=== PATIENT | male | born 1935 | race Caucasian/White ===

== ENCOUNTER → 2018-09-28 | Outpatient (CLI) | payer MEDICARE ==
[2018-09-27 15:16] VITALS: BMI 26.3
[2018-09-28 10:57] VITALS: BP 135/70; PULSE 71; RESP 16
--- NOTE | 2018-09-28 11:30 | P.PAINCN ---
History of Present Illness - Reason for Consult Consult date: 09/28/18 - History of Present Illness This is a 83 years old male with a three-month history of severe neck pain with radiation to the upper extremity, associated with numbness and tingling sensation up to the hands bilaterally, the pain is constant and increases with any activity especially neck movement, interfering with his quality of life, the pain is worse at night, he denies any fever or night sweats he denies any change in the bowel movement or urination, he denies any motor or sensory deficit, but he feels his upper extremity weaker than usual, and he had difficulty moving his shoulders. His currently using Neurontin 300 mg twice a day and he used [place] 5/325 when necessary Past Medical History Past Medical History: COPD, GERD/Reflux Additional Past Medical History / Comment(s): shoulder pain. rheumatoid arthritis. 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 and 50% other carotid artery History of Any Multi-Drug Resistant Organisms: None Reported Past Surgical History: Back Surgery, Hernia Repair, Orthopedic Surgery, Tonsillectomy Additional Past Surgical History / Comment(s): back surgery x2, rik hand surgery Past Anesthesia/Blood Transfusion Reactions: No Reported Reaction Past Psychological History: No Psychological Hx Reported Smoking Status: Former smoker Past Alcohol Use History: Rare Additional Past Alcohol Use History / Comment(s): quit 1972, smoked 20 years 1/2 -1 ppd Past Drug Use History: None Reported - Past Family History Mother Family Medical History: Cancer Father Additional Family Medical History / Comment(s): "black lung" Sister(s) Family Medical History: Cancer Medications and Allergies Home Medications Medication Instructions Recorded Confirmed Type Clopidogrel [Plavix] 75 mg PO DAILY 09/27/18 09/27/18 History Pantoprazole Sodium [Protonix] 40 mg PO DAILY 09/27/18 09/28/18 History Tamsulosin [Flomax] 0.4 mg PO BID 09/27/18 09/27/18 History Gabapentin [Neurontin] 300 mg PO TID 09/28/18 09/28/18 History HYDROcodone/APAP 5-325MG [[place] 1 tab PO DAILY PRN 09/28/18 09/28/18 History 5-325] Allergies Allergy/AdvReac Type Severity Reaction Status Date / Time No Known Allergies Allergy Verified 09/28/18 10:43 Physical Exam Vitals: Vital Signs Pulse Resp BP Pulse Ox 09/28/18 10:47 71 16 135/70 97 Intake and Output 09/27/18 09/28/18 09/28/18 22:59 06:59 14:59 Other: Weight 85.729 kg Social history : not smoker , NO ETOH , NO Illegal drugs use . Review of Systems : 1- Constitutional : no chills , no fever , no night sweats , 2- Ears : no ear discharge , no change in hearing 3-Nose, Mouth ,Throat ; no bleeding gums, no sore throat , no epistaxis , 4-Cardiovascular : Denies chest pain, , no orthopnea , no palpitation 5-Respiratory : Denies cough , no dyspnea , no hemoptysis 6-Gastrointestinal :, no change in bowel habits , no coffee- ground emesis . 7-Genitourinary : No hematuria , no discharge , no incontinence, 8-Musculoskeletal : No gait dysfunction , report low back pain , 9- Neurological : no ataxia , no tremor , no sezure , 10-Psychatric , no suicidal ideation no hallucination 11- Endocrine : no cold intolerence , no polyuria , no polydypsia , 12-Hematologic : no easy bleeding , no easy brusing , 13-Allergic / immunology : no angioedema , no wheezing ,no allergic rhinitis 14-Integumentary : no brttle nails , no change hair / nails , no foot/leg ulcers . Physical Examinations : 1-Constitutional : Cooperative , not in acute distress . 2-HEENT : nech ; supple , no Lymphadenopathy , no Thyromegaly , :eyes , no icterus, no photophobia . ENT : , normal oropharynx , no Thrush 3- Respiratory : Chest clear to auscultations Bilaterally , no wheezing 4- Cardiovascular : regular rate and rhythem , S1 , S2 , no S3 , no S4. 5- Gastrointestinal: abdomen soft no tenderness , no organomegally . 6- Genitourinary : Defferred . 7-Integumentary : No cellulitis , no ulcers , normal skin turgor , no cyanotic . 8- neurologic : Cranial nerve II to XII intact , no focal neurological deffecit 9-psychatric : alert , oriented X 3 , appropriate affect , intact judgment and insight . 10-Lymphatic : no Lymphadenopathy. 11- musculoskeltal: normal gait Cervical Spine motor stregnth in the deltoid and biceps, normal right side , normal Left side motor stregnth biceps and the wrist extensors normal right side ,normal left side . motor stregnth in the triceps muscle . normal Right side , normal Left side deep tendon reflexes normal at the biceps , normal at Brachioradialis , normal at triceps. positive cervical facet loading test . Shoulder examination= limited ability to abduct the upper extremity bilaterally Limited ability to external rotation of the shoulders bilaterally. Severe pain in the shoulder area with any shoulder manipulation Lumber spine moter stegnth lower extremities ,thigh and legs 5/5 Right side , 5/5 Left side Results Comments: MRI of the cervical spine multilevel cervical degenerative disc disease and multilevel cervical facet arthropathy and there is cervical foraminal stenosis at C3 4 bilaterally Assessment and Plan Plan: Assessment and plan=1 cervical radiculopathy. 2-cervical degenerative disc disease. 3-cervical spondylosis Bilateral shoulder arthralgia. Patient should continue on his current medication Neurontin 300 mg 3 times a day , [place] 5/325 every 6 hours when necessary Patient denies any side effect of the medication , he denies any excessive drowsiness or sleepiness. Patient could benefit from cervical epidural steroid injections under fluoroscopy guidance. Patient has his Plavix for 1 week before the procedure. Patient will be referred for orthopedic surgeon for evaluation regarding bilateral shoulder pain Time with Patient: Greater than 30 PQRS Measure Charge Sheet Measure #130: Documentation of Current Meds in Medical Chart: Patient's medications documented in chart Measure #226: Tobacco Use: Screen & Cessation Intervention: Pt not a tobacco user Measure #111: Pneumonia Vaccination: Pneumococcal vaccine administered or previously received Measure #47: Advance Care Plan: Advance care planning discussed & documented, pt chose/unable to give Measure #412: Opioid Treatment Agreement: No documentation of signed opioid treatment agreement Measure #408: Opioid Therapy Follow-up Evaluation: Patient had NO f/u eval minimum every 3 months during opioid therapy Measure #317: Preventitive Care & Scrn High Bld Press & F/U: Normal blood pressure, f/u not required Measure #128: Body Mass Index (BMI) Screening & Follow-up: BMI documented ABOVE normal parameters - f/u documented Measure #131: Pain Assessment & Follow-up: Pain positive & plan documented, Follow-up scheduled Measure #431: Unhealthy Alcohol Use Preventative Care & Scrn: Patient not identified as an unhealthy alcohol user PQRS Narrative: Smoking Status Former smoker Do You Want the Pneumonia Vaccine Up to Date Vaccine AT THIS TIME? Blood Pressure 135/70 Pain Intensity [Bilateral 7 Shoulder] Scale Used Numeric (1 - 10) Hx Alcohol Use (MH) No Home Medications: Ambulatory Orders Clopidogrel [Plavix] 75 mg PO DAILY 09/27/18 Pantoprazole Sodium [Protonix] 40 mg PO DAILY 09/27/18 Tamsulosin [Flomax] 0.4 mg PO BID 09/27/18 Gabapentin [Neurontin] 300 mg PO TID 09/28/18 HYDROcodone/APAP 5-325MG [[place] 5-325] 1 tab PO DAILY PRN 09/28/18
== END ==
LOC: PNWHC3 10:39
PROVIDERS: ATTEND Specialist
DX: M50.10 Cervical disc disorder with radiculopathy, unspecified cervical region (principal); M47.22 Other spondylosis with radiculopathy, cervical region; M25.512 Pain in left shoulder; M25.511 Pain in right shoulder; Z79.899 Other long term (current) drug therapy; Z79.891 Long term (current) use of opiate analgesic; Z87.891 Personal history of nicotine dependence
CPT/HCPCS: 99211

== ENCOUNTER 2018-10-10 08:55 | Day surgery (SDC) | payer MEDICARE ==
[2018-10-06 11:19] VITALS: BMI 26.2
[2018-10-10 10:08] VITALS: RESP 16; TEMP 97.2
[2018-10-10] MEDS ORDERED: LACTATED RINGERS 1,000 ML IV ONE (10:12)
[2018-10-10] MEDS ORDERED: LIDOCAINE 1% 20 ML VIAL (10MG/ML) FOR IV START INTRADERMA ONE (10:12)
--- NOTE | 2018-10-10 10:28 | P.PCN ---
Date of Procedure: 10/10/18 Procedure(s) Performed: . PROCEDURE 1. Cervical epidural steroid injection under fluoroscopic guidance, C7-T1 2. Cervical epidurogram. PREOPERATIVE DIAGNOSIS: 1- Cervical Degenerative Disc Diseases 2- Cervical radiculopathy. 3-cervical spondylosis with cervical Facet arthropathy without myelopathy POSTOPERATIVE DIAGNOSIS: : 1- Cervical Degenerative Disc Diseases , 2- Cervical radiculopathy. 3-cervical spondylosis with cervical Facet arthropathy without myelopathy ANESTHESIA: Local anesthesia with lidocaine 1 % , and moderate sedation, with Versed 1 mg. EBL 0 PROCEDURE INDICATION: The patient with neck pain and radiculitis unresponsive to conservative treatment consents for procedure. PROCEDURE DESCRIPTION / TECHNIQUE: The patient was seen and identified in the preoperative area. Risks, benefits, complications, including but not limited to infections ,bleeding , allergic reactions to the medications ,and not complete pain releife, and alternatives were discussed with the patient, the patient agreed to proceed with the procedure and signed the consent. Patient was taken to the OR and time out was completed. The patient was placed in the prone position on the procedure table. A pillow was placed under the patients chest to increase the cervical interlaminar space. The cervical area was prepped and draped in the usual sterile fashion. Vital signs were closely monitored during the procedure. Conscious sedation was used during the procedure to decrease patients anxiety. Using anterior-posterior fluoroscopy, the C7-T1 interlaminar space was identified and the skin over this site was marked and then infiltrated with 1% lidocaine subcutaneously. Subsequently, a 20-gauge 3-1/2-inch Tuohy epidural needle was inserted and advanced toward the epidural space by means of the `` hanging-drop technique and guided by AP and lateral fluoroscopy. The correct needle position in the epidural space was verified with the injection of 2 mL of the water soluble contrast dye Isovue-200 and observing an excellent epidurogram with the epidural spread of the dye, after negative aspiration for blood and CSF and in the absence of paresthesias. Again after negative aspiration, mixture containing 20 mg Dexamethasone and 2 ml of preservative- free normal saline injected and a washout of epidurogram was seen. Needle was withdrawn intact, skin was cleansed, and bandages were applied. Complications= none. Disposition= patient was placed in supine position and transferred to the recovery room area in stable condition and there was no evidence of upper or lower extremity motor or sensory deficit after the procedure patient was discharged from recovery room after discharge criteria met and home discharge instructions was given by the staff and patient will follow with the pain clinic in 2-4 weeks
[2018-10-10 10:49] VITALS: BP 108/68; PULSE 74
[2018-10-10] MEDS ORDERED: IV FLUID CONTINUATION 1,000 ML IV ONE (10:51)
--- NOTE | 2018-10-11 09:42 | FL ---
Fluoroscopy HISTORY: Pain 8 seconds fluoroscopy time supplied to the referring clinician. 1 intraoperative C-arm images docume nt the procedure. See dictated report from anesthesia.
== END 2018-10-10 11:00 | disposition home or self-care (01) ==
LOC: ORPAIN 08:55
PROVIDERS: ATTEND Specialist
DX: M47.22 Other spondylosis with radiculopathy, cervical region (principal); M50.13 Cervical disc disorder with radiculopathy, cervicothoracic region; J44.9 Chronic obstructive pulmonary disease, unspecified; K21.9 Gastro-esophageal reflux disease without esophagitis; M06.9 Rheumatoid arthritis, unspecified; I65.29 Occlusion and stenosis of unspecified carotid artery; M25.512 Pain in left shoulder; M25.511 Pain in right shoulder; Z87.891 Personal history of nicotine dependence; Z79.02 Long term (current) use of antithrombotics/antiplatelets; Z79.899 Other long term (current) drug therapy
CPT/HCPCS: 62321; J2250; J1100; Q9966

== ENCOUNTER → 2020-03-08 | Outpatient (CLI) | payer MEDICARE ==
--- NOTE | 2020-03-08 13:21 | CT ---
EXAMINATION TYPE: CT chest w con DATE OF EXAM: 03/08/2020 COMPARISON: None HISTORY: Abnormal lung lafleur, difficulty breathing. CT DLP: 452.2 mGycm Automated exposure control for dose reduction was used. CONTRAST: CT scan of the chest is performed with IV Contrast, patient injected with 80 mL of Isovue M300. FINDINGS: LUNGS: The lungs are grossly clear, there is no concerning parenchymal mass or nodule identified. T here is no pleural effusion or pneumothorax seen. The tracheobronchial tree is patent. Biapical pleu ral thickening. Subsegmental consolidation most typical of atelectasis. MEDIASTINUM: There are no greater than 1 cm hilar or mediastinal lymph nodes. No pericardial effusi on is seen. Heart size is prominent. Trace of pericardial fluid noted. OTHER: Small hiatal hernia. Coronary artery calcification noted. Atherosclerotic change aorta. Calcif ication upper pole right kidney. Simple appearing renal cysts are noted. Hypertrophic change of the s pine. IMPRESSION: 1. Subsegmental areas of consolidation most typical of atelectasis 2. Coronary artery dense calcification. 3. Nonobstructing right renal stone suspected renal cysts.
== END | disposition home or self-care (01) ==
LOC: RADCTMAIN 11:52
PROVIDERS: ATTEND Internal Medicine Critical Care Medicine
DX: J98.11 Atelectasis (principal); I25.10 Atherosclerotic heart disease of native coronary artery without angina pectoris; R91.8 Other nonspecific abnormal finding of lung field
CPT/HCPCS: 82565; 84520; 71260; 36415; Q9967

== ENCOUNTER 2020-07-13 10:02 | Observation (INO) | payer MEDICARE ==
[2020-07-13] MEDS ORDERED: SODIUM CHLORIDE 0.9% 1,000 ML IV STA (10:31)
[2020-07-13 11:05] LABS: Basophils % (A) 1 %; Eosinophils # (A) 0.1 k/uL (0-0.7); Eosinophils % (A) 2 %; HCT 40.6 % (39.0-53.0); HGB 13.5 gm/dL (13.0-17.5); Lymphocytes # (A) 0.6 k/uL (1.0-4.8); Lymphocytes % (A) 15 %; MCH 29.9 pg (25.0-35.0); MCHC 33.2 g/dL (31.0-37.0); MCV 90.3 fL (80.0-100.0); Mean Platelet Volume 7.8; Monocytes # (A) 0.2 k/uL (0-1.0); Monocytes % (A) 5 %; Neutrophils # (A) 2.8 k/uL (1.3-7.7); Neutrophils % (A) 74 %; RDW 13.2 % (11.5-15.5); WBC 3.8 k/uL (3.8-10.6)
[2020-07-13 11:09] LABS: Partial Thromboplastin Time 23.1 sec (22.0-30.0); Prothrombin Time 10.1 sec (9.0-12.0)
--- NOTE | 2020-07-13 11:09 | XR ---
EXAMINATION TYPE: XR chest 2V DATE OF EXAM: 07/13/2020 CLINICAL HISTORY: Weakness. TECHNIQUE: Frontal and lateral view of the chest. COMPARISON: None FINDINGS: The cardiomediastinal silhouette is within normal limits for size. Pulmonary vasculature i s normal. There is no focal air space opacity, pleural effusion, or pneumothorax seen. Degenerative c hanges of the shoulders and spine. IMPRESSION: No acute cardiopulmonary process.
[2020-07-13 11:11] LABS: Albumin 3.2 g/dL (3.5-5.0); Calcium 8.7 mg/dL (8.4-10.2); Magnesium 1.9 mg/dL (1.6-2.3); Potassium 3.9 mmol/L (3.5-5.1); Total Bilirubin 0.6 mg/dL (0.2-1.3); Total Protein 5.9 g/dL (6.3-8.2)
--- NOTE | 2020-07-13 11:13 | ED ---
General Adult HPI - General Source: patient, RN notes reviewed Mode of arrival: ambulatory Limitations: no limitations <Blas Chávez - Last Filed: 07/13/20 12:07> <Samir Rowland - Last Filed: 07/13/20 12:27> - General Chief complaint: Weakness Stated complaint: cough,not feeling well Time Seen by Provider: 07/13/20 10:16 - History of Present Illness Initial comments: This is a 85-year-old male presents emergency Department with chief complaint of increasing weakness, fever. Patient reportedly is having a fever for last several days T-max 103. Patient has been steadily declining over the last 7 days. Patient finished a course of steroids 7 days ago. Patient has underlying COPD. Patient currently sees Dr. Campos. Patient still has residual cough, shortness breath and which she gets exertional dyspnea. Patient denies sick contact. Denies sore throat, headache or dizziness no back pain no dysuria or hematuria no abdominal complaints. Patient had multiple recent fall secondary to his weakness. (Blas Chávez) - Related Data Home Medications Medication Instructions Recorded Confirmed Clopidogrel [Plavix] 75 mg PO DAILY 09/27/18 10/10/18 Pantoprazole Sodium [Protonix] 20 mg PO DAILY PRN 09/27/18 10/10/18 Tamsulosin [Flomax] 0.4 mg PO BID 09/27/18 10/10/18 Gabapentin [Neurontin] 300 mg PO TID 09/28/18 10/10/18 HYDROcodone/APAP 5-325MG [[place] 1 tab PO DAILY PRN 09/28/18 10/10/18 5-325] Allergies Allergy/AdvReac Type Severity Reaction Status Date / Time No Known Allergies Allergy Verified 07/13/20 10:12 Review of Systems ROS Other: All systems not noted in ROS Statement are negative. <Blas Chávez - Last Filed: 07/13/20 12:07> ROS Other: All systems not noted in ROS Statement are negative. <Samir Rowland - Last Filed: 07/13/20 12:27> ROS Statement: Those systems with pertinent positive or pertinent negative responses have been documented in the HPI. 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 and 50% rt carotid artery, History of Any Multi-Drug Resistant Organisms: None Reported Past Surgical History: Back Surgery, Hernia Repair, Orthopedic Surgery, Tonsillectomy Additional Past Surgical History / Comment(s): back laminectomy x2, rik hand surgery from injuries, tx varicose veins rik legs, rik cataracts Past Anesthesia/Blood Transfusion Reactions: No Reported Reaction Past Psychological History: No Psychological Hx Reported Smoking Status: Former smoker, Never smoker Past Alcohol Use History: Rare Past Drug Use History: None Reported - Past Family History Mother Family Medical History: Cancer Additional Family Medical History / Comment(s): bowel and ovarian Father Family Medical History: Cancer Additional Family Medical History / Comment(s): "black lung" Sister(s) Family Medical History: Cancer Additional Family Medical History / Comment(s): ovarian <Blas Chávez - Last Filed: 07/13/20 12:07> General Exam Limitations: no limitations General appearance: alert, in no apparent distress Head exam: Present: atraumatic, normocephalic, normal inspection Eye exam: Present: normal appearance, PERRL, EOMI. Absent: scleral icterus, conjunctival injection, periorbital swelling ENT exam: Present: normal exam, normal oropharynx, mucous membranes moist Neck exam: Present: normal inspection, full ROM. Absent: tenderness, meningismus, lymphadenopathy Respiratory exam: Present: normal lung sounds bilaterally. Absent: respiratory distress, wheezes, rales, rhonchi, stridor Cardiovascular Exam: Present: normal rhythm, bradycardia, normal heart sounds. Absent: systolic murmur, diastolic murmur, rubs, gallop, clicks GI/Abdominal exam: Present: soft, normal bowel sounds. Absent: distended, tenderness, guarding, rebound, rigid <Blas Chávez - Last Filed: 07/13/20 12:07> Course <Samir Rowland - Last Filed: 07/13/20 12:27> Vital Signs 07/13/20 07/13/20 07/13/20 10:10 11:12 12:12 Temperature 98.8 F Pulse Rate 58 L 73 73 Respiratory 18 16 16 Rate Blood Pressure 92/55 121/58 116/61 O2 Sat by Pulse 94 L 95 95 Oximetry - Reevaluation(s) Reevaluation #1: 07/13/20 12:27 Page supervision: I did personally evaluate this case patient presenting with complaints of fever weakness of falls exertional dyspnea. Patient is awake and alert however. Patient will be admitted the case was discussed with Dr. Vincent (Samir Rowland) Medical Decision Making - Lab Data Result diagrams: 07/13/20 10:52 07/13/20 10:52 <Blas Chávez - Last Filed: 07/13/20 12:07> - Lab Data Result diagrams: 07/13/20 10:52 07/13/20 10:52 <Samir Rowland - Last Filed: 07/13/20 12:27> - Medical Decision Making 85-year-old presented for hypoxia, exertional dyspnea, jaundice weakness and multiple falls. Patient's workup does not feel any major abnormality so patient has difficult and bleeding. Patient be admitted for further workup patient recent CT at [facility] which showed nodules. Patient was advised that he needed further workup. (Blas Chávez) - Lab Data Lab Results 07/13/20 07/13/20 07/13/20 Range/Units 10:52 10:52 10:52 WBC 3.8 (3.8-10.6) k/uL RBC 4.50 (4.30-5.90) m/uL Hgb 13.5 (13.0-17.5) gm/dL Hct 40.6 (39.0-53.0) % MCV 90.3 (80.0-100.0) fL MCH 29.9 (25.0-35.0) pg MCHC 33.2 (31.0-37.0) g/dL RDW 13.2 (11.5-15.5) % Plt Count 53 L (150-450) k/uL Neutrophils % 74 % Lymphocytes % 15 % Monocytes % 5 % Eosinophils % 2 % Basophils % 1 % Neutrophils # 2.8 (1.3-7.7) k/uL Lymphocytes # 0.6 L (1.0-4.8) k/uL Monocytes # 0.2 (0-1.0) k/uL Eosinophils # 0.1 (0-0.7) k/uL Basophils # 0.0 (0-0.2) k/uL Manual Slide Review Performed PT 10.1 (9.0-12.0) sec INR 1.0 (<1.2) APTT 23.1 (22.0-30.0) sec Sodium 135 L (137-145) mmol/L Potassium 3.9 (3.5-5.1) mmol/L Chloride 106 (98-107) mmol/L Carbon Dioxide 23 (22-30) mmol/L Anion Gap 6 mmol/L BUN 20 (9-20) mg/dL Creatinine 1.13 (0.66-1.25) mg/dL Est GFR (CKD-EPI)AfAm 69 (>60 ml/min/1.73 sqM) Est GFR (CKD-EPI)NonAf 60 (>60 ml/min/1.73 sqM) Glucose 143 H (74-99) mg/dL Plasma Lactic Acid Bret (0.7-2.0) mmol/L Calcium 8.7 (8.4-10.2) mg/dL Magnesium 1.9 (1.6-2.3) mg/dL Total Bilirubin 0.6 (0.2-1.3) mg/dL AST 23 (17-59) U/L ALT 12 (4-49) U/L Alkaline Phosphatase 59 (38-126) U/L Creatine Kinase 26 L (55-170) U/L Troponin I (0.000-0.034) ng/mL Total Protein 5.9 L (6.3-8.2) g/dL Albumin 3.2 L (3.5-5.0) g/dL 07/13/20 07/13/20 Range/Units 10:52 10:52 WBC (3.8-10.6) k/uL RBC (4.30-5.90) m/uL Hgb (13.0-17.5) gm/dL Hct (39.0-53.0) % MCV (80.0-100.0) fL MCH (25.0-35.0) pg MCHC (31.0-37.0) g/dL RDW (11.5-15.5) % Plt Count (150-450) k/uL Neutrophils % % Lymphocytes % % Monocytes % % Eosinophils % % Basophils % % Neutrophils # (1.3-7.7) k/uL Lymphocytes # (1.0-4.8) k/uL Monocytes # (0-1.0) k/uL Eosinophils # (0-0.7) k/uL Basophils # (0-0.2) k/uL Manual Slide Review PT (9.0-12.0) sec INR (<1.2) APTT (22.0-30.0) sec Sodium (137-145) mmol/L Potassium (3.5-5.1) mmol/L Chloride (98-107) mmol/L Carbon Dioxide (22-30) mmol/L Anion Gap mmol/L BUN (9-20) mg/dL Creatinine (0.66-1.25) mg/dL Est GFR (CKD-EPI)AfAm (>60 ml/min/1.73 sqM) Est GFR (CKD-EPI)NonAf (>60 ml/min/1.73 sqM) Glucose (74-99) mg/dL Plasma Lactic Acid Bret 2.0 (0.7-2.0) mmol/L Calcium (8.4-10.2) mg/dL Magnesium (1.6-2.3) mg/dL Total Bilirubin (0.2-1.3) mg/dL AST (17-59) U/L ALT (4-49) U/L Alkaline Phosphatase (38-126) U/L Creatine Kinase (55-170) U/L Troponin I <0.012 (0.000-0.034) ng/mL Total Protein (6.3-8.2) g/dL Albumin (3.5-5.0) g/dL Disposition <Blas Chávez - Last Filed: 07/13/20 12:07> <Samir Rowland - Last Filed: 07/13/20 12:27> Clinical Impression: Exertional dyspnea, Multiple falls, COPD (chronic obstructive pulmonary disease), Hypoxia Disposition: ADMITTED IP TO THIS HOSP Condition: Poor
[2020-07-13 11:46] LABS: Platelet Count 53 k/uL (150-450)
[2020-07-13] MEDS ORDERED: NALOXONE 0.4 MG/ML 1 ML VIAL IV PRN (12:08)
[2020-07-13] MEDS ORDERED: ONDANSETRON 4 MG/2 ML VIAL IVP PRN (12:08)
[2020-07-13] MEDS ORDERED: IPRATROPIUM-ALBUTEROL 3 ML NEB INHALATION PRN (12:09)
[2020-07-13] MEDS ORDERED: HYDROcodone/APAP 5-325MG 1 EACH TAB PO PRN (12:55)
[2020-07-13] MEDS: ACETAMINOPHEN TAB 325 MG TAB PO PRN ×2 (15:12→19:54)
--- NOTE | 2020-07-13 16:00 | ECHOF ---
Referral Reason:Exertional dyspnea MEASUREMENTS -------- HEIGHT: 180.3 cm WEIGHT: 77.1 kg BP: FINDINGS -------- This was a technically good study. The left ventricular size is normal. Left ventricular wall thickness is normal. Overall left vent ricular systolic function is normal with, an EF between 55 - 60 %. The right ventricle is mild to moderately enlarged. The left atrial size is normal. The right atrial size is normal. The aortic valve is trileaflet and appears structurally normal. The mitral valve is normal. There is trace mitral regurgitation. The tricuspid valve appears structurally normal. Trace tricuspid regurgitation present. Right harley tricular systolic pressure is normal at < 35 mmHg. There is no pulmonic regurgitation present. The aortic root size is normal. IVC Not well visulized. There is no pericardial effusion. CONCLUSIONS -------- 1. The left ventricular size is normal. 2. Left ventricular wall thickness is normal. 3. Overall left ventricular systolic function is normal with, an EF between 55 - 60 %. 4. The right ventricle is mild to moderately enlarged. 5. There is trace mitral regurgitation. 6. Trace tricuspid regurgitation present. 7. There is no pericardial effusion. [employer]OR PLATE W[employer]ER: Meena Raines [facility]
--- NOTE | 2020-07-13 16:21 | P.HPIM ---
History of Present Illness H&P Date: 07/13/20 This is a 85-year-old male with complex past medical history noted below significant for coronary artery disease with prior stent placement and underlying COPD presented to the emergency room with shortness of breath. Patient was admitted to Dr. Heredia but per his request was switched to me upon arrival to the floor. Patient was seen by me on the sixth floor. He said that he has been having worsening shortness of breath for the past couple of weeks. He usually follow-up with Dr. Campos for underlying COPD and just recently finished a taper course prednisone. He said that shortness of breath did not improve and last night he went to an emergency room in [place] where he was evaluated and according to his report had a computed tomography scan of the chest that was unremarkable and influenza screen that was negative. Patient was released and went today to a local urgent care who advised him to come to the ER. Patient told me that he is not having any cough at this time. Last week he was having some intermittent cough along with a fever. He denies any fevers or chills today. No headache. No dizziness. No wheezing. No recent sick contact. He told me that his grandson who is an ICU nurse at our hospital encouraged him to come to the ER for evaluation. In the ER, chest x-ray was unremarkable. Patient was noted to have O2 sat of 93% on room air. He was placed on observation for further evaluation. BNP was not obtained in the ER. Twelve-lead EKG showed no acute ischemic changes. Review of Systems Review of system: 14 points review of systems were obtained and were negative except to what were mentioned in the HPI. Past Medical History Past Medical History: COPD, GERD/Reflux, Myocardial Infarction ([place]), Rheumatoid Arthritis ([place]) Additional Past Medical History / Comment(s): 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, [place] at [facility] Last Myocardial Infarction Date:: 10/2018 History of Any Multi-Drug Resistant Organisms: None Reported Past Surgical History: Back Surgery, Heart Catheterization With Stent, Hernia Repair, Orthopedic Surgery, Tonsillectomy Additional Past Surgical History / Comment(s): back laminectomy x2, rik hand surgery from injuries, tx varicose veins rik legs, rik cataracts, pain procedures r/t shoulder pain Past Anesthesia/Blood Transfusion Reactions: No Reported Reaction Date of Last Stent Placement:: 10/2018 Past Psychological History: No Psychological Hx Reported Smoking Status: Former smoker, Never smoker Past Alcohol Use History: Rare Additional Past Alcohol Use History / Comment(s): quit 1972, smoked 20 years 1/2-1 ppd Past Drug Use History: None Reported - Past Family History Mother Family Medical History: Cancer Additional Family Medical History / Comment(s): bowel and ovarian Father Family Medical History: Cancer Additional Family Medical History / Comment(s): "black lung" Sister(s) Family Medical History: Cancer Additional Family Medical History / Comment(s): ovarian Medications and Allergies Home Medications Medication Instructions Recorded Confirmed Type Clopidogrel [Plavix] 75 mg PO DAILY 09/27/18 07/13/20 History Tamsulosin [Flomax] 0.4 mg PO BID 09/27/18 07/13/20 History HYDROcodone/APAP 5-325MG [[place] 1 tab PO BID PRN 09/28/18 07/13/20 History 5-325] Aspirin EC [Ecotrin Low Dose] 81 mg PO DAILY 07/13/20 07/13/20 History Atorvastatin [Lipitor] 40 mg PO HS 07/13/20 07/13/20 History Metoprolol Tartrate 12.5 mg PO BID 07/13/20 07/13/20 History Multivitamins, Thera [Multivitamin 1 tab PO DAILY 07/13/20 07/13/20 History (formulary)] Pantoprazole Sodium [Protonix] 40 mg PO DAILY 07/13/20 07/13/20 History Umeclidinium Brm/Vilanterol Tr 1 puff INHALATION RT-DAILY 07/13/20 07/13/20 History [Anoro Ellipta 62.5-25 Mcg INH] Allergies Allergy/AdvReac Type Severity Reaction Status Date / Time No Known Allergies Allergy Verified 07/13/20 12:38 Physical Exam Vitals: Vital Signs Temp Pulse Pulse Resp BP BP Pulse Ox 07/13/20 13:52 98.0 F 94 18 124/66 93 L 07/13/20 13:00 16 95 07/13/20 12:40 98.8 F 73 16 116/61 95 07/13/20 12:12 73 16 116/61 95 07/13/20 11:12 73 16 121/58 95 07/13/20 10:10 98.8 F 58 L 18 92/55 94 L Intake and Output 07/13/20 07/13/20 07/13/20 06:59 14:59 22:59 Other: Weight 76.5 kg General: The patient is awake and alert, in no distress Eye: there is normal conjunctiva bilaterally. Neck: The neck is supple, there is no JVD. Cardiovascular: Normal S1-S2, no S3-S4, no murmurs. Respiratory: Lungs clear to auscultation bilaterally Gastrointestinal: Abdomen is soft, nontender Musculoskeletal: There is no pedal edema. Neurological:. Speech is normal. Skin: Skin is warm and dry Results CBC & Chem 7: 07/13/20 10:52 07/13/20 10:52 Labs: Abnormal Lab Results - Last 24 Hours (Table) 07/13/20 07/13/20 Range/Units 10:52 10:52 Plt Count 53 L (150-450) k/uL Lymphocytes # 0.6 L (1.0-4.8) k/uL Sodium 135 L (137-145) mmol/L Glucose 143 H (74-99) mg/dL Creatine Kinase 26 L (55-170) U/L Total Protein 5.9 L (6.3-8.2) g/dL Albumin 3.2 L (3.5-5.0) g/dL Assessment and Plan Assessment: This is a 85-year-old male with past medical history noted below who presented to the emergency room with worsening shortness of breath. He is currently placed in observation for further management of his medical problems noted below. 1. Progressive dyspnea, exact etiology unclear. Chest x-ray in the ER unre markable. Lung sounds clear with no wheezing and good air movement. No evidence of heart failure or fluid overload clinically. I would obtain BNP. Coronavirus test sent and pending. 2. Underlying COPD: With no evidence of exacerbation. Continue duo nebs every [address] Campos 3. History of coronary artery disease with prior stent placement: Continue optimal medical management. Cardiology consulted by ER physician. Echocardiogram ordered 4. Chronic medical problems include hyperlipidemia and BPH: Continue home medications 5. DVT prophylaxis with subcu Lovenox 6. Patient is full code, discussed with him at bedside Today, I reviewed his medication list and lab work results. I asked the nurse to obtain medical records from [place] as patient was in the ER yesterday. I asked in particular for computed tomography scan of the chest and influenza A/B resolved. The patient is placed in observation with an anticipated less than 2 midnight stay for evaluation of the medical problems noted above. CODE STATUS: Full code Anticipated discharge date: To be determined based on clinical course Anticipated discharge place: Home A total of 45 minutes was spent on the care of this complex patient more than 50% of the time was spent in counseling and care coordination.
[2020-07-13] MEDS: TAMSULOSIN 0.4 MG CAP.ER.24H PO SCH (19:54)
[2020-07-13] MEDS: ATORVASTATIN 40 MG TAB PO SCH (19:54)
[2020-07-13] MEDS: METOPROLOL TARTRATE 12.5 MG TAB PO SCH (19:54)
[2020-07-13] MEDS ORDERED: IPRATROPIUM-ALBUTEROL 3 ML NEB INHALATION SCH (20:00)
[2020-07-13 23:40] LABS: Appearance,Urine Clear (Clear); Bilirubin,Urine Negative (Negative); Blood,Urine Negative (Negative); Color,Urine Yellow; Glucose,Urine (UA) Negative (Negative); Ketones,Urine Negative (Negative); Leukocyte Esterase,Urine Negative (Negative); Nitrite,Urine Negative (Negative); Protein,Urine Negative (Negative); Specific Gravity,Urine 1.015 (1.001-1.035); Urobilinogen,Urine <2.0 mg/dL (<2.0)
[2020-07-14] MEDS: ACETAMINOPHEN TAB 325 MG TAB PO PRN (04:12)
[2020-07-14] MEDS: ALBUTEROL HFA INHALER INHALATION SCH ×4 (08:03→21:26)
[2020-07-14] MEDS ORDERED: ENOXAPARIN 40 MG/0.4 ML SYRINGE SQ SCH (09:00)
[2020-07-14] MEDS ORDERED: CLOPIDOGREL 75 MG TAB PO SCH (09:00)
[2020-07-14] MEDS: TAMSULOSIN 0.4 MG CAP.ER.24H PO SCH ×2 (10:17→20:58)
[2020-07-14] MEDS: MULTIVITAMINS, THERA 1 EACH TAB PO SCH (10:17)
[2020-07-14] MEDS: ASPIRIN 81 MG PO SCH (10:17)
[2020-07-14] MEDS: METOPROLOL TARTRATE 12.5 MG TAB PO SCH ×2 (10:17→20:57)
[2020-07-14] MEDS: PANTOPRAZOLE 40 MG TABLET PO SCH (10:19)
--- NOTE | 2020-07-14 10:43 | P.CRDCN ---
History of Present Illness Consult date: 07/14/20 History of present illness: This is a 85-year-old gentleman with history of coronary artery disease with stent placement done in [facility]. Apparently it was done in June of last year. Patient has underlying COPD and shortness of breath.. Patient is seen in the emergency room with complaints of increasing shortness of breath. Patient has been having this for the last couple weeks. He was treated with tapering dose of steroids. Apparently his shortness of breath did not improve, and he went to monitor him at [facility] emergency room. He had a computed tomography scan of the chest which was unremarkable. He was sent home. Yesterday patient went to [facility] who recommended him to come to the hospital. Apparently a rapid testing COVID is negative. PCR test is pending. His BNP is normal. His chest x-ray did not show any Sigmund CHF. He is not having any chest pain at this time. His EKG did not reveal any acute changes and most of the information is gathered from the chart and also partly from the nurses. Patient is not personally examined Review of Systems As per the chart Past Medical History Past Medical History: COPD, GERD/Reflux, Myocardial Infarction ([place]), Rheumatoid Arthritis ([place]) Additional Past Medical History / Comment(s): 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, [place] at [facility] Last Myocardial Infarction Date:: 10/2018 History of Any Multi-Drug Resistant Organisms: None Reported Past Surgical History: Back Surgery, Heart Catheterization With Stent, Hernia Repair, Orthopedic Surgery, Tonsillectomy Additional Past Surgical History / Comment(s): back laminectomy x2, rik hand surgery from injuries, tx varicose veins rik legs, rik cataracts, pain procedures r/t shoulder pain Past Anesthesia/Blood Transfusion Reactions: No Reported Reaction Date of Last Stent Placement:: 10/2018 Past Psychological History: No Psychological Hx Reported Smoking Status: Former smoker, Never smoker Past Alcohol Use History: Rare Additional Past Alcohol Use History / Comment(s): quit 1972, smoked 20 years 1/2-1 ppd Past Drug Use History: None Reported - Past Family History Mother Family Medical History: Cancer Additional Family Medical History / Comment(s): bowel and ovarian Father Family Medical History: Cancer Additional Family Medical History / Comment(s): "black lung" Sister(s) Family Medical History: Cancer Additional Family Medical History / Comment(s): ovarian Medications and Allergies Home Medications Medication Instructions Recorded Confirmed Type Clopidogrel [Plavix] 75 mg PO DAILY 09/27/18 07/13/20 History Tamsulosin [Flomax] 0.4 mg PO BID 09/27/18 07/13/20 History HYDROcodone/APAP 5-325MG [[place] 1 tab PO BID PRN 09/28/18 07/13/20 History 5-325] Aspirin EC [Ecotrin Low Dose] 81 mg PO DAILY 07/13/20 07/13/20 History Atorvastatin [Lipitor] 40 mg PO HS 07/13/20 07/13/20 History Metoprolol Tartrate 12.5 mg PO BID 07/13/20 07/13/20 History Multivitamins, Thera [Multivitamin 1 tab PO DAILY 07/13/20 07/13/20 History (formulary)] Pantoprazole Sodium [Protonix] 40 mg PO DAILY 07/13/20 07/13/20 History Umeclidinium Brm/Vilanterol Tr 1 puff INHALATION RT-DAILY 07/13/20 07/13/20 History [Anoro Ellipta 62.5-25 Mcg INH] Allergies Allergy/AdvReac Type Severity Reaction Status Date / Time No Known Allergies Allergy Verified 07/13/20 12:38 Physical Exam Vitals: Vital Signs Temp Pulse Pulse Resp BP BP Pulse Ox 07/14/20 04:41 98.4 F 98 22 113/57 92 L 07/13/20 23:41 20 07/13/20 21:31 100.1 F H 07/13/20 21:19 90 07/13/20 21:06 88 07/13/20 20:20 100.8 F H 92 22 132/68 92 L 07/13/20 16:53 95 07/13/20 13:52 98.0 F 94 18 124/66 93 L 07/13/20 13:00 16 95 07/13/20 12:40 98.8 F 73 16 116/61 95 07/13/20 12:12 73 16 116/61 95 07/13/20 11:12 73 16 121/58 95 Intake and Output 07/13/20 07/14/20 07/14/20 22:59 06:59 14:59 Intake Total 360 240 Output Total 300 Balance 60 240 Intake: Oral 360 240 Output: Urine 300 Other: # Voids 1 # Bowel Movements 1 Patient is not personally examined. Information is gathered from the chart Results - Results Results: EKG showed sinus rhythm. Echo showed normal LV function. BNP level are within normal limits. At this point there doesn't seem to be any acute cardiac issue. We'll seeing him on when necessary basis 07/13/20 10:52 07/13/20 10:52 Cardiac Enzymes 07/13/20 07/13/20 Range/Units 10:52 10:52 AST 23 (17-59) U/L Troponin I <0.012 (0.000-0.034) ng/mL Coagulation 07/13/20 Range/Units 10:52 PT 10.1 (9.0-12.0) sec APTT 23.1 (22.0-30.0) sec CBC 07/13/20 Range/Units 10:52 WBC 3.8 (3.8-10.6) k/uL RBC 4.50 (4.30-5.90) m/uL Hgb 13.5 (13.0-17.5) gm/dL Hct 40.6 (39.0-53.0) % Plt Count 53 L (150-450) k/uL Comprehensive Metabolic Panel 07/13/20 Range/Units 10:52 Sodium 135 L (137-145) mmol/L Potassium 3.9 (3.5-5.1) mmol/L Chloride 106 (98-107) mmol/L Carbon Dioxide 23 (22-30) mmol/L BUN 20 (9-20) mg/dL Creatinine 1.13 (0.66-1.25) mg/dL Glucose 143 H (74-99) mg/dL Calcium 8.7 (8.4-10.2) mg/dL AST 23 (17-59) U/L ALT 12 (4-49) U/L Alkaline Phosphatase 59 (38-126) U/L Total Protein 5.9 L (6.3-8.2) g/dL Albumin 3.2 L (3.5-5.0) g/dL Current Medications Generic Name Dose Route Start Last Admin Trade Name Freq PRN Reason Stop Dose Admin Acetaminophen 650 mg 07/13/20 12:08 07/14/20 04:12 Acetaminophen Tab 325 Mg Tab PO 650 mg Q6HR PRN Administration Mild Pain or Fever > 100.5 Hydrocodone Bitart/Acetaminophen 1 each 07/13/20 12:55 Hydrocodone/Apap 5-325mg 1 Each Tab PO BID PRN Pain Albuterol Sulfate 2 puff 07/14/20 08:00 07/14/20 08:03 Albuterol Hfa Inhaler INHALATION Not Given RT-QID PEGGY Aspirin 81 mg 07/14/20 09:00 07/14/20 10:17 Aspirin 81 Mg PO 81 mg DAILY PEGGY Administration Atorvastatin Calcium 40 mg 07/13/20 21:00 07/13/20 19:54 Atorvastatin 40 Mg Tab PO 40 mg HS PEGGY Administration Clopidogrel Bisulfate 75 mg 07/14/20 09:00 07/14/20 10:18 Clopidogrel 75 Mg Tab PO Not Given DAILY PEGGY Enoxaparin Sodium 40 mg 07/14/20 09:00 07/14/20 10:18 Enoxaparin 40 Mg/0.4 Ml Syringe SQ Not Given DAILY [facility] Metoprolol Tartrate 12.5 mg 07/13/20 21:00 07/14/20 10:17 Metoprolol Tartrate 12.5 Mg Tab PO 12.5 mg BID PEGGY Administration Multivitamins 1 each 07/14/20 09:00 07/14/20 10:17 Multivitamins, Thera 1 Each Tab PO 1 each DAILY PEGGY Administration Naloxone HCl 0.2 mg 07/13/20 12:08 Naloxone 0.4 Mg/Ml 1 Ml Vial IV Q2M PRN Opioid Reversal Ondansetron HCl 4 mg 07/13/20 12:08 Ondansetron 4 Mg/2 Ml Vial IVP Q8HR PRN Nausea And Vomiting Pantoprazole Sodium 40 mg 07/14/20 07:30 07/14/20 10:19 Pantoprazole 40 Mg Tablet PO 40 mg [id number] PEGGY Administration Tamsulosin HCl 0.4 mg 07/13/20 21:00 07/14/20 10:17 Tamsulosin 0.4 Mg Cap.Er.24h PO 0.4 mg BID PEGGY Administration Intake and Output 07/13/20 07/14/20 07/14/20 22:59 06:59 14:59 Intake Total 360 240 Output Total 300 Balance 60 240 Intake: Oral 360 240 Output: Urine 300 Other: # Voids 1 # Bowel Movements 1 07/13/20 10:52 07/13/20 10:52
[2020-07-14 12:43] LABS: Basophils % (A) 1 %; Eosinophils # (A) 0.1 k/uL (0-0.7); Eosinophils % (A) 2 %; HCT 37.5 % (39.0-53.0); HGB 12.7 gm/dL (13.0-17.5); Lymphocytes # (A) 0.7 k/uL (1.0-4.8); Lymphocytes % (A) 17 %; MCHC 33.7 g/dL (31.0-37.0); MCV 89.1 fL (80.0-100.0); Mean Platelet Volume 9.4; Monocytes # (A) 0.3 k/uL (0-1.0); Monocytes % (A) 7 %; Neutrophils # (A) 2.8 k/uL (1.3-7.7); Neutrophils % (A) 69 %; RBC 4.21 m/uL (4.30-5.90); RDW 13.2 % (11.5-15.5)
[2020-07-14 12:47] LABS: Platelet Count 30 k/uL (150-450)
--- NOTE | 2020-07-14 13:20 | P.CNPUL ---
History of Present Illness Consult date: 07/14/20 Requesting physician: Oleg Lira Reason for consult: dyspnea Chief complaint: Fever, weakness, shortness of breath with exertion History of present illness: This is a very pleasant 85-year-old gentleman who follows with Dr. Reynolds as his primary care provider. He has a history of hyperlipidemia, history esophageal reflux disease, carotid artery stenosis with 100% occlusion of the left and 50% in the right, rheumatoid arthritis, former smoker, schreiber. He follows with Dr. Campos in our office. He is on Anoro, albuterol in the outpatient setting. He has been having ongoing issues with increasing shortness of breath on exertion, cough congestion fever with a T-max of 103. He had been seen and evaluated at [facility]. He was treated with antibiotics and discharged home. He has had several CoVID 19 tests that have been reported negative. He had also been treated with steroids by Dr. Campos which she completed last . On Wednesday he developed increasing shortness of breath again. He redeveloped fever. He presented here for the same yesterday. Covid 19 screen pending. Chest x-ray reveals no acute cardiopulmonary process. White count 4.0. Hemoglobin 12.7. Platelet count 30,000. Lymphocytes 0.7. Sodium 135. Potassium 3.9. Glucose 143. Creatinine 1.13. ProBNP 424. Troponin negative 1. He is seen today in consultation. He is awake and alert. Up ambulating in the room. He denies any worsening shortness of breath however he states he is still quite dyspneic with minimal exertion. Currently afebrile. Hemodynamically stable. Maintaining O2 saturation 90% on room air. 92% on 3 L. Review of Systems REVIEW OF SYSTEMS: CONSTITUTIONAL: Generalized weakness, fatigue. Fevers. Denies any recent significant weight loss or weight gain. EYES: Denies change in vision. EARS, NOSE, MOUTH, THROAT: Denies headaches, denies sore throat. CARDIOVASCULAR: Denies chest pain, palpitations or syncopal episodes. RESPIRATORY: Positive for shortness of breath, cough, congestion no hemoptysis. GASTROINTESTINAL: Denies change in appetite, denies abdominal pain GENITOURINARY: Denies hematuria, denies infections. MUSKULOSKELETAL: Denies pain, denies swelling. INTEGUMENTARY: Denies rash, denies eczema. NEUROLOGICAL: Denies recent memory loss, no recent seizure activity. PSYCHIATRIC: Denies anxiety, denies depression. HEMATOLOGIC/LYMPHATIC: Denies anemia, denies enlarged lymph nodes. Past Medical History Past Medical History: COPD, GERD/Reflux, Myocardial Infarction ([place]), Rheumatoid Arthritis ([place]) Additional Past Medical History / Comment(s): 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, [place] at [facility] Last Myocardial Infarction Date:: 10/2018 History of Any Multi-Drug Resistant Organisms: None Reported Past Surgical History: Back Surgery, Heart Catheterization With Stent, Hernia Repair, Orthopedic Surgery, Tonsillectomy Additional Past Surgical History / Comment(s): back laminectomy x2, rik hand surgery from injuries, tx varicose veins rik legs, rik cataracts, pain procedures r/t shoulder pain Past Anesthesia/Blood Transfusion Reactions: No Reported Reaction Date of Last Stent Placement:: 10/2018 Past Psychological History: No Psychological Hx Reported Smoking Status: Former smoker, Never smoker Past Alcohol Use History: Rare Additional Past Alcohol Use History / Comment(s): quit 1972, smoked 20 years 1/2-1 ppd Past Drug Use History: None Reported - Past Family History Mother Family Medical History: Cancer Additional Family Medical History / Comment(s): bowel and ovarian Father Family Medical History: Cancer Additional Family Medical History / Comment(s): "black lung" Sister(s) Family Medical History: Cancer Additional Family Medical History / Comment(s): ovarian Medications and Allergies Home Medications Medication Instructions Recorded Confirmed Type Clopidogrel [Plavix] 75 mg PO DAILY 09/27/18 07/13/20 History Tamsulosin [Flomax] 0.4 mg PO BID 09/27/18 07/13/20 History HYDROcodone/APAP 5-325MG [[place] 1 tab PO BID PRN 09/28/18 07/13/20 History 5-325] Aspirin EC [Ecotrin Low Dose] 81 mg PO DAILY 07/13/20 07/13/20 History Atorvastatin [Lipitor] 40 mg PO HS 07/13/20 07/13/20 History Metoprolol Tartrate 12.5 mg PO BID 07/13/20 07/13/20 History Multivitamins, Thera [Multivitamin 1 tab PO DAILY 07/13/20 07/13/20 History (formulary)] Pantoprazole Sodium [Protonix] 40 mg PO DAILY 07/13/20 07/13/20 History Umeclidinium Brm/Vilanterol Tr 1 puff INHALATION RT-DAILY 07/13/20 07/13/20 History [Anoro Ellipta 62.5-25 Mcg INH] Allergies Allergy/AdvReac Type Severity Reaction Status Date / Time No Known Allergies Allergy Verified 07/13/20 12:38 Physical Exam Vitals: Vital Signs Temp Pulse Pulse Resp BP Pulse Ox 07/14/20 12:00 98.9 F 72 18 111/60 90 L 07/14/20 04:41 98.4 F 98 22 113/57 92 L 07/13/20 23:41 20 07/13/20 21:31 100.1 F H 07/13/20 21:19 90 07/13/20 21:06 88 07/13/20 20:20 100.8 F H 92 22 132/68 92 L 07/13/20 16:53 95 07/13/20 13:52 98.0 F 94 18 124/66 93 L Intake and Output 07/13/20 07/14/20 07/14/20 22:59 06:59 14:59 Intake Total 360 240 Output Total 300 Balance 60 240 Intake: Oral 360 240 Output: Urine 300 Other: # Voids 1 # Bowel Movements 1 GENERAL EXAM: Alert, very pleasant 85-year-old gentleman, on 3 L nasal cannula, comfortable in no apparent distress. HEAD: Normocephalic. EYES: Normal reaction of pupils, equal size. NOSE: Clear with pink turbinates. THROAT: No erythema or exudates. NECK: No masses, no JVD. CHEST: No chest wall deformity. LUNGS: Equal air entry with no crackles, wheeze, rhonchi or dullness. CVS: S1 and S2 normal with no audible murmur, regular rhythm. ABDOMEN: No hepatosplenomegaly, normal bowel sounds, no guarding or rigidity. SPINE: No scoliosis or deformity SKIN: No rashes CENTRAL NERVOUS SYSTEM: No focal deficits, tone is normal in all 4 extremities. EXTREMITIES: There is no peripheral edema. No clubbing, no cyanosis. Pe ripheral pulses are intact. Results - Laboratory Findings CBC and BMP: 07/14/20 12:33 07/13/20 10:52 PT/INR, D-dimer PT 10.1 sec (9.0-12.0) 07/13/20 10:52 INR 1.0 (<1.2) 07/13/20 10:52 Abnormal lab findings: Abnormal Labs 07/13/20 07/13/20 07/14/20 10:52 10:52 12:33 RBC 4.21 L Hgb 12.7 L Hct 37.5 L Plt Count 53 L 30 L Lymphocytes # 0.6 L 0.7 L Sodium 135 L Glucose 143 H Creatine Kinase 26 L Total Protein 5.9 L Albumin 3.2 L - Diagnostic Findings Chest x-ray: image reviewed Assessment and Plan Assessment: 1 Febrile illness of unknown origin. Previous outpatient CoVID 19 screens were negative. He had been recently on antibiotics from [facility]. Repeat testing pending 2 Dyspnea on exertion, cough and fever possible acute exacerbation of COPD with acute tracheobronchitis. CT angiogram performed at [facility] ruled out pulmonary embolism 3 Recent admission to [facility] for suspected pneumonia 4 Thrombocytopenia of unclear etiology. Current platelet count 30,000 5 Rheumatoid arthritis 6 Carotid stenosis. 7 Esophageal reflux disease Plan: The patient was seen and evaluated by Dr. Bobby Chest x-ray and labs reviewed Consult hematology regarding thrombocytopenia, possible ITP Initiate IV Solu-Medrol Initiate ceftriaxone Continue bronchodilators Covid 19 screen pending Continue isolation precautions We will continue to follow and make further recommendations based on his clinical status I, the cosigning physician, performed a history & physical examination of the patient. Lungs sounds are clear. Maintaining good O2 saturations in the 90s on 2 L/m per nasal cannula. I discussed the assessment and plan of care with my nurse practitioner, Lisa Murphy. I attest to the above consultation as dictated by her. Time with Patient: Greater than 30
--- NOTE | 2020-07-14 13:28 | P.PN ---
Subjective Progress Note Date: 07/14/20 Patient is feeling well today. He denies any shortness of breath. No acute events overnight reported by nursing staff. Objective - Vital Signs Vital signs: Vital Signs Temp 98.9 F 07/14/20 12:00 Pulse 72 07/14/20 12:00 Resp 18 07/14/20 12:00 BP 111/60 07/14/20 12:00 Pulse Ox 90 L 07/14/20 12:00 Intake & Output 07/13/20 07/14/20 07/14/20 18:59 06:59 18:59 Intake Total 600 Output Total 100 200 Balance -100 400 Weight 76.5 kg Intake: Oral 600 Output: Urine 100 200 Other: # Voids 1 # Bowel Movements 1 - Exam General: The patient is awake and alert, in no distress Eye: there is normal conjunctiva bilaterally. Neck: The neck is supple, there is no JVD. Cardiovascular: Normal S1-S2, no S3-S4, no murmurs. Respiratory: Lungs clear to auscultation bilaterally Gastrointestinal: Abdomen is soft, nontender Musculoskeletal: There is no pedal edema. Neurological:. Speech is normal. Skin: Skin is warm and dry - Labs CBC & Chem 7: 07/14/20 12:33 07/13/20 10:52 Labs: Abnormal Lab Results - Last 24 Hours (Table) 07/14/20 Range/Units 12:33 RBC 4.21 L (4.30-5.90) m/uL Hgb 12.7 L (13.0-17.5) gm/dL Hct 37.5 L (39.0-53.0) % Plt Count 30 L (150-450) k/uL Lymphocytes # 0.7 L (1.0-4.8) k/uL Assessment and Plan Assessment: This is a 85-year-old male with past medical history noted below who presented to the emergency room with worsening shortness of breath. He is currently placed in observation for further management of his medical problems noted below. 1. Progressive dyspnea, exact etiology unclear. Chest x-ray in the ER un remarkable. Lung sounds clear with no wheezing and good air movement. No evidence of heart failure or fluid overload clinically. BNP is normal and echocardiogram showed preserved ejection fraction with no significant valvular abnormality. Coronavirus test sent and pending. 2. Underlying COPD: With possible mild exacerbation. Seen by pulmonology. Started on IV steroids. IV ceftriaxone daily for possible bronchitis. Continue duo nebs every 6 hours. 3. Thrombocytopenia: Exact etiology unclear. Hematology consulted for further evaluation. His continue subcu heparin and Plavix. Continue to monitor daily. 4. History of coronary artery disease with prior stent placement: Continue optimal medical management. Cardiology consulted by ER physician. Echocardiogram ordered 5. Chronic medical problems include hyperlipidemia and BPH: Continue home medications 5. DVT prophylaxis with SCD 6. Patient is full code, discussed with him at bedside Today, I reviewed his medication list and lab work results. I asked the nurse to obtain medical records from [facility] medical records disclosed an open tomorrow. I asked in particular for computed tomography scan of the chest and influenza A/B resolved.
[2020-07-14] MEDS: methylPREDNISolone SOD SUCCI 125 MG/2 ML VIAL IV SCH ×3 (13:40→23:53)
[2020-07-14] MEDS: ATORVASTATIN 40 MG TAB PO SCH (20:57)
[2020-07-14] MEDS: SYMBICORT 160-4.5 MCG INHALER INHALATION SCH (21:26)
[2020-07-15] MEDS: methylPREDNISolone SOD SUCCI 125 MG/2 ML VIAL IV SCH ×2 (05:42→11:33)
[2020-07-15 06:17] LABS: Basophils % (A) 0 %; Eosinophils % (A) 0 %; HCT 37.9 % (39.0-53.0); HGB 12.8 gm/dL (13.0-17.5); Lymphocytes # (A) 0.4 k/uL (1.0-4.8); Lymphocytes % (A) 17 %; MCHC 33.9 g/dL (31.0-37.0); MCV 88.6 fL (80.0-100.0); Mean Platelet Volume 9.2; Monocytes # (A) 0.1 k/uL (0-1.0); Monocytes % (A) 3 %; Neutrophils # (A) 1.9 k/uL (1.3-7.7); Neutrophils % (A) 78 %; RBC 4.28 m/uL (4.30-5.90); RDW 13.1 % (11.5-15.5); WBC 2.4 k/uL (3.8-10.6)
[2020-07-15 06:24] LABS: Platelet Count 33 k/uL (150-450)
[2020-07-15] MEDS: ALBUTEROL HFA INHALER INHALATION SCH ×4 (08:26→20:05)
[2020-07-15] MEDS: SYMBICORT 160-4.5 MCG INHALER INHALATION SCH ×2 (08:26→20:06)
[2020-07-15] MEDS: PANTOPRAZOLE 40 MG TABLET PO SCH (08:44)
[2020-07-15] MEDS: METOPROLOL TARTRATE 12.5 MG TAB PO SCH ×2 (08:44→22:05)
[2020-07-15] MEDS: ASPIRIN 81 MG PO SCH (08:44)
[2020-07-15] MEDS: MULTIVITAMINS, THERA 1 EACH TAB PO SCH (08:44)
[2020-07-15] MEDS: TAMSULOSIN 0.4 MG CAP.ER.24H PO SCH ×2 (08:44→22:05)
[2020-07-15 10:15] LABS: African American GFR (CKD) 90.6 (60.0-200.0); Anion Gap 8.7 mmol/L (4.00-12.00); BUN/Creat Ratio 21.11 Ratio (12.00-20.00); Calcium 8.9 mg/dL (8.7-10.3); Carbon Dioxide 21.3 mmol/L (21.6-31.8); Non-African American GFR(CKD) 78.2 (60.0-200.0); Potassium 4.1 mmol/L (3.5-5.5)
[2020-07-15] MEDS: BENZOCAINE/MENTHOL LOZENG 1 EACH LOZENGE MUCOUS MEM PRN ×2 (11:32→23:45)
--- NOTE | 2020-07-15 15:17 | P.PN ---
Subjective Progress Note Date: 07/15/20 Principal diagnosis: Febrile illness, resolved. COVID 19 ruled out This is a very pleasant 85-year-old gentleman who follows with Dr. Reynolds as his primary care provider. He has a history of hyperlipidemia, history esophageal reflux disease, carotid artery stenosis with 100% occlusion of the left and 50% in the right, rheumatoid arthritis, former smoker, schreiber. He follows with Dr. Campos in our office. He is on Anoro, albuterol in the outpatient setting. He has been having ongoing issues with increasing shortness of breath on exertion, cough congestion fever with a T-max of 103. He had been seen and evaluated at [facility]. He was treated with antibiotics and discharged home. He has had several CoVID 19 tests that have been reported negative. He had also been treated with steroids by Dr. Campos which she completed last . On Wednesday he developed increasing shortness of breath again. He redeveloped fever. He presented here for the same yesterday. Covid 19 screen pending. Chest x-ray reveals no acute cardiopulmonary process. White count 4.0. Hemoglobin 12.7. Platelet count 30,000. Lymphocytes 0.7. Sodium 135. Potassium 3.9. Glucose 143. Creatinine 1.13. ProBNP 424. Troponin negative 1. He is seen today in consultation. He is awake and alert. Up ambulating in the room. He denies any worsening shortness of breath however he states he is still quite dyspneic with minimal exertion. Currently afebrile. Hemodynamically stable. Maintaining O2 saturation 90% on room air. 92% on 3 L. On 07/15/2020 patient seen in follow-up on a general medical oncology floor, he is resting comfortably in bed, in no acute distress, his states his breathing has significantly improved, lung sounds are clear to auscultation, he is on room air pulse oximeter 94%, blood pressure stable, his been afebrile, no recurrence of fever since 07/13/2020. On Rocephin for empiric antibiotics coverage. Objective - Vital Signs Vital signs: Vital Signs Temp 97.5 F L 07/15/20 12:51 Pulse 84 07/15/20 12:51 Resp 18 07/15/20 12:51 BP 137/64 11/09/20 12:51 Pulse Ox 94 L 07/15/20 12:51 Intake & Output 07/14/20 07/15/20 07/15/20 18:59 06:59 18:59 Intake Total 650 1370 Balance 650 1370 Intake: Intake, IV Titration 50 Amount cefTRIAXone 1 gm In 50 Sodium Chloride 0.9% 50 ml @ 100 mls/hr IVPB Q24HR [facility] Rx#:[id number] Oral 600 1370 Other: # Voids 1 - Exam GENERAL EXAM: Alert, active, 85-year-old white male on room air with a pulse ox of 94% comfortable in no apparent distress. HEAD: Normocephalic/atraumatic. EYES: Normal reaction of pupils, equal size. Conjunctiva pink, sclera white. NOSE: Clear with pink turbinates. THROAT: No erythema or exudates. NECK: No masses, no JVD, no thyroid enlargement, no adenopathy. CHEST: No chest wall deformity. Symmetrical expansion. LUNGS: Equal air entry with no crackles, wheeze, rhonchi or dullness. CVS: Regular rate and rhythm, normal S1 and S2, no gallops, no murmurs, no rubs ABDOMEN: Soft, nontender. No hepatosplenomegaly, normal bowel sounds, no guarding or rigidity. EXTREMITIES: No clubbing, no edema, no cyanosis, 2+ pulses and upper and lower extremities. MUSCULOSKELETAL: Muscle strength and tone normal. SPINE: No scoliosis or deformity SKIN: No rashes CENTRAL NERVOUS SYSTEM: Alert and oriented -3. No focal deficits, tone is normal in all 4 extremities. PSYCHIATRIC: Alert and oriented -3. Appropriate affect. Intact judgment and insight. - Labs CBC & Chem 7: 07/15/20 05:40 07/15/20 05:40 Labs: Abnormal Lab Results - Last 24 Hours (Table) 07/15/20 07/15/20 Range/Units 05:40 05:40 WBC 2.4 L (3.8-10.6) k/uL RBC 4.28 L (4.30-5.90) m/uL Hgb 12.8 L (13.0-17.5) gm/dL Hct 37.9 L (39.0-53.0) % Plt Count 33 L (150-450) k/uL Lymphocytes # 0.4 L (1.0-4.8) k/uL Carbon Dioxide 21.3 L (21.6-31.8) mmol/L BUN/Creatinine Ratio 21.11 H (12.00-20.00) Ratio Glucose 223 H (70-110) mg/dL Assessment and Plan Plan: Assessment: 1 Febrile illness of unknown origin. Previous outpatient CoVID 19 screens were negative. He had been recently on antibiotics from [facility]. Repeat testing pending 2 Dyspnea on exertion, cough and fever possible acute exacerbation of COPD with acute tracheobronchitis. CT angiogram performed at [facility] ruled out pulmonary embolism 3 Recent admission to [facility] for suspected pneumonia 4 Thrombocytopenia of unclear etiology. Current platelet count 30,000 5 Rheumatoid arthritis 6 Carotid stenosis. 7 Esophageal reflux disease Plan: No acute events overnight, no signs of bleeding, today's lab work has been noted, awaiting hematology consultation, clinically patient has been stable, no breathing issues, no fever or chills, from pulmonary perspective he can be considered for discharge home today he will need outpatient follow-up with Dr. Louie in the office I performed a history & physical examination of the patient and discussed their management with my nurse practitioner, Alicia Rainey. I reviewed the nurse practitioner's note and agree with the documented findings and plan of care. Lung sounds are positive for clear breath sounds. The findings and the impression was discussed with the patient. I attest to the documentation by the nurse practitioner. Time with Patient: Less than 30
--- NOTE | 2020-07-15 15:25 | P.PN ---
Subjective Progress Note Date: 07/15/20 Patient is feeling well today. He denies any shortness of breath. No acute events overnight reported by nursing staff. Objective - Vital Signs Vital signs: Vital Signs Temp 97.5 F L 07/15/20 12:51 Pulse 84 07/15/20 12:51 Resp 18 07/15/20 12:51 BP 137/64 07/15/20 12:51 Pulse Ox 94 L 07/15/20 12:51 Intake & Output 07/14/20 07/15/20 07/15/20 18:59 06:59 18:59 Intake Total 650 1370 Balance 650 1370 Intake: Intake, IV Titration 50 Amount cefTRIAXone 1 gm In 50 Sodium Chloride 0.9% 50 ml @ 100 mls/hr IVPB Q24HR [facility] Rx#:[id number] Oral 600 1370 Other: # Voids 1 - Exam General: The patient is awake and alert, in no distress Eye: there is normal conjunctiva bilaterally. Neck: The neck is supple, there is no JVD. Cardiovascular: Normal S1-S2, no S3-S4, no murmurs. Respiratory: Lungs clear to auscultation bilaterally Gastrointestinal: Abdomen is soft, nontender Musculoskeletal: There is no pedal edema. Neurological:. Speech is normal. Skin: Skin is warm and dry - Labs CBC & Chem 7: 07/15/20 05:40 07/15/20 05:40 Labs: Abnormal Lab Results - Last 24 Hours (Table) 07/15/20 07/15/20 Range/Units 05:40 05:40 WBC 2.4 L (3.8-10.6) k/uL RBC 4.28 L (4.30-5.90) m/uL Hgb 12.8 L (13.0-17.5) gm/dL Hct 37.9 L (39.0-53.0) % Plt Count 33 L (150-450) k/uL Lymphocytes # 0.4 L (1.0-4.8) k/uL Carbon Dioxide 21.3 L (21.6-31.8) mmol/L BUN/Creatinine Ratio 21.11 H (12.00-20.00) Ratio Glucose 223 H (70-110) mg/dL Assessment and Plan Assessment: This is a 85-year-old male with past medical history noted below who presented to the emergency room with worsening shortness of breath. He is currently placed in observation for further management of his medical problems noted below. 1. Progressive dyspnea, now improved. exact etiology unclear. Chest x-ray in the ER unremarkable. CT angiogram [facility] last week was negative for PE. Lung sounds clear with no wheezing and good air movement. No evidence of heart failure or fluid overload clinically. BNP is normal and echocardiogram showed preserved ejection fraction with no significant valvular abnormality. Coronavirus test sent and pending. 2. Underlying COPD: With possible mild exacerbation. Seen by pulmonology. Started on IV steroids which I will switch to oral prednisone starting tomorrow to finish 3 days course. IV ceftriaxone daily for possible bronchitis. Continue duo nebs every 6 hours. 3. Thrombocytopenia and leukopenia: Exact etiology unclear. Hematology consulted for further evaluation. I discontinued subcu heparin and Plavix. Continue to monitor daily. 4. History of coronary artery disease with prior stent placement: Continue optimal medical management. Seen and evaluated by cardiology during this admission. Follow-up as outpatient as directed 5. Chronic medical problems include hyperlipidemia and BPH: Continue home medications 5. DVT prophylaxis with SCD 6. Patient is full code, discussed with him at bedside Today, I reviewed his medication list and lab work results. Medical record from [facility] last week showed platelet count of 130,000. Today down to 30,000. No evidence of ongoing bleed. Awaiting hematology evaluation. Plavix was discontinued during this admission as patient has a stent placed more than a year ago. I discussed the patient's current condition with his grandson, Mo, who is an ICU nurse at our hospital. 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 An informative at this time that Plavix use as risks outweigh the benefits.
[2020-07-15] MEDS: ATORVASTATIN 40 MG TAB PO SCH (22:05)
[2020-07-16 05:47] LABS: Basophils % (A) 0 %; Eosinophils % (A) 0 %; HCT 37.4 % (39.0-53.0); HGB 12.7 gm/dL (13.0-17.5); Lymphocytes # (A) 0.8 k/uL (1.0-4.8); Lymphocytes % (A) 9 %; MCH 30.2 pg (25.0-35.0); MCV 88.9 fL (80.0-100.0); Monocytes # (A) 0.4 k/uL (0-1.0); Monocytes % (A) 4 %; Neutrophils # (A) 7.5 k/uL (1.3-7.7); Neutrophils % (A) 85 %; RDW 13.4 % (11.5-15.5); WBC 8.8 k/uL (3.8-10.6)
[2020-07-16 05:48] LABS: Platelet Count 34 k/uL (150-450)
[2020-07-16] MEDS: ALBUTEROL HFA INHALER INHALATION SCH ×3 (07:41→16:03)
[2020-07-16] MEDS: SYMBICORT 160-4.5 MCG INHALER INHALATION SCH (07:41)
[2020-07-16] MEDS: METOPROLOL TARTRATE 12.5 MG TAB PO SCH (08:28)
[2020-07-16] MEDS: ASPIRIN 81 MG PO SCH (08:28)
[2020-07-16] MEDS: MULTIVITAMINS, THERA 1 EACH TAB PO SCH (08:28)
[2020-07-16] MEDS: PANTOPRAZOLE 40 MG TABLET PO SCH (08:28)
[2020-07-16] MEDS ORDERED: predniSONE 20 MG TAB PO SCH (09:00)
[2020-07-16 09:33] LABS: African American GFR (CKD) 79.7 (60.0-200.0); Anion Gap 8.9 mmol/L (4.00-12.00); Calcium 9.1 mg/dL (8.7-10.3); Carbon Dioxide 25.1 mmol/L (21.6-31.8); Non-African American GFR(CKD) 68.8 (60.0-200.0); Potassium 4.6 mmol/L (3.5-5.5)
[2020-07-16] MEDS: TAMSULOSIN 0.4 MG CAP.ER.24H PO SCH (10:11)
[2020-07-16 12:03] VITALS: BP 181/80; PULSE 81; RESP 19; TEMP 97.6
[2020-07-16 13:13] LABS: Reticulocyte % 2.1 % (0.5-2.0)
--- NOTE | 2020-07-16 13:30 | P.PN ---
Subjective Progress Note Date: 07/16/20 Objective - Vital Signs Vital signs: Vital Signs Temp 97.6 F 07/16/20 12:03 Pulse 81 07/16/20 12:03 Resp 19 07/16/20 12:03 BP 181/80 07/16/20 12:03 Pulse Ox 93 L 07/16/20 12:03 Intake & Output 07/15/20 07/16/20 07/16/20 18:59 06:59 18:59 Intake Total 400 Balance 400 Intake: Oral 400 Other: Voiding Method Toilet # Voids 5 1 # Bowel Movements 0 - Constitutional General appearance: Present: no acute distress - EENT Eyes: Present: PERRLA - Neck Carotids: bilateral: upstroke normal - Respiratory Respiratory: bilateral: diminished - Cardiovascular Rhythm: regular - Gastrointestinal General gastrointestinal: Present: soft - Integumentary Integumentary: Present: normal - Labs CBC & Chem 7: 07/16/20 05:15 07/16/20 05:15 Labs: Abnormal Lab Results - Last 24 Hours (Table) 07/16/20 07/16/20 07/16/20 Range/Units 05:15 05:15 12:24 RBC 4.20 L (4.30-5.90) m/uL Hgb 12.7 L (13.0-17.5) gm/dL Hct 37.4 L (39.0-53.0) % Plt Count 34 L (150-450) k/uL Lymphocytes # 0.8 L (1.0-4.8) k/uL Retic Count 2.1 H (0.5-2.0) % BUN/Creatinine Ratio 23.00 H (12.00-20.00) Ratio Glucose 128 H (70-110) mg/dL Assessment and Plan (1) COPD (chronic obstructive pulmonary disease) Narrative/Plan: COPD with exacerbation with steroids Current Visit: Yes Status: Acute Code(s): J44.9 - CHRONIC OBSTRUCTIVE PULMONARY DISEASE, UNSPECIFIED SNOMED Code(s): 57508812 (2) Exertional dyspnea Narrative/Plan: The patient is not requiring any supplemental oxygen Current Visit: Yes Status: Acute Code(s): R06.00 - DYSPNEA, UNSPECIFIED SNOMED Code(s): 73505260 (3) Pancytopenia Narrative/Plan: The patient continues to house pancytopenia no evidence of bleeding Current Visit: Yes Status: Acute Code(s): D61.818 - OTHER PANCYTOPENIA SNOMED Code(s): 717733275 Plan: Discharge within 24 hours if no additional workup needed and the patient remains medically stable
--- NOTE | 2020-07-16 19:24 | P.DS ---
Providers Date of admission: 07/15/20 09:33 Attending physician: Oleg Lira Consults: 07/13/20 12:09 Consult Physician Urgent Consulting Provider: Kamlesh Bains Consult Reason/Comments: Exertional dyspnea Do you want consulting provider notified?: Yes 07/13/20 16:13 Consult Physician Routine Consulting Provider: Samir Campos Consult Reason/Comments: COPD Do you want consulting provider notified?: Yes 07/15/20 15:21 Consult Physician Routine Consulting Provider: Gianfranco Gonzalez Consult Reason/Comments: pancytopenia Do you want consulting provider notified?: Yes Primary care physician: Mahesh Reynolds - Discharge Diagnosis(es) (1) COPD (chronic obstructive pulmonary disease) The patient completed a course of nebs, steroids, antibiotics and was not treated seemingly any supplemental oxygen at time of discharge Status: Acute (2) Exertional dyspnea Likely secondary to COPD patient is also followed by pulmonary during the hospitalization Status: Acute (3) Pancytopenia The patient was seen by hematology workup was initiated and he will follow-up as an outpatient Status: Acute Hospital Course: The patient is a 85-year-old male with a history of coronary disease prior stent COPD who presented with shortness of breath emergency room. The patient has had multiple negative Campbell test recently. His grandson is a nurse and he was exposed to cold that apparently 16 days prior to admission. The patient prese nted with cough fever he was seen at the outside hospital treated conservatively and discharged home. The emergency room he had an O2 sat of 93% on room air is placed in observation for workup and management. His Hospitalization Patient Was Noted to Be Have Leukopenia and Thrombocytopenia Initially 50 Vent Nadired at 30 on the Day of Discharge a Protocol 34. He Was Seen by Pulmonary and Hematology He Was Treated Conservatively His Dyspnea Resolved He Feels at His Baseline and He'll Be Discharged Outpatient Follow-Up today handedly of discharge patient had a white count of 8.8 improved from a delano of 2.4 and platelet count of 34 nadired at 30 his hemoglobin was 12.7 The patient will follow up with hematology in one week follow-up with his family physician and pulmonary Time spent 32 minutes Patient Condition at Discharge: Good Plan - Discharge Summary Discharge Rx Participant: No New Discharge Prescriptions: No Action Tamsulosin [Flomax] 0.4 mg PO BID Clopidogrel [Plavix] 75 mg PO DAILY HYDROcodone/APAP 5-325MG [Webster 5-325] 1 tab PO BID PRN PRN Reason: Pain Pantoprazole Sodium [Protonix] 40 mg PO DAILY Multivitamins, Thera [Multivitamin (formulary)] 1 tab PO DAILY Metoprolol Tartrate 12.5 mg PO BID Atorvastatin [Lipitor] 40 mg PO HS Aspirin EC [Ecotrin Low Dose] 81 mg PO DAILY Umeclidinium Brm/Vilanterol Tr [Anoro Ellipta 62.5-25 Mcg INH] 1 puff INHALATION RT-DAILY Discharge Medication List Clopidogrel [Plavix] 75 mg PO DAILY 09/27/18 [History] Tamsulosin [Flomax] 0.4 mg PO BID 09/27/18 [History] HYDROcodone/APAP 5-325MG [Webster 5-325] 1 tab PO BID PRN 09/28/18 [History] Aspirin EC [Ecotrin Low Dose] 81 mg PO DAILY 07/13/20 [History] Atorvastatin [Lipitor] 40 mg PO HS 07/13/20 [History] Metoprolol Tartrate 12.5 mg PO BID 07/13/20 [History] Multivitamins, Thera [Multivitamin (formulary)] 1 tab PO DAILY 07/13/20 [His tory] Pantoprazole Sodium [Protonix] 40 mg PO DAILY 07/13/20 [History] Umeclidinium Brm/Vilanterol Tr [Anoro Ellipta 62.5-25 Mcg INH] 1 puff INHALATION RT-DAILY 07/13/20 [History] Follow up Appointment(s)/Referral(s): Gianfranco Gonzalez MD [STAFF PHYSICIAN] - 1 Week (Computer Video [employer] - for low platelet count Office will call patient with appointment date and time) Mahesh Reynolds DO [Primary Care Provider] - 07/25/20 12:30 pm (Medical Physician) Patient Instructions/Handouts: COPD (Chronic Obstructive Pulmonary Disease) (DC), Thrombocytopenia (DC) Discharge Disposition: HOME SELF-CARE
[2020-07-16 21:23] LABS: Ferritin 260.7 ng/mL (22.0-322.0)
[2020-07-16 21:27] LABS: Iron 90 ug/dL (65-175); LDH 311 U/L (120-246); Rheumatoid Factor, Qnt <4 IU/mL (0-15); Total Iron Binding Capacity 240 ug/dL (228-460)
--- NOTE | 2020-07-16 21:46 | PN ---
PROGRESS NOTE This is a very pleasant 85-year-old gentleman who is on the general medical/oncology floor. He is resting comfortably. No acute distress. He is on room air. He states he would like to be discharged home. His room-air saturations are in the mid 90s. When we saw him yesterday, we thought the patient could be discharged. I am not sure why he is still here. PHYSICAL EXAMINATION: VITAL SIGNS: Currently, his vital signs are stable. Temperature is 97.6, heart rate 81, respiratory rate 19, blood pressure 181/80, mean 113, room-air saturation 93% to 94%. GENERAL APPEARANCE: Appears in no acute distress. HEENT: Examination is grossly unremarkable. Mucous membranes are moist. NECK: Supple. Full range of motion. No adenopathy. Neck veins are flat. CARDIOVASCULAR: Examination reveals regular rhythm and rate. Heart rate 81. LUNGS: Lungs reveal mostly clear breath sounds. A few scattered rhonchi. No wheezes or crackles. ABDOMEN: Soft. Bowel sounds are heard. EXTREMITIES: Intact. There is no edema. SKIN: Without rash. NEUROLOGIC: Neurologic examination is brief but nonfocal. LABS/IMAGING: Currently, white count 8.8, hemoglobin 12.7, hematocrit 37.4, platelet count 34,000. His sodium is 138, potassium 4.6, chloride 104, CO2 25.1. Anion gap is 8.9. BUN and creatinine were 23 and 1.0. Microbiology is negative. Chest x-ray on the day of admission shows no acute cardiopulmonary process. Medications are reviewed. ASSESSMENT: 1. Fever of unclear etiology, resolved, with COVID-19 screen being negative. 2. Shortness of breath on exertion, likely related to underlying mild chronic obstructive pulmonary disease exacerbation and/or acute tracheobronchitis. CT angiogram performed at [facility] was negative for PE. 3. Recent admission to [facility] for suspected pneumonia. 4. Thrombocytopenia of unclear etiology. 5. Rheumatoid arthritis. 6. Carotid stenosis. 7. Gastroesophageal reflux disease. PLAN: Currently the patient is doing well. The patient is feeling well. He would like to be discharged if possible. He will follow up with me in the office, should he be discharged today. That is up to the primary service. Currently the respiratory status is stable. Will continue to follow. MMODL / IJN: [id number] /
--- NOTE | 2020-07-16 23:23 | P.CONS ---
History of Present Illness - Reason for Consult Consult date: 07/16/20 Thrombocytopenia and leukopenia - History of Present Illness The patient is an 85-year-old with a known history of COPD. The patient states that over the past 3-4 weeks he has had progressive worsening of breat tanna. He was admitted for about 2 days at [facility]. Especially status worsened after discharge due to which she was placed on steroids by his rating examiner Dr. Campos. However the patient have progressive shortness of breath and fatigue, which he came to the hospital and was admitted for further management. On admission hemoglobin was normal while palpated noted to be 53. There subsequently declined into the 30,000 range. WBC was also low and has varied between the 2-4000 range. Consult was therefore placed for further evaluation and recommendation He denied any prior history of blood related problems. He states that he thinks is platelets 150,000 when he was previously admitted. He denies being placed on antibiotics, or receiving heparin. No history of any excessive alco hol use of chronic liver disease. No history of any autoimmune disease. (His past medical history states that he is overall arthritis or on close questioning it appears that he had degenerative arthritis and has no known diagnosed of autoimmune arthritis. Review of Systems Constitutional: Reports fatigue, Reports weakness Eyes: denies blurred vision, denies pain Ears: deny: decreased hearing, ear discharge, earache, tinnitus Ears, nose, mouth and throat: Denies headache, Denies sore throat Cardiovascular: Reports shortness of breath Respiratory: Reports cough, Reports dyspnea Gastrointestinal: Denies abdominal pain, Denies diarrhea, Denies nausea, Denies vomiting Genitourinary: Reports as per HPI Musculoskeletal: Reports as per HPI Integumentary: Denies pruritus, Denies rash Neurological: Reports weakness, Denies numbness Psychiatric: Denies anxiety, Denies depression Endocrine: Reports fatigue Hematologic/Lymphatic: Reports as per HPI Past Medical History Past Medical History: COPD, GERD/Reflux, Myocardial Infarction ([place]), Rheumatoid Arthritis ([place]) Additional Past Medical History / Comment(s): 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, [place] at [facility] Last Myocardial Infarction Date:: 10/2018 History of Any Multi-Drug Resistant Organisms: None Reported Past Surgical History: Back Surgery, Heart Catheterization With Stent, Hernia Repair, Orthopedic Surgery, Tonsillectomy Additional Past Surgical History / Comment(s): back laminectomy x2, rik hand surgery from injuries, tx varicose veins rik legs, rik cataracts, pain procedures r/t shoulder pain Past Anesthesia/Blood Transfusion Reactions: No Reported Reaction Date of Last Stent Placement:: 10/2018 Past Psychological History: No Psychological Hx Reported Smoking Status: Former smoker, Never smoker Past Alcohol Use History: Rare Additional Past Alcohol Use History / Comment(s): quit 1972, smoked 20 years 1/2-1 ppd Past Drug Use History: None Reported - Past Family History Mother Family Medical History: Cancer Additional Family Medical History / Comment(s): bowel and ovarian Father Family Medical History: Cancer Additional Family Medical History / Comment(s): "black lung" Sister(s) Family Medical History: Cancer Additional Family Medical History / Comment(s): ovarian Medications and Allergies Home Medications Medication Instructions Recorded Confirmed Type Clopidogrel [Plavix] 75 mg PO DAILY 09/27/18 07/13/20 History Tamsulosin [Flomax] 0.4 mg PO BID 09/27/18 07/13/20 History HYDROcodone/APAP 5-325MG [Edwards 1 tab PO BID PRN 09/28/18 07/13/20 History 5-325] Aspirin EC [Ecotrin Low Dose] 81 mg PO DAILY 07/13/20 07/13/20 History Atorvastatin [Lipitor] 40 mg PO HS 07/13/20 07/13/20 History Metoprolol Tartrate 12.5 mg PO BID 07/13/20 07/13/20 History Multivitamins, Thera [Multivitamin 1 tab PO DAILY 07/13/20 07/13/20 History (formulary)] Pantoprazole Sodium [Protonix] 40 mg PO DAILY 07/13/20 07/13/20 History Umeclidinium Brm/Vilanterol Tr 1 puff INHALATION RT-DAILY 07/13/20 07/13/20 History [Anoro Ellipta 62.5-25 Mcg INH] Allergies Allergy/AdvReac Type Severity Reaction Status Date / Time No Known Allergies Allergy Verified 07/13/20 12:38 Physical Exam Vitals: Vital Signs Temp Pulse Resp BP Pulse Ox 07/16/20 12:03 97.6 F 81 19 181/80 93 L 07/16/20 05:00 98.0 F 65 18 146/71 92 L 07/15/20 20:00 97.4 F L 95 20 140/60 94 L Intake and Output 07/16/20 07/16/20 07/16/20 06:59 14:59 22:59 Other: Voiding Method Toilet # Voids 1 3 - Constitutional General appearance: no acute distress - EENT Eyes: EOMI, PERRLA ENT: hearing grossly normal, normal oropharynx - Neck Neck: no lymphadenopathy Thyroid: bilateral: normal size - Respiratory Respiratory: bilateral: diminished (s/o COPD) - Cardiovascular Rhythm: regular Heart sounds: normal: S1, S2 - Gastrointestinal General gastrointestinal: normal bowel sounds, soft - Integumentary Integumentary: normal - Neurologic Neurologic: CNII-XII intact - Musculoskeletal Musculoskeletal: generalized weakness, strength equal bilaterally - Psychiatric Psychiatric: A&O x's 3, appropriate affect Results Results: Echo report reviewed EKG image reviewed CBC & Chem 7: 07/16/20 05:15 07/16/20 05:15 Labs: Abnormal Lab Results - Last 24 Hours (Table) 07/16/20 07/16/20 07/16/20 Range/Units 05:15 05:15 12:24 RBC 4.20 L (4.30-5.90) m/uL Hgb 12.7 L (13.0-17.5) gm/dL Hct 37.4 L (39.0-53.0) % Plt Count 34 L (150-450) k/uL Lymphocytes # 0.8 L (1.0-4.8) k/uL ESR 32 H (0-20) mm/Hr Retic Count 2.1 H (0.5-2.0) % BUN/Creatinine Ratio 23.00 H (12.00-20.00) Ratio Glucose 128 H (70-110) mg/dL Chest x-ray: report reviewed Assessment and Plan (1) Pancytopenia Narrative/Plan: The picture was actually more of a bicytopenia, as anemia was quite borderline. , Cytopenia was most prominent as noted in the HPI. W BC has fluctuated with readings within the lower limit of normal. - According to history obtained from the patient, this is a new phenomenon. His physical exam was unrevealing. On initial evaluation and definite etiology is not immediately apparent. Given his recent history transient drop due to while infection is a major differential. Other causes not ruled out. - The patient was advised that he will need additional workup to try to determine the cause including labs to check for deficiency states, autoimmune conditions, paraproteinemia and HIV. I will also check ultrasound of the abdomen for occult liver disease and splenomegaly. The patient has been feeling better since he came to the hospital and is quite anxious to go home. He was advised that he should follow up in the outpatient setting to continue workup, and follow counts. - If drop in counts is transient due to recent viral infection for example than the expectation is that it should resolve spontaneously - Hemoglobin has been normal or near-normal. WBC has normalized. I'll platelets are still low, they're in a safe range. The patient is not on any anticoagulation. It is also recommended that he avoid any antiplatelet therapy or NSAIDs to his platelet counts increase to above 50,000.. - Signs and symptoms of progressive cytopenia discussed Status: Acute Code(s): D61.818 - OTHER PANCYTOPENIA SNOMED Code(s): 701167672 Plan: Defer to the admitting service and other consultants for management of his other medical problems
[2020-07-17 08:31] LABS: Free Kappa Lt Chain Qnt, Serum 2.27 mg/dL (0.33-1.94)
[2020-07-17 14:33] LABS: Protein, Total 6.5 g/dL (6.2-8.2)
== END 2020-07-16 16:53 | disposition home or self-care (01) ==
LOC: EC 10:02 → 6NMEDSUR 12:10 → OBSVTOIN 07-15 09:33 → INTOOBSV 07-15 09:33 → UNDODISIN 07-16 16:53
PROVIDERS: ADMIT Internal Medicine; ATTEND Internal Medicine
DX: J44.9 Chronic obstructive pulmonary disease, unspecified (principal); R06.00 Dyspnea, unspecified; D61.818 Other pancytopenia; I25.10 Atherosclerotic heart disease of native coronary artery without angina pectoris; Z95.5 Presence of coronary angioplasty implant and graft; K21.9 Gastro-esophageal reflux disease without esophagitis; I25.2 Old myocardial infarction; M06.9 Rheumatoid arthritis, unspecified; E78.5 Hyperlipidemia, unspecified; N40.0 Benign prostatic hyperplasia without lower urinary tract symptoms; I65.23 Occlusion and stenosis of bilateral carotid arteries; I83.90 Asymptomatic varicose veins of unspecified lower extremity; R17 Unspecified jaundice; R09.02 Hypoxemia; R29.6 Repeated falls; Z20.828 Contact with and (suspected) exposure to other viral communicable diseases; Z79.899 Other long term (current) drug therapy; Z79.82 Long term (current) use of aspirin; Z79.02 Long term (current) use of antithrombotics/antiplatelets; Z79.891 Long term (current) use of opiate analgesic; Z87.09 Personal history of other diseases of the respiratory system; Z87.891 Personal history of nicotine dependence; Z90.89 Acquired absence of other organs; Z80.0 Family history of malignant neoplasm of digestive organs; Z80.41 Family history of malignant neoplasm of ovary; Z80.1 Family history of malignant neoplasm of trachea, bronchus and lung
CPT/HCPCS: 96376 ×2; 96365; 96375; 96361; 99285; 36415; 94640 ×7; 93005; 93306; 83921; 83880; 80053; 80048 ×2; 85652; 82607; 82728; 82550; 82746; 83540; 83550; 83605; 83615; 83735; 84484; 85025 ×4; 85610; 85045; 85730; 86431; 81003; 82784 ×3; 84165; 86038; 86334; 83883; 71046; G0378 ×4; U0003; J2930 ×2; J0696 ×3; J7512; 96360

== ENCOUNTER → 2020-09-03 | Outpatient (CLI) | payer MEDICARE | END | disposition home or self-care (01) | LOC: LABWHC1 09:27 | PROVIDERS: ATTEND Internal Medicine Critical Care Medicine | DX: E27.40 Unspecified adrenocortical insufficiency (principal) | CPT/HCPCS: 36415; 82533 ==

== ENCOUNTER 2023-01-13 19:08 | Observation (INO) | payer MEDICARE ==
[2023-01-13] MEDS ORDERED: DIPHENOX-ATROP 2.5-0.025 MG 1 EACH TAB PO STA (19:37)
[2023-01-13] MEDS ORDERED: SODIUM CHLORIDE 0.9% 1,000 ML IV STA ×2 (19:37→21:54)
[2023-01-13] MEDS ORDERED: ONDANSETRON 4 MG/2 ML VIAL IVP STA (19:37)
[2023-01-13] MEDS ORDERED: HYDROmorphone 0.5 MG/0.5 ML SYRINGE IVP STA (19:38)
--- NOTE | 2023-01-13 19:42 | ED ---
General Adult HPI - General Source: patient, family, RN notes reviewed, old records reviewed Mode of arrival: wheelchair Limitations: no limitations <Mahesh Valdovinos - Last Filed: 01/13/23 21:13> <Johnathan Roca - Last Filed: 01/13/23 22:37> - General Chief complaint: Abdominal Pain Stated complaint: Nausea/Diarrhea Time Seen by Provider: 01/13/23 19:25 - History of Present Illness Initial comments: This is a 87-year-old male presents emergency Department complaining of abdominal pain since this morning. Patient states she has quite a bit of cramping is in his mid abdomen. Patient states she's had constant diarrhea since this morning and been very nauseated but can't vomit. Patient states he short of breath but no worse than his normal COPD. Patient denies any fever chills per patient denies any dysuria hematuria urinary frequency. Patient states she's had inguinal hernia surgery before but no abdominal surgery. Patient denies any chest pain or palpitations. His any fevers or chills. Patie nt denies any back pain. (Mahesh Valdovinos) - Related Data Home Medications Medication Instructions Recorded Confirmed Clopidogrel [Plavix] 75 mg PO DAILY 09/27/18 01/13/23 Tamsulosin [Flomax] 0.4 mg PO HS 09/27/18 01/13/23 Aspirin EC [Ecotrin Low Dose] 81 mg PO DAILY 07/13/20 01/13/23 Pantoprazole Sodium [Protonix] 40 mg PO DAILY 07/13/20 01/13/23 Ascorbic Acid [Vitamin C] 500 mg PO DAILY 01/13/23 01/13/23 Atorvastatin [Lipitor] 20 mg PO HS 01/13/23 01/13/23 Celecoxib [CeleBREX] 200 mg PO DAILY 01/13/23 01/13/23 Cholecalciferol [Vitamin D3 (25 25 mcg PO DAILY 01/13/23 01/13/23 Mcg = 1000 Iu)] Finasteride [Proscar] 5 mg PO DAILY 01/13/23 01/13/23 Fluticasone/Umeclidin/Vilanter 1 puff INHALATION RT-DAILY 01/13/23 01/13/23 [Trelegy Ellipta 100-62.5-25] Gabapentin [Neurontin] 300 mg PO TID 01/13/23 01/13/23 Midodrine [ProAmatine] 5 mg PO DAILY 01/13/23 01/13/23 Turmeric Root Extract [Turmeric] 500 mg PO DAILY 01/13/23 01/13/23 Zinc Gluconate [Zinc] 50 mg PO DAILY 01/13/23 01/13/23 traMADol HCL 50 mg PO DAILY PRN 01/13/23 01/13/23 Allergies Allergy/AdvReac Type Severity Reaction Status Date / Time No Known Allergies Allergy Verified 01/13/23 19:58 Review of Systems ROS Other: All systems not noted in ROS Statement are negative. <Mahesh Valdovinos - Last Filed: 01/13/23 21:13> ROS Other: All systems not noted in ROS Statement are negative. <Johnathan Roca - Last Filed: 01/13/23 22:37> ROS Statement: Those systems with pertinent positive or pertinent negative responses have been documented in the HPI. 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, [place] at [facility] Last Myocardial Infarction Date:: 10/2018 History of Any Multi-Drug Resistant Organisms: None Reported Past Surgical History: Back Surgery, Heart Catheterization With Stent, Hernia Repair, Orthopedic Surgery, Tonsillectomy Additional Past Surgical History / Comment(s): back laminectomy x2, rik hand surgery from injuries, tx varicose veins rik legs, rik cataracts, pain procedures r/t shoulder pain Past Anesthesia/Blood Transfusion Reactions: No Reported Reaction Date of Last Stent Placement:: 10/2018 Past Psychological History: No Psychological Hx Reported Smoking Status: Former smoker Past Alcohol Use History: Rare Past Drug Use History: None Reported - Past Family History Mother Family Medical History: Cancer Additional Family Medical History / Comment(s): bowel and ovarian Father Family Medical History: Cancer Additional Family Medical History / Comment(s): "black lung" Sister(s) Family Medical History: Cancer Additional Family Medical History / Comment(s): ovarian <Mahesh Valdovinos - Last Filed: 01/13/23 21:13> General Exam Limitations: no limitations <Mahesh Valdovinos - Last Filed: 01/13/23 21:13> - General Exam Comments Initial Comments: GENERAL: Patient is well-developed and well-nourished. Patient is nontoxic and well- hydrated and is in no acut moderate e distress. ENT: Neck is soft and supple. No significant lymphadenopathy is noted. Oropharynx is clear. Moist mucous membranes. Neck has full range of motion without eliciting any pain. EYES: The sclera were anicteric and conjunctiva were pink and moist. Extraocular movements were intact and pupils were equal round and reactive to light. Eyelids were unremarkable. PULMONARY: Unlabored respirations. Good breath sounds bilaterally. No audible rales rhonchi or wheezing was noted. CARDIOVASCULAR: There is a regular rate and rhythm without any murmurs gallops or rubs. ABDOMEN: Soft and nontender with normal bowel sounds. SKIN: Skin is clear with no lesions or rashes and otherwise unremarkable. NEUROLOGIC: Patient is alert and oriented x3. Cranial nerves II through XII are grossly intact. Motor and sensory are also intact. Normal speech, volume and content. Symmetrical smile. MUSCULOSKELETAL: Normal extremities with adequate strength and full range of motion. LYMPHATICS: No significant lymphadenopathy is noted PSYCHIATRIC: Normal psychiatric evaluation. (Mahesh Valdovinos) Course Vital Signs 01/13/23 01/13/23 19:23 22:12 Temperature 98.2 F Pulse Rate 90 91 Respiratory 18 18 Rate Blood Pressure 120/67 133/77 O2 Sat by Pulse 98 94 L Oximetry Medical Decision Making - Lab Data Result diagrams: 01/13/23 19:50 01/13/23 19:50 <Mahesh Valdovinos - Last Filed: 01/13/23 21:13> - Lab Data Result diagrams: 01/13/23 19:50 01/13/23 19:50 <Johnathan Roca - Last Filed: 01/13/23 22:37> - Medical Decision Making Was pt. sent in by a medical professional or institution (, [facility]LEX, SALES RECRUITMENT SPECIALIST, urgent care, hospital, or senior living...) When possible be specific @ -[No] Did you speak to anyone other than the patient for history (EMS, parent, family, police, friend...)? What history was obtained from this source @ -[No] Did you review nursing and triage notes (agree or disagree)? Why? @ -[I reviewed and agree with nursing and triage notes] Were old charts reviewed (outside hosp., previous admission, EMS record, old EKG, old radiological studies, urgent care reports/EKG's, senior living records)? Report findings @ -I reviewed prior lab work from prior radiological studies. Differential Diagnosis (chest pain, altered mental status, abdominal pain women, abdominal pain men, vaginal bleeding, weakness, fever, dyspnea, syncope, headache, dizziness, GI bleed, back pain, seizure, CVA, palpatations, mental health, musculoskeletal)? @ -Differential Abdominal Pain Men: Appendicitis, cholecystitis, diverticulosis, ischemic bowel, pancreatitis, hepatitis, UTI, gastroenteritis, AAA, incarcerated hernia, bowel obstruction, constipation, inflammatory bowel, hepatitis, peptic ulcer disease, splenic infarction, perforated viscus, testicular torsion, this is not meant to be an all-inclusive list EKG interpreted by me (3pts min.). @ -[As above] X-rays interpreted by me (1pt min.). @ -[None done] CT interpreted by me (1pt min.). @ -[None done] U/S interpreted by me (1pt. min.). @ -[None done] What testing was considered but not performed or refused? (CT, X-rays, U/S, labs)? Why? @ -[None] What meds were considered but not given or refused? Why? @ -[None] Did you discuss the management of the patient with other professionals (professionals i.e. , PA, SALES RECRUITMENT SPECIALIST, lab, RT, psych nurse, social insurance administrator, portfolio lead, teacher, customs patrol officer, case management coordinator)? Give summary @ -[No] Was smoking cessation discussed for >3mins.? @ -[No] Was critical care preformed (if so, how long)? @ -[No] Were there social determinants of health that impacted care today? How? (Homelessness, low income, unemployed, alcoholism, drug addiction, transportation, low edu. Level, literacy, decrease access to med. care, custodial, rehab)? @ -[No] Was there de-escalation of care discussed even if they declined (Discuss DNR or withdrawal of care, Hospice)? DNR status @ -[No] What co-morbidities impacted this encounter? (DM, HTN, Smoking, COPD, CAD, Cancer, CVA, ARF, Chemo, Hep., AIDS, mental health diagnosis, sleep apnea, morbid obesity)? @ -[None] Was patient admitted / discharged? Hospital course, mention meds given and route, prescriptions, significant lab abnormalities, going to OR and other pertinent info. @ -Patient was given Zofran for the nausea and Lomotil for the diarrhea and Dilaudid for the pain. Patient had a computed tomography scan and it was pending. I signed the patient out to Dr. Roca at 9 PM. (Mahesh Valdovinos) Patient signed out to me pending results of CT imaging. Presents with diarrhea, nonspecific abdominal pain. Labs so far are unremarkable. 90 evaluate the patient, he is still complaining of abdominal discomfort. Vital signs remain within acceptable limits. We discussed the CT results as interpreted by me which did reveal signs of colitis. Radiology also detected a L-1 fracture of unknown conicity as the patient is no specific symptoms. No red flag symptoms including denying saddle anesthesias, lower extremity paralysis, urinary or bowel incontinence or retention. Patient is still having abdominal pain at this time. I did offer him admission observation for intractable abdominal pain and dehydration he was in agreement this plan. I spoke with the admitting team, Dr. Cuevas who is sitting call and is covering for Dr. Bradford was offered normally covers for Dr. Reynolds. He accepted the admission. I did consult Dr. Huerta on-call orthopedic for the patient's L-1 fracture of unknown chronicity. Diagnosis/symptom? @ -Intractable abdominal pain, diarrhea, colitis Acute, or Chronic, or Acute on Chronic? @ -Acute Uncomplicated (without systemic symptoms) or Complicated (systemic symptoms)? @ -Complicated Side effects of treatment? @ -none Exacerbation, Progression, or Severe Exacerbation] @ -no Poses a threat to life or bodily function? @ -no Diagnosis/symptom? @ -L1 fracture of unknown chronicity Acute, or Chronic, or Acute on Chronic? @ -Acute Uncomplicated (without systemic symptoms) or Complicated (systemic symptoms)? @ -Uncomplicated Side effects of treatment? @ -none Exacerbation, Progression, or Severe Exacerbation] @ -no Poses a threat to life or bodily function? @ -no (Johnathan Roca) - Lab Data Lab Results 01/13/23 01/13/23 01/13/23 Range/Units 19:50 19:50 19:50 WBC 5.7 (3.8-10.6) k/uL RBC 5.01 (4.30-5.90) m/uL Hgb 14.4 (13.0-17.5) gm/dL Hct 44.6 (39.0-53.0) % MCV 88.9 (80.0-100.0) fL MCH 28.8 (25.0-35.0) pg MCHC 32.4 (31.0-37.0) g/dL RDW 13.7 (11.5-15.5) % Plt Count 248 (150-450) k/uL MPV 7.4 Neutrophils % 70 % Lymphocytes % 19 % Monocytes % 7 % Eosinophils % 1 % Basophils % 0 % Neutrophils # 4.0 (1.3-7.7) k/uL Lymphocytes # 1.1 (1.0-4.8) k/uL Monocytes # 0.4 (0-1.0) k/uL Eosinophils # 0.1 (0-0.7) k/uL Basophils # 0.0 (0-0.2) k/uL Sodium 138 (137-145) mmol/L Potassium 4.4 (3.5-5.1) mmol/L Chloride 104 (98-107) mmol/L Carbon Dioxide 25 (22-30) mmol/L Anion Gap 9 mmol/L BUN 19 (9-20) mg/dL Creatinine 1.06 (0.66-1.25) mg/dL Est GFR (CKD-EPI)AfAm 74 (>60 ml/min/1.73 sqM) Est GFR (CKD-EPI)NonAf 64 (>60 ml/min/1.73 sqM) Glucose 110 H (74-99) mg/dL Plasma Lactic Acid Bret 1.8 (0.7-2.0) mmol/L Calcium 9.2 (8.4-10.2) mg/dL Total Bilirubin 0.7 (0.2-1.3) mg/dL AST 26 (17-59) U/L ALT 16 (4-49) U/L Alkaline Phosphatase 105 (38-126) U/L Total Protein 6.8 (6.3-8.2) g/dL Albumin 3.8 (3.5-5.0) g/dL Amylase 44 (30-110) U/L Lipase 35 (23-300) U/L Urine Color Urine Appearance (Clear) Urine pH (5.0-8.0) Ur Specific [place] (1.001-1.035) Urine Protein (Negative) Urine Glucose (UA) (Negative) Urine Ketones (Negative) Urine Blood (Negative) Urine Nitrite (Negative) Urine Bilirubin (Negative) Urine Urobilinogen (<2.0) mg/dL Ur Leukocyte Esterase (Negative) 01/13/23 Range/Units 21:55 WBC (3.8-10.6) k/uL RBC (4.30-5.90) m/uL Hgb (13.0-17.5) gm/dL Hct (39.0-53.0) % MCV (80.0-100.0) fL MCH (25.0-35.0) pg MCHC (31.0-37.0) g/dL RDW (11.5-15.5) % Plt Count (150-450) k/uL MPV Neutrophils % % Lymphocytes % % Monocytes % % Eosinophils % % Basophils % % Neutrophils # (1.3-7.7) k/uL Lymphocytes # (1.0-4.8) k/uL Monocytes # (0-1.0) k/uL Eosinophils # (0-0.7) k/uL Basophils # (0-0.2) k/uL Sodium (137-145) mmol/L Potassium (3.5-5.1) mmol/L Chloride (98-107) mmol/L Carbon Dioxide (22-30) mmol/L Anion Gap mmol/L BUN (9-20) mg/dL Creatinine (0.66-1.25) mg/dL Est GFR (CKD-EPI)AfAm (>60 ml/min/1.73 sqM) Est GFR (CKD-EPI)NonAf (>60 ml/min/1.73 sqM) Glucose (74-99) mg/dL Plasma Lactic Acid Bret (0.7-2.0) mmol/L Calcium (8.4-10.2) mg/dL Total Bilirubin (0.2-1.3) mg/dL AST (17-59) U/L ALT (4-49) U/L Alkaline Phosphatase (38-126) U/L Total Protein (6.3-8.2) g/dL Albumin (3.5-5.0) g/dL Amylase (30-110) U/L Lipase (23-300) U/L Urine Color Yellow Urine Appearance Clear (Clear) Urine pH 6.0 (5.0-8.0) Ur Specific [place] >1.050 H (1.001-1.035) Urine Protein Trace H (Negative) Urine Glucose (UA) Negative (Negative) Urine Ketones 1+ H (Negative) Urine Blood Negative (Negative) Urine Nitrite Negative (Negative) Urine Bilirubin Negative (Negative) Urine Urobilinogen <2.0 (<2.0) mg/dL Ur Leukocyte Esterase Negative (Negative) Disposition <Mahesh Valdovinos - Last Filed: 01/13/23 21:13> Time of Disposition: 21:45 <Johnathan Roca - Last Filed: 01/13/23 22:37> Clinical Impression: Diarrhea, Colitis, Intractable abdominal pain Disposition: ADMITTED IP TO THIS [facility] Condition: Stable
[2023-01-13 20:10] LABS: Basophils % (A) 0 %; Eosinophils # (A) 0.1 k/uL (0-0.7); Eosinophils % (A) 1 %; HCT 44.6 % (39.0-53.0); HGB 14.4 gm/dL (13.0-17.5); Lymphocytes # (A) 1.1 k/uL (1.0-4.8); Lymphocytes % (A) 19 %; MCH 28.8 pg (25.0-35.0); MCHC 32.4 g/dL (31.0-37.0); MCV 88.9 fL (80.0-100.0); Mean Platelet Volume 7.4; Monocytes # (A) 0.4 k/uL (0-1.0); Monocytes % (A) 7 %; Neutrophils % (A) 70 %; Platelet Count 248 k/uL (150-450); RBC 5.01 m/uL (4.30-5.90); RDW 13.7 % (11.5-15.5); WBC 5.7 k/uL (3.8-10.6)
[2023-01-13 20:19] LABS: Albumin 3.8 g/dL (3.5-5.0); Calcium 9.2 mg/dL (8.4-10.2); Potassium 4.4 mmol/L (3.5-5.1); Total Bilirubin 0.7 mg/dL (0.2-1.3); Total Protein 6.8 g/dL (6.3-8.2)
--- NOTE | 2023-01-13 21:18 | CT ---
EXAMINATION TYPE: CT abdomen pelvis w con CT DLP: 1294.8 mGycm, Automated exposure control for dose reduction was used. DATE OF EXAM: 01/13/2023 9:02 PM COMPARISON: CT abdomen pelvis most recent from CLINICAL INDICATION:Male, 87 years old with history of Abdominal pain; Body pains, generalized abdomi nal pain TECHNIQUE: Axial CT of the abdomen and pelvis. Sagittal and coronal reformats were created on a [employer] workstation. Contrast used:80 cc mL of Isovue 300 with IV Contrast, Oral contrast used: without Oral Contrast FINDINGS: LOWER CHEST: Unremarkable ABDOMEN LIVER: Unremarkable GALLBLADDER AND BILE DUCTS: Unremarkable. PANCREAS: Unremarkable. SPLEEN: Unremarkable. ADRENAL GLANDS: Unremarkable. KIDNEYS AND URETERS: Right upper pole renal cyst with peripheral calcification could represent calyce al diverticulum with calculus. Additional simple appearing cyst. No obstructive uropathy. Left renal No evidence of left obstructive uropathy or renal calculus. Some of lobular contour to the left kidne y. Multilevel disc degeneration changes are seen throughout the spine. PELVIS BLADDER: Unremarkable REPRODUCTIVE: Unremarkable. ABDOMEN & PELVIS STOMACH AND BOWEL: There is small hiatal hernia present. No evidence of bowel obstruction. The append ix is normal. There may be mild inflammation changes along the colon somewhat difficult to delineate given motion and patient's arms being in the [id number]. PERITONEUM/RETROPERITONEUM: No evidence of pneumoperitoneum or free fluid. VASCULATURE: Moderate atherosclerotic calcifications are present throughout the abdominal aorta and i ts branches. No evidence of aortic aneurysm. MUSCULOSKELETAL: L1 vertebral body fracture without significant displacement. There is extension from the anterior to the superior endplate. There is no retropulsion or evidence of neural foraminal or s yesi canal stenosis. Less than 25% height loss. Moderate disc degeneration changes are present throu ghout the thoracolumbar spine. LYMPH NODES: No gross evidence for lymphadenopathy. SOFT TISSUE/ABDOMINAL WALL: Bilateral fat-containing inguinal hernias. IMPRESSION: 1. Mild there may be mild inflammation changes are along the colon suggesting colitis otherwise no e vidence for acute abdominal process. 2. L1 vertebral body fracture without significant displacement. There is no retropulsion or evidence of neural foraminal cyst or spinal canal stenosis. Indeterminate related with MRI for acute bony benny ma. 3. Right renal cysts one of which has peripheral calcification could represent calyceal diverticulum calcification. 4. Large severe atherosclerosis
[2023-01-13] MEDS ORDERED: KETOROLAC 15 MG/ML 1 ML VIAL IVP STA (21:54)
[2023-01-13] MEDS ORDERED: KETOROLAC 15 MG/ML 1 ML VIAL IVP PRN (21:57)
[2023-01-13] MEDS ORDERED: NALOXONE 0.4 MG/ML 1 ML VIAL IV PRN (21:57)
[2023-01-13] MEDS ORDERED: ONDANSETRON 4 MG/2 ML VIAL IVP PRN (21:57)
[2023-01-13] MEDS ORDERED: traMADol 50 MG TAB PO PRN (21:59)
[2023-01-13 22:18] LABS: Appearance,Urine Clear (Clear); Bilirubin,Urine Negative (Negative); Blood,Urine Negative (Negative); Color,Urine Yellow; Glucose,Urine (UA) Negative (Negative); Ketones,Urine 1+ (Negative); Leukocyte Esterase,Urine Negative (Negative); Nitrite,Urine Negative (Negative); Protein,Urine Trace (Negative); Urobilinogen,Urine <2.0 mg/dL (<2.0)
[2023-01-13 22:25] LABS: Specific Gravity,Urine >1.050 (1.001-1.035)
[2023-01-13] MEDS: GABAPENTIN 300 MG CAP PO SCH (23:07)
--- NOTE | 2023-01-14 01:42 | P.EN ---
notified by ed barbara Roca that this patient will be switched to [facility] service
[2023-01-14 02:48] VITALS: RESP 18
[2023-01-14] MEDS: IPRATROPIUM 0.5 MG/2.5 ML NEBU INHALATION SCH ×3 (07:15→14:43)
[2023-01-14 07:20] LABS: Calcium 8.1 mg/dL (8.4-10.2); Potassium 4.4 mmol/L (3.5-5.1)
[2023-01-14 07:46] LABS: HCT 38.1 % (39.0-53.0); HGB 12.2 gm/dL (13.0-17.5); MCH 29.5 pg (25.0-35.0); MCV 92.2 fL (80.0-100.0); Mean Platelet Volume 8.3; Platelet Count 182 k/uL (150-450); RBC 4.14 m/uL (4.30-5.90); RDW 14.1 % (11.5-15.5); WBC 3.8 k/uL (3.8-10.6)
[2023-01-14] MEDS ORDERED: SYMBICORT 80-4.5 MCG INHALER INHALATION SCH (08:00)
[2023-01-14 08:21] VITALS: TEMP 98.1
[2023-01-14] MEDS: GABAPENTIN 300 MG CAP PO SCH (08:44)
[2023-01-14] MEDS ORDERED: HEPARIN SODIUM,PORCINE/PF 5,000 UNIT/0.5 ML SYRINGE SQ SCH (09:00)
[2023-01-14] MEDS ORDERED: PANTOPRAZOLE 40 MG TABLET PO SCH (09:00)
[2023-01-14] MEDS ORDERED: MIDODRINE 5 MG TAB PO SCH (09:00)
[2023-01-14] MEDS ORDERED: ASPIRIN 81 MG PO SCH (09:00)
[2023-01-14] MEDS ORDERED: ASCORBIC ACID 500 MG TAB PO SCH (09:00)
[2023-01-14] MEDS ORDERED: CLOPIDOGREL 75 MG TAB PO SCH (09:00)
[2023-01-14] MEDS ORDERED: FINASTERIDE 5 MG TAB PO SCH (09:00)
--- NOTE | 2023-01-14 09:04 | P.CNOR ---
History of Present Illness - [facility] Consult date: 01/14/23 Consult reason: other (Findings of coincidental L1 compression fracture on imaging) History of present illness: Patient is very pleasant 87-year-old male who is normally a community ambulate without any assistance. He presented to the emergency room yesterday in regards to abdominal pain nausea vomiting and diarrhea. During his workup he had computed tomography scan of his abdomen and pelvis and was noted to have a compression fracture of L1 of uncertain chronicity and we're counseled in this regard. He denies any new trauma. Denies any prior fractures. He denies any changes lower extremities. He says he has had prior surgery in his low back with Dr. Ramirez in 2006. He says he is doing much better today. His abdominal pain nausea and retching and diarrhea seems to have subsided substantially. He says he is doing quite well this morning. He denies any back pain. He denies any leg pain. He says his legs overall been doing quite well. He says that his back does get tired when he is up walking more than a few 100 yards. He says this is somewhat normal for him but he did see his emission specialist Dr. Ramirez just last week for evaluation both not planning any specific intervention. He was found have significant arthritis at his last visit with his emission specialist. He says that they did not mention any fracture. Review of Systems Denies any back injury. Denies any specific back pain. Says he does get tired at his back when walking over several 100 yards. He denies any lower extremity numbness tingling or weakness. Denies any radiculopathy. Denies any prior specific trauma to his back. He did have evaluation with emission specialist just last week. He has had surgery at that physician in the past Dr. 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 His most recent surgery was with Dr. Ramirez whom he saw just last week for chronic low back pain Last Myocardial Infarction Date:: 10/2018 History of Any Multi-Drug Resistant Organisms: None Reported Past Surgical History: Back Surgery, Heart Catheterization With Stent, Hernia Repair, Orthopedic Surgery, Tonsillectomy Additional Past Surgical History / Comment(s): back laminectomy x2, rik hand surgery from injuries, tx varicose veins rik legs, rki cataracts, pain procedures r/t shoulder pain Past Anesthesia/Blood Transfusion Reactions: No Reported Reaction Date of Last Stent Placement:: 10/2018 Past Psychological History: No Psychological Hx Reported Smoking Status: Former smoker Past Alcohol Use History: Rare Additional Past Alcohol Use History / Comment(s): quit 1972, smoked 20 years 1/2-1 ppd Past Drug Use History: None Reported - Past Family History Mother Family Medical History: Cancer Additional Family Medical History / Comment(s): bowel and ovarian Father Family Medical History: Cancer Additional Family Medical History / Comment(s): "black lung" Sister(s) Family Medical History: Cancer Additional Family Medical History / Comment(s): ovarian Medications and Allergies Home Medications Medication Instructions Recorded Confirmed Type Clopidogrel [Plavix] 75 mg PO DAILY 09/27/18 01/13/23 History Tamsulosin [Flomax] 0.4 mg PO HS 09/27/18 01/13/23 History Aspirin EC [Ecotrin Low Dose] 81 mg PO DAILY 07/13/20 01/13/23 History Pantoprazole Sodium [Protonix] 40 mg PO DAILY 07/13/20 01/13/23 History Ascorbic Acid [Vitamin C] 500 mg PO DAILY 01/13/23 01/13/23 History Atorvastatin [Lipitor] 20 mg PO HS 01/13/23 01/13/23 History Celecoxib [CeleBREX] 200 mg PO DAILY 01/13/23 01/13/23 History Cholecalciferol [Vitamin D3 (25 25 mcg PO DAILY 01/13/23 01/13/23 History Mcg = 1000 Iu)] Finasteride [Proscar] 5 mg PO DAILY 01/13/23 01/13/23 History Fluticasone/Umeclidin/Vilanter 1 puff INHALATION RT-DAILY 01/13/23 01/13/23 History [Trelegy Ellipta 100-62.5-25] Gabapentin [Neurontin] 300 mg PO TID 01/13/23 01/13/23 History Midodrine [ProAmatine] 5 mg PO DAILY 01/13/23 01/13/23 History Turmeric Root Extract [Turmeric] 500 mg PO DAILY 01/13/23 01/13/23 History Zinc Gluconate [Zinc] 50 mg PO DAILY 01/13/23 01/13/23 History traMADol HCL 50 mg PO DAILY PRN 01/13/23 01/13/23 History Allergies Allergy/AdvReac Type Severity Reaction Status Date / Time No Known Allergies Allergy Verified 01/13/23 19:58 Physical Examination Osteopathic Statement: *. No significant issues noted on an osteopathic structural exam other than those noted in the History and Physical/Consult. - L Spine: dermatomal strength & reflexes bilateral Strength: hip flexion: 5/5 (His back is nontender to palpation. He has well- healed incision around the midline at his lower lumbar spine. He is nontender to percussion. Skin does not have any rashes or changes) Strength: hip extension: 5/5 (His lower extremities have 5 out of 5 dorsi/plan flexion and EHL hip flexion and extension. No pain with internal or external rotation of his hips. Neck is nontender to palpation range of motion) Results - Labs Labs: Abnormal Lab Results - Last 24 Hours (Table) 01/13/23 01/13/23 01/14/23 Range/Units 19:50 21:55 05:52 RBC 4.14 L (4.30-5.90) m/uL Hgb 12.2 L (13.0-17.5) gm/dL Hct 38.1 L (39.0-53.0) % Chloride (98-107) mmol/L Carbon Dioxide (22-30) mmol/L Glucose 110 H (74-99) mg/dL Calcium (8.4-10.2) mg/dL Ur Specific [place] >1.050 H (1.001-1.035) Urine Protein Trace H (Negative) Urine Ketones 1+ H (Negative) 01/14/23 Range/Units 05:52 RBC (4.30-5.90) m/uL Hgb (13.0-17.5) gm/dL Hct (39.0-53.0) % Chloride 109 H (98-107) mmol/L Carbon Dioxide 21 L (22-30) mmol/L Glucose (74-99) mg/dL Calcium 8.1 L (8.4-10.2) mg/dL Ur Specific [place] (1.001-1.035) Urine Protein (Negative) Urine Ketones (Negative) H & H 01/13/23 01/14/23 Range/Units 19:50 05:52 Hgb 14.4 12.2 L (13.0-17.5) gm/dL Hct 44.6 38.1 L (39.0-53.0) % Result Diagrams: 01/14/23 05:52 01/14/23 05:52 - Diagnostic results CT Scan - lumbar: report reviewed (There is diffuse spondylosis and arthritic changes throughout his lumbar spine. There is facet arthrosis disc protrusion and foraminal encroachment. There is no bony retropulsion or evidence of acute fracture or bony erosion), image reviewed (CT abdomen and pelvis is reviewed in terms of the lumbar spine. I do see evidence of compression deformity at L1 as well as at L3 superior endplate. These appear to be chronic. I do not see acute fracture lines. 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 I do not think that the L1 and L3 vertebral body changes are acute. They do not appear to be unstable. He is not having symptoms on his exam currently at his lumbar spine. I think that his overall spondylosis is likely to give him some issues with activity but these are not acute changes and do not need to be have further imaging at this point. I do not think he requires any bracing or surgical intervention for his lumbar spine at this point. It is okay for him to mobilize to his tolerance in terms of his lumbar spine. He says that he has his own spine doctor who he can follow-up with on outpatient basis as needed and I think that is reasonable. We can see him on an as-needed basis. Is okay from a spine standpoint for the patient be discharged when he stable from medicine standpoint. The patient is continue treatment in terms of his diarrhea nausea and vomiting and abdominal pain. This seems to be resolving well and he will continue medical management.
[2023-01-14 10:02] LABS: Band Neutrophils % 1 %; Basophils # (M) 0.04 k/uL (0-0.2); Eosinophils # (M) 0.04 k/uL (0-0.7); Lymphocytes # (M) 1.06 k/uL (1.0-4.8); Monocytes # (M) 0.27 k/uL (0-1.0); Neutrophils % (M) 62 %; Nucleated Red Blood Cells 0 /100 WBC (0-0); Total Cells Counted 100
[2023-01-14 10:03] LABS: RBC Morphology Normal
--- NOTE | 2023-01-14 13:47 | P.HPIM ---
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 , history of lumbar spine decompression in 2006 and also in the . His most recent surgery was with Dr. Ramirez whom he saw just last week for chronic low back pain Last Myocardial Infarction Date:: 10/2018 History of Any Multi-Drug Resistant Organisms: None Reported Past Surgical History: Back Surgery, Heart Catheterization With Stent, Hernia Repair, Orthopedic Surgery, Tonsillectomy Additional Past Surgical History / Comment(s): back laminectomy x2, rik hand nichols rgery from injuries, tx varicose veins rik legs, rik cataracts, pain procedures r/t shoulder pain Past Anesthesia/Blood Transfusion Reactions: No Reported Reaction Date of Last Stent Placement:: 10/2018 Past Psychological History: No Psychological Hx Reported Smoking Status: Former smoker Past Alcohol Use History: Rare Additional Past Alcohol Use History / Comment(s): quit 1972, smoked 20 years 1/2-1 ppd Past Drug Use History: None Reported - Past Family History Mother Family Medical History: Cancer Additional Family Medical History / Comment(s): bowel and ovarian Father Family Medical History: Cancer Additional Family Medical History / Comment(s): "black lung" Sister(s) Family Medical History: Cancer Additional Family Medical History / Comment(s): ovarian Medications and Allergies Home Medications Medication Instructions Recorded Confirmed Type Clopidogrel [Plavix] 75 mg PO DAILY 09/27/18 01/13/23 History Tamsulosin [Flomax] 0.4 mg PO HS 09/27/18 01/13/23 History Aspirin EC [Ecotrin Low Dose] 81 mg PO DAILY 07/13/20 01/13/23 History Pantoprazole Sodium [Protonix] 40 mg PO DAILY 07/13/20 01/13/23 History Ascorbic Acid [Vitamin C] 500 mg PO DAILY 01/13/23 01/13/23 History Atorvastatin [Lipitor] 20 mg PO HS 01/13/23 01/13/23 History Celecoxib [CeleBREX] 200 mg PO DAILY 01/13/23 01/13/23 History Cholecalciferol [Vitamin D3 (25 25 mcg PO DAILY 01/13/23 01/13/23 History Mcg = 1000 Iu)] Finasteride [Proscar] 5 mg PO DAILY 01/13/23 01/13/23 History Fluticasone/Umeclidin/Vilanter 1 puff INHALATION RT-DAILY 01/13/23 01/13/23 History [Trelegy Ellipta 100-62.5-25] Gabapentin [Neurontin] 300 mg PO TID 01/13/23 01/13/23 History Midodrine [ProAmatine] 5 mg PO DAILY 01/13/23 01/13/23 History Turmeric Root Extract [Turmeric] 500 mg PO DAILY 01/13/23 01/13/23 History Zinc Gluconate [Zinc] 50 mg PO DAILY 01/13/23 01/13/23 History traMADol HCL 50 mg PO DAILY PRN 01/13/23 01/13/23 History Allergies Allergy/AdvReac Type Severity Reaction Status Date / Time No Known Allergies Allergy Verified 01/13/23 19:58 Physical Exam Vitals: Vital Signs Temp Pulse Pulse Resp BP BP BP 01/14/23 08:49 18 01/14/23 07:00 98.1 F 77 18 108/55 01/14/23 02:03 98.4 F 81 18 134/72 01/13/23 23:05 98.2 F 89 17 142/68 01/13/23 22:12 91 18 133/77 01/13/23 19:23 98.2 F 90 18 120/67 Pulse Ox 01/14/23 08:49 01/14/23 07:00 91 L 01/14/23 02:03 98 01/13/23 23:05 95 01/13/23 22:12 94 L 01/13/23 19:23 98 Intake and Output 01/13/23 01/14/23 01/14/23 22:59 06:59 14:59 Intake Total 298 Balance 298 Intake: Oral 298 Other: Voiding Method Toilet # Voids 1 Weight 80.739 kg 80.739 kg Results CBC & Chem 7: 01/14/23 05:52 01/14/23 05:52 Labs: Abnormal Lab Results - Last 24 Hours (Table) 01/13/23 01/13/23 01/14/23 Range/Units 19:50 21:55 05:52 RBC 4.14 L (4.30-5.90) m/uL Hgb 12.2 L (13.0-17.5) gm/dL Hct 38.1 L (39.0-53.0) % Chloride (98-107) mmol/L Carbon Dioxide (22-30) mmol/L Glucose 110 H (74-99) mg/dL Calcium (8.4-10.2) mg/dL Ur Specific [place] >1.050 H (1.001-1.035) Urine Protein Trace H (Negative) Urine Ketones 1+ H (Negative) 01/14/23 Range/Units 05:52 RBC (4.30-5.90) m/uL Hgb (13.0-17.5) gm/dL Hct (39.0-53.0) % Chloride 109 H (98-107) mmol/L Carbon Dioxide 21 L (22-30) mmol/L Glucose (74-99) mg/dL Calcium 8.1 L (8.4-10.2) mg/dL Ur Specific [place] (1.001-1.035) Urine Protein (Negative) Urine Ketones (Negative) Thrombosis Risk Factor Assmnt - Choose All That Apply Each Factor Represents 1 point: Abnormal pulmonary function (COPD) Each Risk Factor Represents 3 Points: Age 75 years or older Thrombosis Risk Factor Assessment Total Risk Factor Score: 4 Thrombosis Risk Factor Assessment Level: Moderate Risk
[2023-01-14] MEDS ORDERED: LIDOCAINE 5% PATCH TOPICAL SCH (14:00)
[2023-01-14 14:32] VITALS: BP 149/70; PULSE 82
[2023-01-14] MEDS ORDERED: ATORVASTATIN 20 MG TAB PO SCH (21:00)
[2023-01-14] MEDS ORDERED: TAMSULOSIN 0.4 MG CAP.ER.24H PO SCH (21:00)
== END 2023-01-14 14:56 | disposition home or self-care (01) ==
LOC: EC 19:08 → 6NMEDSUR 21:57
PROVIDERS: ADMIT Internal Medicine; ATTEND Internal Medicine
DX: R10.9 Unspecified abdominal pain (principal); M48.56XA Collapsed vertebra, not elsewhere classified, lumbar region, initial encounter for fracture; J44.9 Chronic obstructive pulmonary disease, unspecified; M06.9 Rheumatoid arthritis, unspecified; I25.2 Old myocardial infarction; Q61.02 Congenital multiple renal cysts; K21.9 Gastro-esophageal reflux disease without esophagitis; K44.9 Diaphragmatic hernia without obstruction or gangrene; I70.0 Atherosclerosis of aorta; K40.90 Unilateral inguinal hernia, without obstruction or gangrene, not specified as recurrent; M47.816 Spondylosis without myelopathy or radiculopathy, lumbar region; M51.35 Other intervertebral disc degeneration, thoracolumbar region; Z79.02 Long term (current) use of antithrombotics/antiplatelets; Z79.82 Long term (current) use of aspirin; Z79.899 Other long term (current) drug therapy; Z79.1 Long term (current) use of non-steroidal anti-inflammatories (NSAID); Z98.42 Cataract extraction status, left eye; Z98.41 Cataract extraction status, right eye; Z80.0 Family history of malignant neoplasm of digestive organs; Z80.41 Family history of malignant neoplasm of ovary; Z80.1 Family history of malignant neoplasm of trachea, bronchus and lung; Z87.891 Personal history of nicotine dependence
CPT/HCPCS: 96376; 96372; 96361; 96374; 96375; 99285; 36415; 80053; 80048; 82150; 83605; 83690; 85025 ×2; 81003; 74177; G0378 ×2; S0138; J2405; J1885 ×2; J1170; Q9967; J1644

== ENCOUNTER 2023-01-25 19:49 | Emergency (ER) | payer MEDICARE ==
--- NOTE | 2023-01-25 20:09 | ED ---
General Adult HPI - General Source: RN notes reviewed <Edita Mckeon - Last Filed: 01/25/23 20:07> <Samir Shepherd - Last Filed: 01/26/23 00:23> - General Stated complaint: VOMIT-NAUSEA Time Seen by Provider: 01/25/23 20:08 - History of Present Illness Initial comments: 87-year-old male presents the emergency department with nausea and vomiting. (Edita Mcekon) 87-year-old male presenting for evaluation of productive cough, vomiting and dry heaving which began this afternoon. Patient denies fever. He had similar episode of vomiting about 2 weeks ago and had computed tomography scan as well as admission. He denies chest pain. Denies current abdominal pain. He has not vomited in the past several hours. (Samir Shepherd) - Related Data Home Medications Medication Instructions Recorded Confirmed Clopidogrel [Plavix] 75 mg PO DAILY 09/27/18 01/13/23 Tamsulosin [Flomax] 0.4 mg PO HS 09/27/18 01/13/23 Aspirin EC [Ecotrin Low Dose] 81 mg PO DAILY 07/13/20 01/13/23 Pantoprazole Sodium [Protonix] 40 mg PO DAILY 07/13/20 01/13/23 Ascorbic Acid [Vitamin C] 500 mg PO DAILY 01/13/23 01/13/23 Atorvastatin [Lipitor] 20 mg PO HS 01/13/23 01/13/23 Celecoxib [CeleBREX] 200 mg PO DAILY 01/13/23 01/13/23 Cholecalciferol [Vitamin D3 (25 25 mcg PO DAILY 01/13/23 01/13/23 Mcg = 1000 Iu)] Finasteride [Proscar] 5 mg PO DAILY 01/13/23 01/13/23 Fluticasone/Umeclidin/Vilanter 1 puff INHALATION RT-DAILY 01/13/23 01/13/23 [Trelemaría Ellipta 100-62.5-25] Gabapentin [Neurontin] 300 mg PO TID 01/13/23 01/13/23 Midodrine [ProAmatine] 5 mg PO DAILY 01/13/23 01/13/23 Turmeric Root Extract [Turmeric] 500 mg PO DAILY 01/13/23 01/13/23 Zinc Gluconate [Zinc] 50 mg PO DAILY 01/13/23 01/13/23 Previous Rx's Medication Instructions Recorded traMADol HCL 50 mg PO DAILY PRN 7 Days #7 tab 01/14/23 Allergies Allergy/AdvReac Type Severity Reaction Status Date / Time No Known Allergies Allergy Verified 01/13/23 19:58 Review of Systems ROS Other: All systems not noted in ROS Statement are negative. <Edita Mckeon - Last Filed: 01/25/23 20:07> ROS Other: All systems not noted in ROS Statement are negative. <Samir Shepherd - Last Filed: 01/26/23 00:23> ROS Statement: Those systems with pertinent positive or pertinent negative responses have been documented in the HPI. 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 His most recent surgery was with Dr. Ramirez whom he saw just last week for chronic low back pain Last Myocardial Infarction Date:: 10/2018 History of Any Multi-Drug Resistant Organisms: None Reported Past Surgical History: Back Surgery, Heart Catheterization With Stent, Hernia Repair, Orthopedic Surgery, Tonsillectomy Additional Past Surgical History / Comment(s): back laminectomy x2, rik hand surgery from injuries, tx varicose veins rik legs, rik cataracts, pain procedures r/t shoulder pain Past Anesthesia/Blood Transfusion Reactions: No Reported Reaction Date of Last Stent Placement:: 10/2018 Past Psychological History: No Psychological Hx Reported Smoking Status: Former smoker Past Alcohol Use History: Rare Additional Past Alcohol Use History / Comment(s): quit 1972, smoked 20 years 1/2-1 ppd Past Drug Use History: None Reported - Past Family History Mother Family Medical History: Cancer Additional Family Medical History / Comment(s): bowel and ovarian Father Family Medical History: Cancer Additional Family Medical History / Comment(s): "black lung" Sister(s) Family Medical History: Cancer Additional Family Medical History / Comment(s): ovarian <Edita Mckeon - Last Filed: 01/25/23 20:07> General Exam <Edita Mckeon - Last Filed: 01/25/23 20:07> General appearance: alert, in no apparent distress Head exam: Present: atraumatic, normocephalic Eye exam: Present: normal appearance, PERRL ENT exam: Present: normal exam Neck exam: Present: normal inspection. Absent: tenderness, meningismus Respiratory exam: Present: other (Scattered rhonchi). Absent: respiratory distress Cardiovascular Exam: Present: regular rate, normal rhythm GI/Abdominal exam: Present: soft. Absent: distended, tenderness, guarding, rebound, rigid Extremities exam: Present: normal inspection, normal capillary refill. Absent: pedal edema, calf tenderness Neurological exam: Present: alert, oriented X3, CN II-XII intact. Absent: motor sensory deficit Psychiatric exam: Present: normal affect, normal mood Skin exam: Present: warm, dry <Samir Shepherd - Last Filed: 01/26/23 00:23> - General Exam Comments Initial Comments: Visual Physical Exam Vital signs reviewed General: Well-appearing, nontoxic, no acute distress. Head: Normocephalic, atraumatic Eyes: PERRLA, EOMI ENT: Airway patent Chest: Nonlabored breathing Skin: No visual rash, normal skin tone Neuro: Alert and oriented 3 Musculoskeletal: No gross abnormalities (Edita Mckeon) Course <Samir Shepherd - Last Filed: 01/26/23 00:23> Vital Signs 01/25/23 20:09 Temperature 97.9 F Pulse Rate 84 Respiratory 24 Rate Blood Pressure 144/83 O2 Sat by Pulse 98 Oximetry - Reevaluation(s) Reevaluation #1: 01/26/23 00:20 Patient reevaluated, no complaints, no further vomiting, no cough, able to drink in the emergency department. (Samir Shepherd) Medical Decision Making - Lab Data Result diagrams: 01/25/23 20:24 01/25/23 20:24 <Samir Shepherd - Last Filed: 01/26/23 00:23> - Medical Decision Making Was pt. sent in by a medical professional or institution (, PA, [employer], urgent care, hospital, or shelter...) When possible be specific @ -No Did you speak to anyone other than the patient for history (EMS, parent, family, police, friend...)? What history was obtained from this source @ -Patient's and daughters Did you review nursing and triage notes (agree or disagree)? Why? @ -I reviewed and agree with nursing and triage notes Were old charts reviewed (outside hosp., previous admission, EMS record, old EKG, old radiological studies, urgent care reports/EKG's, shelter records)? Report findings @Recent CT imaging of the abdomen Differential Diagnosis (chest pain, altered mental status, abdominal pain women, abdominal pain men, vaginal bleeding, weakness, fever, dyspnea, syncope, headache, dizziness, GI bleed, back pain, seizure, CVA, palpatations, mental health, musculoskeletal)? @ -not applicable EKG interpreted by me (3pts min.). @Sinus rhythm, rate of 84, NH interval 182, QRS duration 105, QTC 422 artifact in lead 2,3 X-rays interpreted by me (1pt min.). @No focal pneumonia, no acute findings CT interpreted by me (1pt min.). @ -None done U/S interpreted by me (1pt. min.). @ -None done What testing was considered but not performed or refused? (CT, X-rays, U/S, labs)? Why? @ -None What meds were considered but not given or refused? Why? @ -None Did you discuss the management of the patient with other professionals (liv mckeon i.e., Dr., PA, [employer], lab, RT, psych nurse, psychiatric social worker, field engineer, teacher, aoc plans intelligence officer, major case detective)? Give summary @ -No Was smoking cessation discussed for >3mins.? @ -No Was critical care preformed (if so, how long)? @ -No Were there social determinants of health that impacted care today? How? (Homelessness, low income, unemployed, alcoholism, drug addiction, transportation, low edu. Level, literacy, decrease access to med. care, fdc, rehab)? @ -No Was there de-escalation of care discussed even if they declined (Discuss DNR or withdrawal of care, Hospice)? DNR status @ -No What co-morbidities impacted this encounter? (DM, HTN, Smoking, COPD, CAD, Cancer, CVA, ARF, Chemo, Hep., AIDS, mental health diagnosis, sleep apnea, morbid obesity)? @COPD Was patient admitted / discharged? Hospital course, mention meds given and route, prescriptions, significant lab abnormalities, going to OR and other pertinent info. @87-year-old male with productive cough and vomiting. Vital signs are stable. Chest x-ray is clear. He has a mild leukopenia at 3.2 otherwise normal laboratory testing. Patient is able to drink in the emergency department. He has no wheezing. No respiratory distress. Patient ultimately wants to go home and family is agreeable. They will follow-up with their care physician. Undiagnosed new problem with uncertain prognosis? @ -No Drug Therapy requiring intensive monitoring for toxicity (Heparin, Nitro, Insulin, Cardizem)? @ -No Were any procedures done? @ -No Diagnosis/symptom? @Vomiting Acute, or Chronic, or Acute on Chronic? @Acute Uncomplicated (without systemic symptoms) or Complicated (systemic symptoms)? @Uncomplicated Side effects of treatment? @ -No Exacerbation, Progression, or Severe Exacerbation? @ -No Poses a threat to life or bodily function? How? (Chest pain, [place], [place], pneumonia, PE, COPD, DKA, ARF, appy, cholecystitis, CVA, Diverticulitis, Homicidal, Suicidal, threat to staff... and all critical care pts) @ -No (Samir Shepherd) - Lab Data Lab Results 01/25/23 01/25/23 01/25/23 Range/Units 20:24 20:24 20:24 WBC 3.2 L (3.8-10.6) k/uL RBC 5.05 (4.30-5.90) m/uL Hgb 14.8 (13.0-17.5) gm/dL Hct 44.4 (39.0-53.0) % MCV 87.9 (80.0-100.0) fL MCH 29.2 (25.0-35.0) pg MCHC 33.3 (31.0-37.0) g/dL RDW 14.0 (11.5-15.5) % Plt Count 325 (150-450) k/uL MPV 7.6 Neutrophils % 80 % Lymphocytes % 17 % Monocytes % 2 % Eosinophils % 0 % Basophils % 0 % Neutrophils # 2.5 (1.3-7.7) k/uL Lymphocytes # 0.5 L (1.0-4.8) k/uL Monocytes # 0.1 (0-1.0) k/uL Eosinophils # 0.0 (0-0.7) k/uL Basophils # 0.0 (0-0.2) k/uL Sodium 138 (137-145) mmol/L Potassium 5.0 (3.5-5.1) mmol/L Chloride 102 (98-107) mmol/L Carbon Dioxide 23 (22-30) mmol/L Anion Gap 13 mmol/L BUN 20 (9-20) mg/dL Creatinine 1.00 (0.66-1.25) mg/dL Est GFR (CKD-EPI)AfAm 79 (>60 ml/min/1.73 sqM) Est GFR (CKD-EPI)NonAf 68 (>60 ml/min/1.73 sqM) Glucose 140 H (74-99) mg/dL Calcium 9.6 (8.4-10.2) mg/dL Magnesium 1.9 (1.6-2.3) mg/dL Total Bilirubin 0.8 (0.2-1.3) mg/dL AST 26 (17-59) U/L ALT 16 (4-49) U/L Alkaline Phosphatase 114 (38-126) U/L Troponin I <0.012 (0.000-0.034) ng/mL Total Protein 7.2 (6.3-8.2) g/dL Albumin 4.2 (3.5-5.0) g/dL Urine Color Urine Appearance (Clear) Urine pH (5.0-8.0) Ur Specific [place] (1.001-1.035) Urine Protein (Negative) Urine Glucose (UA) (Negative) Urine Ketones (Negative) Urine Blood (Negative) Urine Nitrite (Negative) Urine Bilirubin (Negative) Urine Urobilinogen (<2.0) mg/dL Ur Leukocyte Esterase (Negative) Urine RBC (0-5) /hpf Urine WBC (0-5) /hpf Ur Squamous Epith Cells (0-4) /hpf Urine Mucus (None) /hpf Influenza Type A (PCR) (Not Detectd) Influenza Type B (PCR) (Not Detectd) RSV (PCR) (Not Detectd) SARS-CoV-2 (PCR) (Not Detectd) 01/25/23 01/25/23 Range/Units 20:24 21:05 WBC (3.8-10.6) k/uL RBC (4.30-5.90) m/uL Hgb (13.0-17.5) gm/dL Hct (39.0-53.0) % MCV (80.0-100.0) fL MCH (25.0-35.0) pg MCHC (31.0-37.0) g/dL RDW (11.5-15.5) % Plt Count (150-450) k/uL MPV Neutrophils % % Lymphocytes % % Monocytes % % Eosinophils % % Basophils % % Neutrophils # (1.3-7.7) k/uL Lymphocytes # (1.0-4.8) k/uL Monocytes # (0-1.0) k/uL Eosinophils # (0-0.7) k/uL Basophils # (0-0.2) k/uL Sodium (137-145) mmol/L Potassium (3.5-5.1) mmol/L Chloride (98-107) mmol/L Carbon Dioxide (22-30) mmol/L Anion Gap mmol/L BUN (9-20) mg/dL Creatinine (0.66-1.25) mg/dL Est GFR (CKD-EPI)AfAm (>60 ml/min/1.73 sqM) Est GFR (CKD-EPI)NonAf (>60 ml/min/1.73 sqM) Glucose (74-99) mg/dL Calcium (8.4-10.2) mg/dL Magnesium (1.6-2.3) mg/dL Total Bilirubin (0.2-1.3) mg/dL AST (17-59) U/L ALT (4-49) U/L Alkaline Phosphatase (38-126) U/L Troponin I (0.000-0.034) ng/mL Total Protein (6.3-8.2) g/dL Albumin (3.5-5.0) g/dL Urine Color Yellow Urine Appearance Clear (Clear) Urine pH 6.0 (5.0-8.0) Ur Specific [place] 1.032 (1.001-1.035) Urine Protein 1+ H (Negative) Urine Glucose (UA) Negative (Negative) Urine Ketones 3+ H (Negative) Urine Blood Negative (Negative) Urine Nitrite Negative (Negative) Urine Bilirubin Negative (Negative) Urine Urobilinogen 3.0 (<2.0) mg/dL Ur Leukocyte Esterase Negative (Negative) Urine RBC 6 H (0-5) /hpf Urine WBC 1 (0-5) /hpf Ur Squamous Epith Cells 1 (0-4) /hpf Urine Mucus Many H (None) /hpf Influenza Type A (PCR) Not Detected (Not Detectd) Influenza Type B (PCR) Not Detected (Not Detectd) RSV (PCR) Not Detected (Not Detectd) SARS-CoV-2 (PCR) Not Detected (Not Detectd) Disposition <Edita Mckeon - Last Filed: 01/25/23 20:07> Is patient prescribed a controlled substance at d/c from ED?: No Time of Disposition: 00:23 <Samir Shepherd - Last Filed: 01/26/23 00:23> Clinical Impression: Vomiting Disposition: HOME SELF-CARE Condition: Fair Instructions (If sedation given, give patient instructions): Acute Nausea and Vomiting (ED) Referrals: Mahesh Reynolds DO [Primary Care Provider] - 1-2 days
[2023-01-25 20:11] VITALS: PULSE 84; TEMP 97.9
[2023-01-25 20:50] LABS: Basophils % (A) 0 %; Eosinophils % (A) 0 %; HCT 44.4 % (39.0-53.0); HGB 14.8 gm/dL (13.0-17.5); Lymphocytes # (A) 0.5 k/uL (1.0-4.8); Lymphocytes % (A) 17 %; MCH 29.2 pg (25.0-35.0); MCHC 33.3 g/dL (31.0-37.0); MCV 87.9 fL (80.0-100.0); Mean Platelet Volume 7.6; Monocytes # (A) 0.1 k/uL (0-1.0); Monocytes % (A) 2 %; Neutrophils # (A) 2.5 k/uL (1.3-7.7); Neutrophils % (A) 80 %; Platelet Count 325 k/uL (150-450); RBC 5.05 m/uL (4.30-5.90); WBC 3.2 k/uL (3.8-10.6)
[2023-01-25 21:03] LABS: Albumin 4.2 g/dL (3.5-5.0); Calcium 9.6 mg/dL (8.4-10.2); Magnesium 1.9 mg/dL (1.6-2.3); Total Bilirubin 0.8 mg/dL (0.2-1.3); Total Protein 7.2 g/dL (6.3-8.2)
[2023-01-25 21:22] LABS: Appearance,Urine Clear (Clear); Bilirubin,Urine Negative (Negative); Blood,Urine Negative (Negative); Color,Urine Yellow; Glucose,Urine (UA) Negative (Negative); Leukocyte Esterase,Urine Negative (Negative); Mucus,Urine Many /hpf; Nitrite,Urine Negative (Negative); Protein,Urine 1+ (Negative); RBC,Urine 6 /hpf (0-5); Specific Gravity,Urine 1.032 (1.001-1.035); Squamous Epithelial Cell,Urine 1 /hpf (0-4); WBC,Urine 1 /hpf (0-5)
[2023-01-25 21:23] LABS: Ketones,Urine 3+ (Negative)
--- NOTE | 2023-01-25 21:32 | XR ---
EXAMINATION TYPE: XR chest 2V DATE OF EXAM: 01/25/2023 COMPARISON: 07/13/2020 INDICATION: Cough TECHNIQUE: Frontal and lateral views of the chest are obtained. FINDINGS: The heart size is normal. The pulmonary vasculature is normal. The lungs are clear. IMPRESSION: 1. No acute pulmonary process.
[2023-01-26 00:32] VITALS: BP 170/96; RESP 18
== END 2023-01-26 00:34 | disposition home or self-care (01) ==
LOC: EC 19:49
DX: R11.10 Vomiting, unspecified (principal); J44.9 Chronic obstructive pulmonary disease, unspecified; K21.9 Gastro-esophageal reflux disease without esophagitis; I25.2 Old myocardial infarction; Z87.891 Personal history of nicotine dependence; Z79.82 Long term (current) use of aspirin; Z79.51 Long term (current) use of inhaled steroids; Z79.899 Other long term (current) drug therapy; Z20.822 Contact with and (suspected) exposure to COVID-19
CPT/HCPCS: 36415; 71046; 80053; 81001; 83735; 84484; 85025; 87636; 93005; 99284

== ENCOUNTER 2024-09-10 02:08 | Inpatient (IN) | payer MEDICARE ==
--- NOTE | 2024-09-10 02:43 | ED ---
General Adult HPI - General Chief complaint: Weakness Stated complaint: Difficulty breathing Time Seen by Provider: 09/10/24 02:30 Source: patient Mode of arrival: wheelchair Limitations: no limitations - History of Present Illness Initial comments: Dictation was produced using [employer] dictation software. please excuse any grammatical, word or spelling errors. Chief Complaint: 89-year-old male presents with altered mental status History of Present Illness: Patient is an 81-year-old male. History present illness obtained from 2 grandsons and at the bedside states that he has not been normal since . Patient has been having slurred speech and significant weakness. reports that patient has been coughing and having some total body pain. No obvious sick contacts. Family is concerned he is having a stroke. Patient states that he aches all over. The ROS documented in this emergency department record has been reviewed and c onfirmed by me. Those systems with pertinent positive or negative responses have been documented in the HPI. All other systems are other negative and/or noncontributory. - Related Data Home Medications Medication Instructions Recorded Confirmed Clopidogrel [Plavix] 75 mg PO DAILY 09/27/18 01/13/23 Tamsulosin [Flomax] 0.4 mg PO HS 09/27/18 01/13/23 Aspirin EC [Ecotrin Low Dose] 81 mg PO DAILY 07/13/20 01/13/23 Pantoprazole Sodium [Protonix] 40 mg PO DAILY 07/13/20 01/13/23 Ascorbic Acid [Vitamin C] 500 mg PO DAILY 01/13/23 01/13/23 Atorvastatin [Lipitor] 20 mg PO HS 01/13/23 01/13/23 Celecoxib [CeleBREX] 200 mg PO DAILY 01/13/23 01/13/23 Cholecalciferol [Vitamin D3 (25 25 mcg PO DAILY 01/13/23 01/13/23 Mcg = 1000 Iu)] Finasteride [Proscar] 5 mg PO DAILY 01/13/23 01/13/23 Fluticasone/Umeclidin/Vilanter 1 puff INHALATION RT-DAILY 01/13/23 01/13/23 [Trelegy Ellipta 100-62.5-25] Gabapentin [Neurontin] 300 mg PO TID 01/13/23 01/13/23 Midodrine [ProAmatine] 5 mg PO DAILY 01/13/23 01/13/23 Turmeric Root Extract [Turmeric] 500 mg PO DAILY 01/13/23 01/13/23 Zinc Gluconate [Zinc] 50 mg PO DAILY 01/13/23 01/13/23 Previous Rx's Medication Instructions Recorded traMADol HCL 50 mg PO DAILY PRN 7 Days #7 tab 01/14/23 Allergies Allergy/AdvReac Type Severity Reaction Status Date / Time No Known Allergies Allergy Verified 09/10/24 02:17 Review of Systems ROS Statement: Those systems with pertinent positive or pertinent negative responses have been documented in the HPI. ROS Other: All systems not noted in ROS Statement are negative. 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 His most recent surgery was with Dr. Ramirez whom he saw just last week for chronic low back pain Last Myocardial Infarction Date:: 10/2018 History of Any Multi-Drug Resistant Organisms: None Reported Past Surgical History: Back Surgery, Heart Catheterization With Stent, Hernia Repair, Orthopedic Surgery, Tonsillectomy Additional Past Surgical History / Comment(s): back laminectomy x2, rik hand surgery from injuries, tx varicose veins rik legs, rik cataracts, pain procedures r/t shoulder pain Past Anesthesia/Blood Transfusion Reactions: No Reported Reaction Date of Last Stent Placement:: 10/2018 Past Psychological History: No Psychological Hx Reported Smoking Status: Former smoker Past Alcohol Use History: Rare Past Drug Use History: None Reported - Past Family History Mother Family Medical History: Cancer Additional Family Medical History / Comment(s): bowel and ovarian Father Family Medical History: Cancer Additional Family Medical History / Comment(s): "black lung" Sister(s) Family Medical History: Cancer Additional Family Medical History / Comment(s): ovarian General Exam - General Exam Comments Initial Comments: PHYSICAL EXAM: General Impression: Alert and oriented x3, lethargic, malaised HEENT: Normocephalic atraumatic, extra-ocular movements intact, pupils equal and reactive to light bilaterally, mucous membranes moist. Cardiovascular: Heart regular rate and rhythm Chest: Able to complete full sentences, no retractions, no tachypnea Abdomen: abdomen soft, non-tender, non-distended, no organomegaly Musculoskeletal: Pulses present and equal in all extremities, no peripheral edema Motor: no focal deficits noted Neurological: CN II-XII grossly intact, no focal motor or sensory deficits noted Skin: Intact with no visualized rashes Limitations: no limitations Course Vital Signs 09/10/24 09/10/24 09/10/24 02:13 02:25 02:35 Temperature 99 F Pulse Rate 64 Respiratory 18 Rate Blood Pressure 80/58 71/43 63/41 O2 Sat by Pulse 88 L Oximetry 09/10/24 09/10/24 09/10/24 02:42 02:50 02:52 Temperature Pulse Rate 62 71 68 Respiratory 28 H 15 18 Rate Blood Pressure 68/42 75/47 94/50 O2 Sat by Pulse 91 L 95 94 L Oximetry 09/10/24 09/10/24 09/10/24 02:55 02:59 03:04 Temperature Pulse Rate 88 76 Respiratory 17 16 Rate Blood Pressure 94/56 82/52 85/70 O2 Sat by Pulse 96 95 Oximetry 09/10/24 09/10/24 09/10/24 03:09 03:15 03:24 Temperature Pulse Rate 87 Respiratory 16 Rate Blood Pressure 81/54 80/48 83/53 O2 Sat by Pulse 95 Oximetry 09/10/24 09/10/24 09/10/24 03:42 03:50 03:55 Temperature Pulse Rate 87 88 86 Respiratory 16 21 16 Rate Blood Pressure 80/57 113/55 110/62 O2 Sat by Pulse 92 L 95 95 Oximetry 09/10/24 09/10/24 09/10/24 04:00 04:05 04:35 Temperature Pulse Rate 83 86 80 Respiratory 12 19 15 Rate Blood Pressure 114/51 107/56 105/53 O2 Sat by Pulse 94 L 95 95 Oximetry 09/10/24 09/10/24 09/10/24 04:40 04:45 05:05 Temperature Pulse Rate 84 85 78 Respiratory 16 15 15 Rate Blood Pressure 93/48 102/56 91/48 O2 Sat by Pulse 95 97 96 Oximetry 09/10/24 05:25 Temperature Pulse Rate 80 Respiratory 14 Rate Blood Pressure 103/53 O2 Sat by Pulse 96 Oximetry EKG Findings - EKG Comments: EKG Findings:: My EKG interpretation: Ventricular rate 62, sinus rhythm, GA normal 2 8, QRS 115, QTc 4 4. No GA prolongation, no QTC prolongation, no ST or T-wave changes noted. Overall, this EKG is unremarkable Procedures - Sepsis Sepsis Focused Exam #1 Time Sepsis Criteria Met: : Sepsis Focused Exam Date: 09/10/24 Sepsis Focused Exam Time: 05:45 Sepsis Focused Exam Complete: Yes Vital Signs & RN Notes Reviewed: Yes Capillary Refill: < 2 Seconds: Fingers, Toes Peripheral Pulses: Normal: Radial (R), Radial (L), Posterior Tibialis (R), Posterior Tibialis (L), Dorsalis Pedis (R), Dorsalis Pedis (L) Skin Color: Normal for Patient Respiratory Exam: normal lung sounds Cardiovascular Exam: regular rate Medical Decision Making - Medical Decision Making Was pt. sent in by a medical professional or institution (ALEX Amato, INTERNATIONAL [employer]ER, urgent care, hospital, or [place] health care facility...) When possible be specific @ -No Did you speak to anyone other than the patient for history (EMS, parent, family, police, friend...)? What history was obtained from this source @ -Family as described above Did you review nursing and triage notes (agree or disagree)? Why? @ -I reviewed and agree with nursing and triage notes Were old charts reviewed (outside hosp., previous admission, EMS record, old EKG, old radiological studies, urgent care reports/EKG's, [place] health care facility records)? Report findings @ -No old charts were reviewed Differential Diagnosis (chest pain, altered mental status, abdominal pain women, abdominal pain men, vaginal bleeding, musculoskeletal, weakness, fever, dyspnea, syncope, headache, dizziness, GI bleed, back pain, seizure, CVA, palpatations, mental health)? @ -Differential Weakness: Hypoglycemia, shock, sepsis, hyponatremia, anemia, infection, NH, ETOH, adverse medicine reaction, overdose, stroke, this is not meant to be an all-inclusive list. EKG interpreted by me (3pts min.). @ -See above X-rays interpreted by me (1pt min.). @ -Chest x-ray shows left basilar infiltrate CT interpreted by me (1pt min.). @ -Brain shows no acute processes U/S interpreted by me (1pt. min.). @ -None done What testing was considered but not performed or refused? (CT, X-rays, U/S, labs)? Why? @ -None What meds were considered but not given or refused? Why? @ -None Was smoking cessation discussed for >3mins.? @ -No Were there social determinants of health that impacted care today? How? (Homelessness, low income, unemployed, alcoholism, drug addiction, transportation, low edu. Level, literacy, decrease access to med. care, intermediate, rehab)? @ -No Was there de-escalation of care discussed even if they declined (Discuss DNR or withdrawal of care, Hospice)? DNR status @ -No What co-morbidities impacted this encounter? (DM, HTN, Smoking, COPD, CAD, Cancer, CVA, ARF, Chemo, Hep., AIDS, mental health diagnosis, sleep apnea, morbid obesity)? @ -History of aspiration pneumonia Was patient admitted / discharged? Hospital course, mention meds given and route, prescriptions, significant lab abnormalities, going to OR and other pertinent info. @ -89-year-old male presents emergency department with weakness. There was some concern of slurred speech however at the bedside patient does not have any focal neurologic deficits. Patient was 88% on 3 L nasal cannula with low blood pressure. Neurologic exam was nonfocal. Patient malaised at the bedside without any specific pain complaints. Did complain of some cough. Laboratory evaluation obtained. No leukocytosis. Coag panel was negative. Metabolic panel shows acidosis with elevated renal function. Rest of labs within acceptable limits. Urinalysis negative. Chest x-ray shows no infiltrate. Clinical presentation concerning for pneumonia. Patient given fluids with improvement of his blood pressure from 80/58 to 103/53. Clinical presentation concerning for pneumonia sepsis. Did you discuss the management of the patient with other professionals (professionals i.e. , PA, INTERNATIONAL CONTROLLER, lab, RT, psych nurse, social services director, grab driver, teacher, custodial officer, catalytic case operator)? Give summary @ -Case discussed with hospitalist for admission Was critical care preformed (if so, how long)? @ -Yes, 77 minutes for management of pneumonia sepsis Undiagnosed new problem with uncertain prognosis? @ -No Drug Therapy requiring intensive monitoring for toxicity (Heparin, Nitro, Insulin, Cardizem)? @ -No Were any procedures done? @ -No Diagnosis/symptom? Acute, or Chronic, or Acute on Chronic? Uncomplicated (without systemic symptoms) or Complicated (systemic symptoms)? @ -Pneumonia sepsis Side effects of treatment? @ -No Exacerbation, Progression, or Severe Exacerbation? @ -No Poses a threat to life or bodily function? How? (Chest pain, USA, NH, pneumonia, PE, COPD, DKA, ARF, appy, cholecystitis, CVA, Diverticulitis, Homicidal, Suicidal, threat to staff... and all critical care pts) @ -yes - Lab Data Result diagrams: 09/10/24 02:41 09/10/24 02:41 Lab Results 09/10/24 09/10/24 09/10/24 Range/Units 02:41 02:41 02:41 WBC 7.4 (3.8-10.6) k/uL RBC 3.86 L (4.30-5.90) m/uL Hgb 11.3 L (13.0-17.5) gm/dL Hct 34.2 L (39.0-53.0) % MCV 88.5 (80.0-100.0) fL MCH 29.3 (25.0-35.0) pg MCHC 33.1 (31.0-37.0) g/dL RDW 14.3 (11.5-15.5) % Plt Count 128 L (150-450) k/uL MPV 8.8 Neutrophils % 80 % Lymphocytes % 13 % Monocytes % 5 % Eosinophils % 0 % Basophils % 0 % Neutrophils # 6.0 (1.3-7.7) k/uL Lymphocytes # 1.0 (1.0-4.8) k/uL Monocytes # 0.4 (0-1.0) k/uL Eosinophils # 0.0 (0-0.7) k/uL Basophils # 0.0 (0-0.2) k/uL PT 11.1 (10.0-12.5) sec INR 1.0 (<1.2) APTT 26.4 (22.0-30.0) sec Sodium 133 L (137-145) mmol/L Potassium 5.2 H (3.5-5.1) mmol/L Chloride 105 (98-107) mmol/L Carbon Dioxide 17 L (22-30) mmol/L Anion Gap 11 mmol/L BUN 45 H (9-20) mg/dL Creatinine 2.19 H (0.66-1.25) mg/dL Est GFR (CKD-EPI)AfAm 30 (>60 ml/min/1.73 sqM) Est GFR (CKD-EPI)NonAf 26 (>60 ml/min/1.73 sqM) Glucose 139 H (74-99) mg/dL POC Glucose (mg/dL) (70-110) mg/dL POC Glu Drier And Pulverizer Tender ID Plasma Lactic Acid Bret (0.7-2.0) mmol/L Calcium 8.2 L (8.4-10.2) mg/dL Magnesium 2.1 (1.6-2.3) mg/dL Total Bilirubin 0.3 (0.2-1.3) mg/dL AST 22 (17-59) U/L ALT 10 (4-49) U/L Alkaline Phosphatase 72 (38-126) U/L Troponin I (0.000-0.034) ng/mL NT-Pro-B Natriuret Pep 1380 pg/mL Total Protein 5.9 L (6.3-8.2) g/dL Albumin 3.3 L (3.5-5.0) g/dL Urine Color Urine Appearance (Clear) Urine pH (5.0-8.0) Ur Specific Ramsay (1.001-1.035) Urine Protein (Negative) Urine Glucose (UA) (Negative) Urine Ketones (Negative) Urine Blood (Negative) Urine Nitrite (Negative) Urine Bilirubin (Negative) Urine Urobilinogen (<2.0) mg/dL Ur Leukocyte Esterase (Negative) 09/10/24 09/10/24 09/10/24 Range/Units 02:41 02:41 02:49 WBC (3.8-10.6) k/uL RBC (4.30-5.90) m/uL Hgb (13.0-17.5) gm/dL Hct (39.0-53.0) % MCV (80.0-100.0) fL MCH (25.0-35.0) pg MCHC (31.0-37.0) g/dL RDW (11.5-15.5) % Plt Count (150-450) k/uL MPV Neutrophils % % Lymphocytes % % Monocytes % % Eosinophils % % Basophils % % Neutrophils # (1.3-7.7) k/uL Lymphocytes # (1.0-4.8) k/uL Monocytes # (0-1.0) k/uL Eosinophils # (0-0.7) k/uL Basophils # (0-0.2) k/uL PT (10.0-12.5) sec INR (<1.2) APTT (22.0-30.0) sec Sodium (137-145) mmol/L Potassium (3.5-5.1) mmol/L Chloride (98-107) mmol/L Carbon Dioxide (22-30) mmol/L Anion Gap mmol/L BUN (9-20) mg/dL Creatinine (0.66-1.25) mg/dL Est GFR (CKD-EPI)AfAm (>60 ml/min/1.73 sqM) Est GFR (CKD-EPI)NonAf (>60 ml/min/1.73 sqM) Glucose (74-99) mg/dL POC Glucose (mg/dL) 135 H (70-110) mg/dL POC Glu Drier And Pulverizer Tender ID Achatz Marleny Plasma Lactic Acid Bret 1.3 (0.7-2.0) mmol/L Calcium (8.4-10.2) mg/dL Magnesium (1.6-2.3) mg/dL Total Bilirubin (0.2-1.3) mg/dL AST (17-59) U/L ALT (4-49) U/L Alkaline Phosphatase (38-126) U/L Troponin I 0.020 (0.000-0.034) ng/mL NT-Pro-B Natriuret Pep pg/mL Total Protein (6.3-8.2) g/dL Albumin (3.5-5.0) g/dL Urine Color Urine Appearance (Clear) Urine pH (5.0-8.0) Ur Specific Ramsay (1.001-1.035) Urine Protein (Negative) Urine Glucose (UA) (Negative) Urine Ketones (Negative) Urine Blood (Negative) Urine Nitrite (Negative) Urine Bilirubin (Negative) Urine Urobilinogen (<2.0) mg/dL Ur Leukocyte Esterase (Negative) 09/10/24 Range/Units 03:55 WBC (3.8-10.6) k/uL RBC (4.30-5.90) m/uL Hgb (13.0-17.5) gm/dL Hct (39.0-53.0) % MCV (80.0-100.0) fL MCH (25.0-35.0) pg MCHC (31.0-37.0) g/dL RDW (11.5-15.5) % Plt Count (150-450) k/uL MPV Neutrophils % % Lymphocytes % % Monocytes % % Eosinophils % % Basophils % % Neutrophils # (1.3-7.7) k/uL Lymphocytes # (1.0-4.8) k/uL Monocytes # (0-1.0) k/uL Eosinophils # (0-0.7) k/uL Basophils # (0-0.2) k/uL PT (10.0-12.5) sec INR (<1.2) APTT (22.0-30.0) sec Sodium (137-145) mmol/L Potassium (3.5-5.1) mmol/L Chloride (98-107) mmol/L Carbon Dioxide (22-30) mmol/L Anion Gap mmol/L BUN (9-20) mg/dL Creatinine (0.66-1.25) mg/dL Est GFR (CKD-EPI)AfAm (>60 ml/min/1.73 sqM) Est GFR (CKD-EPI)NonAf (>60 ml/min/1.73 sqM) Glucose (74-99) mg/dL POC Glucose (mg/dL) (70-110) mg/dL POC Glu Drier And Pulverizer Tender ID Plasma Lactic Acid Bret (0.7-2.0) mmol/L Calcium (8.4-10.2) mg/dL Magnesium (1.6-2.3) mg/dL Total Bilirubin (0.2-1.3) mg/dL AST (17-59) U/L ALT (4-49) U/L Alkaline Phosphatase (38-126) U/L Troponin I (0.000-0.034) ng/mL NT-Pro-B Natriuret Pep pg/mL Total Protein (6.3-8.2) g/dL Albumin (3.5-5.0) g/dL Urine Color Yellow Urine Appearance Clear (Clear) Urine pH 5.0 (5.0-8.0) Ur Specific Ramsay 1.021 (1.001-1.035) Urine Protein Trace H (Negative) Urine Glucose (UA) Negative (Negative) Urine Ketones Negative (Negative) Urine Blood Negative (Negative) Urine Nitrite Negative (Negative) Urine Bilirubin Negative (Negative) Urine Urobilinogen <2.0 (<2.0) mg/dL Ur Leukocyte Esterase Negative (Negative) Disposition Clinical Impression: Pneumonia Disposition: ADMITTED IP TO THIS [facility] Condition: Fair Referrals: Mahesh Reynolds DO [Primary Care Provider] - 1-2 days Decision Time: 05:46
[2024-09-10 02:50] LABS: Glucose,Whole Blood 135 mg/dL (70-110)
[2024-09-10 02:50] LABS: Basophils % (A) 0 %; Eosinophils % (A) 0 %; HCT 34.2 % (39.0-53.0); HGB 11.3 gm/dL (13.0-17.5); Lymphocytes % (A) 13 %; MCH 29.3 pg (25.0-35.0); MCHC 33.1 g/dL (31.0-37.0); MCV 88.5 fL (80.0-100.0); Mean Platelet Volume 8.8; Monocytes # (A) 0.4 k/uL (0-1.0); Monocytes % (A) 5 %; Neutrophils % (A) 80 %; Platelet Count 128 k/uL (150-450); RBC 3.86 m/uL (4.30-5.90); RDW 14.3 % (11.5-15.5); WBC 7.4 k/uL (3.8-10.6)
[2024-09-10] MEDS: SODIUM CHLORIDE 0.9% 2,340 ML IV STA (02:51)
[2024-09-10 03:03] LABS: ALT 10 U/L (4-49); AST 22 U/L (17-59); African American GFR (CKD) 30 (>60 ml/min/1.73 sqM); Albumin 3.3 g/dL (3.5-5.0); Alkaline Phosphatase 72 U/L (38-126); Anion Gap 11 mmol/L; Blood Urea Nitrogen 45 mg/dL (9-20); Calcium 8.2 mg/dL (8.4-10.2); Carbon Dioxide 17 mmol/L (22-30); Chloride 105 mmol/L (98-107); Glucose 139 mg/dL (74-99); Magnesium 2.1 mg/dL (1.6-2.3); Non-African American GFR(CKD) 26 (>60 ml/min/1.73 sqM); Potassium 5.2 mmol/L (3.5-5.1); Sodium 133 mmol/L (137-145); Total Bilirubin 0.3 mg/dL (0.2-1.3); Total Protein 5.9 g/dL (6.3-8.2)
[2024-09-10 03:04] LABS: Partial Thromboplastin Time 26.4 sec (22.0-30.0); Prothrombin Time 11.1 sec (10.0-12.5)
[2024-09-10 03:11] LABS: NT-Pro-B-Type Natriuretic Pept 1380 pg/mL
--- NOTE | 2024-09-10 03:43 | CT ---
EXAM: CT Head Without Intravenous Contrast CLINICAL HISTORY: Sepsis TECHNIQUE: Axial computed tomography images of the head/brain without intravenous contrast. CTDI is 49.1 mGy and DLP is 1168.4 mGy-cm. This CT exam was performed using one or more of the following dose reduction techniques: automated exposure control, adjustment of the mA and/or kV according to patient size, and/or use of iterative reconstruction technique. COMPARISON: No relevant prior studies available. FINDINGS: Brain: Age-appropriate generalized atrophy. No definite acute stroke. 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 Small old left basal ganglia lacunar infarct. Old inferior left cerebellar infarct. Mild supratentorial periventricular and subcortical white matter changes. No acute hemorrhage or abnormal extra-axial fluid collection. Ventricles: No hydrocephalus. No midline shift. Bones/joints: Unremarkable. No acute fracture. Soft tissues: Unremarkable. Sinuses: Right maxillary sinus capsule thickening. No acute sinusitis. IMPRESSION: No acute stroke or hemorrhage. Multiple remote infarcts as described above. Non-specific white matter changes, most commonly seen with small vessel disease.
[2024-09-10 04:08] LABS: Appearance,Urine Clear (Clear); Bilirubin,Urine Negative (Negative); Blood,Urine Negative (Negative); Color,Urine Yellow; Glucose,Urine (UA) Negative (Negative); Ketones,Urine Negative (Negative); Leukocyte Esterase,Urine Negative (Negative); Nitrite,Urine Negative (Negative); Protein,Urine Trace (Negative); Specific Gravity,Urine 1.021 (1.001-1.035); Urobilinogen,Urine <2.0 mg/dL (<2.0)
--- NOTE | 2024-09-10 04:43 | XR ---
EXAM: XR Chest, 2 Views CLINICAL HISTORY: sepsis TECHNIQUE: Frontal and lateral views of the chest. COMPARISON: 01/25/2023. FINDINGS: Cardiomegaly. Hypoventilation. Mild pulmonary vascular congestion. Left basilar atelectasis versus infiltrate. No definite pleural effusion. Degenerative changes of the shoulders. IMPRESSION: Hypoventilation. Mild pulmonary vascular congestion. Left basilar atelectasis versus infiltrate.
[2024-09-10] MEDS: cefTRIAXone IN SWFI 1,000 MG/10 ML SYRINGE IVP STA (05:03)
[2024-09-10] MEDS: cefTRIAXone IN SWFI 1,000 MG/10 ML SYRINGE IVP ONE (05:05)
[2024-09-10] MEDS: AZITHROMYCIN 500 MG in SODIUM CHLORIDE 0.9% 250 ML IVPB STA (05:07)
[2024-09-10] MEDS ORDERED: PNEUMONIA PROTOCOL UTILIZED 1 EACH MISC PO PRN (05:40)
--- NOTE | 2024-09-10 11:15 | P.HPIM ---
History of Present Illness 89-year-old male came in with complaints of shortness of breath cough found to be in COVID-19. Patient oxygen requirements have gone up from 2 L at baseline at home to 4 L patient is presently on 4 L of oxygen. Patient on exam has slight wheeze. Patient does not smoke quit smoking in 1970s. Patient does not have any history of congestive heart failure chest x-ray is read as possibility of congestion patient has a BNP of 1300 patient is hyponatremic, patient also has acute renal failure and hypotensive patient serum creatinine is 2.4 baseline is essentially within normal limits. REVIEW OF SYSTEMS: All other systems are negative except those mentioned in the HPI PHYSICAL EXAMINATION: GENERAL: The patient is alert and oriented x3, not in any acute distress. Well developed, well nourished. HEENT: Pupils are round and equally reacting to light. EOMI. No scleral icterus. No conjunctival pallor. Normocephalic, atraumatic. No pharyngeal erythema. No thyromegaly. CARDIOVASCULAR: S1 and S2 present. No murmurs, rubs, or gallops. PULMONARY: Mild expiratory wheezing and rhonchi-acute on chronic hypoxic and hypercapnic respiratory failure secondary to COVID-19 pneumonia and ABDOMEN: Soft, nontender, nondistended, normoactive bowel sounds. No palpable organomegaly. MUSCULOSKELETAL: No joint swelling or deformity. EXTREMITIES: No cyanosis, clubbing, or pedal edema. NEUROLOGICAL: Gross neurological examination did not reveal any focal deficits. SKIN: No rashes. Assessment and plan Acute on chronic hypoxic and hypercapnic respiratory failure secondary to COVID- 19 pneumonia and COPD exacerbation continue systemic steroids and nasal treatments patient is already on antibiotics although there is no clear evidence of pneumonia procalcitonin will be ordered pulmonology evaluated the patient -Acute renal failure prerenal azotemia secondary to infection and sepsis patient was started on IV fluids I do not see any clinical evidence of congestive heart failure patient is a normal ejection fraction in the past. Hold off nephrotoxic agents including gabapentin -Rheumatoid arthritis -COVID-19 infection -Coronary artery disease -Gastroesophageal flux disease for text DVT prophylaxis: Heparin Past Medical History Past Medical History: COPD, GERD/Reflux, Myocardial Infarction ([place]), Rheumatoid Arthritis ([place]) Additional Past Medical History / Comment(s): 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, MD at [facility] , history of lumbar spine decompression in 2006 and also in the . His most recent surgery was with Dr. Ramirez whom he saw just last week for chronic low back pain Last Myocardial Infarction Date:: 10/2018 History of Any Multi-Drug Resistant Organisms: None Reported Past Surgical History: Back Surgery, Heart Catheterization With Stent, Hernia Repair, Orthopedic Surgery, Tonsillectomy Additional Past Surgical History / Comment(s): back laminectomy x2, rik hand surgery from injuries, tx varicose veins rik legs, rik cataracts, pain procedures r/t shoulder pain Past Anesthesia/Blood Transfusion Reactions: No Reported Reaction Date of Last Stent Placement:: 10/2018 Past Psychological History: No Psychological Hx Reported Smoking Status: Former smoker Past Alcohol Use History: Rare Additional Past Alcohol Use History / Comment(s): quit 1972, smoked 20 years 1/2-1 ppd Past Drug Use History: None Reported - Past Family History Mother Family Medical History: Cancer Additional Family Medical History / Comment(s): bowel and ovarian Father Family Medical History: Cancer Additional Family Medical History / Comment(s): "black lung" Sister(s) Family Medical History: Cancer Additional Family Medical History / Comment(s): ovarian Medications and Allergies Home Medications Medication Instructions Recorded Confirmed Type Clopidogrel [Plavix] 75 mg PO DAILY 09/27/18 01/13/23 History Tamsulosin [Flomax] 0.4 mg PO HS 09/27/18 01/13/23 History Aspirin EC [Ecotrin Low Dose] 81 mg PO DAILY 07/13/20 01/13/23 History Pantoprazole Sodium [Protonix] 40 mg PO DAILY 07/13/20 01/13/23 History Ascorbic Acid [Vitamin C] 500 mg PO DAILY 01/13/23 01/13/23 History Atorvastatin [Lipitor] 20 mg PO HS 01/13/23 01/13/23 History Celecoxib [CeleBREX] 200 mg PO DAILY 01/13/23 01/13/23 History Cholecalciferol [Vitamin D3 (25 25 mcg PO DAILY 01/13/23 01/13/23 History Mcg = 1000 Iu)] Finasteride [Proscar] 5 mg PO DAILY 01/13/23 01/13/23 History Fluticasone/Umeclidin/Vilanter 1 puff INHALATION RT-DAILY 01/13/23 01/13/23 Hist ory [Trelegy Ellipta 100-62.5-25] Gabapentin [Neurontin] 300 mg PO TID 01/13/23 01/13/23 History Midodrine [ProAmatine] 5 mg PO DAILY 01/13/23 01/13/23 History Turmeric Root Extract [Turmeric] 500 mg PO DAILY 01/13/23 01/13/23 History Zinc Gluconate [Zinc] 50 mg PO DAILY 01/13/23 01/13/23 History traMADol HCL 50 mg PO DAILY PRN 7 Days #7 tab 01/14/23 Rx Allergies Allergy/AdvReac Type Severity Reaction Status Date / Time No Known Allergies Allergy Verified 09/10/24 02:17 Physical Exam Vitals: Vital Signs Temp Pulse Pulse Resp BP BP Pulse Ox 09/10/24 08:00 97.9 F 78 18 100/65 99 09/10/24 06:04 97.9 F 82 17 108/51 93 L 09/10/24 05:25 80 14 103/53 96 09/10/24 05:05 78 15 91/48 96 09/10/24 04:45 85 15 102/56 97 09/10/24 04:40 84 16 93/48 95 09/10/24 04:35 80 15 105/53 95 09/10/24 04:05 86 19 107/56 95 09/10/24 04:00 83 12 114/51 94 L 09/10/24 03:55 86 16 110/62 95 09/10/24 03:50 88 21 113/55 95 09/10/24 03:42 87 16 80/57 92 L 09/10/24 03:24 87 16 83/53 95 09/10/24 03:15 80/48 09/10/24 03:09 81/54 09/10/24 03:04 85/70 09/10/24 02:59 76 16 82/52 95 09/10/24 02:55 88 17 94/56 96 09/10/24 02:52 68 18 94/50 94 L 09/10/24 02:50 71 15 75/47 95 09/10/24 02:42 62 28 H 68/42 91 L 09/10/24 02:35 63/41 09/10/24 02:25 71/43 09/10/24 02:13 99 F 64 18 80/58 88 L Intake and Output 09/09/24 09/10/24 09/10/24 22:59 06:59 14:59 Other: Weight 78.471 kg Results CBC & Chem 7: 09/10/24 02:41 09/10/24 02:41 Labs: Abnormal Lab Results - Last 24 Hours (Table) 09/10/24 09/10/24 09/10/24 Range/Units 02:41 02:41 02:49 RBC 3.86 L (4.30-5.90) m/uL Hgb 11.3 L (13.0-17.5) gm/dL Hct 34.2 L (39.0-53.0) % Plt Count 128 L (150-450) k/uL Sodium 133 L (137-145) mmol/L Potassium 5.2 H (3.5-5.1) mmol/L Carbon Dioxide 17 L (22-30) mmol/L BUN 45 H (9-20) mg/dL Creatinine 2.19 H (0.66-1.25) mg/dL Glucose 139 H (74-99) mg/dL POC Glucose (mg/dL) 135 H (70-110) mg/dL Calcium 8.2 L (8.4-10.2) mg/dL Total Protein 5.9 L (6.3-8.2) g/dL Albumin 3.3 L (3.5-5.0) g/dL Urine Protein (Negative) SARS-CoV-2 (PCR) (Not Detectd) 09/10/24 09/10/24 Range/Units 03:55 04:57 RBC (4.30-5.90) m/uL Hgb (13.0-17.5) gm/dL Hct (39.0-53.0) % Plt Count (150-450) k/uL Sodium (137-145) mmol/L Potassium (3.5-5.1) mmol/L Carbon Dioxide (22-30) mmol/L BUN (9-20) mg/dL Creatinine (0.66-1.25) mg/dL Glucose (74-99) mg/dL POC Glucose (mg/dL) (70-110) mg/dL Calcium (8.4-10.2) mg/dL Total Protein (6.3-8.2) g/dL Albumin (3.5-5.0) g/dL Urine Protein Trace H (Negative) SARS-CoV-2 (PCR) Detected A (Not Detectd) Thrombosis Risk Factor Assmnt - Choose All That Apply Each Risk Factor Represents 3 Points: Age 75 years or older Other congenital or acquired thrombophilia - If yes, enter type in comment: No Thrombosis Risk Factor Assessment Total Risk Factor Score: 3 Thrombosis Risk Factor Assessment Level: Moderate Risk
[2024-09-10] MEDS: SODIUM CHLORIDE 0.9% 1,000 ML IV SCH (11:26)
--- NOTE | 2024-09-10 11:48 | P.NPCON ---
History of Present Illness - Reason for Consult acute renal failure - History of Present Illness Reason for consultation: Acute kidney injury History of present illness: Patient is 89-year-old male seen in renal consultation for acute kidney injury. Patient's creatinine in January 2023 was 1.0 and elevated at 2.19 this admission. Patient is quite lethargic and not a reliable historian. present at [facility] provides history. She states they were playing family feud at home and patient was not acting himself. She states his oral intake has been poor the last 2 to 3 days. He is also been coughing and has been short of breath. He was brought to the hospital for further care. Patient tested positive for COVID-19. He is currently on a nasal cannula. IV fluids were started this morning. Patient has history of aspiration and is maintained on a thickened diet. No history of diabetes. He does have history of coronary disease with 1 stent. Afebrile. Blood pressure 108/51 this morning although it was as low as 63/41 this admission. He did receive 2 L of IV fluid bolus and is now maintai kaye on normal saline at 75 cc an hour. He is also receiving antibiotics. Denies use of nonsteroidals. Has been voiding. No gross hematuria or dysuria. Vital signs are stable. General: No acute distress. HEENT: Head exam is unremarkable. On nasal cannula. LUNGS: No audible rhonchi or wheezes. HEART: Rate and Rhythm are regular. ABDOMEN: Nontender. EXTREMITITES: No edema. Past Medical History Past Medical History: COPD, GERD/Reflux, Myocardial Infarction ([place]), Rheumatoid Arthritis (RA) Additional Past Medical History / Comment(s): 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, [place] at [facility] , history of lumbar spine decompression in 2006 and also in the 1990s. His most recent gustavo panfilo was with Dr. Ramirez whom he saw just last week for chronic low back pain Last Myocardial Infarction Date:: 10/2018 History of Any Multi-Drug Resistant Organisms: None Reported Past Surgical History: Back Surgery, Heart Catheterization With Stent, Hernia Repair, Orthopedic Surgery, Tonsillectomy Additional Past Surgical History / Comment(s): back laminectomy x2, rik hand surgery from injuries, tx varicose veins rik legs, rik cataracts, pain procedures r/t shoulder pain Past Anesthesia/Blood Transfusion Reactions: No Reported Reaction Date of Last Stent Placement:: 10/2018 Past Psychological History: No Psychological Hx Reported Smoking Status: Former smoker Past Alcohol Use History: Rare Additional Past Alcohol Use History / Comment(s): quit 1972, smoked 20 years 1/2-1 ppd Past Drug Use History: None Reported - Past Family History Mother Family Medical History: Cancer Additional Family Medical History / Comment(s): bowel and ovarian Father Family Medical History: Cancer Additional Family Medical History / Comment(s): "black lung" Sister(s) Family Medical History: Cancer Additional Family Medical History / Comment(s): ovarian Medications and Allergies Home Medications Medication Instructions Recorded Confirmed Type Clopidogrel [Plavix] 75 mg PO DAILY 09/27/18 01/13/23 History Tamsulosin [Flomax] 0.4 mg PO HS 09/27/18 01/13/23 History Aspirin EC [Ecotrin Low Dose] 81 mg PO DAILY 07/13/20 01/13/23 History Pantoprazole Sodium [Protonix] 40 mg PO DAILY 07/13/20 01/13/23 History Ascorbic Acid [Vitamin C] 500 mg PO DAILY 01/13/23 01/13/23 History Atorvastatin [Lipitor] 20 mg PO HS 01/13/23 01/13/23 History Celecoxib [CeleBREX] 200 mg PO DAILY 01/13/23 01/13/23 History Cholecalciferol [Vitamin D3 (25 25 mcg PO DAILY 01/13/23 01/13/23 History Mcg = 1000 Iu)] Finasteride [Proscar] 5 mg PO DAILY 01/13/23 01/13/23 History Fluticasone/Umeclidin/Vilanter 1 puff INHALATION RT-DAILY 01/13/23 01/13/23 History [Trelegy Ellipta 100-62.5-25] Gabapentin [Neurontin] 300 mg PO TID 01/13/23 01/13/23 History Midodrine [ProAmatine] 5 mg PO DAILY 01/13/23 01/13/23 History Turmeric Root Extract [Turmeric] 500 mg PO DAILY 01/13/23 01/13/23 History Zinc Gluconate [Zinc] 50 mg PO DAILY 01/13/23 01/13/23 History traMADol HCL 50 mg PO DAILY PRN 7 Days #7 tab 01/14/23 Rx Allergies Allergy/AdvReac Type Severity Reaction Status Date / Time No Known Allergies Allergy Verified 09/10/24 02:17 Physical Exam Vitals: Vital Signs Temp Pulse Pulse Resp BP BP Pulse Ox 09/10/24 08:00 97.9 F 78 18 100/65 99 09/10/24 06:04 97.9 F 82 17 108/51 93 L 09/10/24 05:25 80 14 103/53 96 09/10/24 05:05 78 15 91/48 96 09/10/24 04:45 85 15 102/56 97 09/10/24 04:40 84 16 93/48 95 09/10/24 04:35 80 15 105/53 95 09/10/24 04:05 86 19 107/56 95 09/10/24 04:00 83 12 114/51 94 L 09/10/24 03:55 86 16 110/62 95 09/10/24 03:50 88 21 113/55 95 09/10/24 03:42 87 16 80/57 92 L 09/10/24 03:24 87 16 83/53 95 09/10/24 03:15 80/48 09/10/24 03:09 81/54 09/10/24 03:04 85/70 09/10/24 02:59 76 16 82/52 95 09/10/24 02:55 88 17 94/56 96 09/10/24 02:52 68 18 94/50 94 L 09/10/24 02:50 71 15 75/47 95 09/10/24 02:42 62 28 H 68/42 91 L 09/10/24 02:35 63/41 09/10/24 02:25 71/43 09/10/24 02:13 99 F 64 18 80/58 88 L Intake and Output 09/09/24 09/10/24 09/10/24 22:59 06:59 14:59 Other: Weight 78.471 kg Results - Lab Results Most recent lab results Calcium 8.2 mg/dL (8.4-10.2) L 09/10/24 02:41 Magnesium 2.1 mg/dL (1.6-2.3) 09/10/24 02:41 09/10/24 02:41 09/10/24 02:41 Assessment and Plan Plan: Assessment: 1. Acute kidney injury secondary to ATN secondary to acute COVID-19 infection. Creatinine 2.19 on admission. Creatinine 1.0 in January 2023. UA fairly benign. 2. Metabolic acidosis secondary to acute kidney injury and IV fluids. 3. Coronary artery disease with stent placement in the past. 4. Mild hyperkalemia secondary to acute kidney injury and acidosis. 5. Acute COVID-19 infection. Plan: Maintain IV fluids. Add oral bicarb. Bladder scan to rule out urinary retention. Check renal ultrasound. Avoid nephrotoxins. Continue to monitor renal function and urine output. Thank you for the consultation. I will continue to follow the patient with you during his hospital stay.
[2024-09-10] MEDS: SODIUM BICARBONATE TAB 650 MG TAB PO SCH (11:59)
[2024-09-10] MEDS: SODIUM BICARB 8.4% 50 ML SYR (1 MEQ/ML) IV STA (12:09)
[2024-09-10] MEDS: ALBUTEROL HFA INHALER INHALATION SCH (12:28)
--- NOTE | 2024-09-10 13:11 | P.CNPUL ---
History of Present Illness Consult date: 09/10/24 Requesting physician: Eriberto Wharton Reason for consult: dyspnea, abnormal CXR/CT Chief complaint: Generalized weakness, hypotension History of present illness: This is a very pleasant 89-year-old male patient who has a history of hyperlipidemia, gastroesophageal reflux disease, carotid artery stenosis with 100% occlusion on the left and 50% on the right, rheumatoid arthritis, former smoker, chronic obstructive pulmonary disease. He was brought into the emergency room early this morning after being found quite weak by his family. He was hypotensive. They were concerned regarding possible stroke. He also was having bodyaches all over. CT scan of the brain revealed no acute stroke or h emorrhage. Multiple remote infarcts. EKG revealed sinus rhythm with no significant ST or T wave abnormalities. X-ray shows mild pulmonary vascular congestion. Left basilar atelectasis. White count 7.4. Hemoglobin 11.3. Platelets 128. INR 1.0. Sodium 133. Potassium 5.2. Bicarb 17. BUN 45. Creatinine 2.19. Glucose 139. AST 22. ALT 10. Troponin negative x 1. proBNP 1380. Procalcitonin 0.54. Urinalysis clean. Viral screen positive for COVID infection. He is seen today in consultation on the regular medical floor. He is currently sitting up in bed. Awake and alert in no acute distress. He is maintaining O2 saturations in the 90s on 4 L/min per nasal cannula. He is still quite weak. Review of Systems REVIEW OF SYSTEMS: CONSTITUTIONAL: Generalized weakness. Denies any recent significant weight loss or weight gain. EYES: Denies change in vision. EARS, NOSE, MOUTH, THROAT: Denies headaches, denies sore throat. CARDIOVASCULAR: Denies chest pain, palpitations or syncopal episodes. RESPIRATORY: Positive for shortness of breath, no cough, congestion or hemoptysis. GASTROINTESTINAL: Denies change in appetite, denies abdominal pain GENITOURINARY: Denies hematuria, denies infections. MUSKULOSKELETAL: Denies pain, denies swelling. INTEGUMENTARY: Denies rash, denies eczema. NEUROLOGICAL: Positive for slurred speech and weakness. PSYCHIATRIC: Denies anxiety, denies depression. HEMATOLOGIC/LYMPHATIC: Denies anemia, denies enlarged lymph nodes. Past Medical History Past Medical History: COPD, GERD/Reflux, Myocardial Infarction ([place]), Rheumatoid Arthritis (RA) Additional Past Medical History / Comment(s): 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, [place] at [facility] , history of lumbar spine decompression in 2006 and also in the 1990s. His most recent surgery was with Dr. Ramirez whom he saw just last week for chronic low back pain Last Myocardial Infarction Date:: 10/2018 History of Any Multi-Drug Resistant Organisms: None Reported Past Surgical History: Back Surgery, Heart Catheterization With Stent, Hernia Repair, Orthopedic Surgery, Tonsillectomy Additional Past Surgical History / Comment(s): back laminectomy x2, rik hand surgery from injuries, tx varicose veins rik legs, rik cataracts, pain procedures r/t shoulder pain Past Anesthesia/Blood Transfusion Reactions: No Reported Reaction Date of Last Stent Placement:: 10/2018 Past Psychological History: No Psychological Hx Reported Smoking Status: Former smoker Past Alcohol Use History: Rare Additional Past Alcohol Use History / Comment(s): quit 1972, smoked 20 years 1/2-1 ppd Past Drug Use History: None Reported - Past Family History Mother Family Medical History: Cancer Additional Family Medical History / Comment(s): bowel and ovarian Father Family Medical History: Cancer Additional Family Medical History / Comment(s): "black lung" Sister(s) Family Medical History: Cancer Additional Family Medical History / Comment(s): ovarian Medications and Allergies Home Medications Medication Instructions Recorded Confirmed Type Clopidogrel [Plavix] 75 mg PO DAILY 09/27/18 01/13/23 History Tamsulosin [Flomax] 0.4 mg PO HS 09/27/18 01/13/23 History Aspirin EC [Ecotrin Low Dose] 81 mg PO DAILY 07/13/20 01/13/23 History Pantoprazole Sodium [Protonix] 40 mg PO DAILY 07/13/20 01/13/23 History Ascorbic Acid [Vitamin C] 500 mg PO DAILY 01/13/23 01/13/23 History Atorvastatin [Lipitor] 20 mg PO HS 01/13/23 01/13/23 History Celecoxib [CeleBREX] 200 mg PO DAILY 01/13/23 01/13/23 History Cholecalciferol [Vitamin D3 (25 25 mcg PO DAILY 01/13/23 01/13/23 History Mcg = 1000 Iu)] Finasteride [Proscar] 5 mg PO DAILY 01/13/23 01/13/23 History Fluticasone/Umeclidin/Vilanter 1 puff INHALATION RT-DAILY 01/13/23 01/13/23 History [Trelemaría Ellipta 100-62.5-25] Gabapentin [Neurontin] 300 mg PO TID 01/13/23 01/13/23 History Midodrine [ProAmatine] 5 mg PO DAILY 01/13/23 01/13/23 History Turmeric Root Extract [Turmeric] 500 mg PO DAILY 01/13/23 01/13/23 History Zinc Gluconate [Zinc] 50 mg PO DAILY 01/13/23 01/13/23 History traMADol HCL 50 mg PO DAILY PRN 7 Days #7 tab 01/14/23 Rx Allergies Allergy/AdvReac Type Severity Reaction Status Date / Time No Known Allergies Allergy Verified 09/10/24 02:17 Physical Exam Vitals: Vital Signs Temp Pulse Pulse Resp BP BP Pulse Ox 09/10/24 08:00 97.9 F 78 18 100/65 99 09/10/24 06:04 97.9 F 82 17 108/51 93 L 09/10/24 05:25 80 14 103/53 96 09/10/24 05:05 78 15 91/48 96 09/10/24 04:45 85 15 102/56 97 09/10/24 04:40 84 16 93/48 95 09/10/24 04:35 80 15 105/53 95 09/10/24 04:05 86 19 107/56 95 09/10/24 04:00 83 12 114/51 94 L 09/10/24 03:55 86 16 110/62 95 09/10/24 03:50 88 21 113/55 95 09/10/24 03:42 87 16 80/57 92 L 09/10/24 03:24 87 16 83/53 95 09/10/24 03:15 80/48 09/10/24 03:09 81/54 09/10/24 03:04 85/70 09/10/24 02:59 76 16 82/52 95 09/10/24 02:55 88 17 94/56 96 09/10/24 02:52 68 18 94/50 94 L 09/10/24 02:50 71 15 75/47 95 09/10/24 02:42 62 28 H 68/42 91 L 09/10/24 02:35 63/41 09/10/24 02:25 71/43 09/10/24 02:13 99 F 64 18 80/58 88 L Intake and Output 09/09/24 09/10/24 09/10/24 22:59 06:59 14:59 Other: Weight 78.471 kg GENERAL EXAM: Alert, weak, pleasant 89-year-old male patient, on 4 L nasal cannula, fairly comfortable in no apparent distress. HEAD: Normocephalic. EYES: Normal reaction of pupils, equal size. NOSE: Clear with pink turbinates. THROAT: No erythema or exudates. NECK: No masses, no JVD. CHEST: No chest wall deformity. LUNGS: Equal air entry with few crackles in the left lung base. CVS: S1 and S2 normal with no audible murmur, regular rhythm. ABDOMEN: No hepatosplenomegaly, normal bowel sounds, no guarding or rigidity. SPINE: No scoliosis or deformity SKIN: No rashes CENTRAL NERVOUS SYSTEM: No focal deficits, tone is normal in all 4 extremities. EXTREMITIES: There is no peripheral edema. No clubbing, no cyanosis. Peripheral pulses are intact. Results - Laboratory Findings CBC and BMP: 09/10/24 02:41 09/10/24 02:41 PT/INR, D-dimer PT 11.1 sec (10.0-12.5) 09/10/24 02:41 INR 1.0 (<1.2) 09/10/24 02:41 Abnormal lab findings: Abnormal Labs 09/10/24 09/10/24 09/10/24 02:41 02:41 02:49 RBC 3.86 L Hgb 11.3 L Hct 34.2 L Plt Count 128 L Sodium 133 L Potassium 5.2 H Carbon Dioxide 17 L BUN 45 H Creatinine 2.19 H Glucose 139 H POC Glucose (mg/dL) 135 H Calcium 8.2 L Total Protein 5.9 L Albumin 3.3 L Urine Protein SARS-CoV-2 (PCR) 09/10/24 09/10/24 03:55 04:57 RBC Hgb Hct Plt Count Sodium Potassium Carbon Dioxide BUN Creatinine Glucose POC Glucose (mg/dL) Calcium Total Protein Albumin Urine Protein Trace H SARS-CoV-2 (PCR) Detected A - Diagnostic Findings Chest x-ray: image reviewed Assessment and Plan Assessment: Generalized weakness, hypotension and slurred speech suspect related to COVID-19 infection and possible early community-acquired pneumonia Acute hypoxemic respiratory failure secondary to above and possible early left lower lung pneumonia, mild pulmonary vascular congestion. Procalcitonin 0.54 Acute COVID-19 infection Chronic obstructive pulmonary disease Former smoker Rheumatoid arthritis Carotid stenosis with known 100% blockage on the left and 70% on the right History of myocardial infarction treated at [facility] Coronary artery disease with previous stent placement BPH Hyperlipidemia Plan: The patient was seen and evaluated Imaging, labs and medications reviewed Continue ceftriaxone and azithromycin Continue bronchodilators Heparin for DVT prophylaxis Normal saline at 75 mL/h Renew his home medications We will continue to follow and make further recommendations based on his clinical status I have personally seen and examined the patient, performed the documentation and the assessment and plan as written. Number of minutes spent on the visit: 20 Dictation was produced using [employer] dictation software. Please excuse any grammatical, word or spelling errors. This patient was seen in coordination with the pulmonary/critical care physician, Dr. Campos. He did spend greater than 50% of the time evaluating, ex amining and developing the plan of care. He agrees to the above HPI, physical exam, assessment and plan of care as dictated by the nurse practitioner.
--- NOTE | 2024-09-10 13:57 | US ---
EXAMINATION TYPE: US kidneys/renal and bladder DATE OF EXAM: 09/10/2024 COMPARISON: NONE CLINICAL INDICATION: Male, 89 years old with history of ishmael; patient has pneumonia TECHNIQUE: Grayscale imaging of the bilateral kidneys and urinary bladder: FINDINGS: EXAM MEASUREMENTS: Right Kidney: obscured by bowel gas Left Kidney: 8.7 x 4.2 x 4.5 cm Patient sleeping laying toward right side during exam, tried multiple attempts to wake and move him t o no luck Right Kidney: Obscured by overlying bowel gas Left Kidney: No hydronephrosis or masses seen, limited views Bladder: wnl There is no evidence for hydronephrosis at this point in time. No nephrolithiasis is seen. No deandra s are identified. The urinary bladder is anechoic. Mild bilateral increased renal parenchymal echogenicity. IMPRESSION: 1. No sonographic evidence of acute obstructive uropathy. 2. Mildly increased parenchymal echogenicity, which can be associated with underlying medical renal disease. [facility], , 09/10/2024 1:55 PM
[2024-09-10] MEDS: HEPARIN SODIUM,PORCINE 5,000 UNIT/ML 1 ML VIAL SQ SCH (15:54)
[2024-09-11 04:19] LABS: African American GFR (CKD) 56 (>60 ml/min/1.73 sqM); Anion Gap 6 mmol/L; Blood Urea Nitrogen 26 mg/dL (9-20); Carbon Dioxide 22 mmol/L (22-30); Chloride 111 mmol/L (98-107); Glucose 89 mg/dL (74-99); Non-African American GFR(CKD) 48 (>60 ml/min/1.73 sqM); Sodium 139 mmol/L (137-145)
[2024-09-11] MEDS: AZITHROMYCIN 500 MG TAB PO SCH (09:05)
--- NOTE | 2024-09-11 09:16 | XR ---
EXAMINATION TYPE: XR chest 1V portable DATE OF EXAM: 09/11/2024 9:06 AM COMPARISON: 09/10/2024 CLINICAL INDICATION: Male, 89 years old with history of pneumonia, , FINDINGS: Heart normal size. Atherosclerotic arch calcifications. Interstitial density. Patchy opacity peripher y of the left mid to lower lung now better seen. No gross pleural effusion. Advanced degenerative rocco nges both shoulders. IMPRESSION: Patchy opacity/infiltrate left mid to lower lung now better seen. Pneumonia not excluded. Mild inters titial density remains. [facility], , 09/11/2024 9:13 AM
[2024-09-11] MEDS: PANTOPRAZOLE 40 MG TABLET PO SCH (10:37)
--- NOTE | 2024-09-11 13:42 | P.PN ---
Subjective Patient is seen for follow-up for acute kidney injury. No significant complaints today. Renal function has improved with serum creatinine down to 1.3 from 2.1 yesterday. Tolerating oral intake. 24-hour urine output at 1670 mL Objective - Vital Signs Vital signs: Vital Signs Temp 98.2 F 09/11/24 08:42 Pulse 88 09/11/24 08:42 Resp 18 09/11/24 08:42 BP 91/66 09/11/24 08:42 Pulse Ox 95 09/11/24 08:42 FiO2 Intake & Output 09/10/24 09/11/24 09/11/24 18:59 06:59 18:59 Output Total 750 920 200 Balance -750 -920 -200 Output: Urine 750 920 200 Other: Voiding Method Urinal # Bowel Movements 2 - Exam Patient is awake, comfortable, no acute distress. Examination of the heart S1 and S2 Examination of the lungs bilateral breath sounds are heard Abdomen is soft nontender Examination of lower extremities shows no significant edema DBAS exam grossly intact - Labs CBC & Chem 7: 09/10/24 02:41 09/11/24 02:53 Labs: Abnormal Lab Results - Last 24 Hours (Table) 09/11/24 Range/Units 02:53 Chloride 111 H (98-107) mmol/L BUN 26 H (9-20) mg/dL Creatinine 1.31 H (0.66-1.25) mg/dL Calcium 8.0 L (8.4-10.2) mg/dL Microbiology - Last 24 Hours (Table) 09/10/24 02:46 Blood Culture - Preliminary Blood 09/10/24 02:48 Blood Culture - Preliminary Blood Assessment and Plan Assessment: 1. Acute kidney injury secondary to ATN secondary to acute COVID-19 infection. Creatinine 2.19 on admission. Creatinine 1.0 in January 2023. UA fairly benign. 2. Metabolic acidosis secondary to acute kidney injury and IV fluids. 3. Coronary artery disease with stent placement in the past. 4. Mild hyperkalemia secondary to acute kidney injury and acidosis. 5. Acute COVID-19 infection. Plan: Continue with saline Continue with oral sodium bicarb Repeat labs in a.m. Encourage increase oral intake
[2024-09-11] MEDS: DEXAMETHASONE SOD PHOSPHATE 10 MG/ML 1 ML VIAL IVP SCH (14:02)
--- NOTE | 2024-09-11 14:02 | P.PN ---
Subjective Progress Note Date: 09/11/24 Principal diagnosis: Hospital course: 89-year-old male came in with complaints of shortness of breath cough found to be in COVID-19. Patient oxygen requirements have gone up from 2 L at baseline at home to 4 L patient is presently on 4 L of oxygen. Patient on exam has slight wheeze. Patient does not smoke quit smoking in 1970s. Patient does not have any history of congestive heart failure chest x-ray is read as possibility of congestion patient has a BNP of 1300 patient is hyponatremic, patient also has acute renal failure and hypotensive patient serum creatinine is 2.4 baseline is essentially within normal limits. 09/11/24: Patient seen and examined at bedside today. Patient continues to be on 4 L of oxygen via nasal cannula and is saturating at 96%. Labs today show BUN 26, creatinine 1.31, procalcitonin 0.54, SARS-CoV-2 positive. Abdomen bladder ultrasound shows no sonographic evidence of acute obstructive uropathy, mildly increased parenchymal echogenicity. Chest x-ray done today shows patchy opacity/infiltrate left mid to lower lung now better, pneumonia not excluded, mild interstitial density remains. Review of systems: Pertinent positives and negatives as discussed in HPI, a complete review of systems was performed and all other systems are negative. Vitals: Signs Reviewed Physical examination: General: nontoxic, no distress, appears at stated age Derm: warm, dry, intact Head: atraumatic, normocephalic, symmetric Eyes: EOMI, anicteric sclera Mouth: no lip lesion, mucus membranes moist Cardiovascular: S1 S2 reg, no murmur Lungs: CTA bilateral, no rhonchi, no rales, no accessory muscle use Abdominal: soft, non-tender to palpataion Extremities: No cyanosis, clubbing, or pedal edema. Neuro: Alert, Oriented, Gross neurological examination did not reveal any focal deficits. Psych: well appearing, appropriate affect Assessment/Plan: Patient is an 89-year-old male who presented with shortness of breath and coughing. He was found to have COVID-19 pneumonia. He has been admitted for acute on chronic hypoxic and hypercapnic respiratory failure secondary to COVID- 19 pneumonia and COPD exacerbation. He continues to be on 4 L of oxygen via nasal cannula. PT and OT consulted Active: #. Acute on chronic hypoxic and hypercapnic respiratory failure secondary to COVID-19 pneumonia and COPD exacerbation #. Acute COVID-19 infection #. Generalized weakness Chest x-ray done today shows patchy opacity/infiltrate left mid to lower lung now better, pneumonia not excluded, mild interstitial density remains. Continue albuterol 2 puffs in addition 4 times daily Continue azithromycin 500 mg p.o. daily, 1/2 doses, ceftriaxone 2 g IVPB every 24 hours, 1/4 bags Pneumonia protocol Procalcitonin 0.54 Continue telemetry monitoring Pulmnology is following PT and OT consulted #. Acute renal failure, prerenal azotemia secondary to infection and sepsis Bladder scan showed 299 mL postvoid residual Abdomen bladder ultrasound shows no sonographic evidence of acute obstructive uropathy, mildly increased parenchymal echogenicity. Continue 0.9 normal saline at 75 mL/h Hold nephrotoxic agents including gabapentin Nephrology is following #. Metabolic acidosis secondary to MATEUSZ and IV fluids Continue sodium bicarb 650 mg p.o. twice daily #. Mild hyperkalemia secondary to MATEUSZ and acidosis Monitor BMP Chronic: #. History of [place] #. Coronary artery disease with previous stent placement #. Hyperlipidemia #. Gastroesophageal reflux disease #. Rheumatoid arthritis #. BPH #. Anxiety Resume atorvastatin 20 mg p.o. at bedtime, clopidogrel 75 mg p.o. daily, finasteride 5 mg p.o. daily, mirtazapine 15 mg p.o. at bedtime, pantoprazole 40 mg p.o. daily, tamsulosin 0.4 mg p.o. at bedtime F: 0.9 normal saline at 75 mL/h E: Replete as required N: Heart healthy diet soft food; modification: Weiser thick liquids, no straws A: Bedrest DVT prophylaxis: Heparin 5000 units SQ every 8 hours and SCD GI prophylaxis: Pantoprazole 40 mg PO Daily Objective - Vital Signs Vital signs: Vital Signs Temp 98.0 F 09/11/24 02:07 Pulse 80 09/11/24 02:07 Resp 16 09/11/24 02:07 BP 114/65 09/11/24 02:07 Pulse Ox 96 09/11/24 05:40 FiO2 Intake & Output 09/10/24 09/11/24 09/11/24 18:59 06:59 18:59 Output Total 750 920 Balance -750 -920 Output: Urine 750 920 Other: Voiding Method Urinal - Labs CBC & Chem 7: 01/05/25 02:41 09/11/24 02:53 Labs: Abnormal Lab Results - Last 24 Hours (Table) 09/10/24 09/11/24 Range/Units 07:04 02:53 Chloride 111 H (98-107) mmol/L BUN 26 H (9-20) mg/dL Creatinine 1.31 H (0.66-1.25) mg/dL Calcium 8.0 L (8.4-10.2) mg/dL Procalcitonin 0.54 H (0.02-0.50) ng/mL
--- NOTE | 2024-09-11 18:23 | P.PN ---
Subjective Progress Note Date: 09/11/24 This is a very pleasant 89-year-old male patient who has a history of hyperlipidemia, gastroesophageal reflux disease, carotid artery stenosis with 100% occlusion on the left and 50% on the right, rheumatoid arthritis, former smoker, chronic obstructive pulmonary disease. He was brought into the emergen cy room early this morning after being found quite weak by his family. He was hypotensive. They were concerned regarding possible stroke. He also was having bodyaches all over. CT scan of the brain revealed no acute stroke or hemorrhage. Multiple remote infarcts. EKG revealed sinus rhythm with no significant ST or T wave abnormalities. X-ray shows mild pulmonary vascular congestion. Left basilar atelectasis. White count 7.4. Hemoglobin 11.3. Platelets 128. INR 1.0. Sodium 133. Potassium 5.2. Bicarb 17. BUN 45. Creatinine 2.19. Glucose 139. AST 22. ALT 10. Troponin negative x 1. proBNP 1380. Procalcitonin 0.54. Urinalysis clean. Viral screen positive for COVID infection. He is seen today in consultation on the regular medical floor. He is currently sitting up in bed. Awake and alert in no acute distress. He is maintaining O2 saturations in the 90s on 4 L/min per nasal cannula. He is still quite weak. On 09/11/24, patient is being seen for a follow-up. Patient is doing well. No significant respiratory distress. 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 The patient was also diagnosed having an acute COVID-19 infection during this current admission. No previous vaccination. This is the patient's first infection with the COVID-19 virus. Patient otherwise has no new complaints. He is on 4 L of oxygen by nasal cannula with a pulse ox of 93%. His chest x-ray was repeated today and it showed patchy left mid and lower lobe pulmonary infiltrate with some mild interstitial edema. Sodium level is at 139, potassium is at 5, chloride is 111 with a bicarb of 22, BUN 26 with a creatinine of 1.3. The patient is recovering from his acute kidney injury. He is on normal citrate of 75 cc an hour. He is on heparin subcu for DVT prophylaxis. He remains on Rocephin and Zithromax as an empiric antibiotic coverage. Procalcitonin level is at 0.54. proBNP level was 1380. Previous echocardiogram from 2019 had shown a preserved LV function. Objective - Vital Signs Vital signs: Vital Signs Temp 98.2 F 09/11/24 08:42 Pulse 88 09/11/24 08:42 Resp 18 09/11/24 08:42 BP 91/66 09/11/24 08:42 Pulse Ox 95 09/11/24 08:42 FiO2 Intake & Output 09/10/24 09/11/24 09/11/24 18:59 06:59 18:59 Output Total 750 920 200 Balance -750 -920 -200 Output: Urine 750 920 200 Other: Voiding Method Urinal # Bowel Movements 2 - Exam GENERAL EXAM: Alert, weak, pleasant 89-year-old male patient, on 4 L nasal cannula, fairly comfortable in no apparent distress. HEAD: Normocephalic. EYES: Normal reaction of pupils, equal size. NOSE: Clear with pink turbinates. THROAT: No erythema or exudates. NECK: No masses, no JVD. CHEST: No chest wall deformity. LUNGS: Equal air entry with few crackles in the left lung base. CVS: S1 and S2 normal with no audible murmur, regular rhythm. ABDOMEN: No hepatosplenomegaly, normal bowel sounds, no guarding or rigidity. SPINE: No scoliosis or deformity SKIN: No rashes CENTRAL NERVOUS SYSTEM: No focal deficits, tone is normal in all 4 extremities. EXTREMITIES: There is no peripheral edema. No clubbing, no cyanosis. Peripheral pulses are intact. - Labs CBC & Chem 7: 09/10/24 02:41 09/11/24 02:53 Labs: Abnormal Lab Results - Last 24 Hours (Table) 09/11/24 Range/Units 02:53 Chloride 111 H (98-107) mmol/L BUN 26 H (9-20) mg/dL Creatinine 1.31 H (0.66-1.25) mg/dL Calcium 8.0 L (8.4-10.2) mg/dL Microbiology - Last 24 Hours (Table) 09/10/24 02:46 Blood Culture - Preliminary Blood 09/10/24 02:48 Blood Culture - Preliminary Blood Assessment and Plan Plan: Acute hypoxic respiratory failure, currently on 5 L of oxygen by nasal cannula. Vague left lung infiltration with mild procalcitonin level elevation. Positive COVID-19 infection. Rule out COVID-19 pneumonia. Bacterial infection is felt to be less likely. Currently on Rocephin and Zithromax. Decadron will be added. Generalized weakness, hypotension and slurred speech suspect related to COVID-19 infection and possible early community-acquired pneumonia Acute COVID-19 infection Acute kidney injury, improving Chronic obstructive pulmonary disease Former smoker Rheumatoid arthritis Carotid stenosis with known 100% blockage on the left and 70% on the right History of myocardial infarction treated at [facility] Coronary artery disease with previous stent placement BPH Hyperlipidemia Plan: Titrate oxygen flow to maintain saturation above 90%, currently on 4 L Start Decadron 6 mg IV every 24 hours Continue ceftriaxone and azithromycin Continue bronchodilators Heparin for DVT prophylaxis Normal saline at 75 mL/h Monitor renal function We will continue to follow and make further recommendations based on his clinical status
[2024-09-11] MEDS: ONDANSETRON 4 MG/2 ML VIAL IVP PRN (18:39)
[2024-09-11] MEDS: TAMSULOSIN 0.4 MG CAP.ER.24H PO SCH (21:21)
[2024-09-11] MEDS: ATORVASTATIN 20 MG TAB PO SCH (21:21)
[2024-09-11] MEDS: MIRTAZAPINE 15 MG TAB PO SCH (21:21)
[2024-09-12] MEDS: PANTOPRAZOLE 40 MG TABLET PO SCH (03:50)
[2024-09-12] MEDS: SUCRALFATE 1 GM TAB PO SCH (05:09)
--- NOTE | 2024-09-12 07:14 | XR ---
EXAMINATION TYPE: XR abdomen 1V DATE OF EXAM: 09/12/2024 7:05 AM COMPARISON: None CLINICAL INDICATION: Male, 89 years old with history of abdominal pain, , FINDINGS: Degenerated dextroconvex curvature lumbar spine. There is moderate stool burden. No dilated small bow el loops. Lung bases are clear. Supine imaging limited for assessment of free air. Body habitus and b owel content limits evaluation. Left-sided pelvic phleboliths are noted. No definite suspicious calci fication otherwise appreciated. Moderate degenerative change right hip. IMPRESSION: Moderate stool burden. Nonobstructive bowel gas pattern. [facility], , 09/12/2024 7:12 AM
[2024-09-12 08:10] LABS: HCT 34.5 % (39.0-53.0); HGB 11.5 gm/dL (13.0-17.5); MCH 29.2 pg (25.0-35.0); MCHC 33.2 g/dL (31.0-37.0); MCV 87.9 fL (80.0-100.0); Platelet Count 141 k/uL (150-450); RBC 3.93 m/uL (4.30-5.90); WBC 4.9 k/uL (3.8-10.6)
[2024-09-12] MEDS: CLOPIDOGREL 75 MG TAB PO SCH (08:11)
[2024-09-12] MEDS: FINASTERIDE 5 MG TAB PO SCH (08:11)
[2024-09-12 08:31] LABS: African American GFR (CKD) 69 (>60 ml/min/1.73 sqM); Anion Gap 9 mmol/L; Blood Urea Nitrogen 18 mg/dL (9-20); Carbon Dioxide 23 mmol/L (22-30); Chloride 109 mmol/L (98-107); Glucose 103 mg/dL (74-99); Non-African American GFR(CKD) 60 (>60 ml/min/1.73 sqM); Potassium 5.1 mmol/L (3.5-5.1); Sodium 141 mmol/L (137-145)
--- NOTE | 2024-09-12 11:24 | P.PN ---
Subjective Progress Note Date: 09/12/24 Principal diagnosis: Hospital course: 89-year-old male came in with complaints of shortness of breath cough found to be in COVID-19. Patient oxygen requirements have gone up from 2 L at baseline at home to 4 L patient is presently on 4 L of oxygen. Patient on exam has slight wheeze. Patient does not smoke quit smoking in 1970s. Patient does not have any history of congestive heart failure chest x-ray is read as possibility of congestion patient has a BNP of 1300 patient is hyponatremic, patient also has acute renal failure and hypotensive patient serum creatinine is 2.4 baseline is essentially within normal limits. 09/11/24: Patient seen and examined at bedside today. Patient continues to be on 4 L of oxygen via nasal cannula and is saturating at 96%. Labs today show BUN 26, creatinine 1.31, procalcitonin 0.54, SARS-CoV-2 positive. Abdomen bladder ultrasound shows no sonographic evidence of acute obstructive uropathy, mildly increased parenchymal echogenicity. Chest x-ray done today shows patchy opacity/infiltrate left mid to lower lung now better, pneumonia not excluded, mild interstitial density remains. 09/12/24: Patient evaluated today. Patient continues to be on 3L of oxygen and is saturating at 96%. Labs today show hemoglobin 11.5, platelet count 141, creatinine 1.10. Abdomen x-ray shows moderate stool burden, obstructive bowel gas pattern. Review of systems: Pertinent positives and negatives as discussed in HPI, a complete review of systems was performed and all other systems are negative. Vitals: Signs Reviewed Physical examination: General: nontoxic, no distress, appears at stated age Derm: warm, dry, intact Head: atraumatic, normocephalic, symmetric Eyes: EOMI, anicteric sclera Mouth: no lip lesion, mucus membranes moist Cardiovascular: S1 S2 reg, no murmur Lungs: CTA bilateral, no rhonchi, no accessory muscle use Abdominal: soft, non-tender to palpataion Extremities: No cyanosis, clubbing, or pedal edema. Neuro: Alert, Oriented, Gross neurological examination did not reveal any focal deficits. Psych: well appearing, appropriate affect Assessment/Plan: Patient is an 89-year-old male who presented with shortness of breath and coughing. He was found to have COVID-19 pneumonia. He has been admitted for acute on chronic hypoxic and hypercapnic respiratory failure secondary to COVID- 19 pneumonia and COPD exacerbation. He continues to be on 4 L of oxygen via nasal cannula. PT and OT consulted Active: #. Acute on chronic hypoxic and hypercapnic respiratory failure secondary to COVID-19 pneumonia and COPD exacerbation #. Acute COVID-19 infection #. Generalized weakness Chest x-ray done today shows patchy opacity/infiltrate left mid to lower lung now better, pneumonia not excluded, mild interstitial density remains. Continue albuterol 2 puffs in addition 4 times daily Continue azithromycin 500 mg p.o. daily, 1/2 doses, ceftriaxone 2 g IVPB every 24 hours, 1/4 bags Continue Decadron 6 mg IVP daily Pneumonia protocol Procalcitonin 0.54 Continue telemetry monitoring Pulmnology is following PT and OT consulted #. Acute renal failure, prerenal azotemia secondary to infection and sepsis Bladder scan showed 299 mL postvoid residual Abdomen bladder ultrasound shows no sonographic evidence of acute obstructive uropathy, mildly increased parenchymal echogenicity. Continue 0.9 normal saline at 75 mL/h Hold nephrotoxic agents including gabapentin Nephrology is following #. Metabolic acidosis secondary to MATEUSZ and IV fluids Continue sodium bicarb 650 mg p.o. twice daily #. Mild hyperkalemia secondary to MATEUSZ and acidosis Monitor BMP Chronic: #. History of [place] #. Coronary artery disease with previous stent placement #. Hyperlipidemia #. Gastroesophageal reflux disease #. Rheumatoid arthritis #. BPH #. Anxiety Resume atorvastatin 20 mg p.o. at bedtime, clopidogrel 75 mg p.o. daily, finasteride 5 mg p.o. daily, mirtazapine 15 mg p.o. at bedtime, pantoprazole 40 mg p.o. daily, tamsulosin 0.4 mg p.o. at bedtime F: 0.9 normal saline at 75 mL/h E: Replete as required N: Heart healthy diet soft food; modification: [place]shaw thick liquids, no straws A: Bedrest DVT prophylaxis: Heparin 5000 units SQ every 8 hours and SCD GI prophylaxis: Pantoprazole 40 mg PO Daily Objective - Vital Signs Vital signs: Vital Signs Temp 98.2 F 09/12/24 08:00 Pulse 89 09/12/24 08:00 Resp 18 09/12/24 08:00 BP 158/89 09/12/24 08:00 Pulse Ox 96 09/12/24 08:00 FiO2 Intake & Output 09/11/24 09/12/24 09/12/24 18:59 06:59 18:59 Output Total 200 Balance -200 Weight 78.6 kg Output: Urine 200 Other: Voiding Method Toilet # Voids 3 2 # Bowel Movements 2 - Labs CBC & Chem 7: 09/12/24 06:19 09/12/24 06:19 Labs: Abnormal Lab Results - Last 24 Hours (Table) 09/10/24 Range/Units 02:41 TSH 7.030 H (0.465-4.680) mIU/L Microbiology - Last 24 Hours (Table) 09/10/24 02:46 Blood Culture - Preliminary Blood 09/10/24 02:48 Blood Culture - Preliminary Blood
[2024-09-12 12:35] LABS: T4, Free (Free Thyroxine) 1.24 ng/dL (0.78-2.19)
--- NOTE | 2024-09-12 12:39 | P.CRDCN ---
History of Present Illness History of present illness: HISTORY OF PRESENT ILLNESS: This is a 89-year-old male with a past medical history significant for hyperlipidemia and coronary artery disease with previous stent placement in 2019. Patient follows with Dr. Bain. We have been asked to see the patient in consultation for recurrent heart pauses. Patient examined at the bedside. Patient presented to the hospital with generalized malaise. at the bedside states he was coughing a lot at home. He was weak and not as alert as he no rmally is. She reports he was confused as well. Patients denies history of hypertension and states his blood pressure is usually low. He does report that he is frequently lightheaded. No episodes of syncope. He states the symptoms will last for 15-20 seconds and then go away. Telemetry reviewed with pauses overnight. Patient had a pause of 8 seconds with one single PVC in that timeframe. DIAGNOSTICS: - EKG reveals sinus mechanism with incomplete right bundle branch block. No signs of acute ischemia. - Chest xray patchy opacity/infiltrate left mid to lower lung now better seen. Pneumonia not excluded. Mild interstitial density remains.. - Laboratory data: WBC 7.4. Hemoglobin 11.3. Platelet count 128. Sodium 139. Potassium 5.0. BUN 26. Creatinine 1.31. Troponin negative x 1. proBNP 1380. - Current home cardiac medications include Plavix 75 mg daily and Lipitor 20 mg at night - Most recent echocardiogram obtained in July 2020 revealing ejection fraction 55 to 60%, trace MR, trace TR REVIEW OF SYSTEMS: At the time of my exam: CONSTITUTIONAL: Denies fever or chills. HEENT: Denies blurred vision, vision changes, or eye pain. Denies hemoptysis CARDIOVASCULAR: Denies chest pain. Denies orthopnea. Denies PND. Denies palpitations RESPIRATORY: Denies shortness of breath. GASTROINTESTINAL: Denies abdominal pain. Denies nausea or vomiting. HEMATOLOGIC: Denies bleeding disorders. GENITOURINARY: Denies any blood in urine. SKIN: Denies pruitis. Denies rash. PHYSICAL EXAM: VITAL SIGNS: Reviewed. GENERAL: Well-developed in no acute distress. HEENT: Head is normocephalic. Pupils are equal, round. Sclerae anicteric. Mucous membranes of the mouth are moist. Neck supple. No JVD or thyromegaly LUNGS: Respirations even and unlabored. Lungs essentially clear to auscultation bilaterally. HEART: Regular rate and rhythm. S1 and S2 heard. ABDOMEN: Soft. Nondistended. Nontender. EXTREMITIES: Normal range of motion. No clubbing or cyanosis. Peripheral pulses intact. No lower extremity edema NEUROLOGIC: Awake and alert. Oriented x 3. ASSESSMENT: COVID-19 Sinus pauses Hypotension on admission, currently hypertensive Acute on chronic hypoxic respiratory failure Acute kidney injury Coronary artery disease with previous stenting Hyperlipidemia BPH History of carotid stenosis PLAN: Obtain 2D echo to assess cardiac structure and function TSH abnormal at 7.030. Check T3/T4. Internal medicine to address. Continue telemetry monitoring Avoid any AV glo blocking agents Patient will likely require PPM implantation during this hospitalization Obtain records from patient's primary staff command and control officer Further recommendations pending patient course Nurse practitioner note has been reviewed by physician. Signing provider agrees with the documented findings, assessment, and plan of care documented by MANAGER PHILOSOPHY as a scribe. Past Medical History Past Medical History: COPD, GERD/Reflux, Myocardial Infarction (CT), Rheumatoid Arthritis (RA) Additional Past Medical History / Comment(s): 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, CT at [facility] , history of lumbar spine decompression in 2006 and also in the . His most recent surgery was with Dr. Ramirez whom he saw just last week for chronic low back pain Last Myocardial Infarction Date:: 10/2018 History of Any Multi-Drug Resistant Organisms: None Reported Past Surgical History: Back Surgery, Heart Catheterization With Stent, Hernia Repair, Orthopedic Surgery, Tonsillectomy Additional Past Surgical History / Comment(s): back laminectomy x2, rik hand surgery from injuries, tx varicose veins rik legs, rik cataracts, pain procedures r/t shoulder pain Past Anesthesia/Blood Transfusion Reactions: No Reported Reaction Date of Last Stent Placement:: 10/2018 Past Psychological History: No Psychological Hx Reported Smoking Status: Former smoker Past Alcohol Use History: Rare Additional Past Alcohol Use History / Comment(s): quit 1972, smoked 20 years 1/2-1 ppd Past Drug Use History: None Reported - Past Family History Mother Family Medical History: Cancer Additional Family Medical History / Comment(s): bowel and ovarian Father Family Medical History: Cancer Additional Family Medical History / Comment(s): "black lung" Sister(s) Family Medical History: Cancer Additional Family Medical History / Comment(s): ovarian Medications and Allergies Home Medications Medication Instructions Recorded Confirmed Type Clopidogrel [Plavix] 75 mg PO DAILY 09/27/18 09/11/24 History Tamsulosin [Flomax] 0.4 mg PO HS 09/27/18 09/10/24 History Pantoprazole Sodium [Protonix] 40 mg PO DAILY 07/13/20 09/10/24 History Atorvastatin [Lipitor] 20 mg PO HS 01/13/23 09/10/24 History Finasteride [Proscar] 5 mg PO DAILY 01/13/23 09/10/24 History Gabapentin [Neurontin] 600 mg PO TID 01/13/23 09/10/24 History Albuterol Sulfate [Albuterol 2 puff INHALATION RT-QID PRN 09/10/24 09/10/24 History Sulfate Hfa] HYDROcodone/APAP 5-325MG [[place] 1 tab PO DAILY PRN 09/10/24 09/10/24 History 5-325] Mirtazapine [Remeron] 15 mg PO HS 09/10/24 09/10/24 History Sertraline [Zoloft] 25 mg PO DAILY 09/10/24 09/10/24 History Vitamin B-12(Unknown Dose) 1 tab PO DAILY 09/10/24 09/10/24 History Vitamin C(Unknown Dose) 1 tab PO DAILY 09/10/24 09/10/24 History Vitamin D3(Unknown Dose) 1 tab PO DAILY 09/10/24 09/10/24 History Zinc(Unknown Dose) 1 tab PO DAILY 09/10/24 09/10/24 History Fluticasone/Umeclidin/Vilanter 1 puff INHALATION RT-DAILY 09/11/24 09/11/24 History [Trelegy Ellipta 100-62.5-25] Allergies Allergy/AdvReac Type Severity Reaction Status Date / Time No Known Allergies Allergy Verified 09/10/24 13:43 Physical Exam Vitals: Vital Signs Temp Pulse Resp BP Pulse Ox 09/12/24 03:38 98.2 F 92 18 156/99 96 09/11/24 23:36 98.4 F 80 18 185/85 98 09/11/24 19:08 99.0 F 85 20 161/77 96 09/11/24 14:09 99.1 F 94 18 146/86 93 L 09/11/24 08:42 98.2 F 88 18 91/66 95 Intake and Output 09/11/24 09/12/24 09/12/24 22:59 06:59 14:59 Other: Voiding Method Toilet # Voids 3 2 # Bowel Movements 2 Weight 78.6 kg Results 09/12/24 06:19 09/12/24 06:19 Current Medications Generic Name Dose Route Start Last Admin Trade Name Freq PRN Reason Stop Dose Admin Albuterol Sulfate 2 puff 09/10/24 12:00 09/11/24 21:33 Albuterol Hfa Inhaler INHALATION Not Given RT-QID PEGGY Atorvastatin Calcium 20 mg 09/11/24 21:00 09/11/24 21:21 Atorvastatin 20 Mg Tab PO 20 mg HS PEGGY Administration Azithromycin 500 mg 09/11/24 09:00 09/11/24 09:05 Azithromycin 500 Mg Tab PO 09/12/24 09:01 500 mg DAILY PEGGY Administration Protocol Clopidogrel Bisulfate 75 mg 09/12/24 09:00 Clopidogrel 75 Mg Tab PO DAILY PEGGY Dexamethasone Sodium Phosphate 6 mg 09/11/24 13:36 09/11/24 14:02 Dexamethasone Sod Phosphate 10 Mg/Ml 1 Ml Vial IVP 6 mg DAILY PEGGY Administration Finasteride 5 mg 09/12/24 09:00 Finasteride 5 Mg Tab PO DAILY PEGGY Heparin Sodium (Porcine) 5,000 unit 09/10/24 16:00 09/11/24 23:27 Heparin Sodium,Porcine 5,000 Unit/Ml 1 Ml Vial SQ 5,000 unit Q8HR PEGGY Administration Ceftriaxone Sodium 2 gm/ 50 mls @ 100 mls/hr 09/11/24 09:00 09/11/24 09:04 Sodium Chloride IVPB 09/14/24 09:29 100 mls/hr Q24HR PEGGY Administration Protocol Sodium Chloride 1,000 mls @ 75 mls/hr 09/10/24 11:15 09/12/24 04:23 Saline 0.9% IV Not Given .[id number] PEGGY Mirtazapine 15 mg 09/11/24 21:00 09/11/24 21:21 Mirtazapine 15 Mg Tab PO 15 mg HS PEGGY Administration Miscellaneous Information 1 each 09/10/24 05:40 Pneumonia Protocol Utilized 1 Each Misc PO ONCE PRN Per Protocol Ondansetron HCl 4 mg 09/11/24 18:32 09/12/24 05:38 Ondansetron 4 Mg/2 Ml Vial IVP 4 mg Q6HR PRN Administration Nausea And Vomiting Pantoprazole Sodium 40 mg 09/12/24 07:30 09/12/24 03:50 Pantoprazole 40 Mg Tablet PO 40 mg AC-BID PEGGY Administration Sodium Bicarbonate 650 mg 09/10/24 12:00 09/11/24 21:21 Sodium Bicarbonate Tab 650 Mg Tab PO 650 mg BID PEGGY Administration Sucralfate 1 gm 09/12/24 07:30 09/12/24 05:09 Sucralfate 1 Gm Tab PO 1 gm AC-TID PEGGY Administration Tamsulosin HCl 0.4 mg 09/11/24 21:00 09/11/24 21:21 Tamsulosin 0.4 Mg Cap.Er.24h PO 0.4 mg HS PEGGY Administration Intake and Output 09/11/24 09/12/24 09/12/24 22:59 06:59 14:59 Other: Voiding Method Toilet # Voids 3 2 # Bowel Movements 2 Weight 78.6 kg 09/10/24 02:41 09/11/24 02:53
[2024-09-12] MEDS ORDERED: DICYCLOMINE 10 MG CAP PO PRN (13:39)
[2024-09-12] MEDS ORDERED: LOPERAMIDE 2 MG CAP PO PRN (14:53)
[2024-09-12] MEDS: LOPERAMIDE 2 MG CAP PO STA (16:19)
--- NOTE | 2024-09-12 19:47 | P.PN ---
Subjective Patient is seen for follow-up for acute kidney injury. No significant complaints today. Renal function has improved with serum creatinine down to 1.1. Tolerating oral intake. Objective - Vital Signs Vital signs: Vital Signs Temp 99 F 09/12/24 16:00 Pulse 88 09/12/24 16:00 Resp 20 09/12/24 16:00 BP 143/78 09/12/24 16:00 Pulse Ox 94 L 09/12/24 16:00 FiO2 Intake & Output 09/11/24 09/12/24 09/12/24 18:59 06:59 18:59 Output Total 200 Balance -200 Weight 78.6 kg Output: Urine 200 Other: Voiding Method Toilet # Voids 3 2 1 # Bowel Movements 2 1 - Exam Patient is awake, comfortable, no acute distress. Examination of the heart S1 and S2 Examination of the lungs bilateral breath sounds are heard Abdomen is soft nontender Examination of lower extremities shows no significant edema CROSS TIE TURNER exam grossly intact - Labs CBC & Chem 7: 09/12/24 06:19 09/12/24 06:19 Labs: Abnormal Lab Results - Last 24 Hours (Table) 09/10/24 09/12/24 09/12/24 Range/Units 02:41 06:19 06:19 RBC 3.93 L (4.30-5.90) m/uL Hgb 11.5 L (13.0-17.5) gm/dL Hct 34.5 L (39.0-53.0) % Plt Count 141 L (150-450) k/uL Chloride 109 H (98-107) mmol/L Glucose 103 H (74-99) mg/dL TSH 7.030 H (0.465-4.680) mIU/L Microbiology - Last 24 Hours (Table) 09/10/24 02:46 Blood Culture - Preliminary Blood 09/10/24 02:48 Blood Culture - Preliminary Blood Assessment and Plan Assessment: 1. Acute kidney injury secondary to ATN secondary to acute COVID-19 infection. Creatinine 2.19 on admission. Creatinine 1.0 in January 2023. UA fairly benign. 2. Metabolic acidosis secondary to acute kidney injury and IV fluids. 3. Coronary artery disease with stent placement in the past. 4. Mild hyperkalemia secondary to acute kidney injury and acidosis. 5. Acute COVID-19 infection. Plan: DC IV fluids Continue with oral sodium bicarb Repeat labs in a.m. Encourage increase oral intake
--- NOTE | 2024-09-12 20:53 | P.PN ---
Subjective Progress Note Date: 09/12/24 This is a very pleasant 89-year-old male patient who has a history of hyperlipidemia, gastroesophageal reflux disease, carotid artery stenosis with 100% occlusion on the left and 50% on the right, rheumatoid arthritis, former smoker, chronic obstructive pulmonary disease. He was brought into the emergen cy room early this morning after being found quite weak by his family. He was hypotensive. They were concerned regarding possible stroke. He also was having bodyaches all over. CT scan of the brain revealed no acute stroke or hemorrhage. Multiple remote infarcts. EKG revealed sinus rhythm with no significant ST or T wave abnormalities. X-ray shows mild pulmonary vascular congestion. Left basilar atelectasis. White count 7.4. Hemoglobin 11.3. Platelets 128. INR 1.0. Sodium 133. Potassium 5.2. Bicarb 17. BUN 45. Creatinine 2.19. Glucose 139. AST 22. ALT 10. Troponin negative x 1. proBNP 1380. Procalcitonin 0.54. Urinalysis clean. Viral screen positive for COVID infection. He is seen today in consultation on the regular medical floor. He is currently sitting up in bed. Awake and alert in no acute distress. He is maintaining O2 saturations in the 90s on 4 L/min per nasal cannula. He is still quite weak. On 09/11/24, patient is being seen for a follow-up. Patient is doing well. No significant respiratory distress. 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 The patient was also diagnosed having an acute COVID-19 infection during this current admission. No previous vaccination. This is the patient's first infection with the COVID-19 virus. Patient otherwise has no new complaints. He is on 4 L of oxygen by nasal cannula with a pulse ox of 93%. His chest x-ray was repeated today and it showed patchy left mid and lower lobe pulmonary infiltrate with some mild interstitial edema. Sodium level is at 139, potassium is at 5, chloride is 111 with a bicarb of 22, BUN 26 with a creatinine of 1.3. The patient is recovering from his acute kidney injury. He is on normal citrate of 75 cc an hour. He is on heparin subcu for DVT prophylaxis. He remains on Rocephin and Zithromax as an empiric antibiotic coverage. Procalcitonin level is at 0.54. proBNP level was 1380. Previous echocardiogram from 2019 had shown a preserved LV function. On 09/12/2024, the patient is being seen for a follow-up. The patient is currently on room air oxygen with a pulse ox of 93%. Oxygenation is improved as the patient is recovering from his pneumonia. The patient tested positive for COVID-19 and suspected to have a COVID-19 related pneumonia with a possibility of a superinfection with bacteria and based on that the patient was given empiric antibiotic coverage with a combination of Rocephin and Zithromax. He completed Zithromax and he remains on Rocephin and the patient is also on Decadron 6 mg IV on a daily basis. No new complaints for now. Having some limited diarrhea. No nausea. No vomiting. Abdominal pain. Her white cell count is 4.9 with a hemoglobin of 11.7 and a platelet count of 141. BUN is 18 with a creatinine of 1.1 and sodium levels at 141. Stool for C. difficile has been negative. Thyroid function tests are essentially within normal limits. No altered mentation. No other new complaints otherwise for now. Objective - Vital Signs Vital signs: Vital Signs Temp 98.2 F 09/12/24 08:00 Pulse 89 09/12/24 08:00 Resp 18 09/12/24 08:00 BP 158/89 09/12/24 08:00 Pulse Ox 96 09/12/24 08:00 FiO2 Intake & Output 09/11/24 09/12/24 09/12/24 18:59 06:59 18:59 Output Total 200 Balance -200 Weight 78.6 kg Output: Urine 200 Other: Voiding Method Toilet # Voids 3 2 1 # Bowel Movements 2 1 - Exam GENERAL EXAM: Alert, weak, pleasant 89-year-old male patient, on room air oxygen a, fairly comfortable in no apparent distress. HEAD: Normocephalic. EYES: Normal reaction of pupils, equal size. NOSE: Clear with pink turbinates. THROAT: No erythema or exudates. NECK: No masses, no JVD. CHEST: No chest wall deformity. LUNGS: Equal air entry with few crackles in the left lung base. CVS: S1 and S2 normal with no audible murmur, regular rhythm. ABDOMEN: No hepatosplenomegaly, normal bowel sounds, no guarding or rigidity. SPINE: No scoliosis or deformity SKIN: No rashes CENTRAL NERVOUS SYSTEM: No focal deficits, tone is normal in all 4 extremities. EXTREMITIES: There is no peripheral edema. No clubbing, no cyanosis. Peripheral pulses are intact. - Labs CBC & Chem 7: 09/12/24 06:19 09/12/24 06:19 Labs: Abnormal Lab Results - Last 24 Hours (Table) 09/10/24 09/12/24 09/12/24 Range/Units 02:41 06:19 06:19 RBC 3.93 L (4.30-5.90) m/uL Hgb 11.5 L (13.0-17.5) gm/dL Hct 34.5 L (39.0-53.0) % Plt Count 141 L (150-450) k/uL Chloride 109 H (98-107) mmol/L Glucose 103 H (74-99) mg/dL TSH 7.030 H (0.465-4.680) mIU/L Microbiology - Last 24 Hours (Table) 09/10/24 02:46 Blood Culture - Preliminary Blood 09/10/24 02:48 Blood Culture - Preliminary Blood Assessment and Plan Plan: Acute hypoxic respiratory failure, improved and the patient is currently on room air oxygen.. Vague left lung infiltration with mild procalcitonin level venessa vation. Positive COVID-19 infection. Rule out COVID-19 pneumonia. Bacterial infection is felt to be less likely. Currently on Rocephin and completed the course of Zithromax. The patient is also on Decadron. Generalized weakness, hypotension and slurred speech suspect related to COVID-19 infection and possible early community-acquired pneumonia Acute COVID-19 infection New onset diarrhea with a negative stool for C. difficile. Could be viral versus antibiotic induced Acute kidney injury, recovered Chronic obstructive pulmonary disease Former smoker Rheumatoid arthritis Carotid stenosis with known 100% blockage on the left and 70% on the right History of myocardial infarction treated at [facility] Coronary artery disease with previous stent placement BPH Hyperlipidemia Plan: Titrate oxygen flow to maintain saturation above 90%, currently on room air oxygen Continue Decadron 6 mg IV every 24 hours Continue ceftriaxone, to complete a 5-day course Monitor diarrhea Continue bronchodilators Heparin for DVT prophylaxis Normal saline at 75 mL/h Renal function has improved We will continue to follow and make further recommendations based on his clinical status
[2024-09-13 08:10] LABS: HCT 34.9 % (39.0-53.0); HGB 11.4 gm/dL (13.0-17.5); MCH 28.9 pg (25.0-35.0); MCHC 32.7 g/dL (31.0-37.0); MCV 88.3 fL (80.0-100.0); Mean Platelet Volume 7.8; Platelet Count 143 k/uL (150-450); RBC 3.95 m/uL (4.30-5.90); RDW 13.9 % (11.5-15.5)
[2024-09-13 08:20] LABS: African American GFR (CKD) 60 (>60 ml/min/1.73 sqM); Anion Gap 7 mmol/L; Blood Urea Nitrogen 19 mg/dL (9-20); Calcium 9.1 mg/dL (8.4-10.2); Carbon Dioxide 27 mmol/L (22-30); Chloride 109 mmol/L (98-107); Glucose 91 mg/dL (74-99); Non-African American GFR(CKD) 52 (>60 ml/min/1.73 sqM); Potassium 4.5 mmol/L (3.5-5.1); Sodium 143 mmol/L (137-145)
--- NOTE | 2024-09-13 10:58 | P.PN ---
Subjective Progress Note Date: 09/13/24 Principal diagnosis: Hospital course: 89-year-old male came in with complaints of shortness of breath cough found to be in COVID-19. Patient oxygen requirements have gone up from 2 L at baseline at home to 4 L patient is presently on 4 L of oxygen. Patient on exam has slight wheeze. Patient does not smoke quit smoking in 1970s. Patient does not have any history of congestive heart failure chest x-ray is read as possibility of congestion patient has a BNP of 1300 patient is hyponatremic, patient also has acute renal failure and hypotensive patient serum creatinine is 2.4 baseline is essentially within normal limits. 09/11/24: Patient seen and examined at bedside today. Patient continues to be on 4 L of oxygen via nasal cannula and is saturating at 96%. Labs today show BUN 26, creatinine 1.31, procalcitonin 0.54, SARS-CoV-2 positive. Abdomen bladder ultrasound shows no sonographic evidence of acute obstructive uropathy, mildly increased parenchymal echogenicity. Chest x-ray done today shows patchy opacity/infiltrate left mid to lower lung now better, pneumonia not excluded, mild interstitial density remains. 09/12/24: Patient evaluated today. Patient continues to be on 3L of oxygen and is saturating at 96%. Labs today show hemoglobin 11.5, platelet count 141, creatinine 1.10. Abdomen x-ray shows moderate stool burden, obstructive bowel gas pattern. 09/13/24: Patient examined at bedside. He is currently on 2.5L of oxygen. Labs today show hemoglobin 11.4, platelet count 143, bicarb 27, creatinine 1.24, free T4 is 1.24, free T3 is 2.30. Blood culture shows no growth after 48 hours. Review of systems: Pertinent positives and negatives as discussed in HPI, a complete review of systems was performed and all other systems are negative. Vitals: Signs Reviewed Physical examination: General: nontoxic, no distress, appears at stated age Derm: warm, dry, intact Head: atraumatic, normocephalic, symmetric Eyes: EOMI, anicteric sclera Mouth: no lip lesion, mucus membranes moist Cardiovascular: S1 S2 reg, no murmur Lungs: CTA bilateral, no rhonchi, no accessory muscle use Abdominal: soft, non-tender to palpataion Extremities: No cyanosis, clubbing, or pedal edema. Neuro: Alert, Oriented, Gross neurological examination did not reveal any focal deficits. Psych: well appearing, appropriate affect Assessment/Plan: Patient is an 89-year-old male who presented with shortness of breath and coughi ng. He was found to have COVID-19 pneumonia. He has been admitted for acute on chronic hypoxic and hypercapnic respiratory failure secondary to COVID-19 pneumonia and COPD exacerbation. He continues to be on Dexemthasone and Ceftriaxone. Renal function is improving. He has a new onset diarrhea with C. diff negative. PT and OT, recommended home with home health PT and support from . Active: #. Acute on chronic hypoxic and hypercapnic respiratory failure secondary to COVID-19 pneumonia and COPD exacerbation #. Acute COVID-19 infection #. Generalized weakness Chest x-ray done today shows patchy opacity/infiltrate left mid to lower lung now better, pneumonia not excluded, mild interstitial density remains. Continue albuterol 2 puffs in addition 4 times daily Continue ceftriaxone 2 g IVPB every 24 hours, 3/4 bags Continue Decadron 6 mg IVP daily Pneumonia protocol Procalcitonin 0.54 Pulmnology is following PT and OT, recommended home with home health PT and support from . #. Acute renal failure, prerenal azotemia secondary to infection and sepsis Bladder scan showed 299 mL postvoid residual Abdomen bladder ultrasound shows no sonographic evidence of acute obstructive uropathy, mildly increased parenchymal echogenicity IV fluids discontinued Hold nephrotoxic agents including gabapentin Nephrology is following #. Metabolic acidosis secondary to MATEUSZ and IV fluids Continue sodium bicarb 650 mg p.o. twice daily #. Sinus pauses Obtain 2D echo Continue telemetry monitoring Avoid AV glo blocking agents Cardiology is following, recommend PPM implantation during this hospitalization #. Mild hyperkalemia secondary to MATEUSZ and acidosis Monitor BMP #. Acute Diarrhea, viral vs antibiotic induced C. diff negative Loperamide 4 mg PO once Continue Loperamide 2 mg PO QID PRN Continue Dicyclomine 10 mg PO TID PRN for cramps #. Sick euthyroid TSH 7.03, T4 is 1.24, T3 is 2.30 Repeat labs on outpatient basis Chronic: #. History of HI #. Coronary artery disease with previous stent placement #. Hyperlipidemia #. Gastroesophageal reflux disease #. Rheumatoid arthritis #. BPH #. Anxiety Resume atorvastatin 20 mg p.o. at bedtime, clopidogrel 75 mg p.o. daily, finasteride 5 mg p.o. daily, mirtazapine 15 mg p.o. at bedtime, pantoprazole 40 mg p.o. daily, tamsulosin 0.4 mg p.o. at bedtime F: None E: Replete as required N: Heart healthy diet soft food; modification: Orwin thick liquids, no straws A: Bedrest DVT prophylaxis: Heparin 5000 units SQ every 8 hours and SCD GI prophylaxis: Pantoprazole 40 mg PO BID Objective - Vital Signs Vital signs: Vital Signs Temp 98.1 F 09/13/24 03:45 Pulse 88 09/13/24 03:45 Resp 18 09/13/24 03:45 BP 154/67 09/13/24 03:45 Pulse Ox 94 L 09/13/24 07:55 FiO2 Intake & Output 09/12/24 09/13/24 09/13/24 18:59 06:59 18:59 Intake Total 120 Output Total 300 Balance -180 Weight 78.7 kg Intake: Oral 120 Output: Urine 300 Other: Voiding Method Toilet # Voids 1 # Bowel Movements 1 - Labs CBC & Chem 7: 09/13/24 06:20 09/13/24 06:20 Labs: Abnormal Lab Results - Last 24 Hours (Table) 09/12/24 09/13/24 Range/Units 06:19 06:20 RBC 3.95 L (4.30-5.90) m/uL Hgb 11.4 L (13.0-17.5) gm/dL Hct 34.9 L (39.0-53.0) % Plt Count 143 L (150-450) k/uL Chloride 109 H (98-107) mmol/L Glucose 103 H (74-99) mg/dL Microbiology - Last 24 Hours (Table) 09/10/24 02:46 Blood Culture - Preliminary Blood 09/10/24 02:48 Blood Culture - Preliminary Blood
--- NOTE | 2024-09-13 11:06 | CA ---
Transthoracic Echo Report Name: Alfonso Sharma Age: 89 Gender: M : 1935 Exam Date: 09/12/2024 15:30 Exam Location: [place] [facility] Ht (in): 71 Wt (lb): 173 Ordering Physician: Carissa Nye Attending/Referring Phys: [id number], Parris Weigh Machine Operator Tabitha Morris RDCS Procedure CPT: Indications: LV function, COVID, pauses Cardiac Hx: Technical Quality: Good Contrast 1: Total Dose (mL): Contrast 2: Total Dose (mL): MEASUREMENTS (Male / Female) Normal Values 2D ECHO LV Diastolic Diameter PLAX 4.9 cm 4.2 - 5.9 / 3.9 - 5.3 cm LV Systolic Diameter PLAX 3.5 cm IVS Diastolic Thickness 0.8 cm 0.6 - 1.0 / 0.6 - 0.9 cm LVPW Diastolic Thickness 0.9 cm 0.6 - 1.0 / 0.6 - 0.9 cm LV Relative Wall Thickness 0.4 LVOT Diameter 2.3 cm LV Diastolic Volume MOD BP 121.7 cm??? 67 - 155 / 56 - 104 cm??? LV Systolic Volume MOD BP 48.0 cm??? 22 - 58 / 19 - 49 cm??? LV Ejection Fraction MOD BP 60.6 % >= 55 % LV Cardiac Index MOD BP 3192.1 cm???/min???m??? LV Diastolic Volume MOD 4C 104.6 cm??? LV Systolic Volume MOD 4C 47.9 cm??? LV Ejection Fraction MOD 4C 54.2 % LV Cardiac Index MOD 4C 2453.7 cm???/min???m??? LV Diastolic Length 4C 7.9 cm LV Systolic Length 4C 6.5 cm LV Diastolic Volume MOD 2C 134.2 cm??? LV Systolic Volume MOD 2C 48.0 cm??? LV Ejection Fraction MOD 2C 64.2 % LV Cardiac Index MOD 2C 3729.5 cm???/min???m??? LV Diastolic Length 2C 8.4 cm LV Systolic Length 2C 6.4 cm LA Volume 101.7 cm??? 18 - 58 / 22 - 52 cm??? LA Volume Index 51.2 cm???/m??? 16 - 28 cm???/m??? Ascending Aorta Diameter 3.2 cm DOPPLER AV Peak Velocity 132.5 cm/s AV Peak Gradient 7.0 mmHg AV Mean Velocity 93.8 cm/s AV Mean Gradient 3.9 mmHg AV Velocity Time Integral 31.2 cm LVOT Peak Velocity 95.4 cm/s LVOT Peak Gradient 3.6 mmHg LVOT Velocity Time Integral 22.8 cm LVOT Stroke Volume 95.9 cm??? LVOT Stroke Volume Index 48.4 ml/m??? LVOT Cardiac Index 4151.4 cm???/min???m??? AV Area Cont Eq vti 3.1 cm??? AV Area Cont Eq pk 3.0 cm??? MV Area PHT 5.6 cm??? Mitral E Point Velocity 61.6 cm/s Mitral A Point Velocity 96.6 cm/s Mitral E to A Ratio 0.6 MV Deceleration Time 135.1 ms TR Peak Velocity 329.6 cm/s TR Peak Gradient 43.4 mmHg Right Atrial Pressure 10.0 mmHg Pulmonary Artery Systolic Pressu 53.4 mmHg Right Ventricular Systolic Press 53.4 mmHg PV Peak Velocity 108.1 cm/s PV Peak Gradient 4.7 mmHg FINDINGS Left Ventricle Left ventricular ejection fraction is estimated at 55-60 %. Left ventricular cavity size normal. Left ventricular wall thickness normal. No obvious regional wall motion abnormalities. Right Ventricle Right ventricular dilatation with normal function. Severe pulmonary hypertension. Right Atrium Right atrial dilatation by visual. Left Atrium Severely increased left atrial volume. Mitral Valve Mitral valve thickened. No evidence for mitral valve prolapse. No mitral stenosis. Mild mitral regurgitation. Aortic Valve Trileaflet aortic valve. No aortic stenosis. Trace aortic regurgitation. Tricuspid Valve Structurally normal tricuspid valve. No tricuspid stenosis. Severe tricuspid regurgitation. Pulmonic Valve Structurally normal pulmonic valve. No pulmonic stenosis. Mild pulmonic regurgitation. Pericardium No pericardial effusion. Aorta Normal size aortic root and proximal ascending aorta. CONCLUSIONS LVEF 55% No obvious regional wall motion abnormality Mild RV dilatation with normal function. Severe pulmonary hypertension with RVSP of 53 mmHg Severe LA dilatation Mild central mitral regurgitation Severe tricuspid regurgitation Previewed by: Dr Shaun Aquino (Electronically Signed) Final Date: 13 September 2024 11:05
--- NOTE | 2024-09-13 11:08 | P.PN ---
Subjective HISTORY OF PRESENT ILLNESS: This is a 89-year-old male with a past medical history significant for hyperlipidemia and coronary artery disease with previous stent placement in 2019. Patient follows with Dr. Bain. We have been asked to see the patient in consultation for recurrent heart pauses. Patient examined at the bedside. Patient presented to the hospital with generalized malaise. at the bedside states he was coughing a lot at home. He was weak and not as alert as he normally is. She reports he was confused as well. Patients denies history of hypertension and states his blood pressure is usually low. He does report mark t he is frequently lightheaded. No episodes of syncope. He states the symptoms will last for 15-20 seconds and then go away. Telemetry reviewed with pauses overnight. Patient had a pause of 8 seconds with one single PVC in that timeframe. DIAGNOSTICS: - EKG reveals sinus mechanism with incomplete right bundle branch block. No signs of acute ischemia. - Chest xray patchy opacity/infiltrate left mid to lower lung now better seen. Pneumonia not excluded. Mild interstitial density remains.. - Laboratory data: WBC 7.4. Hemoglobin 11.3. Platelet count 128. Sodium 139. Potassium 5.0. BUN 26. Creatinine 1.31. Troponin negative x 1. proBNP 1380. - Current home cardiac medications include Plavix 75 mg daily and Lipitor 20 mg at night - Most recent echocardiogram obtained in July 2020 revealing ejection fraction 55 to 60%, trace MR, trace TR 09/13/2024 Patient examined this morning at the bedside. Currently denies chest pain or pressure. Denies SOB. Telemetry reviewed without any further significant pauses. Patients states he has not been eating well the past couple days. PHYSICAL EXAM: VITAL SIGNS: Reviewed. GENERAL: Well-developed in no acute distress. HEENT: Head is normocephalic. Pupils are equal, round. Sclerae anicteric. Mucous membranes of the mouth are moist. Neck supple. No JVD or thyromegaly LUNGS: Respirations even and unlabored. Lungs essentially clear to auscultation bilaterally. HEART: Regular rate and rhythm. S1 and S2 heard. ABDOMEN: Soft. Nondistended. Nontender. EXTREMITIES: Normal range of motion. No clubbing or cyanosis. Peripheral pulses intact. No lower extremity edema NEUROLOGIC: Awake and alert. Oriented x 3. ASSESSMENT: COVID-19 Sinus pauses Hypotension on admission, currently hypertensive Acute on chronic hypoxic respiratory failure Acute kidney injury Coronary artery disease with previous stenting Hyperlipidemia BPH History of carotid stenosis PLAN: 2D echo ordered. Awaiting results. TSH abnormal at 7.030. Check T3/T4. Internal medicine to address. Continue telemetry monitoring Avoid any AV glo blocking agents Patient will likely require PPM implantation during this hospitalization. Timing to be determined. Awaiting records from patient's primary scientific editor Further recommendations pending patient course Nurse practitioner note has been reviewed by physician. Signing provider agrees with the documented findings, assessment, and plan of care documented by REFERENCE ARCHIVIST as a scribe. Objective - Vital Signs Vital signs: Vital Signs Temp 98.7 F 09/13/24 08:21 Pulse 86 09/13/24 08:21 Resp 20 09/13/24 08:21 BP 149/67 09/13/24 08:21 Pulse Ox 93 L 09/13/24 08:21 FiO2 Intake & Output 09/12/24 09/13/24 09/13/24 18:59 06:59 18:59 Intake Total 120 Output Total 300 Balance -180 Weight 78.7 kg Intake: Oral 120 Output: Urine 300 Other: Voiding Method Toilet # Voids 1 # Bowel Movements 1 - Labs CBC & Chem 7: 09/13/24 06:20 09/13/24 06:20 Labs: Abnormal Lab Results - Last 24 Hours (Table) 09/13/24 09/13/24 Range/Units 06:20 06:20 RBC 3.95 L (4.30-5.90) m/uL Hgb 11.4 L (13.0-17.5) gm/dL Hct 34.9 L (39.0-53.0) % Plt Count 143 L (150-450) k/uL Chloride 109 H (98-107) mmol/L Microbiology - Last 24 Hours (Table) 09/10/24 02:46 Blood Culture - Preliminary Blood 09/10/24 02:48 Blood Culture - Preliminary Blood
[2024-09-13] MEDS: ACETAMINOPHEN TAB 325 MG TAB PO PRN (11:26)
--- NOTE | 2024-09-13 12:23 | P.PN ---
Subjective Patient is seen for follow-up for acute kidney injury. Renal function has improved with serum creatinine at 1.2. Complaining of nausea. Not tolerating oral intake. Objective - Vital Signs Vital signs: Vital Signs Temp 98.6 F 09/13/24 11:36 Pulse 83 09/13/24 11:36 Resp 20 09/13/24 11:36 BP 124/66 09/13/24 11:36 Pulse Ox 98 09/13/24 11:36 FiO2 Intake & Output 09/12/24 09/13/24 09/13/24 18:59 06:59 18:59 Intake Total 120 Output Total 300 Balance -180 Weight 78.7 kg Intake: Oral 120 Output: Urine 300 Other: Voiding Method Toilet Toilet # Voids 1 # Bowel Movements 1 - Exam Patient is awake, comfortable, no acute distress. Examination of the heart S1 and S2 Examination of the lungs bilateral breath sounds are heard Abdomen is soft nontender Examination of lower extremities shows no significant edema GYM MANAGER exam grossly intact - Labs CBC & Chem 7: 09/13/24 06:20 09/13/24 06:20 Labs: Abnormal Lab Results - Last 24 Hours (Table) 09/13/24 09/13/24 Range/Units 06:20 06:20 RBC 3.95 L (4.30-5.90) m/uL Hgb 11.4 L (13.0-17.5) gm/dL Hct 34.9 L (39.0-53.0) % Plt Count 143 L (150-450) k/uL Chloride 109 H (98-107) mmol/L Microbiology - Last 24 Hours (Table) 09/10/24 02:46 Blood Culture - Preliminary Blood 09/10/24 02:48 Blood Culture - Preliminary Blood Assessment and Plan Assessment: 1. Acute kidney injury secondary to ATN secondary to acute COVID-19 infection. Creatinine 2.19 on admission. Creatinine 1.0 in January 2023. UA fairly benign. 2. Metabolic acidosis secondary to acute kidney injury and IV fluids. 3. Coronary artery disease with stent placement in the past. 4. Mild hyperkalemia secondary to acute kidney injury and acidosis. 5. Acute COVID-19 infection. Plan: Resume gentle IV hydration as patient is not tolerating oral intake. Continue with oral sodium bicarb Repeat labs in a.m. Encourage increase oral intake
--- NOTE | 2024-09-13 13:23 | P.PN ---
Subjective Progress Note Date: 09/13/24 This is a very pleasant 89-year-old male patient who has a history of hyperlipidemia, gastroesophageal reflux disease, carotid artery stenosis with 100% occlusion on the left and 50% on the right, rheumatoid arthritis, former smoker, chronic obstructive pulmonary disease. He was brought into the emergen cy room early this morning after being found quite weak by his family. He was hypotensive. They were concerned regarding possible stroke. He also was having bodyaches all over. CT scan of the brain revealed no acute stroke or hemorrhage. Multiple remote infarcts. EKG revealed sinus rhythm with no significant ST or T wave abnormalities. X-ray shows mild pulmonary vascular congestion. Left basilar atelectasis. White count 7.4. Hemoglobin 11.3. Platelets 128. INR 1.0. Sodium 133. Potassium 5.2. Bicarb 17. BUN 45. Creatinine 2.19. Glucose 139. AST 22. ALT 10. Troponin negative x 1. proBNP 1380. Procalcitonin 0.54. Urinalysis clean. Viral screen positive for COVID infection. He is seen today in consultation on the regular medical floor. He is currently sitting up in bed. Awake and alert in no acute distress. He is maintaining O2 saturations in the 90s on 4 L/min per nasal cannula. He is still quite weak. On 09/11/24, patient is being seen for a follow-up. Patient is doing well. No significant respiratory distress. 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 The patient was also diagnosed having an acute COVID-19 infection during this current admission. No previous vaccination. This is the patient's first infection with the COVID-19 virus. Patient otherwise has no new complaints. He is on 4 L of oxygen by nasal cannula with a pulse ox of 93%. His chest x-ray was repeated today and it showed patchy left mid and lower lobe pulmonary infiltrate with some mild interstitial edema. Sodium level is at 139, potassium is at 5, chloride is 111 with a bicarb of 22, BUN 26 with a creatinine of 1.3. The patient is recovering from his acute kidney injury. He is on normal citrate of 75 cc an hour. He is on heparin subcu for DVT prophylaxis. He remains on Rocephin and Zithromax as an empiric antibiotic coverage. Procalcitonin level is at 0.54. proBNP level was 1380. Previous echocardiogram from 2019 had shown a preserved LV function. On 09/12/2024, the patient is being seen for a follow-up. The patient is currently on room air oxygen with a pulse ox of 93%. Oxygenation is improved as the patient is recovering from his pneumonia. The patient tested positive for COVID-19 and suspected to have a COVID-19 related pneumonia with a possibility of a superinfection with bacteria and based on that the patient was given empiric antibiotic coverage with a combination of Rocephin and Zithromax. He completed Zithromax and he remains on Rocephin and the patient is also on Decadron 6 mg IV on a daily basis. No new complaints for now. Having some limited diarrhea. No nausea. No vomiting. Abdominal pain. Her white cell count is 4.9 with a hemoglobin of 11.7 and a platelet count of 141. BUN is 18 with a creatinine of 1.1 and sodium levels at 141. Stool for C. difficile has been negative. Thyroid function tests are essentially within normal limits. No altered mentation. No other new complaints otherwise for now. 09/13/2024, patient is being seen for a follow-up. Respiratory status remained stable and the patient remains on 2 L of oxygen by nasal cannula with a pulse ox of 98%. Nevertheless, overall, he is feeling very weak and debilitated. He has bodyaches. Afebrile. No fever or chills. Diminished appetite. Cannot eat as the patient has no appetite. Feels lethargic. Noted the patient has been infected with COVID-19. No signs of any respiratory distress. White cell count is at 7 with a hemoglobin 11.4 and a platelet count of 143. BUN is 19 with a creatinine of 1.2. No other significant events overnight. On a separate note, the patient is having cardiac sinus pauses. Cardiology on the case. Thyroid function tests were essentially within normal limits. Echocardiogram was also done yesterday and the patient was found to have a preserved LV function with an ejection fraction of 55 to 60%, severe pulmonary hypertension was noted with an estimated pulmonary artery pressure of around 53. Patient is on a telemetry monitoring. Being considered for a permanent pacemaker insertion during this current hospitalization. Objective - Vital Signs Vital signs: Vital Signs Temp 98.7 F 09/13/24 08:21 Pulse 86 09/13/24 08:21 Resp 20 01/08/25 08:21 BP 149/67 09/13/24 08:21 Pulse Ox 93 L 09/13/24 08:21 FiO2 Intake & Output 09/12/24 09/13/24 09/13/24 18:59 06:59 18:59 Intake Total 120 Output Total 300 Balance -180 Weight 78.7 kg Intake: Oral 120 Output: Urine 300 Other: Voiding Method Toilet # Voids 1 # Bowel Movements 1 - Exam GENERAL EXAM: Alert, weak, pleasant 89-year-old male patient, on 2 L of oxygen by nasal cannula, fairly comfortable in no apparent distress. HEAD: Normocephalic. EYES: Normal reaction of pupils, equal size. NOSE: Clear with pink turbinates. THROAT: No erythema or exudates. NECK: No masses, no JVD. CHEST: No chest wall deformity. LUNGS: Equal air entry with few crackles in the left lung base. CVS: S1 and S2 normal with no audible murmur, regular rhythm. ABDOMEN: No hepatosplenomegaly, normal bowel sounds, no guarding or rigidity. SPINE: No scoliosis or deformity SKIN: No rashes CENTRAL NERVOUS SYSTEM: No focal deficits, tone is normal in all 4 extremities. EXTREMITIES: There is no peripheral edema. No clubbing, no cyanosis. Peripheral pulses are intact. - Labs CBC & Chem 7: 09/13/24 06:20 09/13/24 06:20 Labs: Abnormal Lab Results - Last 24 Hours (Table) 09/13/24 09/13/24 Range/Units 06:20 06:20 RBC 3.95 L (4.30-5.90) m/uL Hgb 11.4 L (13.0-17.5) gm/dL Hct 34.9 L (39.0-53.0) % Plt Count 143 L (150-450) k/uL Chloride 109 H (98-107) mmol/L Microbiology - Last 24 Hours (Table) 09/10/24 02:46 Blood Culture - Preliminary Blood 09/10/24 02:48 Blood Culture - Preliminary Blood Assessment and Plan Plan: Acute hypoxic respiratory failure, improved and the patient is currently on 2 L of O2 nasal cannula. Vague left lung infiltration with mild procalcitonin level elevation. Positive COVID-19 infection. Rule out COVID-19 pneumonia. Bacterial infection is felt to be less likely. Currently on Rocephin and completed the course of Zithromax. The patient is also on Decadron. Overall respiratory status remains stable. 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 difficile. Could be viral versus antibiotic induced, recovered Sinus cardiac pause, episodic. Echocardiogram showed a preserved LV function, severe pulm hypertension with estimated PA pressure of around 56. Acute kidney injury, recovered Chronic obstructive pulmonary disease Former smoker Rheumatoid arthritis Carotid stenosis with known 100% blockage on the left and 70% on the right History of myocardial infarction treated at [facility] Coronary artery disease with previous stent placement BPH Hyperlipidemia Plan: Titrate oxygen flow to maintain saturation above 90%, currently on 2 L O2 nasal cannula Continue Decadron 6 mg IV every 24 hours Continue ceftriaxone, to complete a 5-day course Monitor diarrhea Continue bronchodilators Heparin for DVT prophylaxis Normal saline at 75 mL/h Renal function has improved Cardiology on the case and the patient is being considered for a permanent pacemaker insertion Continue telemetry monitoring We will continue to follow and make further recommendations based on his clinical status
[2024-09-13] MEDS: SODIUM CHLORIDE 0.9% 1,000 ML IV SCH (15:52)
[2024-09-13] MEDS: HYDROcodone/APAP 5-325MG 1 EACH TAB PO PRN (18:48)
[2024-09-13] MEDS: METHYL SALICYLATE-MENTHOL OINT (3 OZ TUBE) TOPICAL PRN (20:28)
[2024-09-14 07:06] LABS: HCT 32.7 % (39.0-53.0); HGB 10.9 gm/dL (13.0-17.5); MCH 29.4 pg (25.0-35.0); MCHC 33.4 g/dL (31.0-37.0); MCV 87.9 fL (80.0-100.0); Mean Platelet Volume 7.5; Platelet Count 138 k/uL (150-450); RBC 3.72 m/uL (4.30-5.90); RDW 13.8 % (11.5-15.5); WBC 5.8 k/uL (3.8-10.6)
[2024-09-14 07:22] LABS: African American GFR (CKD) 68 (>60 ml/min/1.73 sqM); Anion Gap 9 mmol/L; Blood Urea Nitrogen 22 mg/dL (9-20); Calcium 8.5 mg/dL (8.4-10.2); Carbon Dioxide 22 mmol/L (22-30); Chloride 110 mmol/L (98-107); Glucose 88 mg/dL (74-99); Non-African American GFR(CKD) 59 (>60 ml/min/1.73 sqM); Sodium 141 mmol/L (137-145)
--- NOTE | 2024-09-14 11:31 | P.PN ---
Subjective HISTORY OF PRESENT ILLNESS: This is a 89-year-old male with a past medical history significant for hyperlipidemia and coronary artery disease with previous stent placement in 2019. Patient follows with Dr. Bain. We have been asked to see the patient in consultation for recurrent heart pauses. Patient examined at the bedside. Patient presented to the hospital with generalized malaise. at the bedside states he was coughing a lot at home. He was weak and not as alert as he normally is. She reports he was confused as well. Patients denies history of hypertension and states his blood pressure is usually low. He does report mark t he is frequently lightheaded. No episodes of syncope. He states the symptoms will last for 15-20 seconds and then go away. Telemetry reviewed with pauses overnight. Patient had a pause of 8 seconds with one single PVC in that timeframe. DIAGNOSTICS: - EKG reveals sinus mechanism with incomplete right bundle branch block. No signs of acute ischemia. - Chest xray patchy opacity/infiltrate left mid to lower lung now better seen. Pneumonia not excluded. Mild interstitial density remains.. - Laboratory data: WBC 7.4. Hemoglobin 11.3. Platelet count 128. Sodium 139. Potassium 5.0. BUN 26. Creatinine 1.31. Troponin negative x 1. proBNP 1380. - Current home cardiac medications include Plavix 75 mg daily and Lipitor 20 mg at night - Most recent echocardiogram obtained in July 2020 revealing ejection fraction 55 to 60%, trace MR, trace TR 09/13/2024 Patient examined this morning at the bedside. Currently denies chest pain or pressure. Denies SOB. Telemetry reviewed without any further significant pauses. Patients states he has not been eating well the past couple days. 09/14/2023 Patient examined this morning at the bedside. Patient currently denies chest pain or pressure. He denies shortness of breath. Vital signs are stable. Telemetry reveals sinus mechanism. Echocardiogram completed revealing ejection fraction 55 to 60%, no obvious regional wall motion abnormalities, mild MR, trace AR, severe TR. Records received from patient's primary glue reel operator: -Patient underwent echocardiogram in 10/2023 revealing ejection fraction 55%, tr kaylee TR and moderate left atrial dilatation. -Patient underwent right and left cardiac catheterization in November 2021 revealing right atrial mean pressure 4 mmHg, right ventricular systolic pressure 29 mmHg, right ventricular end-diastolic pressure 5 mmHg. PA pressure 27/9 with a mean of 17 mmHg, pulmonary arterial saturation 66%. Wedge pressure 10 mmHg. Aortic pressure 148 systolic mean 97 mmHg. Left ventricular systolic pressure 158 mmHg. Left ventricular end-diastolic pressure 22 mmHg. Cardiac output 7.01/cardiac index 3.5. Left heart cath revealed left main with no significant degree of stenosis. Left circumflex with previously placed stent in the midportion that is widely patent with no significant degree of in-stent restenosis. LAD with 10% mid ulcerated lesion unchanged compared to 2019. RCA small caliber nondominant vessel with no significant disease. PHYSICAL EXAM: VITAL SIGNS: Reviewed. GENERAL: Well-developed in no acute distress. HEENT: Head is normocephalic. Pupils are equal, round. Sclerae anicteric. Mucous membranes of the mouth are moist. Neck supple. No JVD or thyromegaly LUNGS: Respirations even and unlabored. Lungs essentially clear to auscultation bilaterally. HEART: Regular rate and rhythm. S1 and S2 heard. ABDOMEN: Soft. Nondistended. Nontender. EXTREMITIES: Normal range of motion. No clubbing or cyanosis. Peripheral pulses intact. No lower extremity edema NEUROLOGIC: Awake and alert. Oriented x 3. ASSESSMENT: COVID-19 Sinus pauses Hypotension on admission, currently hypertensive Acute on chronic hypoxic respiratory failure Acute kidney injury Coronary artery disease with previous stenting of the left circumflex, 2018, with no progression of disease noted on cath in 2021 Hyperlipidemia BPH History of carotid stenosis Severe pulmonary hypertension PLAN: Continue current cardiac medications Avoid any AV glo blocking agents N.p.o. at midnight Possible pacemaker implantation tomorrow with Dr. Caba Further recommendations pending patient course Nurse practitioner note has been reviewed by physician. Signing provider agrees with the documented findings, assessment, and plan of care documented by SENIOR CLINICAL STUDY MANAGER as a scribe. Objective - Vital Signs Vital signs: Vital Signs Temp 98.1 F 09/14/24 08:00 Pulse 72 09/14/24 08:00 Resp 16 09/14/24 08:00 BP 106/58 09/14/24 08:00 Pulse Ox 96 09/14/24 08:00 FiO2 Intake & Output 09/13/24 09/14/24 09/14/24 18:59 06:59 18:59 Intake Total 10 Balance 10 Weight 76.5 kg Intake: IV 10 Invasive Line 3 10 Other: Voiding Method Toilet Toilet Toilet Urinal Urinal # Voids 2 1 - Labs CBC & Chem 7: 09/14/24 05:32 09/14/24 05:32 Labs: Abnormal Lab Results - Last 24 Hours (Table) 09/14/24 09/14/24 Range/Units 05:32 05:32 RBC 3.72 L (4.30-5.90) m/uL Hgb 10.9 L (13.0-17.5) gm/dL Hct 32.7 L (39.0-53.0) % Plt Count 138 L (150-450) k/uL Chloride 110 H (98-107) mmol/L BUN 22 H (9-20) mg/dL Microbiology - Last 24 Hours (Table) 09/10/24 02:46 Blood Culture - Preliminary Blood 09/10/24 02:48 Blood Culture - Preliminary Blood
[2024-09-14] MEDS ORDERED: QUEtiapine 25 MG TAB PO PRN (12:20)
--- NOTE | 2024-09-14 12:21 | P.PN ---
Subjective Progress Note Date: 09/14/24 Principal diagnosis: Hospital course: 89-year-old male came in with complaints of shortness of breath cough found to be in COVID-19. Patient oxygen requirements have gone up from 2 L at baseline at home to 4 L patient is presently on 4 L of oxygen. Patient on exam has slight wheeze. Patient does not smoke quit smoking in 1970s. Patient does not have any history of congestive heart failure chest x-ray is read as possibility of congestion patient has a BNP of 1300 patient is hyponatremic, patient also has acute renal failure and hypotensive patient serum creatinine is 2.4 baseline is essentially within normal limits. 09/11/24: Patient seen and examined at bedside today. Patient continues to be on 4 L of oxygen via nasal cannula and is saturating at 96%. Labs today show BUN 26, creatinine 1.31, procalcitonin 0.54, SARS-CoV-2 positive. Abdomen bladder ultrasound shows no sonographic evidence of acute obstructive uropathy, mildly increased parenchymal echogenicity. Chest x-ray done today shows patchy opacity/infiltrate left mid to lower lung now better, pneumonia not excluded, mild interstitial density remains. 09/12/24: Patient evaluated today. Patient continues to be on 3L of oxygen and is saturating at 96%. Labs today show hemoglobin 11.5, platelet count 141, creatinine 1.10. Abdomen x-ray shows moderate stool burden, obstructive bowel gas pattern. 09/13/24: Patient examined at bedside. He is currently on 2.5L of oxygen. Labs today show hemoglobin 11.4, platelet count 143, bicarb 27, creatinine 1.24, free T4 is 1.24, free T3 is 2.30. Blood culture shows no growth after 48 hours. 09/14/24: Patient evaluated today. He continues to be on 2 L of oxygen via nasal cannula and is saturating at 99%. Labs today show hemoglobin 10.9, platelet count 138, BUN 22, creatinine 1.11. Blood culture shows no growth after 72 hours. Review of systems: Pertinent positives and negatives as discussed in HPI, a complete review of systems was performed and all other systems are negative. Vitals: Signs Reviewed Physical examination: General: nontoxic, no distress, appears at stated age Derm: warm, dry, intact Head: atraumatic, normocephalic, symmetric Eyes: EOMI, anicteric sclera Mouth: no lip lesion, mucus membranes moist Cardiovascular: S1 S2 reg, no murmur Lungs: CTA bilateral, no rhonchi, no accessory muscle use Abdominal: soft, non-tender to palpataion Extremities: No cyanosis, clubbing, or pedal edema. Neuro: Alert, Oriented to person only, Gross neurological examination did not reveal any focal deficits. Psych: well appearing, appropriate affect Assessment/Plan: Patient is an 89-year-old male who presented with shortness of breath and coughing. He was found to have COVID-19 pneumonia. He has been admitted for acute on chronic hypoxic and hypercapnic respiratory failure secondary to COVID- 19 pneumonia and COPD exacerbation. He continues to be on Dexemthasone and Ceftriaxone. Renal function is improving. He has a new onset diarrhea with C. diff negative. PT and OT, recommended home with home health PT and support from . Active: #. Acute on chronic hypoxic and hypercapnic respiratory failure secondary to COVID-19 pneumonia and COPD exacerbation #. Acute COVID-19 infection #. Generalized weakness Chest x-ray done today shows patchy opacity/infiltrate left mid to lower lung now better, pneumonia not excluded, mild interstitial density remains. Continue albuterol 2 puffs in addition 4 times daily Continue ceftriaxone 2 g IVPB every 24 hours, 4/4 bags Continue Decadron 6 mg IVP daily Pneumonia protocol Procalcitonin 0.54 Pulmnology is following PT and OT, recommended home with home health PT and support from . #. Acute renal failure, prerenal azotemia secondary to infection and sepsis Bladder scan showed 299 mL postvoid residual Abdomen bladder ultrasound shows no sonographic evidence of acute obstructive uropathy, mildly increased parenchymal echogenicity Gentle hydration with 0.9 normal saline at 50 ml/hr, as patient is not tolerating oral intake Hold nephrotoxic agents including gabapentin Nephrology is following #. Metabolic acidosis secondary to MATEUSZ and IV fluids Continue sodium bicarb 650 mg p.o. twice daily #. Sinus pauses Echocardiogram shows EF 55 to 60%, no obvious regional wall motion abnormality, mild RV dilatation with normal function, severe pulmonary hypertension with RVSP of 53 mmHg, severe LA dilation, mild central MR, severe TR Continue telemetry monitoring Avoid AV glo blocking agents Cardiology is following, recommend PPM implantation tomorrow #. Mild hyperkalemia secondary to MATEUSZ and acidosis Monitor BMP #. Acute Diarrhea, viral vs antibiotic induced C. diff negative Loperamide 4 mg PO once Continue Loperamide 2 mg PO QID PRN Continue Dicyclomine 10 mg PO TID PRN for cramps #. Sick euthyroid TSH 7.03, T4 is 1.24, T3 is 2.30 Repeat labs on outpatient basis Chronic: #. History of [place] #. Coronary artery disease with previous stent placement #. Hyperlipidemia #. Gastroesophageal reflux disease #. Rheumatoid arthritis #. BPH #. Anxiety Resume atorvastatin 20 mg p.o. at bedtime, clopidogrel 75 mg p.o. daily, finasteride 5 mg p.o. daily, mirtazapine 15 mg p.o. at bedtime, pantoprazole 40 mg p.o. daily, tamsulosin 0.4 mg p.o. at bedtime F: 0.9 normal saline at 50 ml/hr E: Replete as required N: NPO after midnight A: Bedrest DVT prophylaxis: Heparin 5000 units SQ every 8 hours and SCD GI prophylaxis: Pantoprazole 40 mg PO BID Objective - Vital Signs Vital signs: Vital Signs Temp 99.0 F 09/14/24 04:00 Pulse 80 09/14/24 04:00 Resp 18 09/14/24 04:00 BP 124/69 09/14/24 04:00 Pulse Ox 99 09/14/24 07:41 FiO2 Intake & Output 09/13/24 09/14/24 09/14/24 18:59 06:59 18:59 Intake Total 10 Balance 10 Weight 76.5 kg Intake: IV 10 Invasive Line 3 10 Other: Voiding Method Toilet Toilet Urinal # Voids 2 1 - Labs CBC & Chem 7: 09/14/24 05:32 09/14/24 05:32 Labs: Abnormal Lab Results - Last 24 Hours (Table) 09/13/24 09/14/24 09/14/24 Range/Units 06:20 05:32 05:32 RBC 3.72 L (4.30-5.90) m/uL Hgb 10.9 L (13.0-17.5) gm/dL Hct 32.7 L (39.0-53.0) % Plt Count 138 L (150-450) k/uL Chloride 109 H 110 H (98-107) mmol/L BUN 22 H (9-20) mg/dL Microbiology - Last 24 Hours (Table) 09/10/24 02:46 Blood Culture - Preliminary Blood 09/10/24 02:48 Blood Culture - Preliminary Blood
--- NOTE | 2024-09-14 12:36 | P.PN ---
Subjective Patient is seen for follow-up for acute kidney injury. Renal function has improved with serum creatinine at 1.1. Complaining of nausea. Not tolerating oral intake. Restarted IV fluids yesterday Objective - Vital Signs Vital signs: Vital Signs Temp 98.1 F 09/14/24 08:00 Pulse 72 09/14/24 08:00 Resp 16 09/14/24 08:00 BP 106/58 09/14/24 08:00 Pulse Ox 96 09/14/24 08:00 FiO2 Intake & Output 09/13/24 09/14/24 09/14/24 18:59 06:59 18:59 Intake Total 10 Balance 10 Weight 76.5 kg Intake: IV 10 Invasive Line 3 10 Other: Voiding Method Toilet Toilet Toilet Urinal Urinal # Voids 2 1 - Exam Patient is awake, comfortable, no acute distress. 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 Acute kidney injury secondary to ATN secondary to acute COVID-19 infection. Creatinine 2.19 on admission. Creatinine 1.0 in January 2023. UA fairly benign. 2. Metabolic acidosis secondary to acute kidney injury and IV fluids. 3. Coronary artery disease with stent placement in the past. 4. Mild hyperkalemia secondary to acute kidney injury and acidosis. 5. Acute COVID-19 infection. Plan: Continue with Ringer lactate at 50 cc an hour Continue with oral sodium bicarb Repeat labs in a.m. Encourage increase oral intake
--- NOTE | 2024-09-14 16:49 | P.PN ---
Subjective Progress Note Date: 09/14/24 This is a very pleasant 89-year-old male patient who has a history of hyperlipidemia, gastroesophageal reflux disease, carotid artery stenosis with 100% occlusion on the left and 50% on the right, rheumatoid arthritis, former smoker, chronic obstructive pulmonary disease. He was brought into the emergen cy room early this morning after being found quite weak by his family. He was hypotensive. They were concerned regarding possible stroke. He also was having bodyaches all over. CT scan of the brain revealed no acute stroke or hemorrhage. Multiple remote infarcts. EKG revealed sinus rhythm with no significant ST or T wave abnormalities. X-ray shows mild pulmonary vascular congestion. Left basilar atelectasis. White count 7.4. Hemoglobin 11.3. Platelets 128. INR 1.0. Sodium 133. Potassium 5.2. Bicarb 17. BUN 45. Creatinine 2.19. Glucose 139. AST 22. ALT 10. Troponin negative x 1. proBNP 1380. Procalcitonin 0.54. Urinalysis clean. Viral screen positive for COVID infection. He is seen today in consultation on the regular medical floor. He is currently sitting up in bed. Awake and alert in no acute distress. He is maintaining O2 saturations in the 90s on 4 L/min per nasal cannula. He is still quite weak. On 09/11/24, patient is being seen for a follow-up. Patient is doing well. No significant respiratory distress. 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 The patient was also diagnosed having an acute COVID-19 infection during this current admission. No previous vaccination. This is the patient's first infection with the COVID-19 virus. Patient otherwise has no new complaints. He is on 4 L of oxygen by nasal cannula with a pulse ox of 93%. His chest x-ray was repeated today and it showed patchy left mid and lower lobe pulmonary infiltrate with some mild interstitial edema. Sodium level is at 139, potassium is at 5, chloride is 111 with a bicarb of 22, BUN 26 with a creatinine of 1.3. The patient is recovering from his acute kidney injury. He is on normal citrate of 75 cc an hour. He is on heparin subcu for DVT prophylaxis. He remains on Rocephin and Zithromax as an empiric antibiotic coverage. Procalcitonin level is at 0.54. proBNP level was 1380. Previous echocardiogram from 2019 had shown a preserved LV function. On 09/12/2024, the patient is being seen for a follow-up. The patient is currently on room air oxygen with a pulse ox of 93%. Oxygenation is improved as the patient is recovering from his pneumonia. The patient tested positive for COVID-19 and suspected to have a COVID-19 related pneumonia with a possibility of a superinfection with bacteria and based on that the patient was given empiric antibiotic coverage with a combination of Rocephin and Zithromax. He completed Zithromax and he remains on Rocephin and the patient is also on Decadron 6 mg IV on a daily basis. No new complaints for now. Having some limited diarrhea. No nausea. No vomiting. Abdominal pain. Her white cell count is 4.9 with a hemoglobin of 11.7 and a platelet count of 141. BUN is 18 with a creatinine of 1.1 and sodium levels at 141. Stool for C. difficile has been negative. Thyroid function tests are essentially within normal limits. No altered mentation. No other new complaints otherwise for now. 09/13/2024, patient is being seen for a follow-up. Respiratory status remained stable and the patient remains on 2 L of oxygen by nasal cannula with a pulse ox of 98%. Nevertheless, overall, he is feeling very weak and debilitated. He has bodyaches. Afebrile. No fever or chills. Diminished appetite. Cannot eat as the patient has no appetite. Feels lethargic. Noted the patient has been infected with COVID-19. No signs of any respiratory distress. White cell count is at 7 with a hemoglobin 11.4 and a platelet count of 143. BUN is 19 with a creatinine of 1.2. No other significant events overnight. On a separate note, the patient is having cardiac sinus pauses. Cardiology on the case. Thyroid function tests were essentially within normal limits. Echocardiogram was also done yesterday and the patient was found to have a preserved LV function with an ejection fraction of 55 to 60%, severe pulmonary hypertension was noted with an estimated pulmonary artery pressure of around 53. Patient is on a telemetry monitoring. Being considered for a permanent pacemaker insertion during this current hospitalization. On 09/14/2024, the patient is being seen for a follow-up. On today's evaluation, the patient is confused and somewhat delirious. No significant agitation. The patient remains on Decadron 6 mg IV every 24 hours. Oral intake is minimal and the patient has no appetite. He is having generalized weakness. On a separate note, the patient is still being considered for a pacemaker insertion for cardiac pauses for around 8 seconds as documented in the previous telemetry. The white cell count is 5.8 with a hemoglobin 10.9 and platelet count of 138. BUN 22 with a creatinine of 1.1 and a sodium levels at 141. Oxygenation remained stable and the patient remains on 2 L of oxygen by nasal cannula with a pulse ox of 97%. No focal neurological deficit at this point. Objective - Vital Signs Vital signs: Vital Signs Temp 99.0 F 09/14/24 04:00 Pulse 80 09/14/24 04:00 Resp 18 09/14/24 04:00 BP 124/69 09/14/24 04:00 Pulse Ox 99 09/14/24 07:41 FiO2 Intake & Output 09/13/24 09/14/24 09/14/24 18:59 06:59 18:59 Intake Total 10 Balance 10 Weight 76.5 kg Intake: IV 10 Invasive Line 3 10 Other: Voiding Method Toilet Toilet Urinal # Voids 2 1 - Exam GENERAL EXAM: Alert, weak, pleasant 89-year-old male patient, on 2 L of oxygen by nasal cannula, fairly comfortable in no apparent distress. HEAD: Normocephalic. EYES: Normal reaction of pupils, equal size. NOSE: Clear with pink turbinates. THROAT: No erythema or exudates. NECK: No masses, no JVD. CHEST: No chest wall deformity. LUNGS: Equal air entry with few crackles in the left lung base. CVS: S1 and S2 normal with no audible murmur, regular rhythm. ABDOMEN: No hepatosplenomegaly, normal bowel sounds, no guarding or rigidity. SPINE: No scoliosis or deformity SKIN: No rashes CENTRAL NERVOUS SYSTEM: No focal deficits, tone is normal in all 4 extremities. EXTREMITIES: There is no peripheral edema. No clubbing, no cyanosis. Per ipheral pulses are intact. - Labs CBC & Chem 7: 09/14/24 05:32 09/14/24 05:32 Labs: Abnormal Lab Results - Last 24 Hours (Table) 09/14/24 09/14/24 Range/Units 05:32 05:32 RBC 3.72 L (4.30-5.90) m/uL Hgb 10.9 L (13.0-17.5) gm/dL Hct 32.7 L (39.0-53.0) % Plt Count 138 L (150-450) k/uL Chloride 110 H (98-107) mmol/L BUN 22 H (9-20) mg/dL Microbiology - Last 24 Hours (Table) 09/10/24 02:46 Blood Culture - Preliminary Blood 09/10/24 02:48 Blood Culture - Preliminary Blood Assessment and Plan Plan: Acute hypoxic respiratory failure, improved and the patient is currently on 2 L of O2 nasal cannula. Vague left lung infiltration with mild procalcitonin level elevation. Positive COVID-19 infection. Rule out COVID-19 pneumonia. Bacterial infection is felt to be less likely. Currently on Rocephin and completed the course of Zithromax. The patient is also on Decadron. Overall respiratory status remains stable. 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 difficile. Could be viral versus antibiotic induced, recovered Sinus cardiac pause, episodic. Echocardiogram showed a preserved LV function, severe pulm hypertension with estimated PA pressure of around 56. Acute kidney injury, recovered Chronic obstructive pulmonary disease Former smoker Rheumatoid arthritis Carotid stenosis with known 100% blockage on the left and 70% on the right History of myocardial infarction treated at [facility] Coronary artery disease with previous stent placement BPH Hyperlipidemia Plan: Monitor mental status Consider CAT scan of the brain if there is no improvement Repeat chest x-ray in the morning Titrate oxygen flow to maintain saturation above 90%, currently on 2 L O2 nasal cannula Continue Decadron 6 mg IV every 24 hours Continue ceftriaxone, to complete a 5-day course Monitor diarrhea Continue bronchodilators Heparin for DVT prophylaxis Normal saline at 75 mL/h Renal function has improved Cardiology on the case and the patient is being considered for a permanent pacemaker insertion Continue telemetry monitoring We will continue to follow and make further recommendations based on his clinical status
[2024-09-15 07:02] LABS: HCT 32.5 % (39.0-53.0); HGB 10.9 gm/dL (13.0-17.5); MCH 29.6 pg (25.0-35.0); MCHC 33.6 g/dL (31.0-37.0); Mean Platelet Volume 7.7; Platelet Count 150 k/uL (150-450); RBC 3.69 m/uL (4.30-5.90); RDW 13.8 % (11.5-15.5); WBC 6.6 k/uL (3.8-10.6)
[2024-09-15 07:14] LABS: African American GFR (CKD) 76 (>60 ml/min/1.73 sqM); Anion Gap 10 mmol/L; Blood Urea Nitrogen 21 mg/dL (9-20); Calcium 8.4 mg/dL (8.4-10.2); Carbon Dioxide 21 mmol/L (22-30); Chloride 110 mmol/L (98-107); Glucose 89 mg/dL (74-99); Non-African American GFR(CKD) 66 (>60 ml/min/1.73 sqM); Potassium 3.5 mmol/L (3.5-5.1); Sodium 141 mmol/L (137-145)
--- NOTE | 2024-09-15 08:15 | XR ---
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 FINDINGS: Heart limits of normal in size. Patchy bilateral interstitial changes persist. Slight improving aerat ion in the left lower lung. Advanced degenerative change both shoulders. IMPRESSION: Persistent patchy bilateral interstitial opacities though with some improving aeration a t the left lower lung. [facility], , 09/15/2024 8:13 AM
[2024-09-15 09:00] VITALS: BMI 22.8
--- NOTE | 2024-09-15 10:40 | P.PN ---
Subjective Patient is seen for follow-up for acute kidney injury. Renal function has improved with serum creatinine at 1.0. Complaining of nausea. Not tolerating oral intake. Maintained on gentle IV hydration. Objective - Vital Signs Vital signs: Vital Signs Temp 98.2 F 09/15/24 08:00 Pulse 70 09/15/24 08:00 Resp 18 09/15/24 08:00 BP 135/69 09/15/24 08:00 Pulse Ox 92 L 09/15/24 04:00 FiO2 Intake & Output 09/14/24 09/15/24 09/15/24 18:59 06:59 18:59 Intake Total 0 400 Output Total 150 Balance 0 250 Weight 74.3 kg 74.3 kg Intake: IV 400 Sodium Chloride 0.9% 1, 400 000 ml @ 50 mls/hr IV . Q20H [facility] Rx#:[id number] Oral 0 0 Output: Urine 150 Other: Voiding Method Toilet Toilet Toilet Diaper Urinal Urinal Incontinent Diaper Diaper Incontinent Incontinent # Voids 1 1 # Bowel Movements 0 0 - Exam Patient is awake, comfortable, no acute distress. Examination of the heart S1 and S2 Examination of the lungs bilateral breath sounds are heard Abdomen is soft nontender Examination of lower extremities shows no significant edema SR. 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 Acute kidney injury secondary to ATN secondary to acute COVID-19 infection. Creatinine 2.19 on admission. Creatinine 1.0 in January 2023. UA fairly benign. 2. Metabolic acidosis secondary to acute kidney injury and IV fluids. 3. Coronary artery disease with stent placement in the past. 4. Mild hyperkalemia secondary to acute kidney injury and acidosis. 5. Acute COVID-19 infection. Plan: Continue with Ringer lactate at 50 cc an hour Continue with oral sodium bicarb Repeat labs in a.m. Encourage increase oral intake
--- NOTE | 2024-09-15 11:24 | P.PN ---
Subjective Progress Note Date: 09/15/24 HISTORY OF PRESENT ILLNESS: This is a 89-year-old male with a past medical history significant for hype rlipidemia and coronary artery disease with previous stent placement in 2019. Patient follows with Dr. Bain. We have been asked to see the patient in consultation for recurrent heart pauses. Patient examined at the bedside. Patient presented to the hospital with generalized malaise. at the bedside states he was coughing a lot at home. He was weak and not as alert as he normally is. She reports he was confused as well. Patients denies history of hypertension and states his blood pressure is usually low. He does report that he is frequently lightheaded. No episodes of syncope. He states the symptoms will last for 15-20 seconds and then go away. Telemetry reviewed with pauses overnight. Patient had a pause of 8 seconds with one single PVC in that timeframe. DIAGNOSTICS: - EKG reveals sinus mechanism with incomplete right bundle branch block. No signs of acute ischemia. - Chest xray patchy opacity/infiltrate left mid to lower lung now better seen. Pneumonia not excluded. Mild interstitial density remains.. - Laboratory data: WBC 7.4. Hemoglobin 11.3. Platelet count 128. Sodium 139. Potassium 5.0. BUN 26. Creatinine 1.31. Troponin negative x 1. proBNP 1380. - Current home cardiac medications include Plavix 75 mg daily and Lipitor 20 mg at night - Most recent echocardiogram obtained in July 2020 revealing ejection fraction 55 to 60%, trace MR, trace TR 09/13/2024 Patient examined this morning at the bedside. Currently denies chest pain or pressure. Denies SOB. Telemetry reviewed without any further significant pauses. Patients states he has not been eating well the past couple days. 09/14/2023 Patient examined this morning at the bedside. Patient currently denies chest pain or pressure. He denies shortness of breath. Vital signs are stable. Telemetry reveals sinus mechanism. Echocardiogram completed revealing ejection fraction 55 to 60%, no obvious regional wall motion abnormalities, mild MR, trace AR, severe TR. 09/15/2024 Patient did go into A-fib overnight and this is a new diagnosis for him, currently in sinus rhythm. Heart rates were controlled and he was relatively asymptomatic at that time. 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 Patient states that he is not feeling well and does have continued elbow pain. Records received from patient's primary chief administrative officer: -Patient underwent echocardiogram in 10/2023 revealing ejection fraction 55%, trace TR and moderate left atrial dilatation. -Patient underwent right and left cardiac catheterization in November 2021 revealing right atrial mean pressure 4 mmHg, right ventricular systolic pressure 29 mmHg, right ventricular end-diastolic pressure 5 mmHg. PA pressure 27/9 with a mean of 17 mmHg, pulmonary arterial saturation 66%. Wedge pressure 10 mmHg. Aortic pressure 148 systolic mean 97 mmHg. Left ventricular systolic pressure 158 mmHg. Left ventricular end-diastolic pressure 22 mmHg. Cardiac output 7.01/cardiac index 3.5. Left heart cath revealed left main with no significant degree of stenosis. Left circumflex with previously placed stent in the midportion that is widely patent with no significant degree of in-stent restenosis. LAD with 10% mid ulcerated lesion unchanged compared to 2019. RCA small caliber nondominant vessel with no significant disease. PHYSICAL EXAM: VITAL SIGNS: Reviewed. GENERAL: Well-developed in no acute distress. HEENT: Head is normocephalic. Pupils are equal, round. Sclerae anicteric. Mucous membranes of the mouth are moist. Neck supple. LUNGS: Respirations even and unlabored. Lungs essentially clear to auscultation bilaterally. HEART: Regular rate and rhythm. S1 and S2 heard. ABDOMEN: Soft. Nondistended. Nontender. EXTREMITIES: Normal range of motion. No clubbing or cyanosis. Peripheral puls es intact. No lower extremity edema NEUROLOGIC: Awake and alert. Oriented x 3. ASSESSMENT: COVID-19 Sinus pauses Hypotension on admission, currently hypertensive Acute on chronic hypoxic respiratory failure Acute kidney injury Coronary artery disease with previous stenting of the left circumflex, 2018, with no progression of disease noted on cath in 2021 Hyperlipidemia BPH History of carotid stenosis Severe pulmonary hypertension New onset paroxysmal a-fib PLAN: Continue current cardiac medications Avoid any AV glo blocking agents Recommend neuro consult given history of old stroke and worsening confusion today. Would recommend starting anticoagulation for stroke risk reduction given new onset atrial fibrillation once cleared with neurology. Will hold off on pacemaker at this time and Dr. Caba will confer with Dr. Bain regarding timing of pacemaker implantation. Further recommendations pending patient course Nurse practitioner note has been reviewed by physician. Signing provider agrees with the documented findings, assessment, and plan of care documented by PATIENT ACCOUNT ANALYST as a scribe. Objective - Vital Signs Vital signs: Vital Signs Temp 98.2 F 09/15/24 08:00 Pulse 70 09/15/24 08:00 Resp 18 09/15/24 08:00 BP 135/69 09/15/24 08:00 Pulse Ox 92 L 09/15/24 04:00 FiO2 Intake & Output 09/14/24 09/15/24 09/15/24 18:59 06:59 18:59 Intake Total 0 400 Output Total 150 Balance 0 250 Weight 74.3 kg 74.3 kg Intake: IV 400 Sodium Chloride 0.9% 1, 400 000 ml @ 50 mls/hr IV . Q20H PEGGY Rx#:[id number] Oral 0 0 Output: Urine 150 Other: Voiding Method Toilet Toilet Toilet Diaper Urinal Urinal Incontinent Diaper Diaper Incontinent Incontinent # Voids 1 1 # Bowel Movements 0 0 - Labs CBC & Chem 7: 09/15/24 06:04 09/15/24 06:04 Labs: Abnormal Lab Results - Last 24 Hours (Table) 09/15/24 09/15/24 Range/Units 06:04 06:04 RBC 3.69 L (4.30-5.90) m/uL Hgb 10.9 L (13.0-17.5) gm/dL Hct 32.5 L (39.0-53.0) % Chloride 110 H (98-107) mmol/L Carbon Dioxide 21 L (22-30) mmol/L BUN 21 H (9-20) mg/dL
[2024-09-15] MEDS: SERTRALINE 25 MG TAB PO SCH (12:11)
[2024-09-15] MEDS: DULoxetine HCL 30 MG CAPSULE.DR PO SCH (12:11)
--- NOTE | 2024-09-15 12:14 | P.PN ---
Subjective Progress Note Date: 09/15/24 Principal diagnosis: Hospital course: 89-year-old male came in with complaints of shortness of breath cough found to be in COVID-19. Patient oxygen requirements have gone up from 2 L at baseline at home to 4 L patient is presently on 4 L of oxygen. Patient on exam has slight wheeze. Patient does not smoke quit smoking in 1970s. Patient does not have any history of congestive heart failure chest x-ray is read as possibility of congestion patient has a BNP of 1300 patient is hyponatremic, patient also has acute renal failure and hypotensive patient serum creatinine is 2.4 baseline is essentially within normal limits. 09/11/24: Patient seen and examined at bedside today. Patient continues to be on 4 L of oxygen via nasal cannula and is saturating at 96%. Labs today show BUN 26, creatinine 1.31, procalcitonin 0.54, SARS-CoV-2 positive. Abdomen bladder ultrasound shows no sonographic evidence of acute obstructive uropathy, mildly increased parenchymal echogenicity. Chest x-ray done today shows patchy opacity/infiltrate left mid to lower lung now better, pneumonia not excluded, mild interstitial density remains. 09/12/24: Patient evaluated today. Patient continues to be on 3L of oxygen and is saturating at 96%. Labs today show hemoglobin 11.5, platelet count 141, creatinine 1.10. Abdomen x-ray shows moderate stool burden, obstructive bowel gas pattern. 09/13/24: Patient examined at bedside. He is currently on 2.5L of oxygen. Labs today show hemoglobin 11.4, platelet count 143, bicarb 27, creatinine 1.24, free T4 is 1.24, free T3 is 2.30. Blood culture shows no growth after 48 hours. 09/14/24: Patient evaluated today. He continues to be on 2 L of oxygen via nasal cannula and is saturating at 99%. Labs today show hemoglobin 10.9, platelet count 138, BUN 22, creatinine 1.11. Blood culture shows no growth after 72 hours. 09/15/24: Patient seen and examined at bedside. He continues to be on 2 L of oxygen via nasal cannula. Labs today show hemoglobin 10.9, bicarb 21, BUN 21. Chest x-ray shows persistent patchy bilateral interstitial opacities though with some improving elevation at the left lower lung. Review of systems: Pertinent positives and negatives as discussed in HPI, a complete review of systems was performed and all other systems are negative. Vitals: Signs Reviewed Physical examination: General: nontoxic, no distress, appears at stated age Derm: warm, dry, intact Head: atraumatic, normocephalic, symmetric Eyes: EOMI, anicteric sclera Mouth: no lip lesion, mucus membranes moist Cardiovascular: S1 S2 reg, no murmur Lungs: CTA bilateral, no rhonchi, no accessory muscle use Abdominal: soft, non-tender to palpataion Extremities: No cyanosis, clubbing, or pedal edema. Neuro: Alert, Oriented to person only, Gross neurological examination did not reveal any focal deficits. Psych: well appearing, appropriate affect Assessment/Plan: Patient is an 89-year-old male who presented with shortness of breath and coughing. He was found to have COVID-19 pneumonia. He has been admitted for acute on chronic hypoxic and hypercapnic respiratory failure secondary to COVID- 19 pneumonia and COPD exacerbation. He continues to be on Dexemthasone and Ceftriaxone. Renal function is improving. He has a new onset diarrhea with C. diff negative. PT and OT, recommended home with home health PT and support from . Active: #. Acute on chronic hypoxic and hypercapnic respiratory failure secondary to C OVID-19 pneumonia and COPD exacerbation #. Acute COVID-19 infection #. Generalized weakness Chest x-ray 09/11/24 shows patchy opacity/infiltrate left mid to lower lung now better, pneumonia not excluded, mild interstitial density remains Chest x-ray 09/15/24 shows persistent patchy bilateral interstitial opacities though with some improving elevation at the left lower lung Continue albuterol 2 puffs in addition 4 times daily Continue ceftriaxone 2 g IVPB every 24 hours Continue Decadron 6 mg IVP daily Pneumonia protocol Procalcitonin 0.54 Pulmnology is following PT and OT, recommended home with home health PT and support from . #. Acute renal failure, prerenal azotemia secondary to infection and sepsis Bladder scan showed 299 mL postvoid residual Abdomen bladder ultrasound shows no sonographic evidence of acute obstructive uropathy, mildly increased parenchymal echogenicity Gentle hydration with 0.9 normal saline at 50 ml/hr, as patient is not tolerating oral intake Hold nephrotoxic agents including gabapentin Nephrology is following #. Metabolic acidosis secondary to MATEUSZ and IV fluids Continue sodium bicarb 650 mg p.o. twice daily Nephrology is following #. Sinus pauses #. New onset paroxysmal atrial fibrillation #. Altered mental status #. History of old stroke Echocardiogram shows EF 55 to 60%, no obvious regional wall motion abnormality, mild RV dilatation with normal function, severe pulmonary hypertension with RVSP of 53 mmHg, severe LA dilation, mild central MR, severe TR Continue telemetry monitoring Avoid AV glo blocking agents Cardiology is following, recommend holding off PPM implantation at this time and starting anticoagulation once cleared by neurology Neurorology consult ordered by cardiology #. Mild hyperkalemia, secondary to MATEUSZ and acidosis Monitor BMP #. Acute Diarrhea, viral vs antibiotic induced C. diff negative Loperamide 4 mg PO once Continue Loperamide 2 mg PO QID PRN Continue Dicyclomine 10 mg PO TID PRN for cramps #. Sick euthyroid TSH 7.03, T4 is 1.24, T3 is 2.30 Repeat labs on outpatient basis Chronic: #. History of MT #. Coronary artery disease with previous stent placement #. Hyperlipidemia #. Gastroesophageal reflux disease #. Rheumatoid arthritis #. BPH #. Anxiety Resume atorvastatin 20 mg p.o. at bedtime, clopidogrel 75 mg p.o. daily, finasteride 5 mg p.o. daily, mirtazapine 15 mg p.o. at bedtime, tamsulosin 0.4 mg p.o. at bedtime F: 0.9 normal saline at 50 ml/hr E: Replete as required N: NPO after midnight A: Bedrest DVT prophylaxis: Heparin 5000 units SQ every 8 hours and SCD GI prophylaxis: Pantoprazole 40 mg PO BID Objective - Vital Signs Vital signs: Vital Signs Temp 97 F L 09/15/24 04:00 Pulse 79 09/15/24 04:00 Resp 20 09/15/24 04:00 BP 153/93 09/15/24 04:00 Pulse Ox 92 L 09/15/24 04:00 FiO2 Intake & Output 09/14/24 09/15/24 09/15/24 18:59 06:59 18:59 Intake Total 0 400 Output Total 150 Balance 0 250 Weight 74.3 kg Intake: IV 400 Sodium Chloride 0.9% 1, 400 000 ml @ 50 mls/hr IV . Q20H PEGGY Rx#:[id number] Oral 0 0 Output: Urine 150 Other: Voiding Method Toilet Toilet Diaper Urinal Incontinent Diaper Incontinent # Voids 1 1 # Bowel Movements 0 0 - Labs CBC & Chem 7: 09/15/24 06:04 09/15/24 06:04 Labs: Abnormal Lab Results - Last 24 Hours (Table) 09/15/24 09/15/24 Range/Units 06:04 06:04 RBC 3.69 L (4.30-5.90) m/uL Hgb 10.9 L (13.0-17.5) gm/dL Hct 32.5 L (39.0-53.0) % Chloride 110 H (98-107) mmol/L Carbon Dioxide 21 L (22-30) mmol/L BUN 21 H (9-20) mg/dL
--- NOTE | 2024-09-15 13:42 | FL ---
EXAMINATION TYPE: FL UGI w esophagus DATE OF EXAM: 09/15/2024 1:26 PM COMPARISON: 01/13/2023 CLINICAL INDICATION:Male, 89 years old with history of dysphagia; TECHNIQUE: The procedure was explained and patient history elicited. All patient questions were ans wered prior to start of procedure. A dockmaster radiograph of the abdomen was also reviewed. Multiple flu oroscopic spot images of the esophagus. Stomach and duodenum were not imaged due to patient condition . Fluoroscopic time:26 sec Fluoroscopic images:0 Radiographs taken: 38 DAP: 30.81 mGym2 FINDINGS: Limited exam due to patient condition. The esophagus demonstrates tortuosity with multiple tertiary c ontractions are seen with delayed emptying of the esophageal contents. Small hiatal hernia present. T he esophageal mucosa is otherwise somewhat lobulated, no focal stricture, ulceration, or abnormal out pouching. No gastroesophageal reflux disease was identified. The stomach and duodenum demonstrate a normal course and contour. There is no evidence of focal etelvina alexis or duodenal ulceration, stricture, or abnormal outpouching. IMPRESSION: Limited exam due to patient's condition, Severe esophageal dysmotility with presbyesophagus. Hiatal hernia. [facility], , 09/15/2024 1:40 PM
--- NOTE | 2024-09-15 15:03 | P.PN ---
Subjective Progress Note Date: 09/15/24 This is a very pleasant 89-year-old male patient who has a history of hyperlipidemia, gastroesophageal reflux disease, carotid artery stenosis with 100% occlusion on the left and 50% on the right, rheumatoid arthritis, former smoker, chronic obstructive pulmonary disease. He was brought into the emergen cy room early this morning after being found quite weak by his family. He was hypotensive. They were concerned regarding possible stroke. He also was having bodyaches all over. CT scan of the brain revealed no acute stroke or hemorrhage. Multiple remote infarcts. EKG revealed sinus rhythm with no significant ST or T wave abnormalities. X-ray shows mild pulmonary vascular congestion. Left basilar atelectasis. White count 7.4. Hemoglobin 11.3. Platelets 128. INR 1.0. Sodium 133. Potassium 5.2. Bicarb 17. BUN 45. Creatinine 2.19. Glucose 139. AST 22. ALT 10. Troponin negative x 1. proBNP 1380. Procalcitonin 0.54. Urinalysis clean. Viral screen positive for COVID infection. He is seen today in consultation on the regular medical floor. He is currently sitting up in bed. Awake and alert in no acute distress. He is maintaining O2 saturations in the 90s on 4 L/min per nasal cannula. He is still quite weak. On 09/11/24, patient is being seen for a follow-up. Patient is doing well. No significant respiratory distress. 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 The patient was also diagnosed having an acute COVID-19 infection during this current admission. No previous vaccination. This is the patient's first infection with the COVID-19 virus. Patient otherwise has no new complaints. He is on 4 L of oxygen by nasal cannula with a pulse ox of 93%. His chest x-ray was repeated today and it showed patchy left mid and lower lobe pulmonary infiltrate with some mild interstitial edema. Sodium level is at 139, potassium is at 5, chloride is 111 with a bicarb of 22, BUN 26 with a creatinine of 1.3. The patient is recovering from his acute kidney injury. He is on normal citrate of 75 cc an hour. He is on heparin subcu for DVT prophylaxis. He remains on Rocephin and Zithromax as an empiric antibiotic coverage. Procalcitonin level is at 0.54. proBNP level was 1380. Previous echocardiogram from 2019 had shown a preserved LV function. On 09/12/2024, the patient is being seen for a follow-up. The patient is currently on room air oxygen with a pulse ox of 93%. Oxygenation is improved as the patient is recovering from his pneumonia. The patient tested positive for COVID-19 and suspected to have a COVID-19 related pneumonia with a possibility of a superinfection with bacteria and based on that the patient was given empiric antibiotic coverage with a combination of Rocephin and Zithromax. He completed Zithromax and he remains on Rocephin and the patient is also on Decadron 6 mg IV on a daily basis. No new complaints for now. Having some limited diarrhea. No nausea. No vomiting. Abdominal pain. Her white cell count is 4.9 with a hemoglobin of 11.7 and a platelet count of 141. BUN is 18 with a creatinine of 1.1 and sodium levels at 141. Stool for C. difficile has been negative. Thyroid function tests are essentially within normal limits. No altered mentation. No other new complaints otherwise for now. 09/13/2024, patient is being seen for a follow-up. Respiratory status remained stable and the patient remains on 2 L of oxygen by nasal cannula with a pulse ox of 98%. Nevertheless, overall, he is feeling very weak and debilitated. He has bodyaches. Afebrile. No fever or chills. Diminished appetite. Cannot eat as the patient has no appetite. Feels lethargic. Noted the patient has been infected with COVID-19. No signs of any respiratory distress. White cell count is at 7 with a hemoglobin 11.4 and a platelet count of 143. BUN is 19 with a creatinine of 1.2. No other significant events overnight. On a separate note, the patient is having cardiac sinus pauses. Cardiology on the case. Thyroid function tests were essentially within normal limits. Echocardiogram was also done yesterday and the patient was found to have a preserved LV function with an ejection fraction of 55 to 60%, severe pulmonary hypertension was noted with an estimated pulmonary artery pressure of around 53. Patient is on a telemetry monitoring. Being considered for a permanent pacemaker insertion during this current hospitalization. On 09/14/2024, the patient is being seen for a follow-up. On today's evaluation, the patient is confused and somewhat delirious. No significant agitation. The patient remains on Decadron 6 mg IV every 24 hours. Oral intake is minimal and the patient has no appetite. He is having generalized weakness. On a separate note, the patient is still being considered for a pacemaker insertion for cardiac pauses for around 8 seconds as documented in the previous telemetry. The white cell count is 5.8 with a hemoglobin 10.9 and platelet count of 138. BUN 22 with a creatinine of 1.1 and a sodium levels at 141. Oxygenation remained stable and the patient remains on 2 L of oxygen by nasal cannula with a pulse ox of 97%. No focal neurological deficit at this point. On 09/15/2024, the patient is being seen for a follow-up. Remains lethargic and weak and quite debilitated. Was able to recognize his . Does limited amount of conversation. No focal neurological deficits. The patient is currently n.p.o. pending an insertion of a pacemaker for cardiac block. Remains on Decadron. Meanwhile, the blood work from today shows no significant abnormalities. The white cell count of 6.6 with a hemoglobin 7.9 and platelet count of 150. BUN is 21 with a creatinine of 1.02 and a sodium levels at 141. On a separate note, the patient has history of depression and his antidepressant medication needs to be restarted. The patient is on Zoloft and Cymbalta and this will be restarted in combination with Remeron 15 mg at bedtime. Rest of the medications remain unchanged.Repeat chest x-ray from today shows persistent patchy bibasilar interstitial opacities with some improvement in aeration in the left lung base. The patient also underwent a upper GI barium swallow and this was a limited exam due to with the patient's condition. There was evidence of severe esophageal dysmotility along with a hiatal hernia. Objective - Vital Signs Vital signs: Vital Signs Temp 98.2 F 09/15/24 08:00 Pulse 70 09/15/24 08:00 Resp 18 09/15/24 08:00 BP 135/69 09/15/24 08:00 Pulse Ox 92 L 09/15/24 04:00 FiO2 Intake & Output 09/14/24 09/15/24 09/15/24 18:59 06:59 18:59 Intake Total 0 400 Output Total 150 Balance 0 250 Weight 74.3 kg 74.3 kg Intake: IV 400 Sodium Chloride 0.9% 1, 400 000 ml @ 50 mls/hr IV . Q20H [facility] Rx#:[id number] Oral 0 0 Output: Urine 150 Other: Voiding Method Toilet Toilet Toilet Diaper Urinal Urinal Incontinent Diaper Diaper Incontinent Incontinent # Voids 1 1 # Bowel Movements 0 0 - Exam GENERAL EXAM: Alert, weak, pleasant 89-year-old male patient, on 2 L of oxygen by nasal cannula, fairly comfortable in no apparent distress. HEAD: Normocephalic. EYES: Normal reaction of pupils, equal size. NOSE: Clear with pink turbinates. THROAT: No erythema or exudates. NECK: No masses, no JVD. CHEST: No chest wall deformity. LUNGS: Equal air entry with few crackles in the left lung base. CVS: S1 and S2 normal with no audible murmur, regular rhythm. ABDOMEN: No hepatosplenomegaly, normal bowel sounds, no guarding or rigidity. SPINE: No scoliosis or deformity SKIN: No rashes CENTRAL NERVOUS SYSTEM: No focal deficits, tone is normal in all 4 extremities. EXTREMITIES: There is no peripheral edema. No clubbing, no cyanosis. Peripheral pulses are intact. - Labs CBC & Chem 7: 09/15/24 06:04 09/15/24 06:04 Labs: Abnormal Lab Results - Last 24 Hours (Table) 09/15/24 09/15/24 Range/Units 06:04 06:04 RBC 3.69 L (4.30-5.90) m/uL Hgb 10.9 L (13.0-17.5) gm/dL Hct 32.5 L (39.0-53.0) % Chloride 110 H (98-107) mmol/L Carbon Dioxide 21 L (22-30) mmol/L BUN 21 H (9-20) mg/dL Assessment and Plan Plan: Acute hypoxic respiratory failure, improved and the patient is currently on 2 L of O2 nasal cannula. Vague left lung infiltration with mild procalcitonin level elevation. Positive COVID-19 infection. Rule out COVID-19 pneumonia. Bacterial infection is felt to be less likely. Patient is currently off antibiotics and the patient is currently on 2 L of oxygen by nasal cannula. Chest x-ray findings from 09/15/2024 continues to show some limited bibasilar interstitial changes and improvement in the aeration in the left lung base. 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 difficile. Could be viral versu s antibiotic induced, recovered Sinus cardiac pause, episodic. Echocardiogram showed a preserved LV function, severe pulm hypertension with estimated PA pressure of around 56. Acute kidney injury, recovered Chronic obstructive pulmonary disease Former smoker Rheumatoid arthritis Carotid stenosis with known 100% blockage on the left and 70% on the right History of myocardial infarction treated at [facility] Coronary artery disease with previous stent placement BPH Hyperlipidemia Plan: Monitor mental status Restart Zoloft and Cymbalta Repeat chest x-ray in the morning was noted Titrate oxygen flow to maintain saturation above 90%, currently on 2 L O2 nasal cannula Continue Decadron 6 mg IV every 24 hours Completed course of antibiotics Monitor diarrhea Continue bronchodilators Heparin for DVT prophylaxis Normal saline at 75 mL/h Renal function has improved Cardiology on the case and the patient is having a pacemaker insertion today Continue telemetry monitoring We will continue to follow and make further recommendations based on his clinical status
[2024-09-16 07:03] LABS: HCT 30.6 % (39.0-53.0); HGB 10.6 gm/dL (13.0-17.5); MCH 29.7 pg (25.0-35.0); MCHC 34.7 g/dL (31.0-37.0); MCV 85.6 fL (80.0-100.0); Mean Platelet Volume 8.6; Platelet Count 181 k/uL (150-450); RBC 3.58 m/uL (4.30-5.90); RDW 14.3 % (11.5-15.5); WBC 4.9 k/uL (3.8-10.6)
[2024-09-16 07:19] LABS: African American GFR (CKD) 77 (>60 ml/min/1.73 sqM); Anion Gap 9 mmol/L; Blood Urea Nitrogen 21 mg/dL (9-20); Calcium 8.5 mg/dL (8.4-10.2); Carbon Dioxide 24 mmol/L (22-30); Chloride 109 mmol/L (98-107); Glucose 87 mg/dL (74-99); Non-African American GFR(CKD) 66 (>60 ml/min/1.73 sqM); Potassium 3.7 mmol/L (3.5-5.1); Sodium 142 mmol/L (137-145)
--- NOTE | 2024-09-16 11:19 | P.PN ---
Subjective Patient is seen for follow-up for acute kidney injury. Renal function has improved with serum creatinine at 1.0. Complaining of nausea. Not tolerating oral intake. Maintained on gentle IV hydration. 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 Examination of the heart S1 and S2 Examination of the lungs bilateral breath sounds are heard Abdomen is soft nontender Examination of lower extremities shows no significant edema SHEARING SHED HAND exam grossly intact - Labs CBC & Chem 7: 09/16/24 05:25 09/16/24 05:25 Labs: Abnormal Lab Results - Last 24 Hours (Table) 09/16/24 09/16/24 Range/Units 05: 05:25 RBC 3.58 L (4.30-5.90) m/uL Hgb 10.6 L (13.0-17.5) gm/dL Hct 30.6 L (39.0-53.0) % Chloride 109 H (98-107) mmol/L BUN 21 H (9-20) mg/dL Microbiology - Last 24 Hours (Table) 09/10/24 02:46 Blood Culture - Final Blood 09/10/24 02:48 Blood Culture - Final Blood Assessment and Plan Assessment: 1. Acute kidney injury secondary to ATN secondary to acute COVID-19 infection. Creatinine 2.19 on admission. Creatinine 1.0 in January 2023. UA fairly benign. 2. Metabolic acidosis secondary to acute kidney injury and IV fluids. 3. Coronary artery disease with stent placement in the past. 4. Mild hyperkalemia secondary to acute kidney injury and acidosis. 5. Acute COVID-19 infection. 6. Nausea and inability to eat secondary to severe esophageal dysmotility noted on barium swallow. Plan: Continue with IVF at 50 cc an hour Continue with oral sodium bicarb Repeat labs in a.m. Encourage increase oral intake
--- NOTE | 2024-09-16 12:15 | P.PN ---
Subjective Progress Note Date: 09/16/24 This is a very pleasant 89-year-old male patient who has a history of hyperlipidemia, gastroesophageal reflux disease, carotid artery stenosis with 100% occlusion on the left and 50% on the right, rheumatoid arthritis, former smoker, chronic obstructive pulmonary disease. He was brought into the emergen cy room early this morning after being found quite weak by his family. He was hypotensive. They were concerned regarding possible stroke. He also was having bodyaches all over. CT scan of the brain revealed no acute stroke or hemorrhage. Multiple remote infarcts. EKG revealed sinus rhythm with no significant ST or T wave abnormalities. X-ray shows mild pulmonary vascular congestion. Left basilar atelectasis. White count 7.4. Hemoglobin 11.3. Platelets 128. INR 1.0. Sodium 133. Potassium 5.2. Bicarb 17. BUN 45. Creatinine 2.19. Glucose 139. AST 22. ALT 10. Troponin negative x 1. proBNP 1380. Procalcitonin 0.54. Urinalysis clean. Viral screen positive for COVID infection. He is seen today in consultation on the regular medical floor. He is currently sitting up in bed. Awake and alert in no acute distress. He is maintaining O2 saturations in the 90s on 4 L/min per nasal cannula. He is still quite weak. On 09/11/24, patient is being seen for a follow-up. Patient is doing well. No significant respiratory distress. 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 The patient was also diagnosed having an acute COVID-19 infection during this current admission. No previous vaccination. This is the patient's first infection with the COVID-19 virus. Patient otherwise has no new complaints. He is on 4 L of oxygen by nasal cannula with a pulse ox of 93%. His chest x-ray was repeated today and it showed patchy left mid and lower lobe pulmonary infiltrate with some mild interstitial edema. Sodium level is at 139, potassium is at 5, chloride is 111 with a bicarb of 22, BUN 26 with a creatinine of 1.3. The patient is recovering from his acute kidney injury. He is on normal citrate of 75 cc an hour. He is on heparin subcu for DVT prophylaxis. He remains on Rocephin and Zithromax as an empiric antibiotic coverage. Procalcitonin level is at 0.54. proBNP level was 1380. Previous echocardiogram from 2019 had shown a preserved LV function. On 09/12/2024, the patient is being seen for a follow-up. The patient is currently on room air oxygen with a pulse ox of 93%. Oxygenation is improved as the patient is recovering from his pneumonia. The patient tested positive for COVID-19 and suspected to have a COVID-19 related pneumonia with a possibility of a superinfection with bacteria and based on that the patient was given empiric antibiotic coverage with a combination of Rocephin and Zithromax. He completed Zithromax and he remains on Rocephin and the patient is also on Decadron 6 mg IV on a daily basis. No new complaints for now. Having some limited diarrhea. No nausea. No vomiting. Abdominal pain. Her white cell count is 4.9 with a hemoglobin of 11.7 and a platelet count of 141. BUN is 18 with a creatinine of 1.1 and sodium levels at 141. Stool for C. difficile has been negative. Thyroid function tests are essentially within normal limits. No altered mentation. No other new complaints otherwise for now. 09/13/2024, patient is being seen for a follow-up. Respiratory status remained stable and the patient remains on 2 L of oxygen by nasal cannula with a pulse ox of 98%. Nevertheless, overall, he is feeling very weak and debilitated. He has bodyaches. Afebrile. No fever or chills. Diminished appetite. Cannot eat as the patient has no appetite. Feels lethargic. Noted the patient has been infected with COVID-19. No signs of any respiratory distress. White cell count is at 7 with a hemoglobin 11.4 and a platelet count of 143. BUN is 19 with a creatinine of 1.2. No other significant events overnight. On a separate note, the patient is having cardiac sinus pauses. Cardiology on the case. Thyroid function tests were essentially within normal limits. Echocardiogram was also done yesterday and the patient was found to have a preserved LV function with an ejection fraction of 55 to 60%, severe pulmonary hypertension was noted with an estimated pulmonary artery pressure of around 53. Patient is on a telemetry monitoring. Being considered for a permanent pacemaker insertion during this current hospitalization. On 09/14/2024, the patient is being seen for a follow-up. On today's evaluation, the patient is confused and somewhat delirious. No significant agitation. The patient remains on Decadron 6 mg IV every 24 hours. Oral intake is minimal and the patient has no appetite. He is having generalized weakness. On a separate note, the patient is still being considered for a pacemaker insertion for cardiac pauses for around 8 seconds as documented in the previous telemetry. The white cell count is 5.8 with a hemoglobin 10.9 and platelet count of 138. BUN 22 with a creatinine of 1.1 and a sodium levels at 141. Oxygenation remained stable and the patient remains on 2 L of oxygen by nasal cannula with a pulse ox of 97%. No focal neurological deficit at this point. On 09/15/2024, the patient is being seen for a follow-up. Remains lethargic and weak and quite debilitated. Was able to recognize his . Does limited amount of conversation. No focal neurological deficits. The patient is currently n.p.o. pending an insertion of a pacemaker for cardiac block. Remains on Decadron. Meanwhile, the blood work from today shows no significant abnormalities. The white cell count of 6.6 with a hemoglobin 7.9 and platelet count of 150. BUN is 21 with a creatinine of 1.02 and a sodium levels at 141. On a separate note, the patient has history of depression and his antidepressant medication needs to be restarted. The patient is on Zoloft and Cymbalta and this will be restarted in combination with Remeron 15 mg at bedtime. Rest of the medications remain unchanged.Repeat chest x-ray from today shows persistent patchy bibasilar interstitial opacities with some improvement in aeration in the left lung base. The patient also underwent a upper GI barium swallow and this was a limited exam due to with the patient's condition. There was evidence of severe esophageal dysmotility along with a hiatal hernia. On 09/16/2024, the patient is slightly more communicative. Nevertheless, he is refusing any food intake and he reports poor appetite. He cannot express what is wrong with him. His respiratory status remained stable. He is on 2 L of oxygen by nasal cannula with pulse ox of 96%. Pacemaker insertion was supposed to be done yesterday and this has not been completed. Antidepressant medication was restarted. Labs from today showed a white cell count of 4.9 with a hemoglobin 10.6 BUN 21 with a creatinine of 1.0. No other significant issues overnight. Objective - Vital Signs Vital signs: Vital Signs Temp 97.9 F 09/16/24 07:45 Pulse 59 L 09/16/24 07:45 Resp 17 09/16/24 07:45 BP 141/74 09/16/24 07:45 Pulse Ox 97 09/16/24 07:45 FiO2 Intake & Output 09/15/24 09/16/24 09/16/24 18:59 06:59 18:59 Weight 74.3 kg 74 kg Other: Voiding Method Toilet Toilet Urinal Urinal Diaper Diaper Incontinent Incontinent # Voids 2 1 - Exam GENERAL EXAM: Alert, weak, pleasant 89-year-old male patient, on 2 L of oxygen by nasal cannula, fairly comfortable in no apparent distress. HEAD: Normocephalic. EYES: Normal reaction of pupils, equal size. NOSE: Clear with pink turbinates. THROAT: No erythema or exudates. NECK: No masses, no JVD. CHEST: No chest wall deformity. LUNGS: Equal air entry with few crackles in the left lung base. CVS: S1 and S2 normal with no audible murmur, regular rhythm. ABDOMEN: No hepatosplenomegaly, normal bowel sounds, no guarding or rigidity. SPINE: No scoliosis or deformity SKIN: No rashes CENTRAL NERVOUS SYSTEM: No focal deficits, tone is normal in all 4 extremities. EXTREMITIES: There is no peripheral edema. No clubbing, no cyanosis. Peripheral pulses are intact. - Labs CBC & Chem 7: 09/16/24 05:25 09/16/24 05:25 Labs: Abnormal Lab Results - Last 24 Hours (Table) 09/16/24 09/16/24 Range/Units 05:25 05:25 RBC 3.58 L (4.30-5.90) m/uL Hgb 10.6 L (13.0-17.5) gm/dL Hct 30.6 L (39.0-53.0) % Chloride 109 H (98-107) mmol/L BUN 21 H (9-20) mg/dL Microbiology - Last 24 Hours (Table) 09/10/24 02:46 Blood Culture - Final Blood 09/10/24 02:48 Blood Culture - Final Blood Assessment and Plan Plan: Acute hypoxic respiratory failure, improved and the patient is currently on 2 L of O2 nasal cannula. Vague left lung infiltration with mild procalcitonin level elevation. Positive COVID-19 infection. Rule out COVID-19 pneumonia. Bacterial infection is felt to be less likely. Patient is currently off antibiotics and the patient is currently on 2 L of oxygen by nasal cannula. Chest x-ray findings from 09/15/2024 continues to show some limited bibasilar interstitial changes and improvement in the aeration in the left lung base. 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 difficile. Could be viral versus antibiotic induced, recovered Sinus cardiac pause, episodic. Echocardiogram showed a preserved LV function, severe pulm hypertension with estimated PA pressure of around 56. Acute kidney injury, recovered Chronic obstructive pulmonary disease Former smoker Rheumatoid arthritis Carotid stenosis with known 100% blockage on the left and 70% on the right History of myocardial infarction treated at [facility] Coronary artery disease with previous stent placement BPH Hyperlipidemia Plan: Monitor mental status Restart Zoloft and Cymbalta as some of his symptoms could be related to underlying depression Chest x-ray findings are stable Titrate oxygen flow to maintain saturation above 90%, currently on 2 L O2 nasal cannula Continue Decadron 6 mg IV every 24 hours Completed course of antibiotics Monitor diarrhea, currently inactive and stable Continue bronchodilators Heparin for DVT prophylaxis Normal saline at 75 mL/h Renal function has improved Cardiology on the case and the patient is having a pacemaker insertionv Continue telemetry monitoring We will continue to follow and make further recommendations based on his clinical status
--- NOTE | 2024-09-16 12:44 | P.PN ---
Subjective Progress Note Date: 09/16/24 Principal diagnosis: Hospital course: 89-year-old male came in with complaints of shortness of breath cough found to be in COVID-19. Patient oxygen requirements have gone up from 2 L at baseline at home to 4 L patient is presently on 4 L of oxygen. Patient on exam has slight wheeze. Patient does not smoke quit smoking in 1970s. Patient does not have any history of congestive heart failure chest x-ray is read as possibility of congestion patient has a BNP of 1300 patient is hyponatremic, patient also has acute renal failure and hypotensive patient serum creatinine is 2.4 baseline is essentially within normal limits. 09/11/24: Patient seen and examined at bedside today. Patient continues to be on 4 L of oxygen via nasal cannula and is saturating at 96%. Labs today show BUN 26, creatinine 1.31, procalcitonin 0.54, SARS-CoV-2 positive. Abdomen bladder ultrasound shows no sonographic evidence of acute obstructive uropathy, mildly increased parenchymal echogenicity. Chest x-ray done today shows patchy opacity/infiltrate left mid to lower lung now better, pneumonia not excluded, mild interstitial density remains. 09/12/24: Patient evaluated today. Patient continues to be on 3L of oxygen and is saturating at 96%. Labs today show hemoglobin 11.5, platelet count 141, creatinine 1.10. Abdomen x-ray shows moderate stool burden, obstructive bowel gas pattern. 09/13/24: Patient examined at bedside. He is currently on 2.5L of oxygen. Labs today show hemoglobin 11.4, platelet count 143, bicarb 27, creatinine 1.24, free T4 is 1.24, free T3 is 2.30. Blood culture shows no growth after 48 hours. 09/14/24: Patient evaluated today. He continues to be on 2 L of oxygen via nasal cannula and is saturating at 99%. Labs today show hemoglobin 10.9, platelet count 138, BUN 22, creatinine 1.11. Blood culture shows no growth after 72 hours. 09/15/24: Patient seen and examined at bedside. He continues to be on 2 L of oxygen via nasal cannula. Labs today show hemoglobin 10.9, bicarb 21, BUN 21. Chest x-ray shows persistent patchy bilateral interstitial opacities though with some improving elevation at the left lower lung. 09/16/24: Patient evaluated at bedside. He is currently on 2 L of oxygen via nasal cannula saturating at 97% and his pulse rate is 59 bpm. His mentation is improving. Labs today show hemoglobin 10.6, bicarb 24, BUN 21, creatinine 1.01. Blood culture shows no growth after 5 days. Barium esophagogram shows severe esophageal dysmotility with presbyesophagus, hiatal hernia. Review of systems: Pertinent positives and negatives as discussed in HPI, a complete review of systems was performed and all other systems are negative. Vitals: Signs Reviewed Physical examination: General: nontoxic, no distress, appears at stated age Derm: warm, dry, intact Head: atraumatic, normocephalic, symmetric Eyes: EOMI, anicteric sclera Mouth: no lip lesion, mucus membranes moist Cardiovascular: S1 S2 reg, no murmur Lungs: CTA bilateral, no rhonchi, no accessory muscle use Abdominal: soft, non-tender to palpataion Extremities: No cyanosis, clubbing, or pedal edema. Neuro: Alert, Oriented to person only, Gross neurological examination did not reveal any focal deficits. Psych: well appearing, appropriate affect Assessment/Plan: Patient is an 89-year-old male who presented with shortness of breath and coughing. He was found to have COVID-19 pneumonia. He has been admitted for acute on chronic hypoxic and hypercapnic respiratory failure secondary to COVID- 19 pneumonia and COPD exacerbation. He continues to be on Dexemthasone. Renal function is improving. He has a new onset diarrhea with C. diff negative. He is also found to have new onset paroxysmal atrial fibrillation and acute metabolic encephalopathy with severe esophageal dysmotility. Neurology is consulted. Cardiology recommends anticoagulation once cleared by neurology. PT and OT, recommended home with home health PT and support from . Active: #. Acute on chronic hypoxic and hypercapnic respiratory failure secondary to COVID-19 pneumonia and COPD exacerbation #. Acute COVID-19 infection #. Generalized weakness Chest x-ray 09/11/24 shows patchy opacity/infiltrate left mid to lower lung now better, pneumonia not excluded, mild interstitial density remains Chest x-ray 09/15/24 shows persistent patchy bilateral interstitial opacities though with some improving elevation at the left lower lung Continue albuterol 2 puffs in addition 4 times daily Continue ceftriaxone 2 g IVPB every 24 hours Continue Decadron 6 mg IVP daily Pneumonia protocol Procalcitonin 0.54 Pulmnology is following PT and OT, recommended home with home health PT and support from . #. Sinus pauses #. New onset paroxysmal atrial fibrillation Echocardiogram shows EF 55 to 60%, no obvious regional wall motion abnormality, mild RV dilatation with normal function, severe pulmonary hypertension with RVSP of 53 mmHg, severe LA dilation, mild central MR, severe TR Continue telemetry monitoring Avoid AV glo blocking agents Cardiology is following, recommend holding off PPM implantation at this time and starting anticoagulation once cleared by neurology #. Acute metabolic encephalopathy #. History of old stroke Barium esophagogram shows severe esophageal dysmotility with presbyesophagus, hiatal hernia Seroquel 12.5 mg PO HS PRN Neurorology consult ordered by cardiology #. Acute renal failure, prerenal azotemia secondary to infection and sepsis Bladder scan showed 299 mL postvoid residual Abdomen bladder ultrasound shows no sonographic evidence of acute obstructive uropathy, mildly increased parenchymal echogenicity Gentle hydration with 0.9 normal saline at 50 ml/hr, as patient is not tolerating oral intake Hold nephrotoxic agents including gabapentin Nephrology is following #. Metabolic acidosis secondary to MATEUSZ and IV fluids Continue sodium bicarb 650 mg p.o. twice daily Nephrology is following #. Acute Diarrhea, viral vs antibiotic induced C. diff negative Loperamide 4 mg PO once Continue Loperamide 2 mg PO QID PRN Continue Dicyclomine 10 mg PO TID PRN for cramps #. Mild hyperkalemia, secondary to MATEUSZ and acidosis, resolved #. Sick euthyroid TSH 7.03, T4 is 1.24, T3 is 2.30 Repeat labs on outpatient basis Chronic: #. History of NE #. Coronary artery disease with previous stent placement #. Hyperlipidemia #. Gastroesophageal reflux disease #. Rheumatoid arthritis #. BPH #. Anxiety Resume atorvastatin 20 mg p.o. at bedtime, clopidogrel 75 mg p.o. daily, finasteride 5 mg p.o. daily, mirtazapine 15 mg p.o. at bedtime, tamsulosin 0.4 mg p.o. at bedtime, Duloxetine 30 mg PO daily and Sertraline 25 mg PO daily F: 0.9 normal saline at 50 ml/hr E: Replete as required N: NPO after midnight A: Bedrest DVT prophylaxis: Heparin 5000 units SQ every 8 hours and SCD GI prophylaxis: Pantoprazole 40 mg PO BID Objective - Vital Signs Vital signs: Vital Signs Temp 97.9 F 09/16/24 07:45 Pulse 59 L 09/16/24 07:45 Resp 17 09/16/24 07:45 BP 141/74 09/16/24 07:45 Pulse Ox 97 09/16/24 07:45 FiO2 Intake & Output 09/15/24 09/16/24 09/16/24 18:59 06:59 18:59 Weight 74.3 kg 74 kg Other: Voiding Method Toilet Toilet Urinal Urinal Diaper Diaper Incontinent Incontinent # Voids 2 1 - Labs CBC & Chem 7: 09/16/24 05:25 09/16/24 05:25 Labs: Abnormal Lab Results - Last 24 Hours (Table) 09/16/24 09/16/24 Range/Units 05:25 05:25 RBC 3.58 L (4.30-5.90) m/uL Hgb 10.6 L (13.0-17.5) gm/dL Hct 30.6 L (39.0-53.0) % Chloride 109 H (98-107) mmol/L BUN 21 H (9-20) mg/dL Microbiology - Last 24 Hours (Table) 09/10/24 02:46 Blood Culture - Final Blood 09/10/24 02:48 Blood Culture - Final Blood
--- NOTE | 2024-09-16 14:52 | CT ---
EXAMINATION TYPE: CT brain wo con DATE OF EXAM: 09/16/2024 2:24 PM COMPARISON: 09/10/2024. CLINICAL INDICATION: Male, 89 years old with history of re: AMS, weakness, ams TECHNIQUE: Brain: Axial CT images of the brain were obtained with coronal and sagittal reformats created and rev iewed. Contrast used: None. Oral contrast used: None. CT DLP: 1115.4 mGycm, Automated exposure control for dose reduction was used. FINDINGS: Brain: Extra-axial spaces: No abnormal extra-axial fluid collections. Ventricular system: Dilatation in proportion to cerebral atrophy. Cerebral parenchyma: Cerebral atrophy. No acute intraparenchymal hemorrhage or mass effect. The olivia -white junction is well differentiated. Scattered hypoattenuating areas are seen within the white mat ter. Remote injury to the white matter near the right caudate nucleus. Cerebellum: Unremarkable. Mass effect: No evidence of midline shift. Intracranial vasculature: Atherosclerotic calcifications of the intracranial vessels. Soft tissues: Normal. Calvarium/osseous structures: No depressed skull fracture. Paranasal sinuses and mastoid air cells: Moderate scattered paranasal sinus disease. Visualized orbits: Bilateral aphakia IMPRESSION: 1. No acute intracranial process. 2. Nonspecific white matter changes, likely secondary to chronic small vessel ischemic disease. [facility], , 09/16/2024 2:49 PM
--- NOTE | 2024-09-16 15:22 | P.PN ---
Subjective Progress Note Date: 09/16/24 HISTORY OF PRESENT ILLNESS: This is a 89-year-old male with a past medical history significant for hype rlipidemia and coronary artery disease with previous stent placement in 2019. Patient follows with Dr. Bain. We have been asked to see the patient in consultation for recurrent heart pauses. Patient examined at the bedside. Patient presented to the hospital with generalized malaise. at the bedside states he was coughing a lot at home. He was weak and not as alert as he normally is. She reports he was confused as well. Patients denies history of hypertension and states his blood pressure is usually low. He does report that he is frequently lightheaded. No episodes of syncope. He states the symptoms will last for 15-20 seconds and then go away. Telemetry reviewed with pauses overnight. Patient had a pause of 8 seconds with one single PVC in that timeframe. DIAGNOSTICS: - EKG reveals sinus mechanism with incomplete right bundle branch block. No signs of acute ischemia. - Chest xray patchy opacity/infiltrate left mid to lower lung now better seen. Pneumonia not excluded. Mild interstitial density remains.. - Laboratory data: WBC 7.4. Hemoglobin 11.3. Platelet count 128. Sodium 139. Potassium 5.0. BUN 26. Creatinine 1.31. Troponin negative x 1. proBNP 1380. - Current home cardiac medications include Plavix 75 mg daily and Lipitor 20 mg at night - Most recent echocardiogram obtained in July 2020 revealing ejection fraction 55 to 60%, trace MR, trace TR 09/13/2024 Patient examined this morning at the bedside. Currently denies chest pain or pressure. Denies SOB. Telemetry reviewed without any further significant pauses. Patients states he has not been eating well the past couple days. 09/14/2023 Patient examined this morning at the bedside. Patient currently denies chest pain or pressure. He denies shortness of breath. Vital signs are stable. Telemetry reveals sinus mechanism. Echocardiogram completed revealing ejection fraction 55 to 60%, no obvious regional wall motion abnormalities, mild MR, trace AR, severe TR. 09/15/2024 Patient did go into A-fib overnight and this is a new diagnosis for him, currently in sinus rhythm. Heart rates were controlled and he was relatively asymptomatic at that time. 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 Patient states that he is not feeling well and does have continued elbow pain. 09/16/2024 Patient resting in bed with no complaints. He is drowsy and not answering all questions appropriately. Denies any pain or shortness of breath. Heart rates controlled. 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 -Patient underwent right and left cardiac catheterization in November 2021 revealing right atrial mean pressure 4 mmHg, right ventricular systolic pressure 29 mmHg, right ventricular end-diastolic pressure 5 mmHg. PA pressure 27/9 with a mean of 17 mmHg, pulmonary arterial saturation 66%. Wedge pressure 10 mmHg. Aortic pressure 148 systolic mean 97 mmHg. Left ventricular systolic pressure 158 mmHg. Left ventricular end-diastolic pressure 22 mmHg. Cardiac output 7.01/cardiac index 3.5. Left heart cath revealed left main with no significant degree of stenosis. Left circumflex with previously placed stent in the midportion that is widely patent with no significant degree of in-stent restenosis. LAD with 10% mid ulcerated lesion unchanged compared to 2019. RCA small caliber nondominant vessel with no significant disease. PHYSICAL EXAM: VITAL SIGNS: Reviewed. GENERAL: Well-developed in no acute distress. HEENT: Head is normocephalic. Pupils are equal, round. Sclerae anicteric. Mucous membranes of the mouth are moist. Neck supple. LUNGS: Respirations even and unlabored. Lungs essentially clear to auscultation bilaterally. HEART: Regular rate and rhythm. S1 and S2 heard. ABDOMEN: Soft. Nondistended. Nontender. EXTREMITIES: Normal range of motion. No clubbing or cyanosis. Peripheral pulses intact. No lower extremity edema NEUROLOGIC: Awake and alert. Oriented x 3. ASSESSMENT: COVID-19 Sinus pauses Hypotension on admission, currently hypertensive Acute on chronic hypoxic respiratory failure Acute kidney injury Coronary artery disease with previous stenting of the left circumflex, 2018, with no progression of disease noted on cath in 2021 Hyperlipidemia BPH History of carotid stenosis Severe pulmonary hypertension New onset paroxysmal a-fib PLAN: Continue current cardiac medications Avoid any AV glo blocking agents Neuro consult pending. Will check repeat head CT and if negative will start anticoagulation for stroke risk reduction given A-fib. Will hold off on pacemaker at this time and plan for this as outpatient once patient is more recovered. Further recommendations pending patient course Nurse practitioner note has been reviewed by physician. Signing provider agrees with the documented findings, assessment, and plan of care documented by PROGRAM THERAPIST as a scribe. Objective - Vital Signs Vital signs: Vital Signs Temp 98.9 F 09/16/24 03:52 Pulse 64 09/16/24 03:52 Resp 16 09/16/24 03:52 BP 157/67 09/16/24 03:52 Pulse Ox 94 L 09/16/24 03:52 FiO2 Intake & Output 09/15/24 09/16/24 09/16/24 18:59 06:59 18:59 Weight 74.3 kg 74 kg Other: Voiding Method Toilet Toilet Urinal Urinal Diaper Diaper Incontinent Incontinent # Voids 2 1 - Labs CBC & Chem 7: 09/16/24 05:25 09/16/24 05:25 Labs: Abnormal Lab Results - Last 24 Hours (Table) 09/16/24 09/16/24 Range/Units 05:25 05:25 RBC 3.58 L (4.30-5.90) m/uL Hgb 10.6 L (13.0-17.5) gm/dL Hct 30.6 L (39.0-53.0) % Chloride 109 H (98-107) mmol/L BUN 21 H (9-20) mg/dL Microbiology - Last 24 Hours (Table) 09/10/24 02:46 Blood Culture - Final Blood 09/10/24 02:48 Blood Culture - Final Blood
[2024-09-16] MEDS: APIXABAN 5 MG TAB PO SCH (20:59)
--- NOTE | 2024-09-16 21:08 | US ---
EXAMINATION TYPE: US carotid duplex BILAT DATE OF EXAM: 09/16/2024 COMPARISON: NONE CLINICAL INDICATION: Male, 89 years old with history of Hx of ?CVA; Hx of ?CVA per order. Prior smoke r. Additional History: .... TECHNIQUE: Grayscale, color Doppler and spectral Doppler evaluation of the bilateral carotid systems and vertebral arteries. Indirect Doppler criteria was utilized. FINDINGS: EXAM MEASUREMENTS: RIGHT: Peak Systolic Velocity (PSV) cm/sec ----- Right CCA: 86.6 ----- Right ICA: 234.7 ----- Right ECA: 148.5 ICA/CCA ratio: 2.7 RIGHT: End Diastole cm/sec ----- Right CCA: 11.5 ----- Right ICA: 37.5 ----- Right ECA: 0.0 LEFT: Peak Systolic Velocity (PSV) cm/sec ----- Left CCA: 74.6 ----- Left ICA: 139.6 ----- Left ECA: 185.6 ICA/CCA ratio: ?1.9 (prox ICA versus occluded) LEFT: End Diastole cm/sec ----- Left CCA: 0.0 ----- Left ICA: 0.0 ----- Left ECA: 0.0 VERTEBRALS (direction of flow): Right Vertebral: Antegrade Left Vertebral: Retrograde Rhythm: Normal [employer]UT[employer] SPECIALIST NOTES: *Plaque seen within bilateral carotid bulbs and bifurcations. There appears to be no color flow in mid or distal left ICA. Possible minimal color flow and spectral waveform detected in prox left ICA versus occluded vessel and picking up flow from the bulb. Elevated velocities noted within right ICA. Narrowing seen right proximal ICA. Elevated velocity within bilateral ECA. Left vertebral artery appears retrograde. IMPRESSION: 1. Large hard and soft plaques present bilaterally. 2. Severe stenosis on the right internal carotid artery greater than 70%. 3. Moderate stenosis of the proximal left internal carotid artery. 4. Diastolic flow not identified in the left carotid system. High grade stenosis versus obstruction s hould be considered in the mid to distal internal carotid artery. 5. Subclavian steal syndrome with retrograde flow of the left vertebral artery should be considered. Criteria for Assigning % of Stenosis / Diameter reduction (Estimation based on the indirect measurements of the internal carotid artery velocities (ICA PSV). 1. Normal (no stenosis)=ICA PSV < 125 cm/s: ratio < 2.0: ICA EDV<40 cm/s. 2. Less than 50% stenosis=ICA PSV < 125 cm/s: ratio < 2.0: ICA EDV<40 cm/s. 3. 50 to 69% stenosis=ICA PSV of 125 to 230 cm/s: ration 2.0 ? 4.0: ICA EDV 40-100 cm/s. 4. Greater than 70% stenosis to near occlusion= ICA PSV > 230 cm/s: ratio > 4.0: ICA EDV > 100 cm/s. 5. Near occlusion= ICA PSV velocities may be low or undetectable: variable ratio and ICA EDV. 6. Total occlusion=unable to detect flow. [facility], , 09/16/2024 9:06 PM
[2024-09-17 06:35] LABS: HCT 35.5 % (39.0-53.0); HGB 11.8 gm/dL (13.0-17.5); MCH 28.8 pg (25.0-35.0); MCHC 33.1 g/dL (31.0-37.0); MCV 86.9 fL (80.0-100.0); Mean Platelet Volume 8.1; Platelet Count 205 k/uL (150-450); RBC 4.09 m/uL (4.30-5.90); RDW 14.3 % (11.5-15.5)
[2024-09-17 07:01] LABS: African American GFR (CKD) 76 (>60 ml/min/1.73 sqM); Anion Gap 11 mmol/L; Blood Urea Nitrogen 22 mg/dL (9-20); Calcium 8.7 mg/dL (8.4-10.2); Carbon Dioxide 20 mmol/L (22-30); Chloride 113 mmol/L (98-107); Glucose 97 mg/dL (74-99); Non-African American GFR(CKD) 66 (>60 ml/min/1.73 sqM); Sodium 144 mmol/L (137-145)
[2024-09-17 07:06] LABS: Potassium 3.9 mmol/L (3.5-5.1)
--- NOTE | 2024-09-17 07:42 | P.CNNES ---
History of Present Illness Consult date: 09/16/24 Requesting physician: Hector Caba Reason for Consult: confusion questionable CVA in past History of Present Illness: Patient is a 89-year-old left-handed male, with history of syncopal spells, questionable TIA, rheumatoid arthritis, came to the hospital on 09/10/2024 for weakness and difficulty breathing. Patient was diagnosed with acute on chronic hypoxic and hypercapnic respiratory failure secondary to COVID 19 pneumonia and COPD exacerbation. Neurology was consulted for "history of CVA". Patient's son was present at this time, and he also included patient's in the discussion on the cell phone on speaker phone. Patient had an episode in March 2024 when he became weak while standing, dropped to the floor and blacked out a few seconds. 1 time he was answering to the door and fell to the ground. Another time he was standing in the restroom and blacked out. All these syncopal episodes were brief episodes, with very minimal confusion afterwards. Sometimes he would not realize he had blacked out. Patient and his family are aware that he has history of bilateral carotid disease, one of them is 100% stenosed another 1 is 75%. However he was recommended no surgery because of his advanced age. Patient's family mentions that the day he was brought to the hospital, he was confused, not making sense. He was dehydrated. He does take his medications regularly. At present he is back to himself. Patient has been diagnosed with COVID infection about 4 to 5 days ago. No prior history of dementia. Patient also has been having some arrhythmia, developed paroxysmal atrial fibrillation, seen by cardiology and he has been started on Eliquis. Patient at home was taking aspirin 81 mg, Plavix 75 mg and Lipitor 20 mg besides other medications. Most recent blood test shows normal WBC, hemoglobin 10.6, platelets 181. Basic metabolic panel normal, C. difficile negative. Influenza and RSV negative, coronavirus positive. Urine Legionella negative. UA negative. CT head revealed no acute intracranial process. Nonspecific white matter changes, likely secondary to chronic small vessel ischemic disease. I personally reviewed CT head, and there is evidence of an old lacunar in the left cerebellum, and right anterior limb of internal capsule. 2D echo revealed LVEF 55%. No obvious regional wall motion abnormalities. Severely increased left atrial volume. Mild central MR. Severe TR. Patient has history of light smoking in the past quit in 1972 denies any alcohol use. He has low blood pressure denies diabetes. Patient has history of 2 back surgeries. Review of Systems All pertinent positive and negative review of systems mentioned HPI. Past Medical History Past Medical History: COPD, GERD/Reflux, Myocardial Infarction (MA), Rheumatoid Arthritis (RA) Additional Past Medical History / Comment(s): 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, MA at [facility] , history of lumbar spine decompression in 2006 and also in the . His most recent surgery was with Dr. Ramirez whom he saw just last week for chronic low back pain Last Myocardial Infarction Date:: 10/2018 History of Any Multi-Drug Resistant Organisms: None Reported Past Surgical History: Back Surgery, Heart Catheterization With Stent, Hernia Repair, Orthopedic Surgery, Tonsillectomy Additional Past Surgical History / Comment(s): back laminectomy x2, rik hand surgery from injuries, tx varicose veins rik legs, rik cataracts, pain procedures r/t shoulder pain Past Anesthesia/Blood Transfusion Reactions: No Reported Reaction Date of Last Stent Placement:: 10/2018 Past Psychological History: No Psychological Hx Reported Smoking Status: Former smoker Past Alcohol Use History: Rare Additional Past Alcohol Use History / Comment(s): quit 1972, smoked 20 years 1/2-1 ppd Past Drug Use History: None Reported - Past Family History Mother Family Medical History: Cancer Additional Family Medical History / Comment(s): bowel and ovarian Father Family Medical History: Cancer Additional Family Medical History / Comment(s): "black lung" Sister(s) Family Medical History: Cancer Additional Family Medical History / Comment(s): ovarian Medications and Allergies Home Medications Medication Instructions Recorded Confirmed Type Clopidogrel [Plavix] 75 mg PO DAILY 09/27/18 09/11/24 History Tamsulosin [Flomax] 0.4 mg PO HS 09/27/18 09/10/24 History Pantoprazole Sodium [Protonix] 40 mg PO DAILY 07/13/20 09/10/24 History Atorvastatin [Lipitor] 20 mg PO HS 01/13/23 09/10/24 History Finasteride [Proscar] 5 mg PO DAILY 01/13/23 09/10/24 History Gabapentin [Neurontin] 600 mg PO TID 01/13/23 09/10/24 History Albuterol Sulfate [Albuterol 2 puff INHALATION RT-QID PRN 09/10/24 09/10/24 History Sulfate Hfa] HYDROcodone/APAP 5-325MG [[place] 1 tab PO DAILY PRN 09/10/24 09/10/24 History 5-325] Mirtazapine [Remeron] 15 mg PO HS 09/10/24 09/10/24 History Sertraline [Zoloft] 25 mg PO DAILY 09/10/24 09/10/24 History Vitamin B-12(Unknown Dose) 1 tab PO DAILY 09/10/24 09/10/24 History Vitamin C(Unknown Dose) 1 tab PO DAILY 09/10/24 09/10/24 History Vitamin D3(Unknown Dose) 1 tab PO DAILY 09/10/24 09/10/24 History Zinc(Unknown Dose) 1 tab PO DAILY 09/10/24 09/10/24 History Fluticasone/Umeclidin/Vilanter 1 puff INHALATION RT-DAILY 09/11/24 09/11/24 History [Trelegy Ellipta 100-62.5-25] DULoxetine HCL [Cymbalta] 30 mg PO DAILY 09/14/24 09/14/24 History Aspirin [Adult Low Dose Aspirin EC] 81 mg PO DAILY 09/15/24 09/15/24 History Allergies Allergy/AdvReac Type Severity Reaction Status Date / Time No Known Allergies Allergy Verified 09/10/24 13:43 Physical Examination - Vital Signs Vital Signs: Vital Signs Temp Pulse Resp BP Pulse Ox 09/16/24 15:08 97.9 F 66 17 139/73 97 09/16/24 11:05 98 F 62 18 178/78 96 09/16/24 07:45 97.9 F 59 L 17 141/74 97 09/16/24 03:52 98.9 F 64 16 157/67 94 L 09/15/24 23:19 67 17 120/70 96 09/15/24 20:15 98.3 F 89 16 110/67 98 Intake and Output 09/16/24 09/16/24 09/16/24 06:59 14:59 22:59 Output Total 150 Balance -150 Output: Urine 150 Other: Voiding Method Toilet Toilet Urinal Urinal Diaper Diaper Incontinent Incontinent # Voids 1 1 # Bowel Movements 1 Weight 74 kg Patient is an elderly male, laying in the bed, in no acute distress. Patient is alert awake oriented to time place and person. Patient knows it is September 2024 and that he is in [facility] imported on [place] and name of the current president Mr. Carrasco. Speech and language functions are normal. Patient can name and repeat very well. No aphasia or dysarthria. Attention, concentration and fund of knowledge is adequate. Detailed cognitive function testing deferred. On cranial nerve examination, pupils are equal, round and reacting to light, visual lafleur are full on confrontation, with no neglect on double simultaneous stimulation. Extraocular muscles are intact with no nystagmus. Face is symmetric, tongue protrudes to the midline. Palatal elevation and sensation normal, hearing and shoulder shrug normal, facial sensation normal. On muscle strength testing, there is no pronator drift and the strength is normal in arms, but shoulders were not checked because of his shoulder pain bilaterally. In the lower limbs, the strength is normal in the hips, knees and ankle dorsiflexion but toe extension is 2 on the right, 5 left. This is probably related to his previous multiple back surgeries. Deep tendon reflexes are symmetric diminished and plantars flat on the right, downgoing left. Sensory to touch is equal with no neglect on double simultaneous stimulation. Cerebellar function showed no ataxia for [id number] testing. No dysdiadochokinesia. No ataxia for [id number] testing on either side. Tone and bulk of muscles normal. Gait deferred.. On general examination, there is no carotid bruit or murmur, S1-S2 audible. Chest is clear on consultation. Abdomen is soft nontender. No organomegaly, bowel sounds present. Peripheral pulses are present. No peripheral edema. Results - Laboratory Findings CBC and BMP: 09/17/24 05:42 09/17/24 05:42 Abnormal Lab Findings: Abnormal Labs 09/10/24 09/10/24 09/10/24 02:41 02:41 02:41 RBC 3.86 L Hgb 11.3 L Hct 34.2 L Plt Count 128 L Sodium 133 L Potassium 5.2 H Chloride Carbon Dioxide 17 L BUN 45 H Creatinine 2.19 H Glucose 139 H POC Glucose (mg/dL) Calcium 8.2 L Total Protein 5.9 L Albumin 3.3 L Procalcitonin TSH 7.030 H Urine Protein SARS-CoV-2 (PCR) 09/10/24 09/10/24 09/10/24 02:49 03:55 04:57 RBC Hgb Hct Plt Count Sodium Potassium Chloride Carbon Dioxide BUN Creatinine Glucose POC Glucose (mg/dL) 135 H Calcium Total Protein Albumin Procalcitonin TSH Urine Protein Trace H SARS-CoV-2 (PCR) Detected A 09/10/24 09/11/24 09/12/24 07:04 02:53 06:19 RBC 3.93 L Hgb 11.5 L Hct 34.5 L Plt Count 141 L Sodium Potassium Chloride 111 H Carbon Dioxide BUN 26 H Creatinine 1.31 H Glucose POC Glucose (mg/dL) Calcium 8.0 L Total Protein Albumin Procalcitonin 0.54 H TSH Urine Protein SARS-CoV-2 (PCR) 09/12/24 09/13/24 09/13/24 06:19 06:20 06:20 RBC 3.95 L Hgb 11.4 L Hct 34.9 L Plt Count 143 L Sodium Potassium Chloride 109 H 109 H Carbon Dioxide BUN Creatinine Glucose 103 H POC Glucose (mg/dL) Calcium Total Protein Albumin Procalcitonin TSH Urine Protein SARS-CoV-2 (PCR) 09/14/24 09/14/24 09/15/24 05:32 05:32 06:04 RBC 3.72 L 3.69 L Hgb 10.9 L 10.9 L Hct 32.7 L 32.5 L Plt Count 138 L Sodium Potassium Chloride 110 H Carbon Dioxide BUN 22 H Creatinine Glucose POC Glucose (mg/dL) Calcium Total Protein Albumin Procalcitonin TSH Urine Protein SARS-CoV-2 (PCR) 09/15/24 09/16/24 09/16/24 06:04 05:25 05:25 RBC 3.58 L Hgb 10.6 L Hct 30.6 L Plt Count Sodium Potassium Chloride 110 H 109 H Carbon Dioxide 21 L BUN 21 H 21 H Creatinine Glucose POC Glucose (mg/dL) Calcium Total Protein Albumin Procalcitonin TSH Urine Protein SARS-CoV-2 (PCR) Assessment and Plan Assessment: * Recurrent syncopal spells, appears orthostatic or vasovagal in nature. No clear history of stroke/TIA. * CT head revealed old lacunes in the left cerebellum and in the right anterior limb of internal capsule. No acute process. * History of bilateral ICA stenosis. * Coronary artery disease * Paroxysmal atrial fibrillation, new onset * Acute COVID-19 infection * Acute kidney injury, resolved Plan: * Neurologically clear for starting Eliquis. * Patient has history of possible CVA. Patient has bilateral ICA stenosis. We will repeat carotid Doppler. * Agree with continuing Plavix for cerebrovascular disease. Agree with stopping aspirin. * Check lipid panel, hemoglobin A1c, B12 * 2D echo revealed LVEF 55%. No obvious regional wall motion abnormalities. Severely increased left atrial volume. Mild central MR. Severe TR. * Thank you for the consult. Addendum: Carotid Doppler revealed large hard and soft plaques present bilaterally. Severe stenosis on the right ICA, greater than 70%. Moderate stenosis of the proximal left ICA. Diastolic flow not identified in the left carotid system. High-grade stenosis versus obstruction should be considered in the mid to distal ICA. Subclavian steal syndrome with retrograde flow of the left vertebral artery should be considered. Recommend vascular surgery/interventional cardiology to address above.
--- NOTE | 2024-09-17 10:49 | P.PN ---
Subjective Hospital course: 89-year-old male came in with complaints of shortness of breath cough found to be in COVID-19. Patient oxygen requirements have gone up from 2 L at baseline at home to 4 L patient is presently on 4 L of oxygen. Patient on exam has slight wheeze. Patient does not smoke quit smoking in 1970s. Patient does not have any history of congestive heart failure chest x-ray is read as possibility of congestion patient has a BNP of 1300 patient is hyponatremic, patient also has acute renal failure and hypotensive patient serum creatinine is 2.4 baseline is essentially within normal limits. 09/11/24: Patient seen and examined at bedside today. Patient continues to be on 4 L of oxygen via nasal cannula and is saturating at 96%. Labs today show BUN 26, creatinine 1.31, procalcitonin 0.54, SARS-CoV-2 positive. Abdomen bladder ultrasound shows no sonographic evidence of acute obstructive uropathy, mildly increased parenchymal echogenicity. Chest x-ray done today shows patchy opac ity/infiltrate left mid to lower lung now better, pneumonia not excluded, mild interstitial density remains. 09/12/24: Patient evaluated today. Patient continues to be on 3L of oxygen and is saturating at 96%. Labs today show hemoglobin 11.5, platelet count 141, creatinine 1.10. Abdomen x-ray shows moderate stool burden, obstructive bowel gas pattern. 09/13/24: Patient examined at bedside. He is currently on 2.5L of oxygen. Labs today show hemoglobin 11.4, platelet count 143, bicarb 27, creatinine 1.24, free T4 is 1.24, free T3 is 2.30. Blood culture shows no growth after 48 hours. 09/14/24: Patient evaluated today. He continues to be on 2 L of oxygen via nasal cannula and is saturating at 99%. Labs today show hemoglobin 10.9, platelet count 138, BUN 22, creatinine 1.11. Blood culture shows no growth after 72 hours. 09/15/24: Patient seen and examined at bedside. He continues to be on 2 L of oxygen via nasal cannula. Labs today show hemoglobin 10.9, bicarb 21, BUN 21. Chest x-ray shows persistent patchy bilateral interstitial opacities though with some improving elevation at the left lower lung. 09/16/24: Patient evaluated at bedside. He is currently on 2 L of oxygen via nasal cannula saturating at 97% and his pulse rate is 59 bpm. His mentation is improving. Labs today show hemoglobin 10.6, bicarb 24, BUN 21, creatinine 1.01. Blood culture shows no growth after 5 days. Barium esophagogram shows severe esophageal dysmotility with presbyesophagus, hiatal hernia. 09/17 Patient sitting in chair, more awake and interactive Denies chest pain or dyspnea No abdominal pain vomiting. He has 2 loose bowel movement this morning No urinary complaints he is currently on 2 L oxygen via nasal cannula CBC and BMP looks stable and unremarkable Carotid duplex: Large hard and soft plaques bilaterally with severe stenosis of right ICA 70% and moderate stenosis of the proximal left ICA. Possible subclavian steal syndrome CT of the brain: No acute process. Neurology service on the case, Vani resumed Require vascular surgery consult Active Medications Generic Name Dose Route Start Last Admin Trade Name Freq PRN Reason Stop Dose Admin Acetaminophen 650 mg 09/13/24 08:57 09/17/24 05:32 Acetaminophen Tab 325 Mg Tab PO 650 mg Q6HR PRN Administration Fever and/ or Mild Pain Albuterol Sulfate 2 puff 09/10/24 12:00 09/17/24 07:49 Albuterol Hfa Inhaler INHALATION 2 puff RT-QID PEGGY Administration Apixaban 5 mg 09/16/24 21:00 09/17/24 07:31 Apixaban 5 Mg Tab PO 5 mg BID PEGGY Administration Protocol Atorvastatin Calcium 20 mg 09/11/24 21:00 09/16/24 20:59 Atorvastatin 20 Mg Tab PO 20 mg HS PEGGY Administration Clopidogrel Bisulfate 75 mg 09/12/24 09:00 09/17/24 07:31 Clopidogrel 75 Mg Tab PO 75 mg DAILY PEGGY Administration Dexamethasone Sodium Phosphate 6 mg 09/11/24 13:36 09/17/24 07:32 Dexamethasone Sod Phosphate 10 Mg/Ml 1 Ml Vial IVP 6 mg DAILY PEGGY Administration Dicyclomine HCl 10 mg 09/12/24 13:39 Dicyclomine 10 Mg Cap PO TID PRN Dyspepsia Duloxetine HCl 30 mg 09/15/24 12:00 09/17/24 07:31 Duloxetine Hcl 30 Mg Capsule.Dr PO 30 mg DAILY PEGGY Administration Finasteride 5 mg 09/12/24 09:00 09/17/24 07:31 Finasteride 5 Mg Tab PO 5 mg DAILY PEGGY Administration Sodium Chloride 1,000 mls @ 50 mls/hr 09/13/24 12:30 09/16/24 21:59 Saline 0.9% IV Not Given .Q20H PEGGY Loperamide HCl 2 mg 09/12/24 14:53 Loperamide 2 Mg Cap PO QID PRN Diarrhea Methyl Salicylate 1 applic 09/13/24 18:49 09/13/24 20:28 Methyl Salicylate-Menthol Oint (3 Oz Tube) TOPICAL 1 applic QID PRN Administration Muscle Pain Protocol Mirtazapine 15 mg 09/11/24 21:00 09/16/24 20:59 Mirtazapine 15 Mg Tab PO 15 mg HS PEGGY Administration Miscellaneous Information 1 each 09/10/24 05:40 Pneumonia Protocol Utilized 1 Each Misc PO ONCE PRN Per Protocol Ondansetron HCl 4 mg 09/11/24 18:32 09/13/24 11:36 Ondansetron 4 Mg/2 Ml Vial IVP 4 mg Q6HR PRN Administration Nausea And Vomiting Pantoprazole Sodium 40 mg 09/12/24 07:30 09/17/24 05:31 Pantoprazole 40 Mg Tablet PO 40 mg AC-BID PEGGY Administration Quetiapine Fumarate 12.5 mg 09/14/24 12:20 Quetiapine 25 Mg Tab PO HS PRN Confusion Sertraline HCl 25 mg 09/15/24 12:00 09/17/24 07:31 Sertraline 25 Mg Tab PO 25 mg DAILY PEGGY Administration Sodium Bicarbonate 650 mg 09/10/24 12:00 09/17/24 07:31 Sodium Bicarbonate Tab 650 Mg Tab PO 650 mg BID PEGGY Administration Sucralfate 1 gm 09/12/24 07:30 09/17/24 05:32 Sucralfate 1 Gm Tab PO 1 gm AC-TID PEGGY Administration Tamsulosin HCl 0.4 mg 09/11/24 21:00 09/16/24 21:00 Tamsulosin 0.4 Mg Cap.Er.24h PO 0.4 mg HS PEGGY Administration Objective - Vital Signs Vital signs: Vital Signs Temp 98.1 F 09/17/24 07:25 Pulse 55 L 09/17/24 07:25 Resp 16 09/17/24 07:25 BP 140/63 09/17/24 07:25 Pulse Ox 98 09/17/24 07:25 FiO2 Intake & Output 09/16/24 09/17/24 09/17/24 18:59 06:59 18:59 Intake Total 20 Output Total 150 Balance -150 20 Weight 75 kg Intake: IV 20 Invasive Line 4 20 Output: Urine 150 Other: Voiding Method Toilet Toilet Toilet Urinal Urinal Urinal Diaper Diaper Diaper Incontinent Incontinent Incontinent # Voids 1 2 # Bowel Movements 1 1 - Exam GENERAL: The patient is alert and oriented x3, not in any acute distress. Well developed, well nourished. HEENT: Pupils are round and equally reacting to light. EOMI. No scleral icterus. No conjunctival pallor. Normocephalic, atraumatic. No pharyngeal erythema. No thyromegaly. CARDIOVASCULAR: S1 and S2 present. No murmurs, rubs, or gallops. PULMONARY: Chest is clear to auscultation, no wheezing , no crackles. ABDOMEN: Soft, nontender, nondistended, normoactive bowel sounds. No palpable organomegaly. MUSCULOSKELETAL: No joint swelling or deformity. EXTREMITIES: No cyanosis, clubbing, or pedal edema. NEUROLOGICAL: Gross neurological examination did not reveal any focal deficits. SKIN: No rashes. no petechiae. - Labs CBC & Chem 7: 09/17/24 05:42 09/17/24 05:42 Labs: Abnormal Lab Results - Last 24 Hours (Table) 09/17/24 09/17/24 Range/Units 05:42 05:42 RBC 4.09 L (4.30-5.90) m/uL Hgb 11.8 L (13.0-17.5) gm/dL Hct 35.5 L (39.0-53.0) % Chloride 113 H (98-107) mmol/L Carbon Dioxide 20 L (22-30) mmol/L BUN 22 H (9-20) mg/dL Assessment and Plan Assessment: Assessment/Plan: Patient is an 89-year-old male who presented with shortness of breath and coughing. He was found to have COVID-19 pneumonia. He has been admitted for acute on chronic hypoxic and hypercapnic respiratory failure secondary to COVID- 19 pneumonia and COPD exacerbation. He continues to be on Dexemthasone. Renal function is improving. He has a new onset diarrhea with C. diff negative. He is also found to have new onset paroxysmal atrial fibrillation and acute metabolic encephalopathy with severe esophageal dysmotility. Neurology is consulted. Cardiology recommends anticoagulation once cleared by neurology. PT and OT, recommended home with home health PT and support from . Active: #. Acute on chronic hypoxic and hypercapnic respiratory failure secondary to COVID-19 pneumonia and COPD exacerbation #. Acute COVID-19 infection #. Generalized weakness Chest x-ray 09/11/24 shows patchy opacity/infiltrate left mid to lower lung now better, pneumonia not excluded, mild interstitial density remains Chest x-ray 09/15/24 shows persistent patchy bilateral interstitial opacities though with some improving elevation at the left lower lung Continue albuterol 2 puffs in addition 4 times daily Continue ceftriaxone 2 g IVPB every 24 hours Continue Decadron 6 mg IVP daily Pneumonia protocol Procalcitonin 0.54 Pulmnology is following PT and OT, recommended home with home health PT and support from . #. Sinus pauses #. New onset paroxysmal atrial fibrillation Echocardiogram shows EF 55 to 60%, no obvious regional wall motion abnormality, mild RV dilatation with normal function, severe pulmonary hypertension with RVSP of 53 mmHg, severe LA dilation, mild central MR, severe TR Continue telemetry monitoring Avoid AV glo blocking agents Cardiology is following, recommend holding off PPM implantation at this time and starting anticoagulation once cleared by neurology #. Large hard and soft plaques bilaterally with severe stenosis of right ICA 70% and moderate stenosis of the proximal left ICA. Possible subclavian steal syndrome -Continue with Plavix and statin -Vascular surgery consult #. Acute metabolic encephalopathy #. History of old stroke Barium esophagogram shows severe esophageal dysmotility with presbyesophagus, hiatal hernia Seroquel 12.5 mg PO HS PRN Neurorology consult ordered by cardiology #. Acute renal failure, prerenal azotemia secondary to infection and sepsis Bladder scan showed 299 mL postvoid residual Abdomen bladder ultrasound shows no sonographic evidence of acute obstructive uropathy, mildly increased parenchymal echogenicity Gentle hydration with 0.9 normal saline at 50 ml/hr, as patient is not tolerating oral intake Hold nephrotoxic agents including gabapentin Nephrology is following #. Metabolic acidosis secondary to MATEUSZ and IV fluids Continue sodium bicarb 650 mg p.o. twice daily Nephrology is following #. Acute Diarrhea, viral vs antibiotic induced C. diff negative Loperamide 4 mg PO once Continue Loperamide 2 mg PO QID PRN Continue Dicyclomine 10 mg PO TID PRN for cramps #. Mild hyperkalemia, secondary to MATEUSZ and acidosis, resolved #. Sick euthyroid TSH 7.03, T4 is 1.24, T3 is 2.30 Repeat labs on outpatient basis Chronic: #. History of [place] #. Coronary artery disease with previous stent placement #. Hyperlipidemia #. Gastroesophageal reflux disease #. Rheumatoid arthritis #. BPH #. Anxiety Resume atorvastatin 20 mg p.o. at bedtime, clopidogrel 75 mg p.o. daily, finasteride 5 mg p.o. daily, mirtazapine 15 mg p.o. at bedtime, tamsulosin 0.4 mg p.o. at bedtime, Duloxetine 30 mg PO daily and Sertraline 25 mg PO daily F: 0.9 normal saline at 50 ml/hr E: Replete as required N: NPO after midnight A: Bedrest DVT prophylaxis: Heparin 5000 units SQ every 8 hours and SCD GI prophylaxis: Pantoprazole 40 mg PO BID
--- NOTE | 2024-09-17 10:52 | P.PN ---
Subjective Progress Note Date: 09/17/24 HISTORY OF PRESENT ILLNESS: This is a 89-year-old male with a past medical history significant for hype rlipidemia and coronary artery disease with previous stent placement in 2019. Patient follows with Dr. Bain. We have been asked to see the patient in consultation for recurrent heart pauses. Patient examined at the bedside. Patient presented to the hospital with generalized malaise. at the bedside states he was coughing a lot at home. He was weak and not as alert as he normally is. She reports he was confused as well. Patients denies history of hypertension and states his blood pressure is usually low. He does report that he is frequently lightheaded. No episodes of syncope. He states the symptoms will last for 15-20 seconds and then go away. Telemetry reviewed with pauses overnight. Patient had a pause of 8 seconds with one single PVC in that timeframe. DIAGNOSTICS: - EKG reveals sinus mechanism with incomplete right bundle branch block. No signs of acute ischemia. - Chest xray patchy opacity/infiltrate left mid to lower lung now better seen. Pneumonia not excluded. Mild interstitial density remains.. - Laboratory data: WBC 7.4. Hemoglobin 11.3. Platelet count 128. Sodium 139. Potassium 5.0. BUN 26. Creatinine 1.31. Troponin negative x 1. proBNP 1380. - Current home cardiac medications include Plavix 75 mg daily and Lipitor 20 mg at night - Most recent echocardiogram obtained in July 2020 revealing ejection fraction 55 to 60%, trace MR, trace TR 09/13/2024 Patient examined this morning at the bedside. Currently denies chest pain or pressure. Denies SOB. Telemetry reviewed without any further significant pauses. Patients states he has not been eating well the past couple days. 09/14/2023 Patient examined this morning at the bedside. Patient currently denies chest pain or pressure. He denies shortness of breath. Vital signs are stable. Telemetry reveals sinus mechanism. Echocardiogram completed revealing ejection fraction 55 to 60%, no obvious regional wall motion abnormalities, mild MR, trace AR, severe TR. 09/15/2024 Patient did go into A-fib overnight and this is a new diagnosis for him, currently in sinus rhythm. Heart rates were controlled and he was relatively asymptomatic at that time. 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 Patient states that he is not feeling well and does have continued elbow pain. 09/16/2024 Patient resting in bed with no complaints. He is drowsy and not answering all questions appropriately. Denies any pain or shortness of breath. Heart rates controlled. 09/17/2024 Patient is looking better this morning, he is out of bed sitting in chair eating breakfast. Still with some confusion but family believes he is better. Patient does state he is not feeling well but cannot elaborate more. He was seen by neurology and had carotid ultrasound which showed severe stenosis right ICA greater than 70%, moderate stenosis proximal left ICA, subclavian steal syndrome with retrograde flow of the left vertebral artery should be considered. Heart rates have been controlled, he remains in sinus rhythm. Hemoglobin 11.8, creatinine 1.02. Records received from patient's primary logistics and planning manager: -Patient underwent echocardiogram in 10/2023 revealing ejection fraction 55%, trace TR and moderate left atrial dilatation. -Patient underwent right and left cardiac catheterization in November 2021 revealing right atrial mean pressure 4 mmHg, right ventricular systolic pressure 29 mmHg, right ventricular end-diastolic pressure 5 mmHg. PA pressure 27/9 with a mean of 17 mmHg, pulmonary arterial saturation 66%. Wedge pressure 10 mmHg. Aortic pressure 148 systolic mean 97 mmHg. Left ventricular systolic pressure 158 mmHg. Left ventricular end-diastolic pressure 22 mmHg. Cardiac output 7.01/cardiac index 3.5. Left heart cath revealed left main with no significant degree of stenosis. Left circumflex with previously placed stent in the midportion that is widely patent with no significant degree of in-stent restenosis. LAD with 10% mid ulcerated lesion unchanged compared to 2019. RCA small caliber nondominant vessel with no significant disease. PHYSICAL EXAM: VITAL SIGNS: Reviewed. GENERAL: Well-developed in no acute distress. HEENT: Head is normocephalic. Pupils are equal, round. Sclerae anicteric. Mucous membranes of the mouth are moist. Neck supple. LUNGS: Respirations even and unlabored. Lungs essentially clear to auscultation bilaterally. HEART: Regular rate and rhythm. S1 and S2 heard. ABDOMEN: Soft. Nondistended. Nontender. EXTREMITIES: Normal range of motion. No clubbing or cyanosis. Peripheral pulses intact. No lower extremity edema NEUROLOGIC: Awake and alert. Oriented x 3. ASSESSMENT: COVID-19 Sinus pauses Hypotension on admission, currently hypertensive Acute on chronic hypoxic respiratory failure Acute kidney injury Coronary artery disease with previous stenting of the left circumflex, 2019, with no progression of disease noted on cath in 2021 Hyperlipidemia BPH History of carotid stenosis Severe pulmonary hypertension New onset paroxysmal a-fib PLAN: Continue current cardiac medications Avoid any AV glo blocking agents Neurology following. Continue Eliquis for stroke risk reduction with new diagnosis A-fib. Will hold off on pacemaker at this time and plan for this as outpatient with primary logistics and planning manager once patient is more recovered. Cardiology to sign off please call with any questions or concerns. Follow-up in the outpatient in 1 week with primary logistics and planning manager. Family at bedside updated on plan of care. Nurse practitioner note has been reviewed by Dr. Caba. Signing provider agrees with the documented findings, assessment, and plan of care documented by TELEVISION CAMERAMAN as a scribe. Objective - Vital Signs Vital signs: Vital Signs Temp 98.3 F 09/17/24 04:00 Pulse 63 09/17/24 04:00 Resp 17 09/17/24 02:22 BP 137/64 09/17/24 04:00 Pulse Ox 94 L 09/17/24 04:00 FiO2 Intake & Output 09/16/24 09/17/24 09/17/24 18:59 06:59 18:59 Output Total 150 Balance -150 Weight 75 kg Output: Urine 150 Other: Voiding Method Toilet Toilet Urinal Urinal Diaper Diaper Incontinent Incontinent # Voids 1 2 # Bowel Movements 1 1 - Labs CBC & Chem 7: 09/17/24 05:42 09/17/24 05:42 Labs: Abnormal Lab Results - Last 24 Hours (Table) 09/17/24 09/17/24 Range/Units 05:42 05:42 RBC 4.09 L (4.30-5.90) m/uL Hgb 11.8 L (13.0-17.5) gm/dL Hct 35.5 L (39.0-53.0) % Chloride 113 H (98-107) mmol/L Carbon Dioxide 20 L (22-30) mmol/L BUN 22 H (9-20) mg/dL
--- NOTE | 2024-09-17 12:29 | P.PN ---
Subjective Progress Note Date: 09/17/24 This is a very pleasant 89-year-old male patient who has a history of hyperlipidemia, gastroesophageal reflux disease, carotid artery stenosis with 100% occlusion on the left and 50% on the right, rheumatoid arthritis, former smoker, chronic obstructive pulmonary disease. He was brought into the emergen cy room early this morning after being found quite weak by his family. He was hypotensive. They were concerned regarding possible stroke. He also was having bodyaches all over. CT scan of the brain revealed no acute stroke or hemorrhage. Multiple remote infarcts. EKG revealed sinus rhythm with no significant ST or T wave abnormalities. X-ray shows mild pulmonary vascular congestion. Left basilar atelectasis. White count 7.4. Hemoglobin 11.3. Platelets 128. INR 1.0. Sodium 133. Potassium 5.2. Bicarb 17. BUN 45. Creatinine 2.19. Glucose 139. AST 22. ALT 10. Troponin negative x 1. proBNP 1380. Procalcitonin 0.54. Urinalysis clean. Viral screen positive for COVID infection. He is seen today in consultation on the regular medical floor. He is currently sitting up in bed. Awake and alert in no acute distress. He is maintaining O2 saturations in the 90s on 4 L/min per nasal cannula. He is still quite weak. On 09/11/24, patient is being seen for a follow-up. Patient is doing well. No significant respiratory distress. 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 The patient was also diagnosed having an acute COVID-19 infection during this current admission. No previous vaccination. This is the patient's first infection with the COVID-19 virus. Patient otherwise has no new complaints. He is on 4 L of oxygen by nasal cannula with a pulse ox of 93%. His chest x-ray was repeated today and it showed patchy left mid and lower lobe pulmonary infiltrate with some mild interstitial edema. Sodium level is at 139, potassium is at 5, chloride is 111 with a bicarb of 22, BUN 26 with a creatinine of 1.3. The patient is recovering from his acute kidney injury. He is on normal citrate of 75 cc an hour. He is on heparin subcu for DVT prophylaxis. He remains on Rocephin and Zithromax as an empiric antibiotic coverage. Procalcitonin level is at 0.54. proBNP level was 1380. Previous echocardiogram from 2019 had shown a preserved LV function. On 09/12/2024, the patient is being seen for a follow-up. The patient is currently on room air oxygen with a pulse ox of 93%. Oxygenation is improved as the patient is recovering from his pneumonia. The patient tested positive for COVID-19 and suspected to have a COVID-19 related pneumonia with a possibility of a superinfection with bacteria and based on that the patient was given empiric antibiotic coverage with a combination of Rocephin and Zithromax. He completed Zithromax and he remains on Rocephin and the patient is also on Decadron 6 mg IV on a daily basis. No new complaints for now. Having some limited diarrhea. No nausea. No vomiting. Abdominal pain. Her white cell count is 4.9 with a hemoglobin of 11.7 and a platelet count of 141. BUN is 18 with a creatinine of 1.1 and sodium levels at 141. Stool for C. difficile has been negative. Thyroid function tests are essentially within normal limits. No altered mentation. No other new complaints otherwise for now. 09/13/2024, patient is being seen for a follow-up. Respiratory status remained stable and the patient remains on 2 L of oxygen by nasal cannula with a pulse ox of 98%. Nevertheless, overall, he is feeling very weak and debilitated. He has bodyaches. Afebrile. No fever or chills. Diminished appetite. Cannot eat as the patient has no appetite. Feels lethargic. Noted the patient has been infected with COVID-19. No signs of any respiratory distress. White cell count is at 7 with a hemoglobin 11.4 and a platelet count of 143. BUN is 19 with a creatinine of 1.2. No other significant events overnight. On a separate note, the patient is having cardiac sinus pauses. Cardiology on the case. Thyroid function tests were essentially within normal limits. Echocardiogram was also done yesterday and the patient was found to have a preserved LV function with an ejection fraction of 55 to 60%, severe pulmonary hypertension was noted with an estimated pulmonary artery pressure of around 53. Patient is on a telemetry monitoring. Being considered for a permanent pacemaker insertion during this current hospitalization. On 09/14/2024, the patient is being seen for a follow-up. On today's evaluation, the patient is confused and somewhat delirious. No significant agitation. The patient remains on Decadron 6 mg IV every 24 hours. Oral intake is minimal and the patient has no appetite. He is having generalized weakness. On a separate note, the patient is still being considered for a pacemaker insertion for cardiac pauses for around 8 seconds as documented in the previous telemetry. The white cell count is 5.8 with a hemoglobin 10.9 and platelet count of 138. BUN 22 with a creatinine of 1.1 and a sodium levels at 141. Oxygenation remained stable and the patient remains on 2 L of oxygen by nasal cannula with a pulse ox of 97%. No focal neurological deficit at this point. On 09/15/2024, the patient is being seen for a follow-up. Remains lethargic and weak and quite debilitated. Was able to recognize his . Does limited amount of conversation. No focal neurological deficits. The patient is currently n.p.o. pending an insertion of a pacemaker for cardiac block. Remains on Decadron. Meanwhile, the blood work from today shows no significant abnormalities. The white cell count of 6.6 with a hemoglobin 7.9 and platelet count of 150. BUN is 21 with a creatinine of 1.02 and a sodium levels at 141. On a separate note, the patient has history of depression and his antidepressant medication needs to be restarted. The patient is on Zoloft and Cymbalta and this will be restarted in combination with Remeron 15 mg at bedtime. Rest of the medications remain unchanged.Repeat chest x-ray from today shows persistent patchy bibasilar interstitial opacities with some improvement in aeration in the left lung base. The patient also underwent a upper GI barium swallow and this was a limited exam due to with the patient's condition. There was evidence of severe esophageal dysmotility along with a hiatal hernia. On 09/16/2024, the patient is slightly more communicative. Nevertheless, he is refusing any food intake and he reports poor appetite. He cannot express what is wrong with him. His respiratory status remained stable. He is on 2 L of oxygen by nasal cannula with pulse ox of 96%. Pacemaker insertion was supposed to be done yesterday and this has not been completed. Antidepressant medication was restarted. Labs from today showed a white cell count of 4.9 with a hemoglobin 10.6 BUN 21 with a creatinine of 1.0. No other significant issues overnight. 09/17/2024, the patient has better stamina and he was able to sit up in a chair near his taking some food in the form of Jell-O and liquids. No new complaints. Remains on Decadron 6 mg IV every 24 hours. Oxygenation is stable with a pulse ox of 97% 2 L of oxygen by nasal cannula. No cough or sputum production. No chest tightness or wheezing. The white cell count is 6 with a hemoglobin of 11.8 and a platelet count of 205. BUN is 22 with a creatinine of 1.02. The patient was also seen by neurology in consultation and neurology input is appreciated. 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 He also has internal carotid artery stenosis. His acute kidney injury has improved. The patient is currently on Eliquis for paroxysmal atrial fibrillation. Objective - Vital Signs Vital signs: Vital Signs Temp 98.1 F 09/17/24 07:25 Pulse 55 L 09/17/24 07:25 Resp 16 09/17/24 07:25 BP 140/63 09/17/24 07:25 Pulse Ox 98 09/17/24 07:25 FiO2 Intake & Output 09/16/24 09/17/24 09/17/24 18:59 06:59 18:59 Intake Total 20 Output Total 150 Balance -150 20 Weight 75 kg Intake: IV 20 Invasive Line 4 20 Output: Urine 150 Other: Voiding Method Toilet Toilet Toilet Urinal Urinal Urinal Diaper Diaper Diaper Incontinent Incontinent Incontinent # Voids 1 2 # Bowel Movements 1 1 - Exam GENERAL EXAM: Alert, weak, pleasant 89-year-old male patient, on 2 L of oxygen by nasal cannula, fairly comfortable in no apparent distress. HEAD: Normocephalic. EYES: Normal reaction of pupils, equal size. NOSE: Clear with pink turbinates. THROAT: No erythema or exudates. NECK: No masses, no JVD. CHEST: No chest wall deformity. LUNGS: Equal air entry with few crackles in the left lung base. CVS: S1 and S2 normal with no audible murmur, regular rhythm. ABDOMEN: No hepatosplenomegaly, normal bowel sounds, no guarding or rigidity. SPINE: No scoliosis or deformity SKIN: No rashes CENTRAL NERVOUS SYSTEM: No focal deficits, tone is normal in all 4 extremities. EXTREMITIES: There is no peripheral edema. No clubbing, no cyanosis. Peripheral pulses are intact. - Labs CBC & Chem 7: 09/17/24 05:42 09/17/24 05:42 Labs: Abnormal Lab Results - Last 24 Hours (Table) 09/17/24 09/17/24 Range/Units 05:42 05:42 RBC 4.09 L (4.30-5.90) m/uL Hgb 11.8 L (13.0-17.5) gm/dL Hct 35.5 L (39.0-53.0) % Chloride 113 H (98-107) mmol/L Carbon Dioxide 20 L (22-30) mmol/L BUN 22 H (9-20) mg/dL Assessment and Plan Plan: Acute hypoxic respiratory failure, improved and the patient is currently on 2 L of O2 nasal cannula. Vague left lung infiltration with mild procalcitonin level elevation. Positive COVID-19 infection. Rule out COVID-19 pneumonia. Bacterial infection is felt to be less likely. Patient is currently off antibiotics and the patient is currently on 2 L of oxygen by nasal cannula. Chest x-ray findings from 09/15/2024 continues to show some limited bibasilar interstitial changes and improvement in the aeration in the left lung base. 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 CAT scan of the brain was done and the patient was found to have old lacunar infarct and old cerebellar infarct. The patient also has carotid artery stenosis Acute COVID-19 infection New onset diarrhea with a negative stool for C. difficile. Could be viral versus antibiotic induced, recovered Sinus cardiac pause, episodic. Echocardiogram showed a preserved LV function, severe pulm hypertension with estimated PA pressure of around 56. Acute kidney injury, recovered Chronic obstructive pulmonary disease Former smoker Rheumatoid arthritis Carotid stenosis with known 100% blockage on the left and 70% on the right History of myocardial infarction treated at [facility] Coronary artery disease with previous stent placement BPH Hyperlipidemia Paroxysmal A-fib Plan: Monitor mental status Respiratory status is stable on 2 L of oxygen by nasal cannula Continue Zoloft and Cymbalta as some of his symptoms could be related to underlying depression Chest x-ray findings are stable Titrate oxygen flow to maintain saturation above 90%, currently on 2 L O2 nasal cannula Continue Decadron 6 mg IV every 24 hours Started on anticoagulation with Eliquis Monitor diarrhea, currently inactive and stable Continue bronchodilators Heparin for DVT prophylaxis Normal saline at 75 mL/h Renal function has improved Cardiology on the case and the patient is having a pacemaker insertion Continue telemetry monitoring We will continue to follow and make further recommendations based on his clinic al status
[2024-09-17 12:39] LABS: Chol/HDL Ratio 2.52 Ratio; LDL Cholesterol,Calculated 36.5 mg/dL (0.0-131.0); VLDL Calculation 18.96 mg/dL (5.00-40.00)
[2024-09-17] MEDS ORDERED: GABAPENTIN 300 MG CAP PO SCH (16:00)
[2024-09-17] MEDS: GABAPENTIN 400 MG CAP PO SCH (16:11)
[2024-09-18 06:18] LABS: Basophils % (A) 0 %; Eosinophils % (A) 1 %; HGB 10.8 gm/dL (13.0-17.5); Lymphocytes % (A) 36 %; MCH 28.8 pg (25.0-35.0); MCHC 32.8 g/dL (31.0-37.0); MCV 87.7 fL (80.0-100.0); Mean Platelet Volume 7.8; Monocytes # (A) 0.5 k/uL (0-1.0); Monocytes % (A) 9 %; Neutrophils # (A) 2.9 k/uL (1.3-7.7); Neutrophils % (A) 52 %; Platelet Count 217 k/uL (150-450); RBC 3.76 m/uL (4.30-5.90); RDW 14.2 % (11.5-15.5); WBC 5.5 k/uL (3.8-10.6)
[2024-09-18 06:31] LABS: African American GFR (CKD) 69 (>60 ml/min/1.73 sqM); Anion Gap 4 mmol/L; Blood Urea Nitrogen 20 mg/dL (9-20); Calcium 8.4 mg/dL (8.4-10.2); Carbon Dioxide 29 mmol/L (22-30); Chloride 109 mmol/L (98-107); Glucose 97 mg/dL (74-99); Non-African American GFR(CKD) 60 (>60 ml/min/1.73 sqM); Potassium 3.9 mmol/L (3.5-5.1); Sodium 142 mmol/L (137-145)
--- NOTE | 2024-09-18 09:45 | P.PN ---
Subjective Patient is seen in follow-up for acute kidney injury. Renal function improved. Denies chest pain or shortness of breath. Vital signs are stable. General: No acute distress. HEENT: Head exam is unremarkable. On nasal cannula. LUNGS: No audible rhonchi or wheezes. HEART: Rate and Rhythm are regular. ABDOMEN: Nontender. EXTREMITITES: No edema. Objective - Vital Signs Vital signs: Vital Signs Temp 97.6 F 09/18/24 03:56 Pulse 74 09/18/24 03:56 Resp 14 09/18/24 03:56 BP 111/57 09/18/24 03:56 Pulse Ox 94 L 09/18/24 03:56 FiO2 Intake & Output 09/17/24 09/18/24 09/18/24 18:59 06:59 18:59 Intake Total 256 Balance 256 Weight 75 kg Intake: IV 20 Invasive Line 4 20 Oral 236 Other: Voiding Method Toilet Toilet Urinal Urinal Diaper Diaper Incontinent Incontinent # Voids 1 1 1 # Bowel Movements 1 0 - Labs CBC & Chem 7: 09/18/24 05:23 09/18/24 05:23 Labs: Abnormal Lab Results - Last 24 Hours (Table) 09/16/24 09/18/24 09/18/24 Range/Units 05:25 05:23 05:23 RBC 3.76 L (4.30-5.90) m/uL Hgb 10.8 L (13.0-17.5) gm/dL Hct 33.0 L (39.0-53.0) % Chloride 109 H (98-107) mmol/L HDL Cholesterol 36.50 L (40.00-60.00) mg/dL Vitamin B12 2557.0 H (200.0-944.0) pg/mL Assessment and Plan Plan: Assessment: 1. Acute kidney injury secondary to ATN secondary to acute COVID-19 infection. Creatinine 2.19 on admission -1.1 today. Creatinine 1.0 in January 2023. UA fairly benign. No hydronephrosis noted on kidney ultrasound. 2. Metabolic acidosis secondary to acute kidney injury and IV fluids. Improved. 3. Coronary artery disease with stent placement in the past. 4. Mild hyperkalemia secondary to acute kidney injury and acidosis. Resolved. 5. Acute COVID-19 infection. Plan: Encourage oral intake. Stop IV fluids. Stop bicarb. Avoid nephrotoxins.
--- NOTE | 2024-09-18 14:13 | P.GSCN ---
History of Present Illness Consult date: 09/18/24 Reason for Consult: ICA stenosis Requesting physician: Eriberto E Sheet History of present illness: This a pleasant 89-year-old male known to Dr. Corona. Patient came in to the emergency department 8 days ago with multiple complaints including slurred speech, weakness, coughing, body aches, and was admitted and diagnosed with COVID-19 infection. Past medical history includes carotid stenosis, COPD, GERD, coronary artery disease post stent, OK, rheumatoid arthritis and chronic back pain. Multiple consultants following patient, neurology was consulted for confusion and questionable CVA in the past. Patient had a carotid duplex reporting severe stenosis of the right ICA greater than 70% and left ICA occlusion as well as questionable subclavian steal syndrome with retrograde flow of the left vertebral artery should be considered. Vascular surgery was consulted for ICA stenosis. Patient is known to Dr. Calderón he has a history of left ICA occlusion. Patient was new onset atrial fibrillation this admission. Started on Eliquis. At home he was maintained on aspirin Plavix and statin. Patient is currently lying in bed resting, states he is not feeling too bad today. is at the bedside. States that she has been concerned that he has had loss of consciousness and generalized weakness as well as shortness of breath and slurred speech intermittently over the last several months. Brain CT shows no acute findings. Patient states he has pain in bilateral upper extremities, secondary to his arthritis. states the day he came in he was having slow slurred speech she states that she felt that his left upper extremity was weaker than his right. Neurology has seen patient states that erik borrero has had recurrent syncopal episodes appears more orthostatic or vasovagal. He recommended continuing Plavix, stopping aspirin as patient is starting Eliquis secondary to new onset atrial fibrillation. Patient currently has no focal deficits at this time. Review of Systems A 14 point review systems was completed all pertinent positives and negatives as stated in the HPI. Past Medical History Past Medical History: COPD, GERD/Reflux, Myocardial Infarction (OK), Rheumatoid Arthritis (RA) Additional Past Medical History / Comment(s): 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, OK at [facility] , history of lumbar spine decompression in 2006 and also in the . His most recent surgery was with Dr. Ramirez whom he saw just last week for chronic low back pain Last Myocardial Infarction Date:: 10/2018 History of Any Multi-Drug Resistant Organisms: None Reported Past Surgical History: Back Surgery, Heart Catheterization With Stent, Hernia Repair, Orthopedic Surgery, Tonsillectomy Additional Past Surgical History / Comment(s): back laminectomy x2, rik hand surgery from injuries, tx varicose veins rik legs, rik cataracts, pain procedures r/t shoulder pain Past Anesthesia/Blood Transfusion Reactions: No Reported Reaction Date of Last Stent Placement:: 10/2018 Past Psychological History: No Psychological Hx Reported Smoking Status: Former smoker Past Alcohol Use History: Rare Additional Past Alcohol Use History / Comment(s): quit 1972, smoked 20 years 1/2-1 ppd Past Drug Use History: None Reported - Past Family History Mother Family Medical History: Cancer Additional Family Medical History / Comment(s): bowel and ovarian Father Family Medical History: Cancer Additional Family Medical History / Comment(s): "black lung" Sister(s) Family Medical History: Cancer Additional Family Medical History / Comment(s): ovarian Medications and Allergies Home Medications Medication Instructions Recorded Confirmed Type Clopidogrel [Plavix] 75 mg PO DAILY 09/27/18 09/11/24 History Tamsulosin [Flomax] 0.4 mg PO HS 09/27/18 09/10/24 History Pantoprazole Sodium [Protonix] 40 mg PO DAILY 07/13/20 09/10/24 History Atorvastatin [Lipitor] 20 mg PO HS 01/13/23 09/10/24 History Finasteride [Proscar] 5 mg PO DAILY 01/13/23 09/10/24 History Gabapentin [Neurontin] 600 mg PO TID 01/13/23 09/10/24 History Albuterol Sulfate [Albuterol 2 puff INHALATION RT-QID PRN 09/10/24 09/10/24 History Sulfate Hfa] HYDROcodone/APAP 5-325MG [Winston 1 tab PO DAILY PRN 09/10/24 09/10/24 History 5-325] Mirtazapine [Remeron] 15 mg PO HS 09/10/24 09/10/24 History Sertraline [Zoloft] 25 mg PO DAILY 09/10/24 09/10/24 History Vitamin B-12(Unknown Dose) 1 tab PO DAILY 09/10/24 09/10/24 History Vitamin C(Unknown Dose) 1 tab PO DAILY 09/10/24 09/10/24 History Vitamin D3(Unknown Dose) 1 tab PO DAILY 09/10/24 09/10/24 History Zinc(Unknown Dose) 1 tab PO DAILY 09/10/24 09/10/24 History Fluticasone/Umeclidin/Vilanter 1 puff INHALATION RT-DAILY 09/11/24 09/11/24 History [Trelegy Ellipta 100-62.5-25] DULoxetine HCL [Cymbalta] 30 mg PO DAILY 09/14/24 09/14/24 History Aspirin [Adult Low Dose Aspirin EC] 81 mg PO DAILY 09/15/24 09/15/24 History Allergies Allergy/AdvReac Type Severity Reaction Status Date / Time No Known Allergies Allergy Verified 09/10/24 13:43 Surgical - Exam Vital Signs Temp Pulse Resp BP Pulse Ox 99 F 64 18 80/58 88 L 09/10/24 02:13 09/10/24 02:13 09/10/24 02:13 09/10/24 02:13 09/10/24 02:13 General appearance: The patient is alert, oriented, appears in no acute distress. HET: Head is normocephalic and atraumatic. Pupils are equal and reactive. Neck: Supple. Right sided bruit. Heart: Regular. Lungs: Equal expansion, normal respiratory effort. Abdomen: Soft, nontender, nondistended. Extremities: Normal skin color and turgor. Palpable bilateral radial pulses, left pulse faint. Neurological: No focal deficits. Strength and sensation are grossly intact. Results - Labs 09/18/24 05:23 09/18/24 05:23 Abnormal Lab Results - Last 24 Hours (Table) 09/16/24 09/18/24 09/18/24 Range/Units 05:25 05:23 05:23 RBC 3.76 L (4.30-5.90) m/uL Hgb 10.8 L (13.0-17.5) gm/dL Hct 33.0 L (39.0-53.0) % Chloride 109 H (98-107) mmol/L HDL Cholesterol 36.50 L (40.00-60.00) mg/dL Vitamin B12 2557.0 H (200.0-944.0) pg/mL Diabetes panel 09/16/24 09/18/24 Range/Units 05:25 05:23 Sodium 142 (137-145) mmol/L Potassium 3.9 (3.5-5.1) mmol/L Chloride 109 H (98-107) mmol/L Carbon Dioxide 29 (22-30) mmol/L BUN 20 (9-20) mg/dL Creatinine 1.10 (0.66-1.25) mg/dL Glucose 97 (74-99) mg/dL Calcium 8.4 (8.4-10.2) mg/dL Triglycerides 94.80 (0.00-149.00) mg/dL HDL Cholesterol 36.50 L (40.00-60.00) mg/dL Calcium panel 09/18/24 Range/Units 05:23 Calcium 8.4 (8.4-10.2) mg/dL Pituitary panel 09/18/24 Range/Units 05:23 Sodium 142 (137-145) mmol/L Potassium 3.9 (3.5-5.1) mmol/L Chloride 109 H (98-107) mmol/L Carbon Dioxide 29 (22-30) mmol/L BUN 20 (9-20) mg/dL Creatinine 1.10 (0.66-1.25) mg/dL Glucose 97 (74-99) mg/dL Calcium 8.4 (8.4-10.2) mg/dL Adrenal panel 09/18/24 Range/Units 05:23 Sodium 142 (137-145) mmol/L Potassium 3.9 (3.5-5.1) mmol/L Chloride 109 H (98-107) mmol/L Carbon Dioxide 29 (22-30) mmol/L BUN 20 (9-20) mg/dL Creatinine 1.10 (0.66-1.25) mg/dL Glucose 97 (74-99) mg/dL Calcium 8.4 (8.4-10.2) mg/dL - Imaging Comments: Brain CT reports no acute intracranial process. Nonspecific white matter changes, likely secondary to chronic small vessel ischemic disease. Remote injury to white matter near right caudate nucleus Carotid ultrasound level reports large hard and soft plaques present bilaterally. Severe stenosis on the right internal carotid artery greater than 70%. Moderate stenosis of the proximal left internal carotid artery. Diastolic flow not identified in the left carotid system. High-grade stenosis versus obstruction should be considered in the mid to distal internal carotid artery. Subclavian steal syndrome with retrograde flow of the left vertebral artery should be considered. Assessment and Plan Assessment: 1. Right internal carotid artery stenosis with history of left ICA occlusion. Right ICA stenosis greater than 70% on carotid duplex which is the same findings as prior carotid ultrasound done in the office however CTA showed approximately 50% stenosis of the right ICA. Recommendation was for medical management 2. Altered mental status changes/encephalopathy possibly due to viral syndrome 3. Acute hypoxic respiratory failure, improved 4. COVID-19 infection 5. COPD 6. Atrial fibrillation on Eliquis 7. Former smoker Plan: 1. Agree with continuing Eliquis, Plavix and statin 2. Await further recommendations from neurology 3. If cleared by neurology, patient can follow-up outpatient with Dr. Browning in next 1 to 2 weeks. Recommend continued medical management 4. Continue with PT/OT/speech therapy Thank you for this consultation, we will continue to follow. The impression and plan of care has been dictated as directed. I performed a history and examination of this patient, discussed the same with the dictator. I agree with the dictator's note ,documented as a scribe. Any a dditional findings or plans will be noted.
[2024-09-18] MEDS ORDERED: ARTIFICIAL TEARS-HYPROMELLOSE DROPS 15 ML BTL BOTH EYES PRN (14:38)
[2024-09-18] MEDS ORDERED: MAG HYDROX/AL HYDROX/SIMETH 30 ML CUP PO PRN (15:12)
--- NOTE | 2024-09-18 15:43 | P.PN ---
Subjective Progress Note Date: 09/18/24 I am Seeing the patient for the first time during this admission. Please refer to Dr. Ruvalcaba's note for further details. Seems the patient has recurrent syncopal spells. Patient has a history of carotid stenosis bilaterally. The was at bedside and she stated the patient had slurring the speech and had some vision issues at home. Objective - Vital Signs Vital signs: Vital Signs Temp 98 F 09/18/24 08:25 Pulse 66 09/18/24 11:30 Resp 18 09/18/24 11:30 BP 119/62 09/18/24 11:30 Pulse Ox 97 09/18/24 11:30 FiO2 Intake & Output 09/17/24 09/18/24 09/18/24 18:59 06:59 18:59 Intake Total 256 Balance 256 Weight 75 kg Intake: IV 20 Invasive Line 4 20 Oral 236 Other: Voiding Method Toilet Toilet Toilet Urinal Urinal Urinal Diaper Diaper Diaper Incontinent Incontinent Incontinent # Voids 1 1 2 # Bowel Movements 1 0 - Exam General: Sitting up in bed and eating his lunch. Neuro: Somewhat limited because of his cooperation. Is oriented to self Pillard he followed few simple commands. No facial weaknes s. - Labs CBC & Chem 7: 09/18/24 05:23 09/18/24 05:23 Labs: Abnormal Lab Results - Last 24 Hours (Table) 09/18/24 09/18/24 Range/Units 05:23 05:23 RBC 3.76 L (4.30-5.90) m/uL Hgb 10.8 L (13.0-17.5) gm/dL Hct 33.0 L (39.0-53.0) % Chloride 109 H (98-107) mmol/L Assessment and Plan Assessment: * Recurrent syncopal spells, seems probable due to significant carotid stenosis * large hard and soft plaques present bilaterally on carotid duplex. Severe stenosis on the right ICA, greater than 70%. Moderate stenosis of the proximal left ICA. Diastolic flow not identified in the left carotid system. High-grade stenosis versus obstruction should be considered in the mid to distal ICA. * CT head revealed old lacunes in the left cerebellum and in the right anterior limb of internal capsule. No acute process. * History of bilateral ICA stenosis. * Coronary artery disease * Paroxysmal atrial fibrillation, new onset currently is on Eliquis. * Acute COVID-19 infection * Acute kidney injury, resolved Plan: * Had a repeat CT of the head on 09/16/2024 and it is negative for any acute process. * Continue Eliquis 5 mg twice daily. Patient is on Plavix 75 mg twice daily. I increased Lipitor from 20 mg to 40 mg nightly for his severe carotid stenosis which help stabilize the plaque. * Lipid panel triglyceride 94, cholesterol is 92, LDL is 36 and HDL is 36 * B12 is 2557 * Hemoglobin A1c is 5.9. * 2D echo revealed LVEF 55%. No obvious regional wall motion abnormalities. Severely increased left atrial volume. Mild central MR. Severe TR. * Carotid Doppler revealed large hard and soft plaques present bilaterally. Severe stenosis on the right ICA, greater than 70%. Moderate stenosis of the proximal left ICA. Diastolic flow not identified in the left carotid system. High-grade stenosis versus obstruction should be considered in the mid to distal ICA. Subclavian steal syndrome with retrograde flow of the left vertebral artery should be considered. * Vascular surgery team is on board and they recommended of patient to follow-up with vascular surgery team as an outpatient but at this time continue medical management. * Will defer the rest of the medical management to primary other specialist * Upon discharge recommend the patient to follow-up with a neurologist as an outpatient within 2 weeks * Otherwise no additional workup and will follow-up with the patient sporadically Time with Patient: Less than 30
--- NOTE | 2024-09-18 16:08 | P.PN ---
Subjective Progress Note Date: 09/18/24 Principal diagnosis: Acute hypoxic respiratory failure, acute COVID-19 infection with encephalopathy and carotid artery stenosis. This is a very pleasant 89-year-old male patient who has a history of hyperlipidemia, gastroesophageal reflux disease, carotid artery stenosis with 100% occlusion on the left and 50% on the right, rheumatoid arthritis, former smoker, chronic obstructive pulmonary disease. He was brought into the emergency room early this morning after being found quite weak by his family. He was hypotensive. They were concerned regarding possible stroke. He also was having bodyaches all over. CT scan of the brain revealed no acute stroke or hemorrhage. Multiple remote infarcts. EKG revealed sinus rhythm with no significant ST or T wave abnormalities. X-ray shows mild pulmonary vascular congestion. Left basilar atelectasis. White count 7.4. Hemoglobin 11.3. Platelets 128. INR 1.0. Sodium 133. Potassium 5.2. Bicarb 17. BUN 45. Creatinine 2.19. Glucose 139. AST 22. ALT 10. Troponin negative x 1. proBNP 1380. Procalcitonin 0.54. Urinalysis clean. Viral screen positive for COVID infection. He is seen today in consultation on the regular medical floor. He is currently sitting up in bed. Awake and alert in no acute distress. He is maintaining O2 saturations in the 90s on 4 L/min per nasal cannula. He is still quite weak. On 09/11/24, patient is being seen for a follow-up. Patient is doing well. No significant respiratory distress. He is known to have COPD and is a former smoker. The patient was also diagnosed having an acute COVID-19 infection during this current admission. No previous vaccination. This is the patient's first infection with the COVID-19 virus. Patient otherwise has no new complaints. He is on 4 L of oxygen by nasal cannula with a pulse ox of 93%. His chest x-ray was repeated today and it showed patchy left mid and lower lobe pulmonary infiltrate with some mild interstitial edema. Sodium level is at 139, potassium is at 5, chloride is 111 with a bicarb of 22, BUN 26 with a creatinine of 1.3. The patient is recovering from his acute kidney injury. He is on normal citrate of 75 cc an hour. He is on heparin subcu for DVT prophylaxis. He remains on Rocephin and Zithromax as an empiric antibiotic coverage. Procalcitonin level is at 0.54. proBNP level was 1380. Previous echocardiogram from 2019 had shown a preserved LV function. On 09/12/2024, the patient is being seen for a follow-up. The patient is currently on room air oxygen with a pulse ox of 93%. Oxygenation is improved as the patient is recovering from his pneumonia. The patient tested positive for COVID-19 and suspected to have a COVID-19 related pneumonia with a possibility of a superinfection with bacteria and based on that the patient was given empiric antibiotic coverage with a combination of Rocephin and Zithromax. He completed Zithromax and he remains on Rocephin and the patient is also on Decadron 6 mg IV on a daily basis. No new complaints for now. Having some limited diarrhea. No nausea. No vomiting. Abdominal pain. Her white cell count is 4.9 with a hemoglobin of 11.7 and a platelet count of 141. BUN is 18 with a creatinine of 1.1 and sodium levels at 141. Stool for C. difficile has been negative. Thyroid function tests are essentially within normal limits. No altered mentation. No other new complaints otherwise for now. 09/13/2024, patient is being seen for a follow-up. Respiratory status remained stable and the patient remains on 2 L of oxygen by nasal cannula with a pulse ox of 98%. Nevertheless, overall, he is feeling very weak and debilitated. He has bodyaches. Afebrile. No fever or chills. Diminished appetite. Cannot eat as the patient has no appetite. Feels lethargic. Noted the patient has been infected with COVID-19. No signs of any respiratory distress. White cell count is at 7 with a hemoglobin 11.4 and a platelet count of 143. BUN is 19 with a creatinine of 1.2. No other significant events overnight. On a separate note, the patient is having cardiac sinus pauses. Cardiology on the case. Thyroid function tests were essentially within normal limits. Echocardiogram was also done yesterday and the patient was found to have a preserved LV function with an ejection fraction of 55 to 60%, severe pulmonary hypertension was noted with an estimated pulmonary artery pressure of around 53. Patient is on a telemetry monitoring. Being considered for a permanent pacemaker insertion during this current hospitalization. On 09/14/2024, the patient is being seen for a follow-up. On today's evaluation, the patient is confused and somewhat delirious. No significant agitation. The patient remains on Decadron 6 mg IV every 24 hours. Oral intake is minimal and the patient has no appetite. He is having generalized weakness. On a separate note, the patient is still being considered for a pacemaker insertion for cardiac pauses for around 8 seconds as documented in the previous telemetry. The white cell count is 5.8 with a hemoglobin 10.9 and platelet count of 138. BUN 22 with a creatinine of 1.1 and a sodium levels at 141. Oxygenation remained stable and the patient remains on 2 L of oxygen by nasal cannula with a pulse ox of 97%. No focal neurological deficit at this point. On 09/15/2024, the patient is being seen for a follow-up. Remains lethargic and weak and quite debilitated. Was able to recognize his . Does limited amount of conversation. No focal neurological deficits. The patient is currently n.p.o. pending an insertion of a pacemaker for cardiac block. Remains on Decadron. Meanwhile, the blood work from today shows no significant abnormalities. The white cell count of 6.6 with a hemoglobin 7.9 and platelet count of 150. BUN is 21 with a creatinine of 1.02 and a sodium levels at 141. On a separate note, the patient has history of depression and his antidepressant medication needs to be restarted. The patient is on Zoloft and Cymbalta and this will be restarted in combination with Remeron 15 mg at bedtime. Rest of the medications remain unchanged.Repeat chest x-ray from today shows persistent patchy bibasilar interstitial opacities with some improvement in aeration in the left lung base. The patient also underwent a upper GI barium swallow and this was a limited exam due to with the patient's condition. There was evidence of severe esophageal dysmotility along with a hiatal hernia. On 09/16/2024, the patient is slightly more communicative. Nevertheless, he is refusing any food intake and he reports poor appetite. He cannot express what is wrong with him. His respiratory status remained stable. He is on 2 L of oxygen by nasal cannula with pulse ox of 96%. Pacemaker insertion was supposed to be done yesterday and this has not been completed. Antidepressant medication was restarted. Labs from today showed a white cell count of 4.9 with a hemoglobin 10.6 BUN 21 with a creatinine of 1.0. No other significant issues overnight. 09/17/2024, the patient has better stamina and he was able to sit up in a chair near his taking some food in the form of Jell-O and liquids. No new complaints. Remains on Decadron 6 mg IV every 24 hours. Oxygenation is stable with a pulse ox of 97% 2 L of oxygen by nasal cannula. No cough or sputum production. No chest tightness or wheezing. The white cell count is 6 with a hemoglobin of 11.8 and a platelet count of 205. BUN is 22 with a creatinine of 1.02. The patient was also seen by neurology in consultation and neurology input is appreciated. 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 He also has internal carotid artery stenosis. His acute kidney injury has improved. The patient is currently on Eliquis for paroxysmal atrial fibrillation. Patient was seen today on 09/18/2024, seems to be very comfortable, not in any distress, patient is denying any significant pulmonary symptoms, on 2 L nasal cannula and O2 sat is 97%, he has intermittent cough, patient is being evaluated by vascular surgery for his internal carotid artery stenosis, the recommendation from vascular surgery is to continue Eliquis Plavix and statin and waiting for more input from neurology for potential clearance for surgery.WBC is 5.5 hemoglobin 10.8 electrolytes are normal renal profile is normal chest x-ray from 09/15/2024 showed patchy bilateral interstitial opacities with improvement. Compared to baseline. Objective - Vital Signs Vital signs: Vital Signs Temp 98 F 09/18/24 08:25 Pulse 66 09/18/24 11:30 Resp 18 09/18/24 11:30 BP 119/62 09/18/24 11:30 Pulse Ox 97 09/18/24 11:30 FiO2 Intake & Output 09/17/24 09/18/24 09/18/24 18:59 06:59 18:59 Intake Total 256 Balance 256 Weight 75 kg Intake: IV 20 Invasive Line 4 20 Oral 236 Other: Voiding Method Toilet Toilet Toilet Urinal Urinal Urinal Diaper Diaper Diaper Incontinent Incontinent Incontinent # Voids 1 1 2 # Bowel Movements 1 0 - Exam Physical exam: GENERAL EXAM: Revealed 89-year-old white male in no distress on 2 L nasal cannula HEAD: Normocephalic. EYES: Normal reaction of pupils, equal size. NOSE: Clear with pink turbinates. THROAT: No erythema or exudates. NECK: No masses, no JVD. CHEST: No chest wall deformity. LUNGS: Clear bilaterally no crackles rhonchi or wheezes CVS: S1 and S2 normal with no audible murmur, regular rhythm. ABDOMEN: No hepatosplenomegaly, normal bowel sounds, no guarding or rigidity. SKIN: No rashes CENTRAL NERVOUS SYSTEM: Alert oriented x 3 no gross focal deficit EXTREMITIES: No clubbing edema or cyanosis - Labs CBC & Chem 7: 09/18/24 05:23 09/18/24 05:23 Labs: Abnormal Lab Results - Last 24 Hours (Table) 09/18/24 09/18/24 Range/Units 05:23 05:23 RBC 3.76 L (4.30-5.90) m/uL Hgb 10.8 L (13.0-17.5) gm/dL Hct 33.0 L (39.0-53.0) % Chloride 109 H (98-107) mmol/L Assessment and Plan Assessment: Impression: Acute hypoxic respiratory failure Acute COVID-19 infection possibly limited pneumonia Multiple constitutional symptoms related to COVID-19 infection Acute encephalopathy related to COVID-19 infection Episodic cardiac pauses Pulmonary hypertension COPD Rheumatoid arthritis Former smoker History of coronary artery disease, previous [place] and previous stent placement Paroxysmal atrial fibrillation Carotid artery disease being addressed by vascular surgery Recommendation: Continue present supportive care measures Continue Decadron Titrate oxygen accordingly Vascular to address surgery once cleared by neurology on his carotids Continue bronchodilators Will continue to follow Time with Patient: Less than 30
--- NOTE | 2024-09-18 21:04 | P.PN ---
Subjective Progress Note Date: 09/18/24 Hospital course: 89-year-old male came in with complaints of shortness of breath cough found to b e in COVID-19. Patient oxygen requirements have gone up from 2 L at baseline at home to 4 L patient is presently on 4 L of oxygen. Patient on exam has slight wheeze. Patient does not smoke quit smoking in 1970s. Patient does not have any history of congestive heart failure chest x-ray is read as possibility of congestion patient has a BNP of 1300 patient is hyponatremic, patient also has acute renal failure and hypotensive patient serum creatinine is 2.4 baseline is essentially within normal limits. 09/11/24: Patient seen and examined at bedside today. Patient continues to be on 4 L of oxygen via nasal cannula and is saturating at 96%. Labs today show BUN 26, creatinine 1.31, procalcitonin 0.54, SARS-CoV-2 positive. Abdomen bladder ultrasound shows no sonographic evidence of acute obstructive uropathy, mildly increased parenchymal echogenicity. Chest x-ray done today shows patchy opacity/infiltrate left mid to lower lung now better, pneumonia not excluded, mild interstitial density remains. 09/12/24: Patient evaluated today. Patient continues to be on 3L of oxygen and is saturating at 96%. Labs today show hemoglobin 11.5, platelet count 141, creatinine 1.10. Abdomen x-ray shows moderate stool burden, obstructive bowel gas pattern. 09/13/24: Patient examined at bedside. He is currently on 2.5L of oxygen. Labs today show hemoglobin 11.4, platelet count 143, bicarb 27, creatinine 1.24, free T4 is 1.24, free T3 is 2.30. Blood culture shows no growth after 48 hours. 09/14/24: Patient evaluated today. He continues to be on 2 L of oxygen via nasal cannula and is saturating at 99%. Labs today show hemoglobin 10.9, platelet count 138, BUN 22, creatinine 1.11. Blood culture shows no growth after 72 hours. 09/15/24: Patient seen and examined at bedside. He continues to be on 2 L of oxygen via nasal cannula. Labs today show hemoglobin 10.9, bicarb 21, BUN 21. Chest x-ray shows persistent patchy bilateral interstitial opacities though with some improving elevation at the left lower lung. 09/16/24: Patient evaluated at bedside. He is currently on 2 L of oxygen via nasal cannula saturating at 97% and his pulse rate is 59 bpm. His mentation is improving. Labs today show hemoglobin 10.6, bicarb 24, BUN 21, creatinine 1.01. Blood culture shows no growth after 5 days. Barium esophagogram shows severe esophageal dysmotility with presbyesophagus, hiatal hernia. 09/17 Patient sitting in chair, more awake and interactive Denies chest pain or dyspnea No abdominal pain vomiting. He has 2 loose bowel movement this morning No urinary complaints he is currently on 2 L oxygen via nasal cannula CBC and BMP looks stable and unremarkable Carotid duplex: Large hard and soft plaques bilaterally with severe stenosis of right ICA 70% and moderate stenosis of the proximal left ICA. Possible subclavian steal syndrome CT of the brain: No acute process. Neurology service on the case, Vani resumed Require vascular surgery consult 09/18/2024 Patient evaluated today in follow up on the medical floor. Resting in bed with at the bedside. Patient was cleared by cardiology to follow up with his known primary product control and logistics analyst for further recommendations regarding permanent pace maker. Patient and thought. Cardiology had not decided yet. Will follow up with recommendations tomorrow. Due to the findings on cardotid duplex vascular surgey was consulted. Currently recommendations for no surgical intervention inpatient and recommending to follow up in the office on discharge. Patient continues to report intermittent shortness of breath although overall improved since admission. Lungs are clear and oxygen saturations of 96% on 2L of oxygen via nasal cannula. Patient continues on IV decadron daily. On combination of eliquis and plavix. Statin increased to high intensity dosing. Review of Systems Constitutional: Denied any fatigue denied any fever. Cardio vascular: denied any chest pain, palpitations Gastrointestinal: denied any nausea, vomiting, diarrhea Pulmonary: Denied any shortness of breath cough Neurologic denied any new focal deficits All inpatient medications were reviewed and appropriate changes in these medications as dictated in the interval history and assessment and plan. PHYSICAL EXAMINATION: GENERAL: The patient is alert and oriented x3, not in any acute distress. Well developed, well nourished. HEENT: Pupils are round and equally reacting to light. EOMI. No scleral icterus. No conjunctival pallor. Normocephalic, atraumatic. No pharyngeal erythema. No thyromegaly. CARDIOVASCULAR: S1 and S2 present. No murmurs, rubs, or gallops. PULMONARY: Chest is clear to auscultation, no wheezing or crackles. ABDOMEN: Soft, nontender, nondistended, normoactive bowel sounds. No palpable organomegaly. MUSCULOSKELETAL: No joint swelling or deformity. EXTREMITIES: No cyanosis, clubbing, or pedal edema. NEUROLOGICAL: Gross neurological examination did not reveal any focal deficits. SKIN: No rashes. Assessment Acute COVID-19 infection with pneumonia Acute on chronic hypoxemic and hypercapnic respiratory failure secondary to COVID-19 pneumonia and COPD exacerbation Generalized weakness and medical debility secondary to above New onset paroxysmal atrial fibrillation Sinus pauses evaluated for permanent pacemaker implantation and cardiology recommending outpatient follow-up Acute metabolic encephalopathy with history of old stroke mentation is currently improved at this time Severe stenosis of the right ICA 70% and moderate stenosis of the proximal left ICA with large hard and soft plaques bilaterally rule out subclavian steal syndrome Acute renal failure prerenal azotemia/ATN secondary to infection and sepsis normalized Metabolic acidosis secondary to MATEUSZ and IV fluids improved Diarrhea has resolved Sick euthyroid repeat labs on an outpatient basis History of myocardial infarction, coronary artery disease with prior cardiac stenting Hyperlipidemia Gastroesophageal reflux disease Rheumatoid arthritis BPH Anxiety GI prophylaxis DVT prophylaxis on Eliquis plan Patient will be continued on IV Decadron daily Continue oxygen via nasal cannula patient already has home oxygen set up Continue Eliquis and Plavix therapy Continue high-dose statin therapy Outpatient follow-up with his main product control and logistics analyst for further evaluation and recommendations regarding permanent pacemaker implantation Vascular surgery outpatient follow-up for the carotid stenosis Continue cardiac telemetry while inpatient Appreciate pulmonology, nephrology and neurology input Cardiology has signed off at this time Monitor renal function and electrolytes Discharge home in the next 24 hours The impression and plan of care has been dictated by Shweta Robles, Nurse Practitioner as directed. Dr. Peter MD I have performed a history and physical examination and medical decision making of this patient, discussed the same with the dictator, and agree with the dictators assessment and plan as written, documented as a scribe. Based on total visit time, I have performed more than 50% of this visit. Objective - Vital Signs Vital signs: Vital Signs Temp 98 F 09/18/24 08:25 Pulse 67 09/18/24 16:00 Resp 17 09/18/24 16:00 BP 110/65 09/18/24 16:00 Pulse Ox 96 09/18/24 16:00 FiO2 Intake & Output 09/18/24 09/18/24 09/19/24 06:59 18:59 06:59 Weight 75 kg Other: Voiding Method Toilet Toilet Urinal Urinal Diaper Diaper Incontinent Incontinent # Voids 1 2 1 # Bowel Movements 0 - Labs CBC & Chem 7: 09/18/24 05:23 09/18/24 05:23 Labs: Abnormal Lab Results - Last 24 Hours (Table) 09/18/24 09/18/24 Range/Units 05:23 05:23 RBC 3.76 L (4.30-5.90) m/uL Hgb 10.8 L (13.0-17.5) gm/dL Hct 33.0 L (39.0-53.0) % Chloride 109 H (98-107) mmol/L Assessment and Plan Time with Patient: Less than 30
[2024-09-18] MEDS: ATORVASTATIN 40 MG TAB PO SCH (21:53)
[2024-09-19 10:16] VITALS: TEMP 98.3
--- NOTE | 2024-09-19 10:18 | P.PN ---
Subjective Progress Note Date: 09/19/24 Patient is seen and examined today as a follow-up. No acute changes through the night. Patient is alert and oriented. No focal deficits noted. Patient's carotid duplex with basically no change from prior carotid duplex done in the office. And last CTA done at [facility] was about 2 years ago showing right ICA stenosis at 60%. Objective - Vital Signs Vital signs: Vital Signs Temp 97.5 F L 09/19/24 03:51 Pulse 61 09/19/24 03:51 Resp 17 09/19/24 03:51 BP 108/62 09/19/24 03:51 Pulse Ox 94 L 09/19/24 03:51 FiO2 Intake & Output 09/18/24 09/19/24 09/19/24 18:59 06:59 18:59 Weight 74.1 kg Other: Voiding Method Toilet Toilet Urinal Urinal Diaper Diaper Incontinent Incontinent # Voids 2 0 - Exam General appearance: The patient is alert, oriented, appears in no acute distress. HET: Head is normocephalic and atraumatic. Pupils are equal and reactive. Neck: Supple. Right carotid bruit. Heart: Regular. Lungs: Equal expansion, normal respiratory effort. Abdomen: Soft, nontender, nondistended. Extremities: Normal skin color and turgor. Neurological: Alert and oriented. Equal strength. Good tone. Speech is fluent. - Labs CBC & Chem 7: 09/18/24 05:23 09/18/24 05:23 Assessment and Plan Assessment: 1. Right internal carotid artery stenosis with history of left ICA occlusion 2. Altered mental status changes/encephalopathy possibly due to viral syndrome 3. Acute hypoxic respiratory failure, improved 4. COVID-19 infection 5. COPD 6. Atrial fibrillation on Eliquis 7. Former smoker Plan: 1. Agree with continuing Eliquis, Plavix and statin 2. No plans for any vascular surgical intervention 3. Continue with medical therapy for carotid stenosis. Recommend outpatient follow-up in the next 2 to 4 weeks with vascular surgery. Patient is cleared from vascular surgery 4. Continue with PT/OT/speech therapy Thank you for this consultation, patient cleared from vascular surgery for discharge. The impression and plan of care has been dictated as directed. Dr. Browning I performed a history and examination of this patient, discussed the same with the dictator. I agree with the dictator's note ,documented as a scribe. Any additional findings or plans will be noted.
--- NOTE | 2024-09-19 12:54 | P.PN ---
Subjective Progress Note Date: 09/19/24 Principal diagnosis: Acute hypoxic respiratory failure, acute COVID-19 infection with encephalopathy and carotid artery stenosis. This is a very pleasant 89-year-old male patient who has a history of hyperlipidemia, gastroesophageal reflux disease, carotid artery stenosis with 100% occlusion on the left and 50% on the right, rheumatoid arthritis, former smoker, chronic obstructive pulmonary disease. He was brought into the emergency room early this morning after being found quite weak by his family. He was hypotensive. They were concerned regarding possible stroke. He also was having bodyaches all over. CT scan of the brain revealed no acute stroke or hemorrhage. Multiple remote infarcts. EKG revealed sinus rhythm with no significant ST or T wave abnormalities. X-ray shows mild pulmonary vascular congestion. Left basilar atelectasis. White count 7.4. Hemoglobin 11.3. Platelets 128. INR 1.0. Sodium 133. Potassium 5.2. Bicarb 17. BUN 45. Creatinine 2.19. Glucose 139. AST 22. ALT 10. Troponin negative x 1. proBNP 1380. Procalcitonin 0.54. Urinalysis clean. Viral screen positive for COVID infection. He is seen today in consultation on the regular medical floor. He is currently sitting up in bed. Awake and alert in no acute distress. He is maintaining O2 saturations in the 90s on 4 L/min per nasal cannula. He is still quite weak. On 09/11/24, patient is being seen for a follow-up. Patient is doing well. No significant respiratory distress. He is known to have COPD and is a former smoker. The patient was also diagnosed having an acute COVID-19 infection during this current admission. No previous vaccination. This is the patient's first infection with the COVID-19 virus. Patient otherwise has no new complaints. He is on 4 L of oxygen by nasal cannula with a pulse ox of 93%. His chest x-ray was repeated today and it showed patchy left mid and lower lobe pulmonary infiltrate with some mild interstitial edema. Sodium level is at 139, potassium is at 5, chloride is 111 with a bicarb of 22, BUN 26 with a creatinine of 1.3. The patient is recovering from his acute kidney injury. He is on normal citrate of 75 cc an hour. He is on heparin subcu for DVT prophylaxis. He remains on Rocephin and Zithromax as an empiric antibiotic coverage. Procalcitonin level is at 0.54. proBNP level was 1380. Previous echocardiogram from 2019 had shown a preserved LV function. On 09/12/2024, the patient is being seen for a follow-up. The patient is currently on room air oxygen with a pulse ox of 93%. Oxygenation is improved as the patient is recovering from his pneumonia. The patient tested positive for COVID-19 and suspected to have a COVID-19 related pneumonia with a possibility of a superinfection with bacteria and based on that the patient was given empiric antibiotic coverage with a combination of Rocephin and Zithromax. He completed Zithromax and he remains on Rocephin and the patient is also on Decadron 6 mg IV on a daily basis. No new complaints for now. Having some limited diarrhea. No nausea. No vomiting. Abdominal pain. Her white cell count is 4.9 with a hemoglobin of 11.7 and a platelet count of 141. BUN is 18 with a creatinine of 1.1 and sodium levels at 141. Stool for C. difficile has been negative. Thyroid function tests are essentially within normal limits. No altered mentation. No other new complaints otherwise for now. 09/13/2024, patient is being seen for a follow-up. Respiratory status remained stable and the patient remains on 2 L of oxygen by nasal cannula with a pulse ox of 98%. Nevertheless, overall, he is feeling very weak and debilitated. He has bodyaches. Afebrile. No fever or chills. Diminished appetite. Cannot eat as the patient has no appetite. Feels lethargic. Noted the patient has been infected with COVID-19. No signs of any respiratory distress. White cell count is at 7 with a hemoglobin 11.4 and a platelet count of 143. BUN is 19 with a creatinine of 1.2. No other significant events overnight. On a separate note, the patient is having cardiac sinus pauses. Cardiology on the case. Thyroid function tests were essentially within normal limits. Echocardiogram was also done yesterday and the patient was found to have a preserved LV function with an ejection fraction of 55 to 60%, severe pulmonary hypertension was noted with an estimated pulmonary artery pressure of around 53. Patient is on a telemetry monitoring. Being considered for a permanent pacemaker insertion during this current hospitalization. On 09/14/2024, the patient is being seen for a follow-up. On today's evaluation, the patient is confused and somewhat delirious. No significant agitation. The patient remains on Decadron 6 mg IV every 24 hours. Oral intake is minimal and the patient has no appetite. He is having generalized weakness. On a separate note, the patient is still being considered for a pacemaker insertion for cardiac pauses for around 8 seconds as documented in the previous telemetry. The white cell count is 5.8 with a hemoglobin 10.9 and platelet count of 138. BUN 22 with a creatinine of 1.1 and a sodium levels at 141. Oxygenation remained stable and the patient remains on 2 L of oxygen by nasal cannula with a pulse ox of 97%. No focal neurological deficit at this point. On 09/15/2024, the patient is being seen for a follow-up. Remains lethargic and weak and quite debilitated. Was able to recognize his . Does limited amount of conversation. No focal neurological deficits. The patient is currently n.p.o. pending an insertion of a pacemaker for cardiac block. Remains on Decadron. Meanwhile, the blood work from today shows no significant abnormalities. The white cell count of 6.6 with a hemoglobin 7.9 and platelet count of 150. BUN is 21 with a creatinine of 1.02 and a sodium levels at 141. On a separate note, the patient has history of depression and his antidepressant medication needs to be restarted. The patient is on Zoloft and Cymbalta and this will be restarted in combination with Remeron 15 mg at bedtime. Rest of the medications remain unchanged.Repeat chest x-ray from today shows persistent patchy bibasilar interstitial opacities with some improvement in aeration in the left lung base. The patient also underwent a upper GI barium swallow and this was a limited exam due to with the patient's condition. There was evidence of severe esophageal dysmotility along with a hiatal hernia. On 09/16/2024, the patient is slightly more communicative. Nevertheless, he is refusing any food intake and he reports poor appetite. He cannot express what is wrong with him. His respiratory status remained stable. He is on 2 L of oxygen by nasal cannula with pulse ox of 96%. Pacemaker insertion was supposed to be done yesterday and this has not been completed. Antidepressant medication was restarted. Labs from today showed a white cell count of 4.9 with a hemoglobin 10.6 BUN 21 with a creatinine of 1.0. No other significant issues overnight. 09/17/2024, the patient has better stamina and he was able to sit up in a chair near his taking some food in the form of Jell-O and liquids. No new complaints. Remains on Decadron 6 mg IV every 24 hours. Oxygenation is stable with a pulse ox of 97% 2 L of oxygen by nasal cannula. No cough or sputum production. No chest tightness or wheezing. The white cell count is 6 with a hemoglobin of 11.8 and a platelet count of 205. BUN is 22 with a creatinine of 1.02. The patient was also seen by neurology in consultation and neurology input is appreciated. 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 He also has internal carotid artery stenosis. His acute kidney injury has improved. The patient is currently on Eliquis for paroxysmal atrial fibrillation. Patient was seen today on 09/18/2024, seems to be very comfortable, not in any distress, patient is denying any significant pulmonary symptoms, on 2 L nasal cannula and O2 sat is 97%, he has intermittent cough, patient is being evaluated by vascular surgery for his internal carotid artery stenosis, the recommendation from vascular surgery is to continue Eliquis Plavix and statin and waiting for more input from neurology for potential clearance for surgery.WBC is 5.5 hemoglobin 10.8 electrolytes are normal renal profile is normal chest x-ray from 09/15/2024 showed patchy bilateral interstitial opacities with improvement. Compared to baseline. Seen today on 09/19/2024, patient is doing well, no active pulmonary symptoms, no cough no wheezing no shortness of breath, vascular surgery is not planning any intermediate intervention regarding his carotid stenosis, plan is to be seen on outpatient basis. Patient is on 2 L nasal cannula, and O2 sat is 99%, Objective - Vital Signs Vital signs: Vital Signs Temp 98.3 F 09/19/24 08:35 Pulse 71 09/19/24 08:35 Resp 18 09/19/24 08:35 BP 104/60 09/19/24 08:35 Pulse Ox 99 09/19/24 08:35 FiO2 Intake & Output 09/18/24 09/19/24 09/19/24 18:59 06:59 18:59 Intake Total 180 Balance 180 Weight 74.1 kg Intake: Oral 180 Other: Voiding Method Toilet Toilet Toilet Urinal Urinal Urinal Diaper Diaper Diaper Incontinent Incontinent Incontinent # Voids 2 0 1 - Exam Physical exam: GENERAL EXAM: Revealed 89-year-old white male in no distress on 2 L nasal cannul a O2 saturation is 99% HEAD: Normocephalic. EYES: Normal reaction of pupils, equal size. NOSE: Clear with pink turbinates. THROAT: No erythema or exudates. NECK: No masses, no JVD. CHEST: No chest wall deformity. LUNGS: Clear bilaterally no crackles rhonchi or wheezes CVS: S1 and S2 normal with no audible murmur, regular rhythm. ABDOMEN: No hepatosplenomegaly, normal bowel sounds, no guarding or rigidity. SKIN: No rashes CENTRAL NERVOUS SYSTEM: Alert oriented x 3 no gross focal deficit EXTREMITIES: No clubbing edema or cyanosis - Labs CBC & Chem 7: 09/18/24 05:23 09/18/24 05:23 Assessment and Plan Assessment: Impression: Acute hypoxic respiratory failure Acute COVID-19 infection possibly limited pneumonia Multiple constitutional symptoms related to COVID-19 infection Acute encephalopathy related to COVID-19 infection Episodic cardiac pauses Pulmonary hypertension COPD Rheumatoid arthritis Former smoker History of coronary artery disease, previous [place] and previous stent placement Paroxysmal atrial fibrillation Carotid artery disease being addressed by vascular surgery Recommendation: Continue Decadron total of 10 days treatment could extend this as an outpatient basis for a total of 10 days Titrate oxygen accordingly To have follow-up with vascular surgery Continue bronchodilators Will clear for discharge if cleared by other consultants including neurology and vascular surgery Will continue to follow Time with Patient: Less than 30
[2024-09-19 14:52] VITALS: BP 104/53; PULSE 60; RESP 17
--- NOTE | 2024-09-20 22:33 | P.DS ---
Providers Date of admission: 09/10/24 05:42 Attending physician: Blanka Heredia Consults: 09/10/24 05:40 Consult Physician Routine Consulting Provider: Samir Campos Consult Reason/Comments: pneumonia Do you want consulting provider notified?: Yes 09/10/24 11:10 Consult Physician Routine Consulting Provider: Jason Gallagher Consult Reason/Comments: ishmael Do you want consulting provider notified?: Yes 09/15/24 09:09 Consult Physician Routine Consulting Provider: Karen Ruvalcaba Consult Reason/Comments: confusion questionable CVA in past Do you want consulting provider notified?: Yes 09/17/24 10:48 Consult Physician Routine Consulting Provider: Vignesh Sheppard Consult Reason/Comments: ICA Stenosis Do you want consulting provider notified?: Yes Primary care physician: Mahesh Reynolds Hospital Course: Final Diagnosis Acute COVID-19 infection with pneumonia Acute on chronic hypoxemic and hypercapnic respiratory failure secondary to COVID-19 pneumonia and COPD exacerbation Generalized weakness and medical debility secondary to above New onset paroxysmal atrial fibrillation Sinus pauses evaluated for permanent pacemaker implantation and cardiology recommending outpatient follow-up Acute metabolic encephalopathy with history of old stroke mentation is currently improved at this time Severe stenosis of the right ICA 70% and moderate stenosis of the proximal left ICA with large hard and soft plaques bilaterally rule out subclavian steal syndrome Acute renal failure prerenal azotemia/ATN secondary to infection and sepsis normalized Metabolic acidosis secondary to ISHMAEL and IV fluids improved Diarrhea has resolved Sick euthyroid repeat labs on an outpatient basis History of myocardial infarction, coronary artery disease with prior cardiac stenting Hyperlipidemia Gastroesophageal reflux disease Rheumatoid arthritis BPH Anxiety Discharge Disposition Stable for discharge home. Patient to continue high dose statin therapy with eliquis and plavix. He will follow up with Dr Browning in the office for further evaluation of the right ICA stenosis. Patient to also follow up with his known neurologist Dr Longo. Patient to follow up closely with pulmonology. Dr Conway information has been provided for follow up. Renal function has normalized. Repeat blood work in 2 to 3 days. Hospital Course 89-year-old male came in with complaints of shortness of breath cough found to b e in COVID-19. Patient oxygen requirements have gone up from 2 L at baseline at home to 4 L on admission. Patient on exam has slight wheeze. Patient does not smoke quit smoking in 1970s. Patient does not have any history of congestive heart failure chest x-ray is read as possibility of congestion patient has a BNP of 1300 patient is hyponatremic, patient also has acute renal failure and hypotensive patient serum creatinine is 2.4 baseline is essentially within normal limits. Admitted to the hospital with consult placed to pulmonology. Follow up Labs show BUN 26, creatinine 1.31, procalcitonin 0.54, SARS-CoV-2 positive. Abdomen bladder ultrasound shows no sonographic evidence of acute obstructive uropathy, mildly increased parenchymal echogenicity. Chest x-ray shows patchy opacity/infiltrate left mid to lower lung now better, pneumonia not excluded, mild interstitial density remains. He was initiated on IV decadron. at the bedside with concern for neurological process or stroke. Carotid duplex: Large hard and soft plaques bilaterally with severe stenosis of right ICA 70% and moderate stenosis of the proximal left ICA. Possible subclavian steal syndrome. CT of the brain: No acute process. Neurology service on the case, Vani resumed. Neurology felt stroke not likely as symptoms nonspecific. Vascular did evaluate the patient and felt the right ica stenosis can be further managed on an outpatient basis. Hospital stay complicated patient went into atrial fibrillation. He is now back in normal sinus rhythm. 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 Bain on discharge. Patient and want to establish care with Dr Caba on discharge. He wears 2L of oxygen at baseline and is currently on 2L with oxygen saturations of 98%. No wheeze noted on examination. He has been up ambulating. He will be discharged home. Please see medication reconciliation for a list of current medications. Thank you for allowing us to participate in the care of this patient. The impression and plan of care has been dictated by Shweta Robles, Nurse Practitioner as directed. Dr. Peter MD I have performed a history and physical examination and medical decision making of this patient, discussed the same with the dictator, and agree with the dictators assessment and plan as written, documented as a scribe. Based on total visit time, I have performed more than 50% of this visit. Patient Condition at Discharge: Stable Plan - Discharge Summary Discharge Rx Participant: Yes New Discharge Prescriptions: New Artificial Tears-Hypromellose [Artificial Tear Drops] 1 drops BOTH EYES QID PRN ml PRN Reason: Dry Eye(S) Sucralfate [Carafate] 1 gm PO AC-TID #90 tab Albuterol Inhaler [Ventolin Hfa Inhaler] 2 puff INHALATION RT-QID PRN #1 each PRN Reason: Shortness Of Breath Or Wheezing Apixaban [Eliquis] 5 mg PO BID #60 tab Atorvastatin [Lipitor] 40 mg PO HS #30 tab Continue Tamsulosin [Flomax] 0.4 mg PO HS Clopidogrel [Plavix] 75 mg PO DAILY Pantoprazole Sodium [Protonix] 40 mg PO DAILY Finasteride [Proscar] 5 mg PO DAILY HYDROcodone/APAP 5-325MG [[place] 5-325] 1 tab PO DAILY PRN PRN Reason: Pain Mirtazapine [Remeron] 15 mg PO HS Vitamin D3(Unknown Dose) 1 tab PO DAILY Vitamin B-12(Unknown Dose) 1 tab PO DAILY Fluticasone/Umeclidin/Vilanter [Trelegy Ellipta 100-62.5-25] 1 puff INHALATION RT-DAILY DULoxetine HCL [Cymbalta] 30 mg PO DAILY Sertraline [Zoloft] 25 mg PO DAILY Albuterol Sulfate [Albuterol Sulfate Hfa] 2 puff INHALATION RT-QID PRN PRN Reason: Cough,SOB/Wheezing Zinc(Unknown Dose) 1 tab PO DAILY Vitamin C(Unknown Dose) 1 tab PO DAILY Discontinued Gabapentin [Neurontin] 600 mg PO TID Atorvastatin [Lipitor] 20 mg PO HS Aspirin [Adult Low Dose Aspirin EC] 81 mg PO DAILY Discharge Medication List Clopidogrel [Plavix] 75 mg PO DAILY 09/27/18 [History] Tamsulosin [Flomax] 0.4 mg PO HS 09/27/18 [History] Pantoprazole Sodium [Protonix] 40 mg PO DAILY 07/13/20 [History] Finasteride [Proscar] 5 mg PO DAILY 01/13/23 [History] Albuterol Sulfate [Albuterol Sulfate Hfa] 2 puff INHALATION RT-QID PRN 09/10/24 [History] HYDROcodone/APAP 5-325MG [[place] 5-325] 1 tab PO DAILY PRN 09/10/24 [History] Mirtazapine [Remeron] 15 mg PO HS 09/10/24 [History] Sertraline [Zoloft] 25 mg PO DAILY 09/10/24 [History] Vitamin B-12(Unknown Dose) 1 tab PO DAILY 09/10/24 [History] Vitamin C(Unknown Dose) 1 tab PO DAILY 09/10/24 [History] Vitamin D3(Unknown Dose) 1 tab PO DAILY 09/10/24 [History] Zinc(Unknown Dose) 1 tab PO DAILY 09/10/24 [History] Fluticasone/Umeclidin/Vilanter [Trelegy Ellipta 100-62.5-25] 1 puff INHALATION RT-DAILY 09/11/24 [History] DULoxetine HCL [Cymbalta] 30 mg PO DAILY 09/14/24 [History] Albuterol Inhaler [Ventolin Hfa Inhaler] 2 puff INHALATION RT-QID PRN #1 each 09/19/24 [Rx] Apixaban [Eliquis] 5 mg PO BID #60 tab 09/19/24 [Rx] Artificial Tears-Hypromellose [Artificial Tear Drops] 1 drops BOTH EYES QID PRN ml 09/19/24 [Rx] Atorvastatin [Lipitor] 40 mg PO HS #30 tab 09/19/24 [Rx] Sucralfate [Carafate] 1 gm PO AC-TID #90 tab 09/19/24 [Rx] Follow up Appointment(s)/Referral(s): Mahesh Reynolds DO [Primary Care Provider] - 1-2 days Hector Caba DO [STAFF PHYSICIAN] - 1 Week (Office will call you back with follow up appointment.) Patrick Browning DO [STAFF PHYSICIAN] - 10/03/24 1:00 pm Samir Campos DO [Doctor of Osteopathic Medicine] - 09/21/24 1:00 pm [facility], [NON-STAFF] - Beto Longo MD [STAFF PHYSICIAN] - 1 Week (Call office to make follow up appointment. ) Ambulatory/Diagnostic Orders: Basic Metabolic Panel [LAB.AMB] Time Frame: 3 Days, Location: None Selected Complete Blood Count w/diff [LAB.AMB] Location: None Selected Patient Instructions/Handouts: COVID-19 (Coronavirus Disease 2019) (DC) Activity/Diet/Wound Care/Special Instructions: Follow up with cardiology on discharge Dr Conway information has been provided Follow up with neurology on discharge Be sure to stay on oxygen while you are at home/walking around/leaving the house until getting clearance from Dr Campos. Discharge Disposition: HOME SELF-CARE
== END 2024-09-19 17:13 | disposition home or self-care (01) | DRG 871 ==
LOC: EC 02:08 → 4SSUR 05:42 → 3SCARD 09-11 22:32
PROVIDERS: ADMIT Hospitalist; ATTEND Hospitalist
DX: A41.89 Other specified sepsis (principal); G93.41 Metabolic encephalopathy; J12.82 Pneumonia due to coronavirus disease 2019; U07.1 COVID-19; N17.0 Acute kidney failure with tubular necrosis; J96.21 Acute and chronic respiratory failure with hypoxia; J96.22 Acute and chronic respiratory failure with hypercapnia; E87.20 Acidosis, unspecified; J44.1 Chronic obstructive pulmonary disease with (acute) exacerbation; J44.0 Chronic obstructive pulmonary disease with (acute) lower respiratory infection; J98.11 Atelectasis; I27.20 Pulmonary hypertension, unspecified; E87.5 Hyperkalemia; M06.9 Rheumatoid arthritis, unspecified; E78.5 Hyperlipidemia, unspecified; F41.9 Anxiety disorder, unspecified; N40.0 Benign prostatic hyperplasia without lower urinary tract symptoms; K21.9 Gastro-esophageal reflux disease without esophagitis; E07.81 Sick-euthyroid syndrome; E86.0 Dehydration; I48.0 Paroxysmal atrial fibrillation; K22.89 Other specified disease of esophagus; K22.4 Dyskinesia of esophagus; I07.1 Rheumatic tricuspid insufficiency; I25.10 Atherosclerotic heart disease of native coronary artery without angina pectoris; I45.10 Unspecified right bundle-branch block; I49.3 Ventricular premature depolarization; I65.23 Occlusion and stenosis of bilateral carotid arteries; K44.9 Diaphragmatic hernia without obstruction or gangrene; I25.2 Old myocardial infarction; Z79.02 Long term (current) use of antithrombotics/antiplatelets; Z79.1 Long term (current) use of non-steroidal anti-inflammatories (NSAID); Z79.82 Long term (current) use of aspirin; Z79.899 Other long term (current) drug therapy; Z86.73 Personal history of transient ischemic attack (TIA), and cerebral infarction without residual deficits; Z87.891 Personal history of nicotine dependence; Z95.5 Presence of coronary angioplasty implant and graft
CPT/HCPCS: 36415; 70450; 71045; 71046; 74018; 74240; 76770; 80048; 80053; 80061; 81003; 82607; 83036; 83605; 83735; 83880; 84145; 84439; 84443; 84481; 84484; 85025; 85027; 85610; 85730; 87040; 87324; 87449; 87636; 93005; 93306; 93880; 94640; 94760; 96361; 96365; 96375; 99291

== ENCOUNTER 2024-12-24 16:41 | Inpatient (IN) | payer MEDICARE ==
[2024-12-24] MEDS: LACTATED RINGERS 1,000 ML IV SCH ×2 (17:22→20:20)
--- NOTE | 2024-12-24 17:23 | CT ---
EXAMINATION TYPE: CT brain cspine wo con DATE OF EXAM: 12/24/2024 5:13 PM COMPARISON: Previous CT head study 09/16/2024. CLINICAL INDICATION: Male, 89 years old with history of fall injury; Fall on thinners. TECHNIQUE: Brain: Multiple axial CT images of the brain were obtained without IV contrast. Cspine: Axial CT images from the skull base to the inferior aspect of T2 we obtained without intraven ous contrast. Coronal and sagittal reformatted images were also reviewed. . CT DLP: 1359.7 mGycm, Automated exposure control for dose reduction was used. FINDINGS: Brain: Extra-axial spaces: No abnormal extra-axial fluid collections. Ventricular system: Dilatation in proportion to cerebral atrophy. Cerebral parenchyma: No acute intraparenchymal hemorrhage or mass effect. The olivia-white junction is well differentiated. Scattered hypoattenuating areas are seen within the white matter. Cerebellum: Unremarkable. Mass effect: No evidence of midline shift. Intracranial vasculature: unremarkable Soft tissues: Normal. Calvarium/osseous structures: No depressed skull fracture. Paranasal sinuses and mastoid air cells: Mucosal thickening in the right maxillary sinus with air flu id levels suggesting component of acute etiology. Visualized orbits: The lenses are surgically removed from the globes. Cervical spine: Fracture: None. Osseous structures: Multilevel intervertebral disc space loss and diffuse anterior ossified formation . Osseous structures appear demineralized. Vertebral alignment: Grade 1 anterolisthesis of C4 on C5. Spinal canal/Neural Foramina: Multilevel facet arthropathy and uncovertebral hypertrophy in combinati on with posterior disc osteophyte complexes cause varying degrees of neural foraminal spinal canal na rrowing. Overall, evaluation of the spinal canal is limited due to streak artifact. Neck soft tissues: Prevertebral soft tissues are within normal limits. Other: The airway is patent. The lung apices are clear. IMPRESSION: 1. No acute intracranial process. 2. No acute fracture or subluxation of the cervical spine. [facility], , 12/24/2024 5:21 PM
[2024-12-24 17:34] LABS: Basophils # (A) 0.02 10*3/uL (0.00-0.10); Basophils % (A) 0.2 %; HCT 33.1 % (39.6-50.0); HGB 11.1 g/dL (13.0-17.0); Lymphocytes # (A) 0.57 10*3/uL (0.90-5.00); Lymphocytes % (A) 5.5 %; MCH 28.9 pg (27.0-32.0); MCHC 33.5 g/dL (32.0-37.0); MCV 86.2 fL (80.0-97.0); Mean Platelet Volume 10.3 fL (9.5-12.2); Monocytes # (A) 0.81 10*3/uL (0.20-1.00); Monocytes % (A) 7.8 %; Neutrophils # (A) 8.91 10*3/uL (1.80-7.70); Neutrophils % (A) 86.2 %; Platelet Count 154 10*3/uL (140-440); RBC 3.84 10*6/uL (4.40-5.60); RDW 14.2 % (11.5-14.5); WBC 10.34 10*3/uL (4.50-10.00)
--- NOTE | 2024-12-24 17:34 | XR ---
EXAMINATION TYPE: XR chest 1V portable DATE OF EXAM: 12/24/2024 5:28 PM COMPARISON: Chest radiograph, most recent dated 10/16/2024. CLINICAL INDICATION: Male, 89 years old with history of Fever; [facility] TECHNIQUE: XR chest 1V portable Frontal view of the chest. FINDINGS: Cardiac silhouette is within normal limits for size. Patchy left lower lobe opacities and trace left effusion. Right lung appears clear. No pneumothorax. No acute osseous abnormality. Severe bilateral degenerative changes of the shoulders. IMPRESSION: Patchy left lower lobe opacities suspicious for pneumonia with trace left effusion. [facility], , 12/24/2024 5:32 PM
[2024-12-24 17:48] LABS: INR 1.2 (<1.2); Partial Thromboplastin Time 26.9 sec (22.0-30.0); Prothrombin Time 12.8 sec (10.0-12.5)
[2024-12-24 17:49] LABS: ALT 12 U/L (4-49); AST 23 U/L (17-59); African American GFR (CKD) 44 (>60 ml/min/1.73 sqM); Albumin 3.5 g/dL (3.5-5.0); Alkaline Phosphatase 75 U/L (38-126); Anion Gap 8 mmol/L; Blood Urea Nitrogen 29 mg/dL (9-20); Calcium 8.8 mg/dL (8.4-10.2); Carbon Dioxide 22 mmol/L (22-30); Chloride 103 mmol/L (98-107); Glucose 140 mg/dL (74-99); Non-African American GFR(CKD) 38 (>60 ml/min/1.73 sqM); Potassium 4.4 mmol/L (3.5-5.1); Sodium 133 mmol/L (137-145); Total Bilirubin 0.7 mg/dL (0.2-1.3); Total Protein 6.1 g/dL (6.3-8.2)
[2024-12-24 18:03] LABS: Appearance,Urine Clear (Clear); Bilirubin,Urine Negative (Negative); Blood,Urine Negative (Negative); Color,Urine Yellow; Glucose,Urine (UA) Negative (Negative); Ketones,Urine Trace (Negative); Leukocyte Esterase,Urine Negative (Negative); Nitrite,Urine Negative (Negative); PH, Urine 5.5 (5.0-8.0); Protein,Urine Trace (Negative); Urobilinogen,Urine <2.0 mg/dL (<2.0)
[2024-12-24] MEDS: AZITHROMYCIN 500 MG in SODIUM CHLORIDE 0.9% 250 ML IVPB STA (18:04)
--- NOTE | 2024-12-24 18:19 | ED ---
General Adult HPI - General Chief complaint: Shortness of Breath Stated complaint: Sob, Fall Time Seen by Provider: 12/24/24 16:49 Source: patient, family Mode of arrival: wheelchair Limitations: altered mental status (Patient does appear to have some mild delirium or dementia) - History of Present Illness Initial comments: This patient is an 89-year-old man here to have evaluation after having fallen and hit his head. The patient reportedly had not been feeling at his baseline. Family noted he had a cough and they were concerned about having possible pneumonia. He does have history of previous aspiration pneumonia. Family also noted that he had lower than usual pulse oximetry. The patient had gotten up and then had fallen striking the left forehead. As he does take Eliquis and Plavix they were concerned and he was brought to have evaluations. -: hour(s) Location: head Quality: dull Consistency: constant Improves with: none Worsens with: none Associated Symptoms: cough, shortness of breath - Related Data Home Medications Medication Instructions Recorded Confirmed Clopidogrel [Plavix] 75 mg PO DAILY 09/27/18 12/24/24 Tamsulosin [Flomax] 0.8 mg PO HS 09/27/18 12/24/24 Pantoprazole Sodium [Protonix] 40 mg PO DAILY 07/13/20 12/24/24 Finasteride [Proscar] 5 mg PO DAILY 01/13/23 12/24/24 Mirtazapine [Remeron] 15 mg PO HS 09/10/24 12/24/24 Sertraline [Zoloft] 25 mg PO DAILY 09/10/24 12/24/24 Vitamin B-12(Unknown Dose) 1 tab PO DAILY 09/10/24 12/24/24 Vitamin C(Unknown Dose) 1 tab PO DAILY 09/10/24 12/24/24 Vitamin D3(Unknown Dose) 1 tab PO DAILY 09/10/24 12/24/24 Zinc(Unknown Dose) 1 tab PO DAILY 09/10/24 12/24/24 Fluticasone/Umeclidin/Vilanter 1 puff INHALATION RT-DAILY 09/11/24 12/24/24 [Trelegy Ellipta 100-62.5-25] DULoxetine HCL [Cymbalta] 30 mg PO DAILY 09/14/24 12/24/24 Artificial Tears-Hypromellose 1 drop BOTH EYES QID PRN 12/24/24 12/24/24 [Artificial Tear Drops] Gabapentin [Neurontin] 600 mg PO TID 12/24/24 12/24/24 HYDROcodone/APAP 7.5-325MG [[place] 1 tab PO DAILY PRN 12/24/24 12/24/24 7.5-325] Meloxicam [Mobic] 7.5 mg PO DAILY PRN 12/24/24 12/24/24 traMADol HCL 50 mg PO BID PRN 12/24/24 12/24/24 Previous Rx's Medication Instructions Recorded Albuterol Inhaler [Ventolin Hfa 2 puff INHALATION RT-QID PRN #1 09/19/24 Inhaler] each Apixaban [Eliquis] 5 mg PO BID #60 tab 09/19/24 Atorvastatin [Lipitor] 40 mg PO HS #30 tab 09/19/24 Cefuroxime [Ceftin] 250 mg PO BID 7 Days #14 tab 12/27/24 Fluconazole [Diflucan] 100 mg PO DAILY 7 Days #7 tablet 12/27/24 predniSONE 0 mg PO DIRECTED 7 Days #22 tab 12/27/24 Allergies Allergy/AdvReac Type Severity Reaction Status Date / Time No Known Allergies Allergy Verified 12/24/24 19:13 Review of Systems ROS Statement: Those systems with pertinent positive or pertinent negative responses have been documented in the HPI. ROS Other: All systems not noted in ROS Statement are negative. Limitations: ROS unobtainable due to patients medical condition Constitutional: Reports: weakness Respiratory: Reports: cough, dyspnea Cardiovascular: Reports: syncope. Denies: chest pain, edema Gastrointestinal: Denies: abdominal pain, nausea, vomiting, diarrhea Genitourinary: Denies: dysuria, hematuria Musculoskeletal: Denies: back pain Skin: Denies: rash Neurological: Reports: headache. 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 His most recent surgery was with Dr. Ramirez whom he saw just last week for chronic low back pain Last Myocardial Infarction Date:: 10/2018 History of Any Multi-Drug Resistant Organisms: None Reported Past Surgical History: Back Surgery, Heart Catheterization With Stent, Hernia Repair, Orthopedic Surgery, Tonsillectomy Additional Past Surgical History / Comment(s): back laminectomy x2, rik hand surgery from injuries, tx varicose veins rik legs, rik cataracts, pain procedures r/t shoulder pain Past Anesthesia/Blood Transfusion Reactions: No Reported Reaction Date of Last Stent Placement:: 10/2018 Past Psychological History: No Psychological Hx Reported Smoking Status: Former smoker Past Alcohol Use History: Rare Past Drug Use History: None Reported - Past Family History Mother Family Medical History: Cancer Additional Family Medical History / Comment(s): bowel and ovarian Father Family Medical History: Cancer Additional Family Medical History / Comment(s): "black lung" Sister(s) Family Medical History: Cancer Additional Family Medical History / Comment(s): ovarian General Exam Limitations: no limitations General appearance: alert Head exam: Present: normocephalic, other (Contusion and abrasion to left frontal parietal area. There is tenderness but no obvious deformity.) Eye exam: Present: normal appearance, PERRL, EOMI. Absent: scleral icterus, conjunctival injection ENT exam: Present: mucous membranes dry Neck exam: Present: normal inspection, full ROM. Absent: tenderness, meningismus Respiratory exam: Present: respiratory distress (Tachypnea), rales, rhonchi. Ab sent: wheezes, stridor, accessory muscle use, decreased breath sounds Cardiovascular Exam: Present: regular rate, normal rhythm, normal heart sounds. Absent: systolic murmur, diastolic murmur, rubs, gallop GI/Abdominal exam: Present: soft. Absent: distended, tenderness, guarding, rebound, rigid, mass Extremities exam: Present: normal inspection, normal capillary refill. Absent: pedal edema, calf tenderness Back exam: Present: normal inspection. Absent: CVA tenderness (R), CVA tenderness (L) Neurological exam: Present: alert, CN II-XII intact. Absent: oriented X3 ( Patient is oriented to person and place but not to date), motor sensory deficit Skin exam: Present: warm, dry, intact, normal color. Absent: rash Course Vital Signs 12/24/24 12/24/24 12/24/24 16:43 17:02 17:03 Temperature 101 F H Pulse Rate 78 84 Respiratory 32 H 22 Rate Blood Pressure 79/47 58/25 O2 Sat by Pulse 84 L 92 L Oximetry 12/24/24 12/24/24 12/24/24 17:05 17:25 17:43 Temperature Pulse Rate 79 75 Respiratory 18 20 Rate Blood Pressure 58/25 68/40 105/44 O2 Sat by Pulse 94 L 97 Oximetry 12/24/24 12/24/24 12/24/24 17:45 18:05 18:08 Temperature 100.9 F H Pulse Rate 81 Respiratory 20 Rate Blood Pressure 97/45 109/59 O2 Sat by Pulse 97 Oximetry 12/24/24 12/24/24 12/24/24 20:21 20:50 21:40 Temperature 99.1 F Pulse Rate 77 76 Respiratory 18 18 Rate Blood Pressure 98/79 107/48 O2 Sat by Pulse 100 100 Oximetry 12/24/24 12/24/24 12/25/24 21:57 23:37 00:04 Temperature 98.5 F Pulse Rate 81 68 72 Respiratory 18 18 18 Rate Blood Pressure 97/53 105/52 126/58 O2 Sat by Pulse 100 99 99 Oximetry 12/25/24 01:14 Temperature Pulse Rate 73 Respiratory 18 Rate Blood Pressure 111/53 O2 Sat by Pulse 99 Oximetry EKG Findings - EKG Results: EKG: sinus rhythm (Rate 85 bpm) - Blocks, [place], Hypertrophy, ST Abn: AV and intraventricular conduction: right bundle branch block (fixed/intermittent, complete/incomplete) (Incomplete) QRS axis and voltage: left axis deviation (-30 to -90) (Borderline) Repolarization changes or abnormalities: nonspecific abnormality, ST segment, and/or T wave Medical Decision Making - Medical Decision Making The patient had chest x-ray that I interpreted as showing lower lobe infiltrate, no acute bony injury or pneumothorax. The patient had CT scan of the brain and cervical spine that I interpreted as n egative for acute bony injury. Negative for acute intracranial hemorrhage, mass effect or midline shift Was pt. sent in by a medical professional or institution (, PA, STOCK FITTER, urgent care, hospital, or care home...) When possible be specific @ -[No] Did you speak to anyone other than the patient for history (EMS, parent, family, police, friend...)? What history was obtained from this source @ -[The patient's family did contribute to history Did you review nursing and triage notes (agree or disagree)? Why? @ -[I reviewed and agree with nursing and triage notes] Were old charts reviewed (outside hosp., previous admission, EMS record, old EKG, old radiological studies, urgent care reports/EKG's, care home records)? Report findings @ -[No old charts were reviewed] Differential Diagnosis (chest pain, altered mental status, abdominal pain women, abdominal pain men, vaginal bleeding, weakness, fever, dyspnea, syncope, headache, dizziness, GI bleed, back pain, seizure, CVA, palpatations, mental health, musculoskeletal)? @ -[not applicable] EKG interpreted by me (3pts min.). @ -[I interpreted as above] X-rays interpreted by me (1pt min.). @ -[I interpreted as above CT interpreted by me (1pt min.). @ -[I interpreted as above U/S interpreted by me (1pt. min.). @ -[None done] What testing was considered but not performed or refused? (CT, X-rays, U/S, labs)? Why? @ -[None] What meds were considered but not given or refused? Why? @ -[None] Did you discuss the management of the patient with other professionals (professionals i.e. , PA, STOCK FITTER, lab, RT, psych nurse, social media manager, outside repairer special, teacher, special officer, manager of case)? Give summary @ -[N Case discussed with admitting physician and treatment recommendations incorporated Was smoking cessation discussed for >3mins.? @ -[No] Was critical care preformed (if so, how long)? @ -[Yes, 35 minutes Were there social determinants of health that impacted care today? How? (Homelessness, low income, unemployed, alcoholism, drug addiction, transportation, low edu. Level, literacy, decrease access to med. care, halfway, rehab)? @ -[No] Was there de-escalation of care discussed even if they declined (Discuss DNR or withdrawal of care, Hospice)? DNR status @ -[No] What co-morbidities impacted this encounter? (DM, HTN, Smoking, COPD, CAD, Cancer, CVA, ARF, Chemo, Hep., AIDS, mental health diagnosis, sleep apnea, morbid obesity)? @ -[COPD, previous NC Was patient admitted / discharged? Hospital course, mention meds given and route, prescriptions, significant lab abnormalities, going to OR and other pertinent info. @ -[Patient is an 89-year-old man here with altered mental status. Workup concerning for pneumonia. The patient started on IV antibiotics and sepsis fluids. Patient admitted to have further care as well as infectious disease consultation. Undiagnosed new problem with uncertain prognosis? @ -[No] Drug Therapy requiring intensive monitoring for toxicity (Heparin, Nitro, Insulin, Cardizem)? @ -[No] Were any procedures done? @ -[No] Diagnosis/symptom? @ -[Acute pneumonia Altered mental status Sepsis Leukocytosis Anemia Acute kidney injury Acute, or Chronic, or Acute on Chronic? @ -[default] Uncomplicated (without systemic symptoms) or Complicated (systemic symptoms)? @ -[default] Side effects of treatment? @ -[No] Exacerbation, Progression, or Severe Exacerbation? @ -[No] Poses a threat to life or bodily function? How? (Chest pain, [place], [place], pneumonia, PE, COPD, DKA, ARF, appy, cholecystitis, CVA, Diverticulitis, Homicidal, Suicidal, threat to staff... and all critical care pts) @ -[No] All treatments are based on ideal body weight as in ED triage - Lab Data Result diagrams: 12/26/24 03:07 12/27/24 02:53 Lab Results 12/24/24 12/24/24 12/24/24 Range/Units 17:17 17:17 17:17 WBC 10.34 H (4.50-10.00) 10*3/uL RBC 3.84 L (4.40-5.60) 10*6/uL Hgb 11.1 L (13.0-17.0) g/dL Hct 33.1 L (39.6-50.0) % MCV 86.2 (80.0-97.0) fL MCH 28.9 (27.0-32.0) pg MCHC 33.5 (32.0-37.0) g/dL Plt Count 154 (140-440) 10*3/uL MPV 10.3 (9.5-12.2) fL Immature Gran % (Auto) 0.3 % Neutrophils % 86.2 % Lymphocytes % 5.5 % Monocytes % 7.8 % Eosinophils % 0.0 % Basophils % 0.2 % Immature Gran # 0.03 (0.00-0.04) 10*3/uL Neutrophils # 8.91 H (1.80-7.70) 10*3/uL Lymphocytes # 0.57 L (0.90-5.00) 10*3/uL Monocytes # 0.81 (0.20-1.00) 10*3/uL Eosinophils # 0.00 L (0.04-0.35) 10*3/uL Basophils # 0.02 (0.00-0.10) 10*3/uL PT 12.8 H (10.0-12.5) sec INR 1.2 H (<1.2) APTT 26.9 (22.0-30.0) sec Sodium 133 L (137-145) mmol/L Potassium 4.4 (3.5-5.1) mmol/L Chloride 103 (98-107) mmol/L Carbon Dioxide 22 (22-30) mmol/L Anion Gap 8 mmol/L BUN 29 H (9-20) mg/dL Creatinine 1.61 H (0.66-1.25) mg/dL Est GFR (CKD-EPI)AfAm 44 (>60 ml/min/1.73 sqM) Est GFR (CKD-EPI)NonAf 38 (>60 ml/min/1.73 sqM) Glucose 140 H (74-99) mg/dL Plasma Lactic Acid Bret (0.7-2.0) mmol/L Calcium 8.8 (8.4-10.2) mg/dL Total Bilirubin 0.7 (0.2-1.3) mg/dL AST 23 (17-59) U/L ALT 12 (4-49) U/L Alkaline Phosphatase 75 (38-126) U/L Troponin I (0.000-0.034) ng/mL Total Protein 6.1 L (6.3-8.2) g/dL Albumin 3.5 (3.5-5.0) g/dL Urine Color Urine Appearance (Clear) Urine pH (5.0-8.0) Ur Specific Mars (1.001-1.035) Urine Protein (Negative) Urine Glucose (UA) (Negative) Urine Ketones (Negative) Urine Blood (Negative) Urine Nitrite (Negative) Urine Bilirubin (Negative) Urine Urobilinogen (<2.0) mg/dL Ur Leukocyte Esterase (Negative) 12/24/24 12/24/24 12/24/24 Range/Units 17:17 17:17 17:56 WBC (4.50-10.00) 10*3/uL RBC (4.40-5.60) 10*6/uL Hgb (13.0-17.0) g/dL Hct (39.6-50.0) % MCV (80.0-97.0) fL MCH (27.0-32.0) pg MCHC (32.0-37.0) g/dL Plt Count (140-440) 10*3/uL MPV (9.5-12.2) fL Immature Gran % (Auto) % Neutrophils % % Lymphocytes % % Monocytes % % Eosinophils % % Basophils % % Immature Gran # (0.00-0.04) 10*3/uL Neutrophils # (1.80-7.70) 10*3/uL Lymphocytes # (0.90-5.00) 10*3/uL Monocytes # (0.20-1.00) 10*3/uL Eosinophils # (0.04-0.35) 10*3/uL Basophils # (0.00-0.10) 10*3/uL PT (10.0-12.5) sec INR (<1.2) APTT (22.0-30.0) sec Sodium (137-145) mmol/L Potassium (3.5-5.1) mmol/L Chloride (98-107) mmol/L Carbon Dioxide (22-30) mmol/L Anion Gap mmol/L BUN (9-20) mg/dL Creatinine (0.66-1.25) mg/dL Est GFR (CKD-EPI)AfAm (>60 ml/min/1.73 sqM) Est GFR (CKD-EPI)NonAf (>60 ml/min/1.73 sqM) Glucose (74-99) mg/dL Plasma Lactic Acid Bret 1.7 (0.7-2.0) mmol/L Calcium (8.4-10.2) mg/dL Total Bilirubin (0.2-1.3) mg/dL AST (17-59) U/L ALT (4-49) U/L Alkaline Phosphatase (38-126) U/L Troponin I 0.015 (0.000-0.034) ng/mL Total Protein (6.3-8.2) g/dL Albumin (3.5-5.0) g/dL Urine Color Yellow Urine Appearance Clear (Clear) Urine pH 5.5 (5.0-8.0) Ur Specific [place] 1.030 (1.001-1.035) Urine Protein Trace H (Negative) Urine Glucose (UA) Negative (Negative) Urine Ketones Trace H (Negative) Urine Blood Negative (Negative) Urine Nitrite Negative (Negative) Urine Bilirubin Negative (Negative) Urine Urobilinogen <2.0 (<2.0) mg/dL Ur Leukocyte Esterase Negative (Negative) Disposition Clinical Impression: Pneumonia, Sepsis, Acute kidney injury, Anemia Disposition: ADMITTED IP TO THIS HOSP Is patient prescribed a controlled substance at d/c from ED?: No
[2024-12-24] MEDS: ACETAMINOPHEN TAB 325 MG TAB PO STA (18:21)
[2024-12-24] MEDS: LACTATED RINGERS 500 ML IV ONE (18:21)
[2024-12-24] MEDS ORDERED: MELOXICAM 7.5 MG TAB PO PRN (19:11)
[2024-12-24] MEDS ORDERED: HYDROcodone/APAP 7.5-325MG 1 EACH TAB PO PRN (19:11)
[2024-12-24] MEDS: LACTATED RINGERS 1,000 ML IV ONE (20:29)
[2024-12-24] MEDS: SYMBICORT 160-4.5 MCG INHALER INHALATION SCH (20:30)
[2024-12-24] MEDS: TAMSULOSIN 0.4 MG CAP.ER.24H PO SCH (21:53)
[2024-12-24] MEDS: MIRTAZAPINE 15 MG TAB PO SCH (21:54)
[2024-12-24] MEDS: ATORVASTATIN 40 MG TAB PO SCH (21:54)
[2024-12-24] MEDS: APIXABAN 2.5 MG TABLET PO SCH (21:54)
[2024-12-24] MEDS: GABAPENTIN 300 MG CAP PO SCH (21:54)
[2024-12-24] MEDS: FAMOTIDINE 20 MG/2 ML VIAL IV SCH (21:55)
[2024-12-25] MEDS: ALBUTEROL NEBULIZED 2.5 MG/3 ML INHALATION PRN (03:22)
[2024-12-25] MEDS ORDERED: NON FORMULARY DRUG (Fluticasone/Umeclidin/Vilanter [Trelegy Ellipta 100-62.5-25] 1 EACH Bl INHALATION SCH (08:00)
[2024-12-25] MEDS: CLOPIDOGREL 75 MG TAB PO SCH (08:24)
[2024-12-25] MEDS: PANTOPRAZOLE 40 MG TABLET PO SCH (08:25)
[2024-12-25] MEDS: FINASTERIDE 5 MG TAB PO SCH (08:25)
[2024-12-25] MEDS: DULoxetine HCL 30 MG CAPSULE.DR PO SCH (08:25)
[2024-12-25] MEDS: SERTRALINE 25 MG TAB PO SCH (08:25)
[2024-12-25] MEDS: TIOTROPIUM 2.5 MCG INHALER INHALATION SCH (09:11)
[2024-12-25 11:30] LABS: Glucose,Whole Blood 123 mg/dL (70-110)
--- NOTE | 2024-12-25 11:46 | P.HPIM ---
History of Present Illness 89-year-old male was brought in because patient had a fall and hit his head. Patient is pleasantly demented. Patient was fever does have leukocytosis patient is complaining of cough with green sputum production. History of COPD. Chest x-ray was read as possible infiltrate in the right lower lobe although I was not able to appreciate any infiltrate. Procalcitonin will be ordered. Patient denied any symptoms of UTI denied any nausea vomiting diarrhea. Patient was also confused yesterday presently alert oriented x 3. Patient does have a Vines catheter which will be discontinued at this time - REVIEW OF SYSTEMS: All other systems are negative except those mentioned in the HPI PHYSICAL EXAMINATION: GENERAL: The patient is alert and oriented x3, not in any acute distress. Well developed, well nourished. HEENT: Pupils are round and equally reacting to light. EOMI. No scleral icterus. No conjunctival pallor. Normocephalic, atraumatic. No pharyngeal erythema. No thyromegaly. CARDIOVASCULAR: S1 and S2 present. No murmurs, rubs, or gallops. PULMONARY: Chest is clear to auscultation, no wheezing or crackles. ABDOMEN: Soft, nontender, nondistended, normoactive bowel sounds. No palpable organomegaly. MUSCULOSKELETAL: No joint swelling or deformity. EXTREMITIES: No cyanosis, clubbing, or pedal edema. NEUROLOGICAL: Gross neurological examination did not reveal any focal deficits. SKIN: No rashes. Assessment and plan -Sepsis possibility of pneumonia. Will obtain sputum cultures, blood cultures obtain procalcitonin level continue with Rocephin azithromycin - Monitor mental status secondary to toxic encephalopathy from sepsis - COPD without any acute exacerbation patient does have acute on chronic hypoxic respiratory failure secondary to pneumonia. 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 , history of lumbar spine decompression in 2006 and also in the . His most recent surgery was with Dr. Ramirez whom he saw just last week for chronic low back pain, neuropothy bilateral lower extremities Last Myocardial Infarction Date:: 10/2018 History of Any Multi-Drug Resistant Organisms: None Reported Past Surgical History: Back Surgery, Heart Catheterization With Stent, Hernia Repair, Orthopedic Surgery, Tonsillectomy Additional Past Surgical History / Comment(s): back laminectomy x2, rik hand surgery from injuries, tx varicose veins rik legs, rik cataracts, pain procedures r/t shoulder pain Past Anesthesia/Blood Transfusion Reactions: No Reported Reaction Date of Last Stent Placement:: 10/2018 Past Psychological History: No Psychological Hx Reported Smoking Status: Former smoker Past Alcohol Use History: Rare Additional Past Alcohol Use History / Comment(s): quit 1972, smoked 20 years 1/2-1 ppd Past Drug Use History: None Reported - Past Family History Mother Family Medical History: Cancer Additional Family Medical History / Comment(s): bowel and ovarian Father Family Medical History: Cancer Additional Family Medical History / Comment(s): "black lung" Sister(s) Family Medical History: Cancer Additional Family Medical History / Comment(s): ovarian Medications and Allergies Home Medications Medication Instructions Recorded Confirmed Type Clopidogrel [Plavix] 75 mg PO DAILY 09/27/18 12/24/24 History Tamsulosin [Flomax] 0.8 mg PO HS 09/27/18 12/24/24 History Pantoprazole Sodium [Protonix] 40 mg PO DAILY 07/13/20 12/24/24 History Finasteride [Proscar] 5 mg PO DAILY 01/13/23 12/24/24 History Mirtazapine [Remeron] 15 mg PO HS 09/10/24 12/24/24 History Sertraline [Zoloft] 25 mg PO DAILY 09/10/24 12/24/24 History Vitamin B-12(Unknown Dose) 1 tab PO DAILY 09/10/24 12/24/24 History Vitamin C(Unknown Dose) 1 tab PO DAILY 09/10/24 12/24/24 History Vitamin D3(Unknown Dose) 1 tab PO DAILY 09/10/24 12/24/24 History Zinc(Unknown Dose) 1 tab PO DAILY 09/10/24 12/24/24 History Fluticasone/Umeclidin/Vilanter 1 puff INHALATION RT-DAILY 09/11/24 12/24/24 History [Trelegy Ellipta 100-62.5-25] DULoxetine HCL [Cymbalta] 30 mg PO DAILY 09/14/24 12/24/24 History Albuterol Inhaler [Ventolin Hfa 2 puff INHALATION RT-QID PRN #1 09/19/24 12/24/24 Rx Inhaler] each Apixaban [Eliquis] 5 mg PO BID #60 tab 09/19/24 12/24/24 Rx Atorvastatin [Lipitor] 40 mg PO HS #30 tab 09/19/24 12/24/24 Rx Artificial Tears-Hypromellose 1 drop BOTH EYES QID PRN 12/24/24 12/24/24 History [Artificial Tear Drops] Gabapentin [Neurontin] 600 mg PO TID 12/24/24 12/24/24 History HYDROcodone/APAP 7.5-325MG [[place] 1 tab PO DAILY PRN 12/24/24 12/24/24 History 7.5-325] Meloxicam [Mobic] 7.5 mg PO DAILY PRN 12/24/24 12/24/24 History traMADol HCL 50 mg PO BID PRN 12/24/24 12/24/24 History Allergies Allergy/AdvReac Type Severity Reaction Status Date / Time No Known Allergies Allergy Verified 12/24/24 19:13 Physical Exam Vitals: Vital Signs Temp Pulse Pulse Resp BP BP Pulse Ox 12/25/24 09:13 94 L 12/25/24 08:00 97.5 F L 80 20 107/68 97 12/25/24 07:45 80 20 12/25/24 03:28 70 18 12/25/24 03:27 68 18 12/25/24 03:22 71 18 12/25/24 02:20 97.5 F L 68 17 147/66 99 12/25/24 01:14 73 18 111/53 99 12/25/24 00:04 72 18 126/58 99 12/24/24 23:37 68 18 105/52 99 12/24/24 21:57 98.5 F 81 18 97/53 100 12/24/24 21:40 76 18 107/48 100 12/24/24 20:50 77 18 98/79 100 12/24/24 20:21 99.1 F 12/24/24 18:08 100.9 F H 12/24/24 18:05 81 20 109/59 97 12/24/24 17:45 97/45 12/24/24 17:43 75 20 105/44 97 12/24/24 17:25 79 18 68/40 94 L 12/24/24 17:05 58/25 12/24/24 17:03 84 22 92 L 12/24/24 17:02 58/12/24/24 16:43 101 F H 78 32 H 79/47 84 L Intake and Output 12/24/24 12/25/24 12/25/24 22:59 06:59 14:59 Intake Total 540 Output Total 1370 Balance -830 Intake: Oral 540 Output: Urine 1370 Other: Voiding Method Indwelling Catheter Indwelling Catheter Weight 74.843 kg 74.843 kg Results CBC & Chem 7: 12/24/24 17:17 12/24/24 17:17 Labs: Abnormal Lab Results - Last 24 Hours (Table) 12/24/24 12/24/24 12/24/24 Range/Units 17:17 17:17 17:17 WBC 10.34 H (4.50-10.00) 10*3/uL RBC 3.84 L (4.40-5.60) 10*6/uL Hgb 11.1 L (13.0-17.0) g/dL Hct 33.1 L (39.6-50.0) % Neutrophils # 8.91 H (1.80-7.70) 10*3/uL Lymphocytes # 0.57 L (0.90-5.00) 10*3/uL Eosinophils # 0.00 L (0.04-0.35) 10*3/uL PT 12.8 H (10.0-12.5) sec INR 1.2 H (<1.2) Sodium 133 L (137-145) mmol/L BUN 29 H (9-20) mg/dL Creatinine 1.61 H (0.66-1.25) mg/dL Glucose 140 H (74-99) mg/dL POC Glucose (mg/dL) (70-110) mg/dL Total Protein 6.1 L (6.3-8.2) g/dL Urine Protein (Negative) Urine Ketones (Negative) 12/24/24 12/25/24 Range/Units 17:56 11:29 WBC (4.50-10.00) 10*3/uL RBC (4.40-5.60) 10*6/uL Hgb (13.0-17.0) g/dL Hct (39.6-50.0) % Neutrophils # (1.80-7.70) 10*3/uL Lymphocytes # (0.90-5.00) 10*3/uL Eosinophils # (0.04-0.35) 10*3/uL PT (10.0-12.5) sec INR (<1.2) Sodium (137-145) mmol/L BUN (9-20) mg/dL Creatinine (0.66-1.25) mg/dL Glucose (74-99) mg/dL POC Glucose (mg/dL) 123 H (70-110) mg/dL Total Protein (6.3-8.2) g/dL Urine Protein Trace H (Negative) Urine Ketones Trace H (Negative) Thrombosis Risk Factor Assmnt - Choose All That Apply Any of the Below Risk Factors Present?: Yes Each Factor Represents 1 point: Abnormal pulmonary function (COPD), Varicose veins Each Risk Factor Represents 3 Points: Age 75 years or older Thrombosis Risk Factor Assessment Total Risk Factor Score: 5 Thrombosis Risk Factor Assessment Level: High Risk
--- NOTE | 2024-12-25 21:39 | P.CONS ---
History of Present Illness - Reason for Consult Consult date: 12/25/24 Pneumonia Requesting physician: Patrick Barron - Chief Complaint Shortness of breath and cough x few days - History of Present Illness Patient is a 89-year-old male with a past medical history significant for COPD reflux [place] rheumatoid arthritis patient has been brought into the hospital after apparently the patient has fell at home patient mention he was trying to draft roller picker something from the floor the next thing he went straight and fell down hitting his head but did not lose any consciousness patient has been complaining of increasing shortness of breath and cough that he been getting worse for the last few days his cough is moderate intensity and is bringing up creamy yellow sputum with occasional dark sputum concerning for blood he is complaining of central chest pain mostly dull aching mild to moderate intensity without radiation with the symptoms the patient has been evaluated on presentation to the hospital patient did have a fever of 101 F patient was nontachycardic hypotensive he was hypoxic currently on 3 L nasal cannula oxygen he did have a white count of 10.34 with a left shift BUN and creatinine has been mildly elevated liver isms are normal urine has been negative patient did have a chest x-ray patchy left lower lobe opacity concerning for pneumonia patient was started on ceftriaxone infectious disease was consulted for further management of antibiotic therapy has received a dose of Zithromax Review of Systems Positive point and negatives has been mentioned in the HPI, complete review of systems was performed and all other systems are negative 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, [place] at [facility] , history of lumbar spine decompression in 2006 and also in the . His most recent surgery was with Dr. Ramirez whom he saw just last week for chronic low back pain, neuropothy bilateral lower extremities Last Myocardial Infarction Date:: 10/2018 History of Any Multi-Drug Resistant Organisms: None Reported Past Surgical History: Back Surgery, Heart Catheterization With Stent, Hernia Repair, Orthopedic Surgery, Tonsillectomy Additional Past Surgical History / Comment(s): back laminectomy x2, rik hand surgery from injuries, tx varicose veins rik legs, rik cataracts, pain procedures r/t shoulder pain Past Anesthesia/Blood Transfusion Reactions: No Reported Reaction Date of Last Stent Placement:: 10/2018 Past Psychological History: No Psychological Hx Reported Smoking Status: Former smoker Past Alcohol Use History: Rare Additional Past Alcohol Use History / Comment(s): quit 1973, smoked 20 years 1/2-1 ppd Past Drug Use History: None Reported - Past Family History Mother Family Medical History: Cancer Additional Family Medical History / Comment(s): bowel and ovarian Father Family Medical History: Cancer Additional Family Medical History / Comment(s): "black lung" Sister(s) Family Medical History: Cancer Additional Family Medical History / Comment(s): ovarian Medications and Allergies Home Medications Medication Instructions Recorded Confirmed Type Clopidogrel [Plavix] 75 mg PO DAILY 09/27/18 12/24/24 History Tamsulosin [Flomax] 0.8 mg PO HS 09/27/18 12/24/24 History Pantoprazole Sodium [Protonix] 40 mg PO DAILY 07/13/20 12/24/24 History Finasteride [Proscar] 5 mg PO DAILY 01/13/23 12/24/24 History Mirtazapine [Remeron] 15 mg PO HS 09/10/24 12/24/24 History Sertraline [Zoloft] 25 mg PO DAILY 09/10/24 12/24/24 History Vitamin B-12(Unknown Dose) 1 tab PO DAILY 09/10/24 12/24/24 History Vitamin C(Unknown Dose) 1 tab PO DAILY 09/10/24 12/24/24 History Vitamin D3(Unknown Dose) 1 tab PO DAILY 09/10/24 12/24/24 History Zinc(Unknown Dose) 1 tab PO DAILY 09/10/24 12/24/24 History Fluticasone/Umeclidin/Vilanter 1 puff INHALATION RT-DAILY 09/11/24 12/24/24 His tory [Trelegy Ellipta 100-62.5-25] DULoxetine HCL [Cymbalta] 30 mg PO DAILY 09/14/24 12/24/24 History Albuterol Inhaler [Ventolin Hfa 2 puff INHALATION RT-QID PRN #1 09/19/24 12/24/24 Rx Inhaler] each Apixaban [Eliquis] 5 mg PO BID #60 tab 09/19/24 12/24/24 Rx Atorvastatin [Lipitor] 40 mg PO HS #30 tab 09/19/24 12/24/24 Rx Artificial Tears-Hypromellose 1 drop BOTH EYES QID PRN 12/24/24 12/24/24 History [Artificial Tear Drops] Gabapentin [Neurontin] 600 mg PO TID 12/24/24 12/24/24 History HYDROcodone/APAP 7.5-325MG [[place] 1 tab PO DAILY PRN 12/24/24 12/24/24 History 7.5-325] Meloxicam [Mobic] 7.5 mg PO DAILY PRN 12/24/24 12/24/24 History traMADol HCL 50 mg PO BID PRN 12/24/24 12/24/24 History Allergies Allergy/AdvReac Type Severity Reaction Status Date / Time No Known Allergies Allergy Verified 12/24/24 19:13 Physical Exam Vitals: Vital Signs Temp Pulse Pulse Resp BP BP Pulse Ox 12/25/24 09:13 94 L 12/25/24 08:00 97.5 F L 80 20 107/68 97 12/25/24 07:45 80 20 12/25/24 03:28 70 18 12/25/24 03:27 68 18 12/25/24 03:22 71 18 12/25/24 02:20 97.5 F L 68 17 147/66 99 12/25/24 01:14 73 18 111/53 99 12/25/24 00:04 72 18 126/58 99 12/24/24 23:37 68 18 105/52 99 12/24/24 21:57 98.5 F 81 18 97/53 100 12/24/24 21:40 76 18 107/48 100 12/24/24 20:50 77 18 98/79 100 12/24/24 20:21 99.1 F 12/24/24 18:08 100.9 F H 12/24/24 18:05 81 20 109/59 97 12/24/24 17:45 97/45 12/24/24 17:43 75 20 105/44 97 12/24/24 17:25 79 18 68/40 94 L 12/24/24 17:05 58/25 12/24/24 17:03 84 22 92 L 12/24/24 17:02 /12/24/24 16:43 101 F H 78 32 H 79/47 84 L Intake and Output 12/24/24 12/25/24 12/25/24 22:59 06:59 14:59 Intake Total 540 Output Total 1370 Balance -830 Intake: Oral 540 Output: Urine 1370 Other: Voiding Method Indwelling Catheter Indwelling Catheter Weight 74.843 kg 74.843 kg GENERAL DESCRIPTION: Elderly male lying in bed, no distress. No tachypnea or accessory muscle of respiration use. HEENT: Shows Pallor , no scleral icterus. Oral mucous membrane is dry. No pharyngeal erythema or thrush NECK: Trachea central, no thyromegaly. LUNGS: Unlabored breathing. Coarse breath sounds bilaterally HEART: S1, S2, regular rate and rhythm. No loud murmur ABDOMEN: Soft, no tenderness , guarding or rigidity, no organomegaly EXTREMITIES: No edema of feet. SKIN: No rash, no masses palpable. NEUROLOGICAL: The patient is awake, alert, oriented x3, mood and affect normal. Results CBC & Chem 7: 12/24/24 17:17 12/24/24 17:17 Labs: Abnormal Lab Results - Last 24 Hours (Table) 12/24/24 12/24/24 12/24/24 Range/Units 17:17 17:17 17:17 WBC 10.34 H (4.50-10.00) 10*3/uL RBC 3.84 L (4.40-5.60) 10*6/uL Hgb 11.1 L (13.0-17.0) g/dL Hct 33.1 L (39.6-50.0) % Neutrophils # 8.91 H (1.80-7.70) 10*3/uL Lymphocytes # 0.57 L (0.90-5.00) 10*3/uL Eosinophils # 0.00 L (0.04-0.35) 10*3/uL PT 12.8 H (10.0-12.5) sec INR 1.2 H (<1.2) Sodium 133 L (137-145) mmol/L BUN 29 H (9-20) mg/dL Creatinine 1.61 H (0.66-1.25) mg/dL Glucose 140 H (74-99) mg/dL POC Glucose (mg/dL) (70-110) mg/dL Total Protein 6.1 L (6.3-8.2) g/dL Urine Protein (Negative) Urine Ketones (Negative) 12/24/24 12/25/24 Range/Units 17:56 11:29 WBC (4.50-10.00) 10*3/uL RBC (4.40-5.60) 10*6/uL Hgb (13.0-17.0) g/dL Hct (39.6-50.0) % Neutrophils # (1.80-7.70) 10*3/uL Lymphocytes # (0.90-5.00) 10*3/uL Eosinophils # (0.04-0.35) 10*3/uL PT (10.0-12.5) sec INR (<1.2) Sodium (137-145) mmol/L BUN (9-20) mg/dL Creatinine (0.66-1.25) mg/dL Glucose (74-99) mg/dL POC Glucose (mg/dL) 123 H (70-110) mg/dL Total Protein (6.3-8.2) g/dL Urine Protein Trace H (Negative) Urine Ketones Trace H (Negative) Assessment and Plan (1) Sepsis Current Visit: Yes Status: Acute Code(s): A41.9 - SEPSIS, UNSPECIFIED ORGANISM SNOMED Code(s): 50857959 (2) Pneumonia Current Visit: No Status: Acute Code(s): J18.9 - PNEUMONIA, UNSPECIFIED ORGANISM SNOMED Code(s): 971961114 Plan: 1patient presented hospital with sepsis and respiratory fever elevated white count associated left lower lobe pneumonia in this patient with underlying hi story of COPD concerning for possible community-acquired pneumonia in view of improvement with Rocephin and Zithromax 2-we will try to obtain sputum for Gram stain culture check inflammatory markers 3-patient will be treated with Rocephin and Zithromax while waiting for the culture to finalize Family at the bedside question concern answered We will follow on clinical condition and cultures to further adjust medication if needed Thank you for this consultation we will follow the patient along with you Dictation was produced using [employer] software. please excuse any grammatical, word or spelling errors. Time with Patient: Greater than 30
[2024-12-25] MEDS: AZITHROMYCIN 500 MG TAB PO SCH (22:40)
[2024-12-26 08:13] LABS: HCT 32.2 % (39.6-50.0); HGB 10.2 g/dL (13.0-17.0); MCH 28.3 pg (27.0-32.0); MCHC 31.7 g/dL (32.0-37.0); MCV 89.4 FL (80.0-97.0); Mean Platelet Volume 10.1 FL (9.5-12.2); NRBC Per 100 WBC 0 X 10*3/uL (0.00-0.01); Platelet Count 136 X 10*3/uL (140-440); RDW 14.5 % (11.5-14.5); WBC 6.22 X 10*3/uL (4.50-10.00)
[2024-12-26 08:32] LABS: BUN/Creat Ratio 15.09 Ratio (12.00-20.00); Blood Urea Nitrogen 16.6 mg/dL (9.0-27.0); Calcium 8.6 mg/dL (8.7-10.3); Carbon Dioxide 24.2 mmol/L (21.6-31.8); Chloride 111 mmol/L (96-109); Glucose 107 mg/dL (70-110); Magnesium 1.8 mg/dL (1.5-2.4); Potassium 4.8 mmol/L (3.5-5.5); Sodium 146 mmol/L (135-145)
[2024-12-26] MEDS: DEXTROSE 50% IVPB SCH (09:40)
[2024-12-26] MEDS: WATER IVPB SCH (09:40)
[2024-12-26] MEDS: CEFTRIAXONE IVPB SCH (09:40)
[2024-12-26] MEDS: DEXTROSE 5% IN WATER 1,000 ML IV SCH (11:30)
--- NOTE | 2024-12-26 14:31 | P.PN ---
Subjective Progress Note Date: 12/26/24 Principal diagnosis: Reason for follow-up is pneumonia Patient is a 89-year-old male with a past medical history significant for COPD reflux [place] rheumatoid arthritis patient has been brought into the hospital after patient had a fall in the home patient did have fever on arrival to the ER with left lower lung opacity concerning for pneumonia prompted this consultation. On today's evaluation that is 12/26/2024, Patient did have resolution of his fever and is afebrile this morning patient denies having any chest pain shortness of breath or any worsening cough, the patient is currently on room air, patient denies any abdominal pain no diarrhea no nausea no vomiting. Patient white count 6.22, creatinine is 1.1 Pro-Jose 0.59 sputum cultures currently pending Objective - Vital Signs Vital signs: Vital Signs Temp 98.0 F 12/26/24 07:15 Pulse 85 12/26/24 07:15 Resp 16 12/26/24 07:15 BP 134/77 12/26/24 07:15 Pulse Ox 92 L 12/26/24 08:45 FiO2 Intake & Output 12/25/24 12/26/24 12/26/24 18:59 06:59 18:59 Output Total 800 1350 150 Balance -800 -1350 -150 Output: Urine 800 1350 150 Coude 800 Other: Voiding Method Indwelling Catheter Toilet Toilet Urinal # Voids 4 # Bowel Movements 0 - Exam GENERAL DESCRIPTION: An elderly male lying in bed in no distress RESPIRATORY SYSTEM: Unlabored breathing , decreased breath sounds at bases HEART: S1 S2 regular rate and rhythm , ABDOMEN: Soft , no tenderness EXTREMITIES: No edema feet - Labs CBC & Chem 7: 12/26/24 03:07 12/26/24 03:07 Labs: Abnormal Lab Results - Last 24 Hours (Table) 12/25/24 12/26/24 12/26/24 Range/Units 11:55 03:07 03:07 RBC 3.60 L (4.40-5.60) X 10*6/uL Hgb 10.2 L (13.0-17.0) g/dL Hct 32.2 L (39.6-50.0) % MCHC 31.7 L (32.0-37.0) g/dL Plt Count 136 L (140-440) X 10*3/uL Sodium 146 H (135-145) mmol/L Chloride 111 H (96-109) mmol/L Calcium 8.6 L (8.7-10.3) mg/dL Procalcitonin 0.59 H (0.02-0.50) ng/mL Microbiology - Last 24 Hours (Table) 12/25/24 12:30 Gram Stain - Preliminary Sputum Sputum Culture - Preliminary 12/24/24 17:18 Blood Culture - Preliminary Blood Assessment and Plan (1) Sepsis Current Visit: Yes Status: Acute Code(s): A41.9 - SEPSIS, UNSPECIFIED ORGANISM SNOMED Code(s): 19112188 (2) Pneumonia Current Visit: No Status: Acute Code(s): J18.9 - PNEUMONIA, UNSPECIFIED ORGANISM SNOMED Code(s): 934066676 Plan: 1patient presented hospital with sepsis and respiratory fever elevated white count associated left lower lobe pneumonia in this patient with underlying history of COPD concerning for possible community-acquired pneumonia 2-blood and sputum cultures currently pending Pro-Jose 0.59 3-patient being treated with Rocephin and Zithromax while waiting for the culture to finalize Dictation was produced using [employer] dictation software. please excuse any grammatical, word or spelling errors. Time with Patient: Less than 30
[2024-12-26] MEDS: traMADol 50 MG TAB PO PRN (21:16)
--- NOTE | 2024-12-27 05:09 | P.CNPUL ---
History of Present Illness Consult date: 12/27/24 Requesting physician: Shweta Robles Reason for consult: COPD Chief complaint: Shortness of breath, cough, fevers History of present illness: Patient is an 89-year-old male with past medical history significant for hypertension, hyperlipidemia, carotid artery stenosis, coronary artery disease, atrial fibrillation, COPD, pulmonary hypertension, former tobacco smoker. Of note, patient recently hospitalized September, with a COVID-19 infection and pneumonia. Return to the emergency department back on 12/24/2024 with fall and head trauma. Reportedly, reaching for his cane and fell. Ecchymosis and bruising to the left forehead. He was anticoagulated on Eliquis. CT of head and C-spine did not show any acute intracranial process. No acute fracture or subluxation of the cervical spine. An additional concern by family was difficulty in breathing and cough. He was febrile on arrival with a temperature max of 101 F. Chest x-ray showing patchy left lower lobe airspace opacities and possible trace left pleural effusion. Previously started on a combination of Rocephin and azithromycin. Current most recent labs from yesterday include a CBC of 6, hemoglobin 10.2, platelets 136. CMP: Sodium 146, potassium 4.8, chloride 111, BUN 16, creatinine 1.1, glucose 107. Troponin 0.016. Procalcitonin 0.59. UA previously unremarkable for infection. Patient currently being evaluated on the general medical floor. He is resting comfortably on room air. Does awaken and answer questions, however, unreliable historian. He does have a persistent cough with mostly clear phlegm production and sputum basin at bedside. There were previous concerns for possible aspiration. Normal saline is infusing at 150 mL/h. No longer febrile. Current vital signs, temperature 98.5 F, heart rate 83 bpm, blood pressure 125/77 mmHg, nontachypneic, SpO2 recorded at 95% on room air. Review of Systems ROS unobtainable: due to mental status Past Medical History Past Medical History: COPD, GERD/Reflux, Myocardial Infarction ([place]), Rheumatoid Arthritis ([place]) Additional Past Medical History / Comment(s): 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, [place] at [facility] , history of lumbar spine decompression in 2006 and also in the . His most recent surgery was with Dr. Ramirez whom he saw just last week for chronic low back pain, neuropothy bilateral lower extremities Last Myocardial Infarction Date:: 10/2018 History of Any Multi-Drug Resistant Organisms: None Reported Past Surgical History: Back Surgery, Heart Catheterization With Stent, Hernia Repair, Orthopedic Surgery, Tonsillectomy Additional Past Surgical History / Comment(s): back laminectomy x2, rik hand surgery from injuries, tx varicose veins rik legs, rik cataracts, pain pr ocedures r/t shoulder pain Past Anesthesia/Blood Transfusion Reactions: No Reported Reaction Date of Last Stent Placement:: 10/2018 Past Psychological History: No Psychological Hx Reported Smoking Status: Former smoker Past Alcohol Use History: Rare Additional Past Alcohol Use History / Comment(s): quit 1972, smoked 20 years 1/2-1 ppd Past Drug Use History: None Reported - Past Family History Mother Family Medical History: Cancer Additional Family Medical History / Comment(s): bowel and ovarian Father Family Medical History: Cancer Additional Family Medical History / Comment(s): "black lung" Sister(s) Family Medical History: Cancer Additional Family Medical History / Comment(s): ovarian Medications and Allergies Home Medications Medication Instructions Recorded Confirmed Type Clopidogrel [Plavix] 75 mg PO DAILY 09/27/18 12/24/24 History Tamsulosin [Flomax] 0.8 mg PO HS 09/27/18 12/24/24 History Pantoprazole Sodium [Protonix] 40 mg PO DAILY 07/13/20 12/24/24 History Finasteride [Proscar] 5 mg PO DAILY 01/13/23 12/24/24 History Mirtazapine [Remeron] 15 mg PO HS 09/10/24 12/24/24 History Sertraline [Zoloft] 25 mg PO DAILY 09/10/24 12/24/24 History Vitamin B-12(Unknown Dose) 1 tab PO DAILY 09/10/24 12/24/24 History Vitamin C(Unknown Dose) 1 tab PO DAILY 09/10/24 12/24/24 History Vitamin D3(Unknown Dose) 1 tab PO DAILY 09/10/24 12/24/24 History Zinc(Unknown Dose) 1 tab PO DAILY 09/10/24 12/24/24 History Fluticasone/Umeclidin/Vilanter 1 puff INHALATION RT-DAILY 09/11/24 12/24/24 History [Trelegy Ellipta 100-62.5-25] DULoxetine HCL [Cymbalta] 30 mg PO DAILY 09/14/24 12/24/24 History Albuterol Inhaler [Ventolin Hfa 2 puff INHALATION RT-QID PRN #1 09/19/24 12/24/24 Rx Inhaler] each Apixaban [Eliquis] 5 mg PO BID #60 tab 09/19/24 12/24/24 Rx Atorvastatin [Lipitor] 40 mg PO HS #30 tab 09/19/24 12/24/24 Rx Artificial Tears-Hypromellose 1 drop BOTH EYES QID PRN 12/24/24 12/24/24 History [Artificial Tear Drops] Gabapentin [Neurontin] 600 mg PO TID 12/24/24 12/24/24 History HYDROcodone/APAP 7.5-325MG [[place] 1 tab PO DAILY PRN 12/24/24 12/24/24 History 7.5-325] Meloxicam [Mobic] 7.5 mg PO DAILY PRN 12/24/24 12/24/24 History traMADol HCL 50 mg PO BID PRN 12/24/24 12/24/24 History Cefuroxime [Ceftin] 250 mg PO BID 7 Days #14 tab 12/27/24 Rx Fluconazole [Diflucan] 100 mg PO DAILY 7 Days #7 tablet 12/27/24 Rx predniSONE 0 mg PO DIRECTED 7 Days #22 tab 12/27/24 Rx Allergies Allergy/AdvReac Type Severity Reaction Status Date / Time No Known Allergies Allergy Verified 12/24/24 19:13 Physical Exam Vitals: Vital Signs Temp Pulse Resp BP BP Pulse Ox 12/27/24 00:35 98.5 F 83 18 125/77 95 12/26/24 20:37 21 12/26/24 19:52 98.0 F 80 21 170/81 98 12/26/24 14:15 98.4 F 77 18 150/73 96 12/26/24 08:45 92 L 12/26/24 07:15 98.0 F 85 16 134/77 97 Intake and Output 12/26/24 12/26/24 12/27/24 14:59 22:59 06:59 Output Total 150 200 600 Balance -150 -200 -600 Output: Urine 150 200 600 Other: Voiding Method Toilet Urinal Urinal # Voids 1 # Bowel Movements 1 GENERAL EXAM: Lethargic, 89-year-old male, generally weak, lying supine in bed HEAD: Normocephalic and atraumatic EYES: Normal reaction of pupils, equal size. NOSE: Clear with pink turbinates. THROAT: No erythema or exudates. NECK: No masses, no JVD. CHEST: No chest wall deformity. LUNGS: Equal air entry with diffuse coarse rhonchi heard bilaterally and throughout. No conversational dyspnea or accessory muscle use. Persistent cough with clear phlegm in bedside sputum basin. CVS: S1 and S2 normal with no audible murmur, regular rhythm. No extra heart sounds ABDOMEN: No hepatosplenomegaly, active bowel sounds, no guarding or rigidity. SPINE: No scoliosis or deformity SKIN: No rashes CENTRAL NERVOUS SYSTEM: No focal deficits, tone is normal in all 4 extremities. EXTREMITIES: There is no peripheral edema, clubbing, or cyanosis. Peripheral pulses are intact. Results - Laboratory Findings CBC and BMP: 12/26/24 03:07 12/27/24 02:53 PT/INR, D-dimer PT 12.8 sec (10.0-12.5) H 12/24/24 17:17 INR 1.2 (<1.2) H 12/24/24 17:17 Abnormal lab findings: Abnormal Labs 12/24/24 12/24/24 12/24/24 17:17 17:17 17:17 WBC 10.34 H RBC 3.84 L Hgb 11.1 L Hct 33.1 L MCHC Plt Count Neutrophils # 8.91 H Lymphocytes # 0.57 L Eosinophils # 0.00 L PT 12.8 H INR 1.2 H Sodium 133 L Chloride BUN 29 H Creatinine 1.61 H Glucose 140 H POC Glucose (mg/dL) Calcium Total Protein 6.1 L Procalcitonin Urine Protein Urine Ketones 12/24/24 12/25/24 12/25/24 17:56 11:29 11:55 WBC RBC Hgb Hct MCHC Plt Count Neutrophils # Lymphocytes # Eosinophils # PT INR Sodium Chloride BUN Creatinine Glucose POC Glucose (mg/dL) 123 H Calcium Total Protein Procalcitonin 0.59 H Urine Protein Trace H Urine Ketones Trace H 12/26/24 12/26/24 03:07 03:07 WBC RBC 3.60 L Hgb 10.2 L Hct 32.2 L MCHC 31.7 L Plt Count 136 L Neutrophils # Lymphocytes # Eosinophils # PT INR Sodium 146 H Chloride 111 H BUN Creatinine Glucose POC Glucose (mg/dL) Calcium 8.6 L Total Protein Procalcitonin Urine Protein Urine Ketones - Diagnostic Findings Chest x-ray: image reviewed Assessment and Plan Assessment: Acute hypoxemic respiratory failure, currently on 2 L/min nasal cannula, possibly secondary to combination of acute COPD exacerbation and left lower lung pneumonia. Acute febrile illness Mechanical fall Recent hospitalization for COVID-19 infection Chronic obstructive pulmonary disease Former tobacco smoker History of paroxysmal atrial fibrillation, anticoagulated on Eliquis, currently sinus Anemia, without acute blood loss noted Hyperlipidemia History of bilateral carotid artery stenosis with severe stenosis in the right ICA greater than 70% and moderate stenosis of the proximal left internal carotid artery. History of coronary artery disease with previous PCI/stent History of rheumatoid arthritis BPH Plan: Patient's medications, labs, imaging reviewed Antibiotics being directed by infectious disease Procalcitonin level 0.59 Blood and sputum culture still pending. Obtain repeat speech consult for swallow evaluation Continue combination of albuterol nebs, Symbicort inhaler, and Spiriva And IV Solu-Medrol We will continue to follow I have personally seen and examined the patient, performed the documentation and the assessment and plan as written. Number of minutes spent on the visit:20 On 12/27/2024, the patient is being seen in joint evaluation along with the nurse practitioner. The patient is an 89-year-old male who sustained a fall. He has chronic issues with fall and imbalance. He seems to be chronically debilitated. At the same time, the patient had a low-grade fever with a Tmax of 101 at time of admission and currently is afebrile. He is on 3 days of oxygen by nasal cannula with a pulse ox of 97%. Chest x-ray from today shows some limited atelectatic changes lung base bilaterally. The patient is currently on Symbicort. The patient is on Ventolin nebulizer treatments on a as needed basis. He remains on IV Solu-Medrol 40 mg every 12 hours. He is also on Spiriva. He was treated with IV Rocephin. Blood work is all stable. White cell count is 6.2 with a hemoglobin 10.2. Electrolytes are all stable and within normal limits. BUN is at 10 with a creatinine of 1.1. The patient's procalcitonin level is at 0.59. He denies having any other specific complaints. 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 CAT scan of the head and cervical spine from admission showed no acute abnormalities. He has no other active issues at this point in time. Noted, in regards to his fall, the patient was given an event monitor and we are still awaiting the final report from cardiology as the event monitor recording has been completed. Time with Patient: Greater than 30
--- NOTE | 2024-12-27 07:21 | XR ---
EXAMINATION TYPE: XR chest 1V portable DATE OF EXAM: 12/27/2024 6:53 AM COMPARISON: 12/24/2024 CLINICAL INDICATION: Male, 89 years old with history of F/U pneumonia, TECHNIQUE: XR chest 1V portable view(s) obtained. FINDINGS: The heart size is normal. The pulmonary vasculature is normal. Mild right lower lobe infiltrate is developing. Previous left lower lobe infiltrate may be improved. Degenerative changes are at the shoulders. IMPRESSION: 1. Changing bibasilar infiltrates. Correlate for atelectasis or pneumonia. [facility], , 12/27/2024 7:18 AM
[2024-12-27 08:13] LABS: BUN/Creat Ratio 9.09 Ratio (12.00-20.00); Calcium 8.2 mg/dL (8.7-10.3); Carbon Dioxide 26.4 mmol/L (21.6-31.8); Chloride 105 mmol/L (96-109); Glucose 141 mg/dL (70-110); Potassium 4.3 mmol/L (3.5-5.5); Sodium 139 mmol/L (135-145)
[2024-12-27] MEDS: cefTRIAXone 2 GM in DEXTROSE 5% IN WATER 50 ML IVPB SCH (09:18)
[2024-12-27] MEDS: methylPREDNISolone SOD SUCCI 40 MG/ML 1 ML VIAL IV SCH (09:18)
--- NOTE | 2024-12-27 10:03 | P.PN ---
Subjective Progress Note Date: 12/26/24 89-year-old male was brought in because patient had a fall and hit his head. Patient is pleasantly demented. Patient was fever does have leukocytosis patient is complaining of cough with green sputum production. History of COPD. Chest x-ray was read as possible infiltrate in the right lower lobe although I was not able to appreciate any infiltrate. Procalcitonin will be ordered. Patient denied any symptoms of UTI denied any nausea vomiting diarrhea. Patient was also confused yesterday presently alert oriented x 3. Patient does have a Vines catheter which will be discontinued at this time - 12/26/2024 Patient was evaluated in follow-up with family at the bedside. They are asking about an IV infusion that they 3 times a week out of some type of required home care prior to the hospital to prevent dehydration. Unsure about this and this would be addressed by social work. Patient has been continued on IV antibiotics in the form of ceftriaxone with concern for COPD exacerbation and pneumonia. He does have significant sputum production which is thick gonzalez in color and was sent down for culturing. Patient follows with pulmonology on an outpatient basis and Dr. Cantrell was consulted at the request of family. at the bedside states that he is not having these presyncopal episodes with dizziness and this is likely related to dehydration she states that he did have an event monitor which was return to cardiology a week ago when he was post to see Dr. Caba in the office on the . The event monitor was placed due to sinus pauses. He remains on cardiac telemetry here with no ectopy or pausing noted. Procalcitonin level is mildly elevated at 0.59. His renal function has normalized with a BUN of 16.6 and a creatinine of 1.1. His white blood cell count is normal at 6.22. He remains on oxygen via nasal cannula at 3 L. Saturations of 98%. He is afebrile. Review of Systems Constitutional: Denied any fatigue denied any fever. Cardio vascular: denied any chest pain, palpitations Gastrointestinal: denied any nausea, vomiting, diarrhea Pulmonary Reports productive cough Neurologic denied any new focal deficits All inpatient medications were reviewed and appropriate changes in these medications as dictated in the interval history and assessment and plan. PHYSICAL EXAMINATION: GENERAL: The patient is alert and oriented x3, not in any acute distress. Well developed, well nourished. HEENT: Pupils are round and equally reacting to light. EOMI. No scleral icterus. No conjunctival pallor. Normocephalic, atraumatic. No pharyngeal erythema. No thyromegaly. CARDIOVASCULAR: S1 and S2 present. No murmurs, rubs, or gallops. PULMONARY: Scattered wheezing. ABDOMEN: Soft, nontender, nondistended, normoactive bowel sounds. No palpable organomegaly. MUSCULOSKELETAL: No joint swelling or deformity. EXTREMITIES: No cyanosis, clubbing, or pedal edema. NEUROLOGICAL: Gross neurological examination did not reveal any focal deficits. SKIN: No rashes. Assessment and plan -Sepsis possibility of pneumonia. Will obtain sputum cultures, blood cultures obtain procalcitonin level continue with Rocephin azithromycin. Procalcitonin level is at mildly elevated at 0.59 - Monitor mental status secondary to toxic encephalopathy from sepsis - COPD without any acute exacerbation patient does have acute on chronic hypoxic respiratory failure secondary to pneumonia. usually uses 2 L of oxygen at home --Gastroesophageal reflux disease coronary artery disease: Had stents in the past - Acute renal failure secondary to possible mild ATN from sepsis patient is on IV fluids-will continue with current levels of IV fluids -Recent reports of sinus pauses per family and recently wore an event monitor which was turned into the cardiology office we would recommend to follow-up outpatient with cardiology DVT prophylaxis: Subcutaneous heparin Full code Patient will continue on IV ceftriaxone sputum culture was sent down. Continue oxygen support and wean as tolerated Continue D5 in water for the mildly elevated sodium level. Pulmonology was consulted Possible discharge home in the next 24 hours The impression and plan of care has been dictated by Shweta Robles, Nurse Practitioner as directed. Dr. Peter MD I have performed a history and physical examination and medical decision making of this patient, discussed the same with the dictator, and agree with the dictators assessment and plan as written, documented as a scribe. Based on total visit time, I have performed more than 50% of this visit. Objective - Vital Signs Vital signs: Vital Signs Temp 98.4 F 12/26/24 14:15 Pulse 77 12/26/24 14:15 Resp 18 12/26/24 14:15 BP 150/73 12/26/24 14:15 Pulse Ox 96 12/26/24 14:15 FiO2 Intake & Output 12/25/24 12/26/24 12/26/24 18:59 06:59 18:59 Output Total 800 1350 350 Balance -800 -1350 -350 Output: Urine 800 1350 350 Coude 800 Other: Voiding Method Indwelling Catheter Toilet Toilet Urinal # Voids 4 # Bowel Movements 0 - Labs CBC & Chem 7: 12/26/24 03:07 12/27/24 02:53 Labs: Abnormal Lab Results - Last 24 Hours (Table) 12/26/24 12/26/24 Range/Units 03:07 03:07 RBC 3.60 L (4.40-5.60) X 10*6/uL Hgb 10.2 L (13.0-17.0) g/dL Hct 32.2 L (39.6-50.0) % MCHC 31.7 L (32.0-37.0) g/dL Plt Count 136 L (140-440) X 10*3/uL Sodium 146 H (135-145) mmol/L Chloride 111 H (96-109) mmol/L Calcium 8.6 L (8.7-10.3) mg/dL Microbiology - Last 24 Hours (Table) 12/25/24 12:30 Gram Stain - Preliminary Sputum Sputum Culture - Preliminary 12/24/24 17:18 Blood Culture - Preliminary Blood Assessment and Plan Time with Patient: Less than 30
[2024-12-27 10:35] VITALS: RESP 18
[2024-12-27 14:23] VITALS: BP 154/73; PULSE 87; TEMP 97.7
--- NOTE | 2024-12-28 11:29 | P.PN ---
Subjective Progress Note Date: 12/27/24 Principal diagnosis: Reason for follow-up is pneumonia Patient is a 89-year-old male with a past medical history significant for COPD reflux NH rheumatoid arthritis patient has been brought into the hospital after patient had a fall in the home patient did have fever on arrival to the ER with left lower lung opacity concerning for pneumonia prompted this consultation. On today's evaluation that is 12/27/2024,the patient denies any fever or any chills, patient is breathing comfortably on 3 L nasal oxygen, the patient denies chest pain shortness of breath and cough is decreased in intensity, patient denies abdominal pain, no nausea vomiting or diarrhea. Patient did have a creatinine 1.1 no CBC was done today sputum is growing [place] Objective - Vital Signs Vital signs: Vital Signs Temp 98 F 12/27/24 07:13 Pulse 73 12/27/24 07:13 Resp 18 12/27/24 08:00 BP 159/72 12/27/24 07:13 Pulse Ox 98 12/27/24 07:13 FiO2 Intake & Output 12/26/24 12/27/24 12/27/24 18:59 06:59 18:59 Intake Total 240 Output Total 350 1700 Balance -350 -1460 Intake: Oral 240 Output: Urine 350 1700 Other: Voiding Method Toilet Urinal Urinal Urinal # Voids 1 4 # Bowel Movements 1 - Exam GENERAL DESCRIPTION: An elderly male lying in bed in no distress RESPIRATORY SYSTEM: Unlabored breathing , decreased breath sounds at bases HEART: S1 S2 regular rate and rhythm , ABDOMEN: Soft , no tenderness EXTREMITIES: No edema feet - Labs CBC & Chem 7: 12/26/24 03:07 12/27/24 02:53 Labs: Abnormal Lab Results - Last 24 Hours (Table) 12/27/24 Range/Units 02:53 BUN/Creatinine Ratio 9.09 L (12.00-20.00) Ratio Glucose 141 H (70-110) mg/dL Calcium 8.2 L (8.7-10.3) mg/dL Microbiology - Last 24 Hours (Table) 12/25/24 12:30 Gram Stain - Final Sputum Sputum Culture - Final [place] albicans 12/24/24 17:18 Blood Culture - Preliminary Blood Assessment and Plan (1) Sepsis Status: Acute Code(s): A41.9 - SEPSIS, UNSPECIFIED ORGANISM SNOMED Code(s): 78163131 (2) Pneumonia Status: Acute Code(s): J18.9 - PNEUMONIA, UNSPECIFIED ORGANISM SNOMED Code(s): 106053776 Plan: 1patient presented hospital with sepsis and respiratory fever elevated white count associated left lower lobe pneumonia in this patient with underlying histo ry of COPD concerning for possible community-acquired pneumonia 2, patient Pro-Jose 0.59, blood culture has been negative sputum is growing [place] more likely colonizer 3-patient has shown improvement with Rocephin and Zithromax will finish therapy with oral Ceftin discussed with SENIOR SOFTWARE PROJECT MANAGER for admitting team Dictation was produced using [employer] dictation software. please excuse any grammatical, word or spelling errors. Time with Patient: Less than 30
--- NOTE | 2024-12-29 18:51 | P.DS ---
Providers Date of admission: 12/24/24 17:57 Attending physician: Ravinder Arango MD Consults: 12/24/24 17:57 Consult Physician Routine Consulting Provider: Samuel Crystal Consult Reason/Comments: Pneumonia. sepsis. Do you want consulting provider notified?: Yes 12/26/24 16:22 Consult Physician Routine Consulting Provider: Rubi Cantrell Consult Reason/Comments: COPD exacerbation Do you want consulting provider notified?: Yes Primary care physician: Mahesh Reynolds Hospital Course: Final Diagnosis -Fall due to losing balance. No syncope noted. -Sepsis due to community acquired pneumonia likely gram negative. -Altered mental status secondary to toxic encephalopathy from sepsis -COPD without mild acute exacerbation -acute on chronic hypoxic respiratory failure secondary to pneumonia. usually u ses 2 L of oxygen at home -Gastroesophageal reflux disease -coronary artery disease: Had stents in the past -Acute renal failure secondary to possible mild ATN from sepsis patient is on IV fluids and renal function is normalized. -Recent reports of sinus pauses per family and recently wore an event monitor which was turned into the cardiology office and reports are showing no cardiac events. Discharge Disposition Patient is stable for discharge home. Patient will continue oral prednisone burst and taper. ID is recommending 7 days of oral cefin and 7 days of oral diflucan on discharge as his sputum sample comes back positive for yung. He is currently on oxygen via nasal cannula at 2L for which he does wear at home. Patient to follow up with infectious disease, pulmonology, cardiology and PCP on discharge. Repeat labs in 2 to 3 days. Hospital Course This is an 89-year-old male was brought in because patient had a fall and hit his head. Patient is pleasantly demented. Patient was fever does have leukocytosis patient is complaining of cough with green sputum production. History of COPD. Chest x-ray was read as possible infiltrate in the right lower lobe although I was not able to appreciate any infiltrate. Patient denied any symptoms of UTI denied any nausea vomiting diarrhea. Patient was also confused yesterday presently alert oriented x 3. Patient does have a Vines catheter which will be discontinued. Patient has been continued on IV antibiotics in the form of ceftriaxone with concern for COPD exacerbation and pneumonia. He does have significant sputum production which is thick gonzalez in color and was sent down for culturing. Patient follows with pulmonology on an outpatient basis and Dr. Cantrell was consulted at the request of family. at the bedside states that he is not having these presyncopal episodes with dizziness and this is likely related to dehydration she states that he did have an event monitor which was return to cardiology a week ago when he was post to see Dr. Caba in the office on the . The event monitor was placed due to sinus pauses. He remains on cardiac telemetry here with no ectopy or pausing noted. Procalcitonin level is mildly elevated at 0.59. His renal function has normalized with a BUN of 16.6 and a creatinine of 1.1. His white blood cell count is normal at 6.22. He remains on oxygen via nasal cannula at 3 L. Saturations of 98%. He is afebrile. Event monitor report was obtained by cardiology and there were no acute events noted. He was advised to reschedule with Dr Caba in the office next week. He is chronically short of breath. He is at baseline. He was evaluated by ID and pulmonology. Please see medication reconciliation for a list of current medications. Thank you for allowing us to participate in the care of this patient. The impression and plan of care has been dictated by Shweta Robles, Nurse Practitioner as directed. Dr. Peter MD I have performed a history and physical examination and medical decision making of this patient, discussed the same with the dictator, and agree with the dictators assessment and plan as written, documented as a scribe. Based on total visit time, I have performed more than 50% of this visit. Patient Condition at Discharge: Good Plan - Discharge Summary New Discharge Prescriptions: New predniSONE 0 mg PO DIRECTED 7 Days #22 tab Cefuroxime [Ceftin] 250 mg PO BID 7 Days #14 tab Fluconazole [Diflucan] 100 mg PO DAILY 7 Days #7 tablet Continue Tamsulosin [Flomax] 0.8 mg PO HS Clopidogrel [Plavix] 75 mg PO DAILY Pantoprazole Sodium [Protonix] 40 mg PO DAILY Finasteride [Proscar] 5 mg PO DAILY Mirtazapine [Remeron] 15 mg PO HS Vitamin D3(Unknown Dose) 1 tab PO DAILY Vitamin B-12(Unknown Dose) 1 tab PO DAILY Fluticasone/Umeclidin/Vilanter [Trelegy Ellipta 100-62.5-25] 1 puff INHALATION RT-DAILY DULoxetine HCL [Cymbalta] 30 mg PO DAILY Albuterol Inhaler [Ventolin Hfa Inhaler] 2 puff INHALATION RT-QID PRN #1 each PRN Reason: Shortness Of Breath Or Wheezing HYDROcodone/APAP 7.5-325MG [Forrest 7.5-325] 1 tab PO DAILY PRN PRN Reason: Pain Meloxicam [Mobic] 7.5 mg PO DAILY PRN PRN Reason: Pain traMADol HCL 50 mg PO BID PRN PRN Reason: Pain Sertraline [Zoloft] 25 mg PO DAILY Zinc(Unknown Dose) 1 tab PO DAILY Vitamin C(Unknown Dose) 1 tab PO DAILY Apixaban [Eliquis] 5 mg PO BID #60 tab Atorvastatin [Lipitor] 40 mg PO HS #30 tab Gabapentin [Neurontin] 600 mg PO TID Artificial Tears-Hypromellose [Artificial Tear Drops] 1 drop BOTH EYES QID PRN PRN Reason: Dry Eye(S) Discharge Medication List Clopidogrel [Plavix] 75 mg PO DAILY 09/27/18 [History] Tamsulosin [Flomax] 0.8 mg PO HS 09/27/18 [History] Pantoprazole Sodium [Protonix] 40 mg PO DAILY 07/13/20 [History] Finasteride [Proscar] 5 mg PO DAILY 01/13/23 [History] Mirtazapine [Remeron] 15 mg PO HS 09/10/24 [History] Sertraline [Zoloft] 25 mg PO DAILY 09/10/24 [History] Vitamin B-12(Unknown Dose) 1 tab PO DAILY 09/10/24 [History] Vitamin C(Unknown Dose) 1 tab PO DAILY 09/10/24 [History] Vitamin D3(Unknown Dose) 1 tab PO DAILY 09/10/24 [History] Zinc(Unknown Dose) 1 tab PO DAILY 09/10/24 [History] Fluticasone/Umeclidin/Vilanter [Trelegy Ellipta 100-62.5-25] 1 puff INHALATION RT-DAILY 09/11/24 [History] DULoxetine HCL [Cymbalta] 30 mg PO DAILY 09/14/24 [History] Albuterol Inhaler [Ventolin Hfa Inhaler] 2 puff INHALATION RT-QID PRN #1 each 09/19/24 [Rx] Apixaban [Eliquis] 5 mg PO BID #60 tab 09/19/24 [Rx] Atorvastatin [Lipitor] 40 mg PO HS #30 tab 09/19/24 [Rx] Artificial Tears-Hypromellose [Artificial Tear Drops] 1 drop BOTH EYES QID PRN 12/24/24 [History] Gabapentin [Neurontin] 600 mg PO TID 12/24/24 [History] HYDROcodone/APAP 7.5-325MG [Forrest 7.5-325] 1 tab PO DAILY PRN 12/24/24 [History] Meloxicam [Mobic] 7.5 mg PO DAILY PRN 12/24/24 [History] traMADol HCL 50 mg PO BID PRN 12/24/24 [History] Cefuroxime [Ceftin] 250 mg PO BID 7 Days #14 tab 12/27/24 [Rx] Fluconazole [Diflucan] 100 mg PO DAILY 7 Days #7 tablet 12/27/24 [Rx] predniSONE 0 mg PO DIRECTED 7 Days #22 tab 12/27/24 [Rx] Follow up Appointment(s)/Referral(s): Mahesh Reynolds DO [Primary Care Provider] - 01/01/25 11:30 am Hector Caba DO [STAFF PHYSICIAN] - 1 Week (no answer at times of discharge. call to schedule a follow up appiontment) Samir Campos DO [Doctor of Osteopathic Medicine] - 01/17/25 2:15 am [facility], [NON-STAFF] - 1 Week Samuel Crystal MD [STAFF PHYSICIAN] - 01/03/25 3:30 am Ambulatory/Diagnostic Orders: Basic Metabolic Panel [LAB.AMB] Location: None Selected Complete Blood Count w/diff [LAB.AMB] Time Frame: 3 Days, Location: None Selected Activity/Diet/Wound Care/Special Instructions: Continue prednisone taper Continue oral ceftin twice daily for 7 days Continue oral diflucan daily for 7 days Sputum culture grew yeast and will be treated with diflucan Continue trelegy inhaler Follow u with Dr Campos in 1 week Spoke with cardiology - No events were detected on the holter monitor They are recommending to see Dye in the office next week Repeat blood work in 2 to 3 days Discharge Disposition: HOME WITH HOME HEALTH SERVICES
== END 2024-12-27 18:19 | disposition home health service (06) | DRG 871 ==
LOC: EC 16:41 → 4SSUR 17:57
PROVIDERS: ADMIT Internal Medicine; ATTEND Internal Medicine
DX: A41.50 Gram-negative sepsis, unspecified (principal); B37.1 Pulmonary candidiasis; G92.8 Other toxic encephalopathy; J96.21 Acute and chronic respiratory failure with hypoxia; N17.0 Acute kidney failure with tubular necrosis; J44.0 Chronic obstructive pulmonary disease with (acute) lower respiratory infection; I27.20 Pulmonary hypertension, unspecified; F03.90 Unspecified dementia, unspecified severity, without behavioral disturbance, psychotic disturbance, mood disturbance, and anxiety; M06.9 Rheumatoid arthritis, unspecified; I10 Essential (primary) hypertension; D64.9 Anemia, unspecified; N17.9 Acute kidney failure, unspecified; R65.20 Severe sepsis without septic shock; B37.7 Candidal sepsis; I49.5 Sick sinus syndrome; I48.0 Paroxysmal atrial fibrillation; E86.0 Dehydration; S00.83XA Contusion of other part of head, initial encounter; M50.321 Other cervical disc degeneration at C4-C5 level; M47.892 Other spondylosis, cervical region; M48.02 Spinal stenosis, cervical region; M25.78 Osteophyte, vertebrae; E78.5 Hyperlipidemia, unspecified; N40.0 Benign prostatic hyperplasia without lower urinary tract symptoms; G62.9 Polyneuropathy, unspecified; I83.93 Asymptomatic varicose veins of bilateral lower extremities; I25.10 Atherosclerotic heart disease of native coronary artery without angina pectoris; I25.2 Old myocardial infarction; K21.9 Gastro-esophageal reflux disease without esophagitis; W19.XXXA Unspecified fall, initial encounter; Z79.01 Long term (current) use of anticoagulants; Z79.02 Long term (current) use of antithrombotics/antiplatelets; Z79.1 Long term (current) use of non-steroidal anti-inflammatories (NSAID); Z79.899 Other long term (current) drug therapy; Z86.16 Personal history of COVID-19; Z87.01 Personal history of pneumonia (recurrent); Z87.891 Personal history of nicotine dependence; Z95.5 Presence of coronary angioplasty implant and graft; Y92.099 Unspecified place in other non-institutional residence as the place of occurrence of the external cause; Z98.42 Cataract extraction status, left eye; Z98.41 Cataract extraction status, right eye; Z87.19 Personal history of other diseases of the digestive system
CPT/HCPCS: 36415; 70450; 71045; 72125; 80048; 80053; 81003; 83605; 83735; 84145; 84295; 84484; 85025; 85027; 85610; 85730; 87040; 87070; 87205; 93005; 94640; 94760; 96361; 96365; 96367; 96375; 99291

== ENCOUNTER → 2025-02-16 | Outpatient (CLI) | payer MEDICARE ==
--- NOTE | 2025-02-16 19:15 | PE ---
EXAMINATION TYPE: PET CT fusion skull to thigh DATE OF EXAM: 02/16/2025 CLINICAL INDICATION:Male, 89 years old with history of R91.8 abnormal inaging; TECHNIQUE: Following the intravenous administration of 12.31 mCi of F-18 FDG, whole body images are performed from the skull base to the Mid thigh. Images are reviewed on the computer in the coronal, axial, and sagittal planes. Reconstructed rotating images are created on independent workstation an d reviewed on the computer. A non-contrast CT is performed in conjunction with the PET scan. Glucos e level 102 mg/dL CT DLP: 832 mGycm, Automated exposure control for dose reduction was used. COMPARISON: CT 12/24/2024, 01/25/2025, PET/CT None, MRI: None FINDINGS: Mediastinal SUV mean is 1.9. Hepatic parenchyma SUV mean is 2.8. SKULL BASE AND NECK: No suspicious radiotracer activity. CHEST, MEDIASTINUM, AND HILAR REGION: No suspicious radiotracer activity. Bilateral basilar atelectasis blunting the costophrenic angles. No suspicious pulmonary nodules ident ified. ABDOMEN AND PELVIS: No suspicious radiotracer activity. MUSCULOSKELETAL STRUCTURES: No suspicious radiotracer activity. OTHER CT: Bilaterally aphakia. Atherosclerosis of the arterial vasculature. Severe degeneration capellan es of the shoulders. Aortic valve calcifications are mild severe coronary artery calcifications. Smal l hiatal hernia. Nonobstructing right renal calculus. Right simple appearing renal cysts. Left nonobs tructing renal calculus. Prostate calcification. Bilateral fat-containing inguinal hernias right grea ter left. IMPRESSION: No suspicious radiotracer activity. No suspicious FDG avid pulmonary nodules. Basilar atelectasis in the lung bases as seen on prior CT. [facility], , 02/16/2025 7:13 PM
== END | disposition home or self-care (01) ==
LOC: RADPETMAIN 12:46
PROVIDERS: ATTEND Internal Medicine Critical Care Medicine
DX: R91.8 Other nonspecific abnormal finding of lung field (principal); J98.11 Atelectasis
CPT/HCPCS: 78815; A9552